=== PATIENT | male | born 1995 | race Caucasian/White ===

== ENCOUNTER 2022-08-17 06:53 | Emergency (ER) | payer OTHER, SELFPAY ==
[2022-08-17] VITALS (7 sets, daily range): BP systolic 117–143; BP diastolic 71–81; PULSE 59–85; RESP 14–18; TEMP 36.8; O2SAT 97–100; BMI 36.3
--- NOTE | 2022-08-17 07:26 | ED_ITS ---
HPI - General Adult General Chief complaint: Neuro Symptoms/Deficit Stated complaint: SYNCOPE 08/16/22 @2000 Time Seen by Provider: 08/17/22 07:15 Source: patient Mode of arrival: walk-in Limitations: no limitations History of Present Illness HPI narrative: this patient's here for evaluation at two events one occurred Tuesday night one occurred last night. Since Tuesday he was out with friends drinking quite substantially and felt to be had feeling of tightness and lightheadedness and may have passed out. His friends did not bring him to the hospital for evaluation. He went home and rest over the weekend felt fine. He was in his room last night by himself in the felt a tightness developing in his arms and he had a sit up in bed so that he didn't pass out. He doesn't recall what happened and he is alone. On his way to work today he was holding the steering well with his right arm and started getting tense so he let go and held discerning what this left arm and thought that he should go to the hospital. He used to be a very very heavy drinker but until Tuesday night he spent drinking a little bit less. He also uses marijuana over the weekend. He is not on any medication at all. His family doctor retired but he did not try to get the new substitute doctor to see him. There are no family or personal history of seizures or other neuromuscular diseases. He does get frequent migraine headaches. He did not have any trauma or injury recently has not been sick with nausea vomiting diarrhea shortness of breath chest colds cough and congestion are all negative. He's not had any blood work done in many many years . he was not incontinent of urine. He did not bite his tongue. He really did not describe any ictal phase after these events. He has no history of syncope or cardiac palpitations. Related Data Home Medications Medication Instructions Recorded Confirmed albuterol sulfate 90 mcg/actuation 2 inh inhalation Q8H PRN shortness 08/17/22 08/17/22 aerosol inhaler of breath or wheezing Allergies Allergy/AdvReac Type Severity Reaction Status Date / Time No Known Drug Allergies Allergy Verified 08/17/22 06:59 PFSH PFSH Social History Smoking status: Light tobacco smoker Exam Narrative Exam Narrative: awake alert vital signs as noted. He is afebrile. He is not particularly anxious is fully cooperative he looks well he's on a cell phone taxing. Constitutional well-hydrated well-nourished male moves about comfortably cognition and mentation all appears normal this time. HEENT shows no evidence of tongue lax lacerations injuries to the buccal mucosa or dental problems. Neck is soft and supple with no meningeal irritation. Amish was his lungs are clear no wheezes rales or rhonchi. Heart sounds are normal with no arrhythmia clicks rubs or gallops. Neurological examination shows cranial nerves II-12 are normal. Gross motor skills cognition and mentation are all completely normal. Cerebellar function testing is normal. Constitutional Vital Signs - 24 hr 08/17/22 07:00 08/17/22 07:17 08/17/22 07:11 Temperature 98.2 F Pulse Rate Pulse Rate [Monitor] 59 L Respiratory Rate 16 18 Blood Pressure Blood Pressure [Left Arm] 139/81 H Pulse Oximetry 97 97 97 Oxygen Delivery Method Room Air Room Air 08/17/22 07:15 08/17/22 07:31 Temperature Pulse Rate 73 68 Pulse Rate [Monitor] Respiratory Rate 15 14 Blood Pressure 126/71 H 117/77 Blood Pressure [Left Arm] Pulse Oximetry Oxygen Delivery Method Course Vital Signs Vital signs: Vital Signs Temperature 98.2 F 08/17/22 07:00 Pulse Rate 59 L 08/17/22 07:00 Respiratory Rate 16 08/17/22 07:00 Blood Pressure 139/81 H 08/17/22 07:00 Pulse Oximetry 97 08/17/22 07:00 Oxygen Delivery Method Room Air 08/17/22 07:00 Temperature 98.2 F 08/17/22 07:00 Pulse Rate 68 08/17/22 07:31 Respiratory Rate 14 08/17/22 07:31 Blood Pressure 117/77 08/17/22 07:31 Pulse Oximetry 97 08/17/22 07:17 Oxygen Delivery Method Room Air 08/17/22 07:17 Medical Decision Making MDM Narrative Medical decision making narrative: patient presents with an interesting history is not clear-cut at this time. His symptoms suggest neurological etiology. He previously was treated for some mental health issues but since he stopped drinking gotten his life together he seems to be doing better but he still was using marijuana and that may or may not be contributing. Neither case with from the primary care doctor and local neurology group Lab Data Labs: Lab Results 08/17/22 Range/Units 07:37 WBC 6.2 (4.0-11.0) 10^3/uL RBC 4.72 (4.70-6.10) 10^6/uL Hgb 14.5 (14.0-18.0) g/dL Hct 41.7 L (42.0-54.0) % MCV 88.3 (80.0-94.0) fL MCH 30.7 (25.9-34.0) pg MCHC 34.8 (29.9-35.2) g/dL RDW 12.3 (11.0-15.0) % Plt Count 351 (150-450) 10^3/uL MPV 9.8 (9.5-13.5) fL Neut % (Auto) 53.6 (43.0-75.0) % Lymph % (Auto) 28.2 (20.5-60.0) % [place] % (Auto) 10.7 (1.7-12.0) % Eos % (Auto) 6.7 (0.9-7.0) % Baso % (Auto) 0.5 (0.2-2.0) % Neut # (Auto) 3.3 (1.4-6.5) 10^3/uL Lymph # (Auto) 1.8 (1.2-3.8) 10^3/uL [place] # (Auto) 0.7 (0.3-0.8) 10^3/uL Eos # (Auto) 0.4 (0.0-0.7) 10^3/uL Baso # (Auto) 0.0 (0.0-0.1) 10^3/uL Abs Immat Gran (auto) 0.02 (0.00-0.03) 10^3/uL Imm/Tot Granulo (auto) 0.3 (0.0-0.5) % Sodium 139 (136-145) mmol/L Potassium 4.3 (3.5-5.1) mmol/L Chloride 104 (98-107) mmol/L Carbon Dioxide 23.9 (21.0-32.0) mmol/L Anion Gap 15.4 BUN 14.0 (7.0-18.0) mg/dL Creatinine 0.92 (0.70-1.30) mg/dL Est GFR ( Amer) >60 (>=60) Est GFR (Non-Af Amer) >60 (>=60) BUN/Creatinine Ratio 15.2 Glucose 107 H (74-106) mg/dL Calcium 8.7 (8.5-10.1) mg/dL Total Bilirubin 0.5 (0.2-1.0) mg/dL AST 21 (15-37) U/L ALT 41 (16-63) U/L Alkaline Phosphatase 83 (46-116) U/L Total Protein 7.2 (6.4-8.2) g/dL Albumin 3.7 (3.4-5.0) g/dL Globulin 3.5 g/dL Albumin/Globulin Ratio 1.1 Discharge Plan Discharge Chief Complaint: Neuro Symptoms/Deficit Clinical Impression: Transient alteration of awareness Patient Disposition: Home, Self-Care Time of Disposition Decision: 08:12 Prescriptions / Home Meds: No Action albuterol sulfate 90 mcg/actuation HFA aerosol inhaler 2 inh INHALATION Q8H PRN (Reason: shortness of breath or wheezing) Stand Alone Forms: Portal Instructions Referrals: Physician,Non-Staff, MD [Primary Care Provider] - 1 week
--- NOTE | 2022-08-17 07:30 | ECG_ITS ---
The [facility] Test Date: 2022-08-17 Pat Name: WARD MELARA Department: Room: - Gender: Male Qu[place]ogger: : 1995 Requested By: [id number] Order Number: [id number] Reading MD: IZABELLA RODRIGUEZ Measurements Intervals [place] Rate: 66 P: 12 UT: 158 QRS: 38 QRSD: 92 T: 40 QT: 386 QTc: 399 Interpretive Statements 1100 Sinus rhythm 1102 Sinus arrhythmia 9110 normal ECG No previous ECG available for comparison Electronically Signed On 08-18-2022 6:57:41 EDT by IZABELLA RODRIGUEZ
[2022-08-17 07:44] LABS: Basophils Percent Auto 0.5 % (0.2-2.0); Eosinophils Absolute Auto 0.4 10^3/uL (0.0-0.7); Eosinophils Percent Auto 6.7 % (0.9-7.0); Hematocrit 41.7 % (42.0-54.0); Hemoglobin 14.5 g/dL (14.0-18.0); Immature Granulocytes Abs Auto 0.02 10^3/uL (0.00-0.03); Immature Granulocytes Pct Auto 0.3 % (0.0-0.5); Lymphocytes Absolute Auto 1.8 10^3/uL (1.2-3.8); Lymphocytes Percent Auto 28.2 % (20.5-60.0); Mean Corpuscular HGB Conc 34.8 g/dL (29.9-35.2); Mean Corpuscular Hemoglobin 30.7 pg (25.9-34.0); Mean Corpuscular Volume 88.3 fL (80.0-94.0); Mean Platelet Volume 9.8 fL (9.5-13.5); Monocytes Absolute Auto 0.7 10^3/uL (0.3-0.8); Monocytes Percent Auto 10.7 % (1.7-12.0); Neutrophils Absolute Auto 3.3 10^3/uL (1.4-6.5); Neutrophils Percent Auto 53.6 % (43.0-75.0); Platelet Count 351 10^3/uL (150-450); Red Blood Count 4.72 10^6/uL (4.70-6.10); Red Cell Distribution Width 12.3 % (11.0-15.0); White Blood Count 6.2 10^3/uL (4.0-11.0)
[2022-08-17 07:57] LABS: Alanine Aminotransferase 41 U/L (16-63); Albumin Globulin Ratio 1.1; Albumin Level 3.7 g/dL (3.4-5.0); Alkaline Phosphatase 83 U/L (46-116); Anion Gap 15.4; Aspartate Amino Transferase 21 U/L (15-37); BUN Creatinine Ratio 15.2; Bilirubin Total 0.5 mg/dL (0.2-1.0); Calcium 8.7 mg/dL (8.5-10.1); Carbon Dioxide 23.9 mmol/L (21.0-32.0); Chloride 104 mmol/L (98-107); Estimated GFR (African America >60 (>=60); Estimated GFR (Non-African Ame >60 (>=60); Globulin 3.5 g/dL; Glucose 107 mg/dL (74-106); Potassium 4.3 mmol/L (3.5-5.1); Sodium 139 mmol/L (136-145); Total Protein 7.2 g/dL (6.4-8.2)
== END 2022-08-17 08:24 | disposition home or self-care (01) ==
PROVIDERS: Emergency Provider Emergency Medicine Emergency Medical Services
DX: R40.4 Transient alteration of awareness (principal); Z79.899 Other long term (current) drug therapy; F17.210 Nicotine dependence, cigarettes, uncomplicated; F12.90 Cannabis use, unspecified, uncomplicated
CPT/HCPCS: 36415; 80053; 85025; 93005; 99285

== ENCOUNTER 2023-09-29 16:23 | Emergency (ER) | payer SELFPAY ==
[2023-09-29 16:42] VITALS: BP 173/95; PULSE 74; TEMP 37.3; O2SAT 98; BMI 35.9
--- NOTE | 2023-09-29 17:08 | ED.GENADUL1 ---
HPI HPI - General Adult General Chief complaint: Nausea/Vomiting/Diarrhea Stated complaint: DIFF KEEPING FOOD DOWN, DIARRHEA Time Seen by Provider: 09/29/23 16:29 Source: patient Mode of arrival: walk-in Limitations: no limitations History of Present Illness HPI narrative: Patient Is a 28-year-old male who presents to the emergency department for a 2 to 3-week history of intermittent vomiting and diarrhea. Patient was seen by his PCP earlier in this week and prescribed Prilosec and Zofran. He states he is only taking the Zofran in the morning and when he gets home from work so that he can save them. He has had no objective fevers. He denies any significant abdominal pain. He states he does have some cramping when he is going to have a bowel movement. No previous abdominal surgeries, he denies any blood in his stool, no urinary symptoms. He states his employer referred him to the ER because his symptoms are interfering with his work schedule. Related Data Home Medications ?Medication ?Instructions ?Recorded ?Confirmed albuterol sulfate 90 mcg/actuation 2 inh inhalation Q8H PRN shortness 08/17/22 09/29/23 aerosol inhaler of breath or wheezing omeprazole 40 mg capsule,delayed 40 mg PO DAILY 09/29/23 09/29/23 release ondansetron HCl 4 mg tablet 4 mg PO Q6H PRN nausea and vomiting 09/29/23 09/29/23 Previous Rx's ?Medication ?Instructions ?Recorded hyoscyamine sulfate 0.125 mg 0.125 mg PO Q6H PRN abdominal pain 09/29/23 tablet (Levsin) #12 tabs ondansetron 4 mg disintegrating 4 mg PO Q6H PRN nausea and 09/29/23 tablet vomiting #12 tabs pantoprazole 40 mg tablet,delayed 40 mg PO DAILY #7 tabs 09/29/23 release (Protonix) Allergies Allergy/AdvReac Type Severity Reaction Status Date / Time No Known Drug Allergies Allergy Verified 08/17/22 06:59 Opioid HPI Opioid Management Most Recent Opioid Data: Ur Phencyclidine Scrn Negative (NEGATIVE) 09/29/23 16:55 Review of Systems ROS Constitutional Denies: fever or chills Ears, nose, mouth, and throat Denies: throat pain or nasal congestion Cardiovascular Denies: chest pain Respiratory Denies: shortness of breath Gastrointestinal Reports: nausea, vomiting and diarrhea; Denies: abdominal pain Musculoskeletal Denies: back pain Integumentary/Breast Denies: rash Neurological Denies: headache PFSH PFSH Social History Smoking status: Light tobacco smoker Exam Narrative Exam Narrative: Gen.: Awake, alert, in no distress Head: Normocephalic, atraumatic ENT: Moist mucous membranes Respiratory: No respiratory distress, lungs clear bilaterally Cardio: Regular rate and rhythm Gastrointestinal: Abdomen is soft, nondistended and nontender to palpation Extremities: Moves extremities equally Psych: Normal mood and affect Neuro: No focal neuro deficit Skin: Warm, dry, intact Constitutional Vital Signs, click to edit/add: Last Vital Signs Temp 99.2 F 09/29/23 16:42 Pulse 74 09/29/23 16:42 Resp 18 09/29/23 16:42 BP 173/95 H 09/29/23 16:42 Pulse Ox 98 09/29/23 16:42 O2 Del Method Room Air 09/29/23 16:42 Course Vital Signs Vital signs: Vital Signs Temperature 99.2 F 09/29/23 16:42 Pulse Rate 74 09/29/23 16:42 Respiratory Rate 18 09/29/23 16:42 Blood Pressure 173/95 H 09/29/23 16:42 Pulse Oximetry 98 09/29/23 16:42 Oxygen Delivery Method Room Air 09/29/23 16:42 Temperature 99.2 F 09/29/23 16:42 Pulse Rate 74 09/29/23 16:42 Respiratory Rate 18 09/29/23 16:42 Blood Pressure 173/95 H 09/29/23 16:42 Pulse Oximetry 98 09/29/23 16:42 Oxygen Delivery Method Room Air 09/29/23 16:42 Medical Decision Making MDM Narrative Medical decision making narrative: Laboratory studies reviewed and noted within normal limits although the patient has an elevated ethanol level of 61, suspect alcoholic gastritis may be contributing to his symptoms. He was started on extra Zofran for home in addition to Protonix, Levsin. Follow-up with PCP and return to the ER if symptoms change or worsen. If patient continues having diarrhea he should follow-up for stool specimen with his PCP. SUPERVISED APC VISIT, PHYSICIAN ATTESTATION: Based on the medical record the care appears appropriate. ? Medical Records Medical records reviewed: Yes I reviewed the patient's medical records Lab Data Lab results reviewed: Yes I reviewed the patient's lab results Labs: Lab Results 09/29/23 09/29/23 Range/Units 16:55 17:00 WBC 8.3 (4.0-11.0) 10^3/uL RBC 4.91 (4.70-6.10) 10^6/uL Hgb 15.3 (14.0-18.0) g/dL Hct 44.7 (42.0-54.0) % MCV 91.0 (80.0-94.0) fL MCH 31.2 (25.9-34.0) pg MCHC 34.2 (29.9-35.2) g/dL RDW 13.0 (11.0-15.0) % Plt Count 335 (150-450) 10^3/uL MPV 9.7 (9.5-13.5) fL Neut % (Auto) 66.3 (43.0-75.0) % Lymph % (Auto) 19.8 L (20.5-60.0) % [place] % (Auto) 11.5 (1.7-12.0) % Eos % (Auto) 1.6 (0.9-7.0) % Baso % (Auto) 0.6 (0.2-2.0) % Neut # (Auto) 5.5 (1.4-6.5) 10^3/uL Lymph # (Auto) 1.7 (1.2-3.8) 10^3/uL [place] # (Auto) 1.0 H (0.3-0.8) 10^3/uL Eos # (Auto) 0.1 (0.0-0.7) 10^3/uL Baso # (Auto) 0.1 (0.0-0.1) 10^3/uL Abs Immat Gran (auto) 0.02 (0.00-0.03) 10^3/uL Imm/Tot Granulo (auto) 0.2 (0.0-0.5) % Sodium 140 (136-145) mmol/L Potassium 3.9 (3.5-5.1) mmol/L Chloride 103 (98-107) mmol/L Carbon Dioxide 28.3 (21.0-32.0) mmol/L Anion Gap 12.6 BUN 9.0 (7.0-18.0) mg/dL Creatinine 1.09 (0.70-1.30) mg/dL Est GFR ( Amer) >60 (>=60) Est GFR (Non-Af Amer) >60 (>=60) BUN/Creatinine Ratio 8.3 Glucose 86 (74-106) mg/dL Lactate 0.6 (0.4-2.0) mmol/L Calcium 9.4 (8.5-10.1) mg/dL Total Bilirubin 0.7 (0.2-1.0) mg/dL AST 20 (15-37) U/L ALT 41 (16-63) U/L Alkaline Phosphatase 86 (46-116) U/L Total Protein 7.7 (6.4-8.2) g/dL Albumin 4.3 (3.4-5.0) g/dL Globulin 3.4 g/dL Albumin/Globulin Ratio 1.3 Lipase 31.0 (16.0-77.0) U/L Urine Color Yellow (YELLOW) Urine Clarity Clear (CLEAR) Urine pH 6.0 (5.0-9.0) Ur Specific [place] 1.025 (1.005-1.025) Urine Protein Negative (NEG/TRACE) mg/dL Urine Glucose (UA) Negative (NEGATIVE) mg/dL Urine Ketones Negative (NEGATIVE) mg/dL Urine Occult Blood Negative (NEGATIVE) Urine Nitrite Negative (NEGATIVE) Urine Bilirubin Negative (NEGATIVE) Urine Urobilinogen 0.2 (0.2-1.0) EU/dL Ur Leukocyte Esterase Negative (NEGATIVE) Urine Opiates Screen Negative (NEGATIVE) Ur Buprenorphine Scrn Negative (NEGATIVE) Ur Oxycodone Screen Negative (NEGATIVE) Urine Methadone Screen Negative (NEGATIVE) Ur Barbiturates Screen Negative (NEGATIVE) U Tricyclic Antidepress Negative (NEGATIVE) Ur Phencyclidine Scrn Negative (NEGATIVE) Ur Amphetamines Screen Negative (NEGATIVE) U Methamphetamines Scrn Negative (NEGATIVE) U Benzodiazepines Scrn Negative (NEGATIVE) Urine Cocaine Screen Negative (NEGATIVE) U Cannabinoids Screen Positive A (NEGATIVE) Ethanol Quant 61 mg/dL Imaging Data CT scan - abdomen: Attestation: I have reviewed the pertinent imaging results. Radiologist's impression: ITS Impressions Abdomen/Pelvis CT 09/29/23 17:40 IMPRESSION: No acute findings in the abdomen or pelvis. Electronically authenticated by: RENARD POLLACK Date: 09/29/2023 19:09 Discharge Plan Discharge Stand Alone Forms: Portal Instructions Chief Complaint: Nausea/Vomiting/Diarrhea Clinical Impression: Nausea vomiting and diarrhea Patient Disposition: Home, Self-Care Time of Disposition Decision: 19:13 Condition: Good Prescriptions / Home Meds: New pantoprazole [Protonix] 40 mg tablet,delayed release (DR/EC) 40 mg PO DAILY Qty: 7 0RF hyoscyamine sulfate [Levsin] 0.125 mg tablet 0.125 mg PO Q6H PRN (Reason: abdominal pain) Qty: 12 0RF ondansetron 4 mg tablet,disintegrating 4 mg PO Q6H PRN (Reason: nausea and vomiting) Qty: 12 0RF No Action albuterol sulfate 90 mcg/actuation HFA aerosol inhaler 2 inh INHALATION Q8H PRN (Reason: shortness of breath or wheezing) omeprazole 40 mg capsule,delayed release(DR/EC) 40 mg PO DAILY ondansetron HCl 4 mg tablet 4 mg PO Q6H PRN (Reason: nausea and vomiting) Print Language: Sierra Leonean Instructions: Acute Nausea and Vomiting (ED), Acute Abdominal Pain (ED) Referrals: Physician,Non-Staff, MD [Physician] - 1 week
[2023-09-29] MEDS: FAMOTIDINE/PF 20 MG/2 ML VIAL IV (17:09)
[2023-09-29] MEDS: ONDANSETRON PF 4 MG/2 ML VIAL IV (17:09)
[2023-09-29] MEDS: 0.9 % SODIUM CHLORIDE 1,000 ML 999 ML IV (17:09)
[2023-09-29 17:17] LABS: Basophils Absolute Auto 0.1 10^3/uL (0.0-0.1); Basophils Percent Auto 0.6 % (0.2-2.0); Eosinophils Absolute Auto 0.1 10^3/uL (0.0-0.7); Eosinophils Percent Auto 1.6 % (0.9-7.0); Hematocrit 44.7 % (42.0-54.0); Hemoglobin 15.3 g/dL (14.0-18.0); Immature Granulocytes Abs Auto 0.02 10^3/uL (0.00-0.03); Immature Granulocytes Pct Auto 0.2 % (0.0-0.5); Lymphocytes Absolute Auto 1.7 10^3/uL (1.2-3.8); Lymphocytes Percent Auto 19.8 % (20.5-60.0); Mean Corpuscular HGB Conc 34.2 g/dL (29.9-35.2); Mean Corpuscular Hemoglobin 31.2 pg (25.9-34.0); Mean Platelet Volume 9.7 fL (9.5-13.5); Monocytes Percent Auto 11.5 % (1.7-12.0); Neutrophils Absolute Auto 5.5 10^3/uL (1.4-6.5); Neutrophils Percent Auto 66.3 % (43.0-75.0); Platelet Count 335 10^3/uL (150-450); Red Blood Count 4.91 10^6/uL (4.70-6.10); White Blood Count 8.3 10^3/uL (4.0-11.0)
[2023-09-29 17:22] LABS: Bilirubin Urine NEGATIVE (NEGATIVE); Blood Urine NEGATIVE (NEGATIVE); Clarity Urine CLEAR (CLEAR); Color Urine YELLOW (YELLOW); Glucose Urine UA NEGATIVE (NEGATIVE); Ketones Urine NEGATIVE (NEGATIVE); Leukocyte Esterase Urine NEGATIVE (NEGATIVE); Nitrite Urine NEGATIVE (NEGATIVE); Protein Urine NEGATIVE (NEG/TRACE); Specific Gravity Urine 1.025 (1.005-1.025); Urobilinogen Urine 0.2 EU/dL (0.2-1.0)
[2023-09-29 17:36] LABS: Alanine Aminotransferase 41 U/L (16-63); Albumin Globulin Ratio 1.3; Albumin Level 4.3 g/dL (3.4-5.0); Alkaline Phosphatase 86 U/L (46-116); Anion Gap 12.6; Aspartate Amino Transferase 20 U/L (15-37); BUN Creatinine Ratio 8.3; Bilirubin Total 0.7 mg/dL (0.2-1.0); Calcium 9.4 mg/dL (8.5-10.1); Carbon Dioxide 28.3 mmol/L (21.0-32.0); Chloride 103 mmol/L (98-107); Estimated GFR (African America >60 (>=60); Estimated GFR (Non-African Ame >60 (>=60); Globulin 3.4 g/dL; Glucose 86 mg/dL (74-106); Potassium 3.9 mmol/L (3.5-5.1); Sodium 140 mmol/L (136-145); Total Protein 7.7 g/dL (6.4-8.2)
[2023-09-29 17:38] LABS: Lactate/Lactic Acid 0.6 mmol/L (0.4-2.0)
--- NOTE | 2023-09-29 17:40 | CT_ITS ---
The [address] [address] Patient Name: WARD MELARA MRN: [id number] date: 1995 Sex: M Assigned Patient Location: ER Current Patient Location: ER Accession/Order Number: [id number] Exam Date: 09/29/2023 17:30 Report Date: 09/29/2023 19:09 At the request of: ALEXX PRESCOTT Procedure: CT abdomen pelvis w con CT ABDOMEN AND PELVIS WITH CONTRAST: INDICATION: Vomiting and diarrhea. COMPARISON: None. TECHNIQUE: Helical CT images of the abdomen and pelvis were obtained after the administration of intravenous contrast. Dose reduction techniques were achieved by using automated exposure control and/or adjustment of mA and/or kV according to patient size and/or use of iterative reconstruction technique. FINDINGS: LOWER CHEST: The visualized lung bases are clear. LIVER: Unremarkable. GALLBLADDER AND BILIARY SYSTEM: Unremarkable. SPLEEN: Unremarkable. PANCREAS: Unremarkable. ADRENAL GLANDS: Unremarkable. KIDNEYS AND URETERS: The kidneys enhance symmetrically. There is no hydronephrosis. No focal renal lesions. BLADDER: Under distended. GASTROINTESTINAL TRACT: No evidence of bowel obstruction or colitis. Normal appendix. VASCULATURE: Unremarkable. RETROPERITONEUM AND LYMPH NODES: No lymphadenopathy or mass. PERITONEUM/MESENTERY: No abdominal ascites. No free air. PELVIS: No pelvic ascites or lymphadenopathy. Small bilateral fat-containing inguinal hernias. BODY WALL: Unremarkable. BONES: No acute abnormality. CT/CT abdomen pelvis w con IMPRESSION: No acute findings in the abdomen or pelvis. Electronically authenticated by: RENARD POLLACK Date: 09/29/2023 19:09
[2023-09-29 17:47] LABS: Urine Microscopic Indicated NO
[2023-09-29 17:57] LABS: Amphetamine Screen Urine NEGATIVE (NEGATIVE); Barbiturates Screen Urine NEGATIVE (NEGATIVE); Benzodiazepines Screen Urine NEGATIVE (NEGATIVE); Buprenorphine Screen Urine NEGATIVE (NEGATIVE); Cannabinoid Screen Urine POSITIVE (NEGATIVE); Cocaine Screen Urine NEGATIVE (NEGATIVE); Methadone Screen Urine NEGATIVE (NEGATIVE); Methamphetamines Screen Urine NEGATIVE (NEGATIVE); Opiate Screen Urine NEGATIVE (NEGATIVE); Oxycodone Screen Urine NEGATIVE (NEGATIVE); Phencyclidine Screen Urine NEGATIVE (NEGATIVE); Tricyclic Antidepressant Urine NEGATIVE (NEGATIVE)
[2023-09-29 19:01] LABS: Ethanol 61 mg/dL
== END 2023-09-29 19:38 | disposition home or self-care (01) ==
PROVIDERS: Physician Assistant; Emergency Provider Emergency Medicine; PCP Family Medicine
DX: R11.2 Nausea with vomiting, unspecified (principal); R19.7 Diarrhea, unspecified; F17.200 Nicotine dependence, unspecified, uncomplicated
CPT/HCPCS: 36415; 74177; 80053; 80307; 80320; 81003; 83605; 83690; 85025; 96361; 96374; 96375; 99285; J2405; Q9967

== ENCOUNTER 2023-12-25 07:59 | Emergency (ER) | payer SELFPAY ==
[2023-12-25 08:05] VITALS: BP 160/83; PULSE 82; TEMP 36.9; O2SAT 97; BMI 37.3
--- OUTSIDE RECORDS SUMMARY | 2023-12-25 08:17 | XMS_ITS | CCD ---
Author Organization [facility] Care Team Providers Care Planning Feeder Name Role Phone MD Carmen Huff Primary Care Provider MD Elizabet Grady Admit Provider MD Elizabet Grady Attending Provider [phone] DIAB ., FLOWER Consulting Unavailable DIAB ., FLOWER Attending Unavailable DIAB ., FLOWER Admitting Unavailable HUFF ., DR CARMEN Key Primary Care Unavailable GERSON ALBERT Consulting Unavailable HUFF ., DR CARMEN Key Consulting Unavailable HUFF ., DR CARMEN Key Primary Care Unavailable HUFF ., DR CARMEN Key Attending Unavailable HUFF ., DR CARMEN Key Admitting Unavailable REINECK, DR ALEX Cruz Consulting Unavailabl e REINECK, DR ALEX Cruz Attending Unavailabl e REINECK, DR ALEX Cruz Admitting Unavailabl e HUFF ., DR CARMEN Key Primary Care Unavailable GERSON ALBERT Consulting Unavailable ZIEBER, DR ISABEL Combs Consulting Unavailable PAY ., DR SERRANO Attending Unavailable PAY ., DR SERRANO Admitting Unavailable HUFF ., DR CARMEN Key Primary Care Unavailable CLARK ., DANA Consulting Unavailable BUD NAVARRO Consulting Unavailable CAM ., JESUS ALBERTO Attending Unavailable CAM ., JESUS ALBERTO Admitting Unavailable HUFF ., DR CARMEN Key Primary Care Unavailable CAM ., JESUS ALBERTO Consulting Unavailable FRANCESCA, DR GOLDIE Combs Consulting Unavailable FRANCESCA, DR GOLDIE Combs Attending Unavailable FRANCESCA, DR GOLDIE Combs Admitting Unavailable HUFF ., DR CARMEN Key Primary Care Unavailable NATE EMERY Consulting Unavailable MARKER ., DR KAMARA Consulting Unavailable MARKER ., DR KAMARA Attending Unavailable MARKER ., DR KAMARA Admitting Unavailable HUFF ., DR CARMEN Key Primary Care Unavailable INDERJIT RUBIO Consulting Unavailable CAM ., JESUS ALBERTO Attending Unavailable CAM ., JESUS ALBERTO Admitting Unavailable JESUS ALBERTO PRINCE Consulting Unavailable DR CARMEN MCMAHON Primary Care Unavailable CAM ., JESUS ALBERTO Consulting Unavailable CAM ., JESUS ALBERTO Attending Unavailable CAM ., JESUS ALBERTO Admitting Unavailable MICHAEL ., DR CARMEN Key Primary Care Unavailable NO FAMILY, PHYSICIAN Primary Care Provider Unava ilable Akilah, DO Mann M Emergency Provider Kay Lugo Primary Care Physician [phone] MD Coco Landry Jr Emergency Provider NO FAMILY, PHYSICIAN Primary Care Provider Unava ilable Akilah, DO Johnathan M Emergency Provider Coco Landry Jr Admitting Unavailable Coco Landry Jr Attending Unavailable NO FAMILY, PHYSICIAN Primary Care Unavailable Johnathan Isbell Admitting Unavailable Johnathan Isbell Attending Unavailable NO FAMILY, PHYSICIAN Primary Care Unavailable NO FAMILY, PHYSICIAN Primary Care Unavailable Johnathan Isbell M Admitting Unavailable Johnathan Isbell Attending Unavailable Peter Grady Admitting Unavailab Peter Landa Attending Unavailab Carmen Rust Primary Care Unavailable Kay Lugo Attending Unavailable Kay Lugo Attending Unavailable Amos PADILLA Attending Unavailable Kay Lugo Admitting Unavailable ParishKay mehta Attending Unavailable Felipe Garza Attending Unavailable Kay Lugo Referring Unavailable Kay Lugo Attending Unavailable MD Carlos Espinoza Attending Unavailable ParishKay mehta Attending Unavailable ParishKay mehta Attending Unavailable ParishKay mehta Admitting Unavailable Medications Current Medications Medication Drug Class(es) Dates Sig (Normalized) Sig (Original) [id number] 200 actuat albuterol 0.09 mg/actuat metered dose inhaler (3 sources) beta2-Adrenergic Agonist Start: 07-22-2022 take 1 puff(s) by inhalation four times daily Albuterol Sulfate Active 2 PUFF INHALATION Four times daily July 22, 2022 12:00am Albuterol (Eqv-ProAir HFA) 90 mcg/inh inhalation aerosol (3 sources) Start: 08-19-2022 Albuterol (Eqv-ProAir HFA) 90 mcg/inh inhalation aerosol Refill(s) 0 Start Date: 08/19/22 Status: Ordered omeprazole 40 mg delayed release oral capsule (2 sources) Proton Pump Inhibitor Start: 08-09-2023 take 1 capsule by mouth once daily omeprazole 40 mg Cap-DR 40 mg = 1 cap(s), Oral, Daily, # 90 cap(s), Refills(s) 1, [id number] 179.5, cm, 08/09/23 14:47:00 EDT, Height/Length Dosing, 114.9, kg, 08/09/23 14:47:00 EDT, Weight Dosing Start Date: 08/09/23 Status: Ordered Start: 07-12-2023 take 1 capsule by mo [facility] once daily omeprazole 40 mg Cap-DR 40 mg = 1 cap(s), Oral, Daily, # 90 cap(s), Refills(s) 1, Pharmacy: [facility]/pharmacy #[id number], 179.5, cm, 07/12/23 8:54:00 EDT, Height/Length Dosing, 118.5, kg, 07/12/23 8:54:00 EDT, Weight Dosing Start Date: 07/12/23 Status: Ordered ondansetron 4 mg oral tablet (4 sources) Serotonin-3 Receptor Antagonist Start: 07-19-2023 take 1 tablet by mouth every six hours as needed for nausea ondansetron 4 mg Tab 4 mg = 1 tab(s), Oral, q6hr, PRN Nausea/Vomiting, # 12 tab(s), Refills(s) 0, [id number] 179.5, cm, 07/19/23 15:39:00 EDT, Height/Length Dosing, 116.3, kg, 07/19/23 15:39:00 EDT, Weight Dosing Start Date: 07/19/23 Status: Ordered Start: 12-17-2022 Ondansetron Hc l Active 4 MG PO every 6 to 8 hours December 17, 2022 12:00am Start: 10-12-2022 End: 12-16-2022 take 4 mg by mouth every eight hours Ondansetron Discontinued 4 MG PO Q8H October 12, 2022 12:00am December 16, 2022 9:56pm Completed/Discontinued Medications Medication Drug Class(es) Dates Sig (Normalized) Sig (Original) amoxicillin 500 mg oral capsule (3 sources) Penicillin-class Antibacterial Start: 07-22-2022 End: 10-12-2022 take 500 mg by mouth every six hours Amoxicillin Discontinued 500 MG PO Q6H July 22, 2022 12:00am October 12, 2022 2:01am clindamycin 150 mg oral capsule (3 sources) Lincosamide Antibacterial Start: 07-22-2022 End: 10-12-2022 take 450 mg by mouth every eight hours Clindamycin Hcl Discontinued 450 MG PO Q8H 63 7 July 22, 2022 12:00am October 12, 2022 2:02am cyclobenzaprine hydrochloride 5 mg oral tablet (4 sources) Muscle Relaxant Start: 11-13-2020 End: 12-28-2021 take 5 mg by mouth three times daily Cyclobenzaprine Discontinued 5 MG PO Three times daily November 13, 2020 12:00am December 28, 2021 5:48pm escitalopram 5 mg oral tablet (4 sources) Serotonin Reuptake Inhibitor Start: 01-01-2022 End: 07-22-2022 take 5 mg by mouth once daily in the morning Escitalopram Oxalate Discontinued 5 MG PO Every morning January 01, 2022 1:00am July 22, 2022 5:45am ibuprofen 800 mg oral tablet (3 sources) Nonsteroidal Anti-inflammatory Drug Start: 07-22-2022 End: 10-12-2022 take 800 mg by mouth every eight hours Ibuprofen Discontinued 800 MG PO Q8H 14 July 22, 2022 12:00am October 12, 2022 2:02am Problems Active Problems Problem Classification Problem Date Documented Da te Episodic/Chronic Anxiety disorders (2 sources) Mixed anxiety and depressive disorder 08-23-2022 Chronic Asthma (2 sources) Unspecified asthma with (acute) exacerbation; Translations: [Unspecified asthma, uncomplicated] Onset: Chronic Conditions associated with dizziness or vertigo (3 sources) Dizziness 08-19-2022 Episodic Disorders of lipid metabolism (2 sources) Hyperlipidemia 07-12-2023 Chronic Disorders of teeth and jaw (3 sources) Toothache; Translations: [Other specified disorders of teeth and supporting structures] 07-22-2022 Episodic E Codes: Struck by; against (1 source) Striking against or struck by other objects, initial encounter; Translations: [STRIKING AGNST/STRUCK OTH OBJ INIT] Onset: 3 Episodic Esophageal disorders (2 sources) Gastroesophageal reflux disease 07-12-2023 Chronic Essential hypertension (2 sources) Hypertensive disorder 07-12-2023 Chronic Fever of unknown origin (2 sources) Fever; Translations: [Fever, unspecified] 10-12-2022 Episodic Malaise and fatigue (3 sources) Fatigue 08-19-2022 Episodic Mood disorders (6 sources) Major depressive disorder; Translations: [Major depressive disorder, single episode, unspecified] Onset: 2 12-29-2021 Chronic Nausea and vomiting (8 sources) Nausea with vomiting, unspecified; Translations: [Nausea] Onset: 2 Episodic Other aftercare (1 source) Other intermediate manager (current) drug therapy; Translations: [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] Onset: 3 Episodic Other gastrointestinal disorders (4 sources) Diarrhea; Translations: [Diarrhea, unspecified] 10-12-2022 Episodic Other injuries and conditions due to external causes (3 sources) Unspecified injury of right wrist, hand and finger(s), initial encounter; Translations: [UNS INJ RT WRIST HAND FINGERS INIT] Onset: 3 Episodic Other lower respiratory disease (3 sources) Shortness of breath; Translations: [SHORTNESS OF BREATH] Onset: 3 Episodic Other lower respiratory disease (1 source) Pleurodynia; Translations: [PLEURODYNIA] Onset: 3 Episodic Other nervous system disorders (3 sources) Tingling of skin 08-19-2022 Episodic Other nutritional; endocrine; and metabolic disorders (2 sources) Unintentional weight loss 07-12-2023 Episodic Spondylosis; intervertebral disc disorders; other back problems (4 sources) Backache; Translations: [Dorsalgia, unspecified] 11-13-2020 Episodic Substance-related disorders (3 sources) Nicotine dependence, other tobacco product, uncomplicated; Translations: [Nicotine dependence, chewing tobacco, uncomplicated] Onset: 2 Chronic Superficial injury; contusion (1 source) Contusion of right middle finger without damage to nail, initial encounter; Translations: [CONTUS RT MF W/O DAMAGE NAIL INIT] Onset: 3 Episodic Unclassified (2 sources) COUGH, UNSPECIFIED; Translations: [COUGH, UNSPECIFIED] Onset: 2 Unclassified (4 sources) CONTACT W/AND (SUSP) EXPOS COVID-19; Translations: [CONTACT W/AND (SUSP) EXPOS COVID-19] Onset: 2 Unclassified (1 source) Cyclical vomiting syndrome unrelated to migraine; Translations: [CYCLICL VOMTNG SYN UNRELTD MIGRAINE] Onset: 2 Unclassified (1 source) Fever, unspecified; Translations: [Fever, unspecified] Onset: 3 Unclassified (1 source) Other specified disorders of teeth and supporting structures; Translations: [Other specified disorders of teeth and supporting structures] Onset: 3 Viral infection (1 source) COVID-19; Translations: [COVID-19] Onset: 2 Past or Other Problems Problem Classification Problem Date Documented Da te Episodic/Chronic E Codes: Natural/environment (1 source) Other and unspecified overexertion or strenuous movements or postures, initial encounter; Translations: [OTH AND UNS OVREXRT/STRN MVMT/POS INT] Onset: 09-10-2021 Episodic Nonspecific chest pain (1 source) Other chest pain; Translations: [OTHER CHEST PAIN] Onset: 01-22-2022 Episodic Other lower respiratory disease (1 source) Other forms of dyspnea; Translations: [OTHER FORMS OF DYSPNEA] Onset: 01-22-2022 Episodic Other lower respiratory disease (1 source) Personal history of pneumonia (recurrent); Translations: [PERSONAL HX OF PNEUMONIA RECURRENT] Onset: 01-22-2022 Episodic Other non-traumatic joint disorders (3 sources) Pain in left knee; Translations: [PAIN IN LEFT KNEE] Onset: 09-09-2021 Episodic Other upper respiratory infections (1 source) Acute upper respiratory infection, unspecified; Translations: [ACUTE UP RESPIRATORY INFECTION UNS] Onset: 02-11-2022 Episodic Pneumonia (except that caused by tuberculosis or sexually transmitted disease) (1 source) Pneumonia, unspecified organism; Translations: [PNEUMONIA UNSPECIFIED ORGANISM] Onset: 11-23-2021 Episodic Screening and history of mental health and substance abuse codes (1 source) Personal history of nicotine dependence; Translations: [PERSONAL HISTORY OF NICOTINE DEPEND] Onset: 01-22-2022 Episodic Sprains and strains (1 source) Strain of unspecified muscle(s) and tendon(s) at lower leg level, left leg, initial encounter; Translations: [STRAIN UNS MSC TEND LOW LT LEG INIT] Onset: 09-10-2021 Episodic Substance-related disorders (1 source) Cannabis use, unspecified, uncomplicated; Translations: [CANNABIS USE UNS UNCOMPLICATED] Onset: 09-10-2021 Episodic Suicide and intentional self-inflicted injury (4 sources) Suicidal ideations; Translations: [SUICIDAL IDEATIONS] Onset: 12-28-2021 Episodic Unclassified (1 source) COUGH, UNSPECIFIED; Translations: [COUGH, UNSPECIFIED] Onset: 02-10-2022 Unclassified (1 source) CONTACT W/AND (SUSP) EXPOS COVID-19; Translations: [CONTACT W/AND (SUSP) EXPOS COVID-19] Onset: 09-28-2021 Results Test Name Value Interpretation Reference Range Facility Ambulatory Visit Summaryon 0 09-26-2023 Ambulatory Visit Summary Ambulatory Visit Summary CLAY NEWTON :1995 Visit Date:09/26/2023 Ambulatory Visit Instructions Your Diagnosis Nausea Acid reflux Anxiety and depression BMI 35.0-35.9,adult Class 1 obesity due to excess calories in adult Vaping-related disorder Your Care Team Attending Physician - Carlos Espinoza MD Primary Care Physician - Kay Marvin This Is Your Medications List omeprazole (omeprazole 40 mg Cap-DR) ondansetron (ondansetron 4 mg Tab) Contact prescribing physician if questions or concerns albuterol (Albuterol (Eqv-ProAir HFA) 90 mcg/inh inhalation aerosol) Procedures Performed Cyst. Discharge Vitals Temperature (Temporal Artery) 37.0 ?C Heart Rate (Peripheral) 80 Respiratory Rate 16 Blood Pressure 122/78 Height 179.5 cm Height 71 in Weight 114.0 kg Weight 250.8 lb BMI 35.38 What to do next Scheduled Follow-Up Appointments Tuesday 3:40 PM EDT With: Kay Marvin Where: [facility] [address] [place] [address]- Medications What How Much When Why Instructions Unchanged omeprazole (omeprazole 40 mg Cap-DR) 1 Capsules By Mouth Every day Hyperlipemia High blood pressure Diarrhea Nausea Unintentional weight loss Acid reflux BMI 36.0-36.9,adult Current every day vaping Pickup at [facility]/pharmacy #[id number] Unchanged ondansetron (ondansetron 4 mg Tab) 1 Tablets By Mouth Every 6 hours as needed for Nausea/Vomiting BMI 36.0-36.9,adult Current every day vaping Pickup at [facility]/pharmacy #[id number] Unchanged albuterol (Albuterol (Eqv-ProAir HFA) 90 mcg/ inh inhalation aerosol) Contact prescribing physician if questions or concerns Pharmacy Information [facility]/pharmacy #[id number]: [address], [place] [phone] Allergies No Known Allergies Problems Ongoing - Any problem that you are currently receiving treatment for. Acid reflux Anxiety and depression Diarrhea Dizziness Fatigue High blood pressure Hyperlipemia Nausea Tingling sensation Unintentional weight loss Patient Survey You may receive a survey via text or e-mail asking about your office visit. Please share your experience with us by completing your survey. We appreciate your feedback and thank you for choosing us for your care. [facility] Family Medicine Office/Clini c Noteon 09-26-2023 Family Medicine Office/Clinic Note Family Medicine Office/Clinic Note HPI Staff Clay is a 28 year old male presenting for sick visit Patient of Kay Lugo, walked in sent home from work Onset: and tuesday was vomiting and has had diarrhea for a week now. Work sent him home this morning they felt he looked pale. 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 Some water here and there, everything he eats or drinks just aggravates his stomach Getting hot and cold when tries to sleep last night with a fan on phq:3 phq9: 15 total 18 History of Present Illness - See staff HPI. Review of Systems PHQ Score Initial Depression Screen Score: 3 SCORE Detailed Depression Screen Score: 15 Total Depression Screen Score: 18 Physical Exam Vitals & Measurements T: 37.0 ?C(Temporal Artery) HR: 80(Peripheral) RR: 16 BP: 122/78 SpO2: 97% HT: 71 in HT: 179.5 cm WT: 114.0 kg WT: 250.8 lb BMI: 35.38 General: alert, no acute distress ENMT: oral mucosa moist, Cardiovascular: regular rate and rhythm, normal peripheral perfusion Respiratory: Lungs CTA, respirations non labored Extremities: no deformity, no trauma Neurological: oriented x 4, LOC appropriate for age, CN II-XII intact, motor strength equal & normal bilaterally, speech normal Abdomen: Soft, Nontender, Non-distended, + BS Assessment/Plan 1. Nausea (R11.0: Nausea) At this time I am unsure if this is worsening acid reflux versus gastroenteritis versus H. pylori. Will start back on the omeprazole and Zofran to help. Order a Helicobacter breath test. 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 Encouraged to decrease in Sprite and drink water and if he has to add flavoring. Patient will follow-up with his PCP. Ordered: omeprazole, 40 mg = 1 cap(s), Oral, Daily, # 90 cap(s), Refills(s) 1, [id number] 179.5, cm, 09/26/23 8:56:00 EDT, Height/Length Dosing, 114, kg, 09/26/23 8:56:00 EDT, Weight Dosing Helicobacter pylori; breath test analysis for urease activity, non-radioactive isotope (eg, C-13) 8 2. Acid reflux (K21.9: Gastro-esophageal reflux disease without esophagitis) As above Ordered: omeprazole, 40 mg = 1 cap(s), Oral, Daily, # 90 cap(s), Refills(s) 1, Pharmacy: [facility]/pharmacy #[id number], 179.5, cm, 09/26/23 8:56:00 EDT, Height/Length Dosing, 114, kg, 09/26/23 8:56:00 EDT, Weight Dosing Helicobacter pylori; breath test analysis for urease activity, non-radioactive isotope (eg, C-13) 8 3. Anxiety and depression (F41.9: Anxiety disorder, unspecified) With the patient losing his father earlier this year, I am concerned that the waking up after 3 to 4 hours is part of his bereavement. We will follow this closely. 4. BMI 35.0-35.9,adult (Z68.35: Body mass index [BMI] 35.0-35.9, adult) BMI education added 5. Class 1 obesity due to excess calories in adult (E66.09: Other obesity due to excess calories) Discussed diet and exercise 6. Vaping-related disorder (U07.0: Vaping-related disorder) Please stop vaping. Vaping can cause issues with acid reflux. Orders: ondansetron, 4 mg = 1 tab(s), Oral, q6hr, PRN Nausea/Vomiting, # 12 tab(s), Refills(s) 0, Pharmacy: [facility]/pharmacy #[id number], 179.5, cm, 09/26/23 8:56:00 EDT, Height/Length Dosing, 114, kg, 09/26/23 8:56:00 EDT, Weight Dosing Follow-up No qualifying data available Problem List/Past Medical History Ongoing Acid reflux Anxiety and depression Diarrhea Dizziness Fatigue High blood pressure Hyperlipemia Nausea Tingling sensation Unintentional weight loss Historical No qualifying data Procedure/Surgical History Cyst. Medications Albuterol (Eqv-ProAir HFA) 90 mcg/inh inhalation aerosol omeprazole 40 mg Cap-DR, 40 mg= 1 cap(s), Oral, Daily, 1 refills ondansetron 4 mg Tab, 4 mg= 1 tab(s), Oral, q6hr, PRN Allergies No Known Allergies Social History Tobacco Current vaping or e-cigarette use Smokeless Tobacco Use:. Vaping, Household tobacco concerns: No., 09/26/2023 Family History Family history is negative Immunizations Vaccine Date Status poliovirus vaccine, inactivated 04/22/2003 Recorded measles/mumps/rubella virus vaccine 04/22/2003 Recorded DTaP, unspecified formulation 04/22/2003 Recorded poliovirus vaccine, inactivated 04/28/2001 Recorded DTaP, unspecified formulation 04/28/2001 Recorded varicella virus vaccine 12/26/2000 Recorded poliovirus vaccine, inactivated 12/26/2000 Recorded measles/mumps/rubella virus vaccine 12/26/2000 Recorded hepatitis B pediatric vaccine 12/26/2000 Recorded DTaP, unspecified formulation 12/26/2000 Recorded poliovirus vaccine, inactivated 07/29/1999 Recorded DTaP, unspecified formulation 07/29/1999 Recorded hepatitis B pediatric vaccine 1995 Recorded [facility] Comment on above: Result Comment: Elec tronically Signed By: Alexis BELL, Carlos Jane\Date and Time Signed: 09/26/23 09:20 EDT Provider Letteron 09-26-2023 Provider Letter Provider Letter September 26, 2023 CLA[address] [place] [address] : 1995 To Whom It May Concern, Please excuse above patient from work due to medal Date of Illness: From: _09-26-23 To: _09-27-23 May Return to Work On:09-28-23 Restrictions: _NONE Comments: _ Sincerely, Family Medicine [address] [address] [facility] Ambulatory Visit Summaryon 0 08-09-2023 Ambulatory Visit Summary KELTON CLAY Stephen :1995 Visit Date:08/09/2023 Ambulatory Visit Instructions Your Diagnosis Acid reflux BMI 35.0-35.9,adult Current every day vaping Your Care Team Attending Physician - Kay Marvin Primary Care Physician - Kay Marvin This Is Your Medications List albuterol (Albuterol (Eqv-ProAir HFA) 90 mcg/inh inhalation aerosol) omeprazole (omeprazole 40 mg Cap-DR) ondansetron (ondansetron 4 mg Tab) Procedures Performed Cyst. Discharge Vitals Heart Rate (Peripheral) 86 Respiratory Rate 18 Blood Pressure 132/88 Height 179.5 cm Height 71 in Weight 114.9 kg Weight 252.78 lb BMI 35.66 What to do next Scheduled Follow-Up Appointments 2023 1:30 PM EDT With: Radha BELL, Osman Mann Where: [facility] Family Medicine Office/Clini c Noteon 08-09-2023 Family Medicine Office/Clinic Note HPI Staff Clay is a 27 year old male presenting for 3 week follow up Pt Does have appointment with GI(GERD) in August , Pt states that his insurance is about due to his dad passing away. Pt states his acid reflux is a lot better has had about 3 bad episodes since last appt. History of Present Illness pt presents today for follow up on acid reflux Review of Systems PHQ Score Initial Depression Screen Score: 0 SCORE Physical Exam Vitals & Measurements HR: 86(Peripheral) RR: 18 BP: 132/88 HT: 71 in HT: 179.5 cm WT: 114.9 kg WT: 252.78 lb BMI: 35.66 General: alert, no acute distress ENMT: oral mucosa moist, no pharyngeal erythema or exudate Cardiovascular: regular rate and rhythm, normal peripheral perfusion Respiratory: Lungs CTA, respirations non labored Extremities: no deformity, no trauma Neurological: oriented x 4, LOC appropriate for age, CN II-XII intact, motor strength equal & normal bilaterally, speech normal Assessment/Plan 1. Acid reflux (K21.9: Gastro-esophageal reflux disease without esophagitis) pt states symptoms are much improved. will send refills. he will be losing insurance so he will need to cancel GI appointment. pt provided dietary information for acid reflux. he is eating pizza and drinking pop which is not helping his reflux. RTC 6 months Ordered: omeprazole, 40 mg = 1 cap(s), Oral, Daily, # 90 cap(s), Refills(s) 1, Pharmacy: [facility]/pharmacy #[id number], 179.5, cm, 07/12/23 8:54:00 EDT, Height/Length Dosing, 118.5, kg, 07/12/23 8:54:00 EDT, Weight Dosing omeprazole, 40 mg = 1 cap(s), Oral, Daily, # 90 cap(s), Refills(s) 1, Pharmacy: [facility]/pharmacy #[id number], 179.5, cm, 08/09/23 14:47:00 EDT, Height/Length Dosing, 114.9, kg, 08/09/23 14:47:00 EDT, Weight Dosing 2. BMI 35.0-35.9,adult (Z68.35: Body mass index [BMI] 35.0-35.9, adult) BMI education 3. Current every day vaping (Z72.89: Other problems related to lifestyle) pt has decreased vaping use Ordered: omeprazole, 40 mg = 1 cap(s), Oral, Daily, # 90 cap(s), Refills(s) 1, [id number] 179.5, cm, 07/12/23 8:54:00 EDT, Height/Length Dosing, 118.5, kg, 07/12/23 8:54:00 EDT, Weight Dosing omeprazole, 40 mg = 1 cap(s), Oral, Daily, # 90 cap(s), Refills(s) 1, [id number] 179.5, cm, 08/09/23 14:47:00 EDT, Height/Length Dosing, 114.9, kg, 08/09/23 14:47:00 EDT, Weight Dosing Follow-up No qualifying data available Patient Education Food Choices for Gastroesophageal Reflux Disease, Adult, [id number] Problem List/Past Medical History Ongoing Acid reflux Anxiety and depression Diarrhea Dizziness Fatigue High blood pressure Hyperlipemia Nausea Tingling sensation Unintentional weight loss Historical No qualifying data Procedure/Surgical History Cyst. Medications Albuterol (Eqv-ProAir HFA) 90 mcg/inh inhalation aerosol omeprazole 40 mg Cap-DR, 40 mg= 1 cap(s), Oral, Daily, 1 refills ondansetron 4 mg Tab, 4 mg= 1 tab(s), Oral, q6hr, PRN Allergies No Known Allergies Social History Tobacco Current vaping or e-cigarette use Smokeless Tobacco Use:. Vaping, Household tobacco concerns: No., 08/09/2023 Family History Family history is negative [facility] Comment on above: Result Comment: Elec tronically Signed By: Kay Marvin\.brynn\Date and Time Signed: 08/09/23 15:29 EDT Patient Educationon 08-09-19 Patient Education Gastroenterology Food Choices for Gastroesophageal Reflux Disease, Adult When you have gastroesophageal reflux disease (GERD), the foods you eat and your eating habits are very important. Choosing the right foods can help ease your discomfort. Think about working with a food expert (dietitian) to help you make good choices. What are tips for following this plan? Reading food labels ? Look for foods that are low in saturated fat. Foods that may help with your symptoms include: ? Foods that have less than 5% of daily value (DV) of fat. ? Foods that have 0 grams of trans fat. Cooking ? Do not fofana your food. ? Cook your food by baking, steaming, grilling, or broiling. These are all methods that do not need a lot of fat for cooking. ? To add flavor, try to use herbs that are low in spice and acidity. Meal planning ? Choose healthy foods that are low in fat, such as: ? Fruits and vegetables. ? Whole grains. ? Low-fat dairy products. ? Lean meats, fish, and poultry. ? Eat small meals often instead of eating 3 large meals each day. Eat your meals slowly in a place where you are relaxed. Avoid bending over or lying down until 2?3 hours after eating. ? Limit high-fat foods such as fatty meats or fried foods. ? Limit your intake of fatty foods, such as oils, butter, and shortening. ? Avoid the following as told by your doctor: ? Foods that cause symptoms. These may be different for different people. Keep a food diary to keep track of foods that cause symptoms. ? Alcohol. ? Drinking a lot of liquid with meals. ? Eating meals during the 2?3 hours before bed. Lifestyle ? Stay at a healthy weight. Ask your doctor what weight is healthy for you. If you need to lose weight, work with your doctor to do so safely. ? Exercise for at least 30 minutes on 5 or more days each week, or as told by your doctor. ? Wear loose-fitting clothes. ? Do not smoke or use any products that contain nicotine or tobacco. If you need help quitting, ask your doctor. ? Sleep with the head of your bed higher than your feet. Use a wedge under the mattress or blocks under the bed frame to raise the head of the bed. ? Chew sugar-free gum after meals. What foods should eat? Eat a healthy, well-balanced diet of fruits, vegetables, whole grains, low-fat dairy products, lean meats, fish, and poultry. Each person is different. Foods that may cause symptoms in one person may not cause any symptoms in another person. Work with your doctor to find foods that are safe for you. The items listed above may not be a complete list of what you can eat and drink. Contact a food expert for more options. What foods should I avoid? Limiting some of these foods may help in managing the symptoms of GERD. Everyone is different. Talk with a food expert or your doctor to help you find the exact foods to avoid, if any. Fruits Any fruits prepared with added fat. Any fruits that cause symptoms. For some people, this may include citrus fruits, such as oranges, grapefruit, pineapple, and moreno. Vegetables Deep-fried vegetables. Mongolian fries. Any vegetables prepared with added fat. Any vegetables that cause symptoms. For some people, this may include tomatoes and tomato products, chili peppers, onions and garlic, and horseradish. Grains Pastries or quick breads with added fat. Meats and other proteins High-fat meats, such as fatty beef or pork, hot dogs, ribs, ham, sausage, salami, and grubbs. Fried meat or protein, including fried fish and fried chicken. Nuts and nut butters, in large amounts. Dairy Whole milk and chocolate milk. Sour cream. Cream. Ice cream. Cream cheese. Milkshakes. Fats and oils Butter. Margarine. Shortening. Ghee. Beverages Coffee and tea, with or without caffeine. Carbonated beverages. Sodas. Energy drinks. Fruit juice made with acidic fruits, such as orange or grapefruit. Tomato juice. Alcoholic drinks. Sweets and desserts Chocolate and cocoa. Donuts. Seasonings and condiments Pepper. Peppermint and spearmint. Added salt. Any condiments, herbs, or seasonings that cause symptoms. For some people, this may include gerardo, hot sauce, or vinegar-based salad dressings. The items listed above may not be a complete list of what you should not eat and drink. Contact a food expert for more options. Questions to ask your doctor Diet and lifestyle changes are often the first steps that are taken to manage symptoms of GERD. If diet and lifestyle changes do not help, talk with your doctor about taking medicines. Where to find more information ? [employer]: aboutgerd.org Summary ? When you have GERD, food and lifestyle choices are very important in easing your symptoms. ? Eat small meals often instead of 3 large meals a day. Eat your meals slowly and in a place where you are relaxed. ? Avoid bending over or lying down until 2?3 (more content not included)... [facility] Medicine Office/Clini c Noteon 07-21-2023 Family Medicine Office/Clinic Note HPI Staff Clay is a 27 year old male presenting for 1 week follow up KAVEH: 07/12/23 high blood pressure, nausea, unintentional weight loss started on omeprazole, GI referral hasn't been able to check blood pressure at home doesn't have a cuff. Pt states since starting the omeprazole hasn't noticed a difference until today he hasn't gagged at all. History of Present Illness pt presents today for 1 week follow up Review of Systems PHQ Score Initial Depression Screen Score: 0 SCORE Physical Exam Vitals & Measurements HR: 80(Peripheral) RR: 18 BP: 122/88 HT: 71 in HT: 179.5 cm WT: 116.3 kg WT: 255.86 lb BMI: 36.1 General: alert, no acute distress ENMT: oral mucosa moist, no pharyngeal erythema or exudate Cardiovascular: regular rate and rhythm, normal peripheral perfusion Respiratory: Lungs CTA, respirations non labored Extremities: no deformity, no trauma Neurological: oriented x 4, LOC appropriate for age, CN II-XII intact, motor strength equal & normal bilaterally, speech normal Assessment/Plan 1. Acid reflux (K21.9: Gastro-esophageal reflux disease without esophagitis) pt just noticed a slight difference starting today. GI referral already sent. will continue omeprazole. RTC as needed 2. BMI 36.0-36.9,adult (Z68.36: Body mass index [BMI] 36.0-36.9, adult) BMI education complete 3. Current every day vaping (Z72.89: Other problems related to lifestyle) consider not vaping Follow-up No qualifying data available Problem List/Past Medical History Ongoing Acid reflux Anxiety and depression Diarrhea Dizziness Fatigue High blood pressure Hyperlipemia Nausea Tingling sensation Unintentional weight loss Historical No qualifying data Procedure/Surgical History Cyst. Medications Albuterol (Eqv-ProAir HFA) 90 mcg/inh inhalation aerosol omeprazole 40 mg Cap-DR, 40 mg= 1 cap(s), Oral, Daily, 1 refills ondansetron 4 mg Tab, 4 mg= 1 tab(s), Oral, q6hr, PRN Allergies No Known Allergies Social History Tobacco Current vaping or e-cigarette use Smokeless Tobacco Use:. Vaping, Household tobacco concerns: No., 07/19/2023 Family History Family history is negative Normal [facility] Comment on above: Result Comment: Elec tronically Signed By: Kay Marvin\.br\Date and Time Signed: 07/21/23 15:35 EDT Ambulatory Visit Summaryon 0 07-19-2023 Ambulatory Visit Summary [place]SOORLE[place]CLAY :1995 Visit Date:07/19/2023 Ambulatory Visit Instructions Your Diagnosis BMI 36.0-36.9,adult Current every day vaping Your Care Team Attending Physician - Kay Marvin Primary Care Physician - Kay Marvin This Is Your Medications List albuterol (Albuterol (Eqv-ProAir HFA) 90 mcg/inh inhalation aerosol) omeprazole (omeprazole 40 mg Cap-DR) ondansetron (ondansetron 4 mg Tab) Procedures Performed Cyst. Discharge Vitals Heart Rate (Peripheral) 80 Respiratory Rate 18 Blood Pressure 122/88 Height 179.5 cm Height 71 in Weight 116.3 kg Weight 255.86 lb BMI 36.1 What to do next Scheduled Follow-Up Appointments Tuesday 2:40 PM EDT With: Kay Marvin Where: [facility] [place] Normal [address] \.br\ Medications\.b r\ What How Much When Why Instructions\. br\ New ondansetron (ondansetron 4 mg Tab) 1 Tablets By Mouth Every 6 hours as needed for Nausea/Vomitin g BMI 36.0-36.9,adul t Current every day vaping Pickup at [facility]/pharmacy #[id number]\.br\ Unchanged albuterol (Albuterol (Eqv-ProAir HFA) 90 mcg/ inh inhalation aerosol)\.br\ Unchanged omeprazole (omeprazole 40 mg Cap-DR) 1 Capsules By Mouth Every day Hyperlipemia High blood pressure Diarrhea Nausea Unintentional weight loss Acid reflux BMI 36.0-36.9,adul t Current every day vaping\.br\ Pharmacy Information\.b r\ [id number]: [address], [place] [id number] [phone]\.br\ Allergies\.br\ No Known Allergies\.br\ Problems\.br\ Ongoing - Any problem that you are currently receiving treatment for.\.br\ Acid reflux\.br\ Anxiety and depression\.br \ Diarrhea\.br\ Dizziness\.br\ Fatigue\.br\ High blood pressure\.br\ Hyperlipemia\. br\ Nausea\.br\ Tingling sensation\.br\ Unintentional weight loss\.br\ Patient Survey\.br\ You may receive a survey via text or e-mail asking about your office visit. Please share your experience with us by completing your survey. We appreciate your feedback and thank you for choosing us for your care.\.br\ \.br\ [facility] Reminderson 07-14-2023 Reminders - From: Kay Marvin To: [facility] - Clinical; Sent: 07/13/2023 10:13:53 EDT Show up: 07/13/2023 10:14:00 EDT Subject: Ambulatory Reminder Due Date/Time: 07/14/2023 10:13:00 EDT Labs look good! Results: Date Result Name Ind Value Ref Range 07/12/2023 9: WBC 7.2 E9/L (4.0 - 11.0) 07/12/2023 9:21 RBC 5.0 E12/L (4.3 - 5.9) 07/12/2023 9:21 HGB 15.3 gm/dL (13.5 - 17.5) 07/12/2023 9: Hct 44.9 % (37.7 - 49.0) 07/12/2023 9: MCV 89.4 fL (80.0 - 100.0) 07/12/2023 9:21 MCH 30.4 pg (27.0 - 34.0) 07/12/2023 9:21 MCHC 34.0 gm/dL (31.4 - 36.0) 07/12/2023 9:21 RDW 13.1 % (10.9 - 14.2) 07/12/2023 9: Platelet 340.0 E9/L (150.0 - 500.0) 07/12/2023 9: MPV 9.2 fL (6.4 - 10.8) 07/12/2023 9:21 Neutro Auto 68.0 % (36.0 - 75.0) 07/12/2023 9: Lymph Auto 20.7 % (14.0 - 50.0) 07/12/2023 9:21 [place] Auto 7.6 % (4.0 - 14.0) 07/12/2023 9: Eos Auto 2.8 % (0.0 - 8.0) 07/12/2023 9: Basophil Auto 0.9 % (0.0 - 2.0) 07/12/2023 9:21 Neutro Absolute 4.9 E9/L (2.0 - 7.5) 07/12/2023 9:21 Lymph Absolute 1.5 E9/L (1.0 - 4.0) 07/12/2023 9:21 [place] Absolute 0.5 E9/L (0.2 - 1.0) 07/12/2023 9: Eos Absolute 0.2 E9/L (0.0 - 0.5) 07/12/2023 9:21 Basophil Absolute 0.1 E9/L (0.0 - 0.2) 07/12/2023 9:21 Glucose Lvl 90 mg/dL (55 - 199) 07/12/2023 9: BUN 14 mg/dL (5 - 21) 07/12/2023 9:21 Creatinine 1.0 mg/dL (0.5 - 1.3) 07/12/2023 9:21 eGFR 107 mL/min/1.73 m2 (>=59 - ) 07/12/2023 9: BUN/Creat Ratio 14 (10 - 20) 07/12/2023 9:21 Sodium Lvl 140 mmol/L (135 - 145) 07/12/2023 9:21 Potassium Lvl 3.9 mmol/L (3.5 - 5.3) 07/12/2023 9: Chloride 108 mmol/L (101 - 111) 07/12/2023 9:21 CO2 21 mmol/L (21 - 31) 07/12/2023 9:21 AGAP 15 mEq/L (6 - 16) 07/12/2023 9:21 Calcium Lvl 9.7 mg/dL (8.9 - 11.1) 07/12/2023 9:21 Alk Phos 68 Int._Unit/L (21 - 98) 07/12/2023 9:21 ALT 34 Int._Unit/L (6 - 46) 07/12/2023 9:21 AST 24 Int._Unit/L (5 - 43) 07/12/2023 9:21 Total Protein 7.7 gm/dL (6.0 - 7.8) 07/12/2023 9:21 Albumin Lvl 4.9 gm/dL (3.3 - 5.0) 07/12/2023 9:21 Globulin 2.8 gm/dL (1.4 - 4.0) 07/12/2023 9:21 A/G Ratio 1.8 (1.1 - 2.2) 07/12/2023 9:21 Bili Total 0.6 mg/dL (0.0 - 1.1) 07/12/2023 9:21 Amylase Lvl 31 unit/L (25 - 157) 07/12/2023 9:21 Lipase Lvl 15 unit/L (13 - 58) 07/12/2023 9:21 Chol 186 mg/dL (120 - 200) 07/12/2023 9:21 Trig 128 mg/dL ( - <=149) 07/12/2023 9:21 HDL 36 mg/dL 07/12/2023 9:21 LDL Direct ((H)) 147 mg/dL ( - <=129) 07/12/2023 9:21 VLDL 26 mg/dL (7 - 40) 07/12/2023 9:21 TSH 1.70 mcIU/mL (0.34 - 5.60) Attempted to call patient. No answer. Unable to leave message. Attempt #2 to call patient. No answer. Unable to leave message. notified. Normal [facility] Ambulatory Visit Summaryon 0 07-12-2023 Ambulatory Visit Summary CLAY NEWTON :1995 Visit Date:07/12/2023 Ambulatory Visit Instructions Your Diagnosis Hyperlipemia High blood pressure Diarrhea Nausea Unintentional weight loss Acid reflux BMI 36.0-36.9,adult Current every day vaping Your Care Team Attending Physician - Kay Marvin Primary Care Physician - Kay Marvin This Is Your Medications List albuterol (Albuterol (Eqv-ProAir HFA) 90 mcg/inh inhalation aerosol) Procedures Performed Cyst. Discharge Vitals Heart Rate (Peripheral) 88 Respiratory Rate 18 Blood Pressure 138/100 Height 71 in Height 179.5 cm Weight 260.81 lb Weight 118.55 kg BMI 36.79 What to do next Scheduled Follow-Up Appointments Tuesday 3:00 PM EDT With: Kay Marvin Where: [facility] [place] Normal [facility] Amylaseon 07-12-2023 Amylase [Catalytic activity/Vol] 31 U/L Normal 25-157 [facility] Comment on above: Performed By: #### 2 [id number] #### [facility] [address] [place] [address] CBC w/ Auto Diffon 4 Basophils/100 WBC (Bld) 0.9 % Normal 0.0-2.0 [facility] Comment on above: Performed By: #### 2 [id number] #### [facility] [address] [place] [address] Basophils/Leukocytes Auto (Bld) [Pure # fraction] 0.1 E9/L Normal 0.0-0.2 [facility] Comment on above: Performed By: #### 2 [id number] #### [facility] [address] [place] [address] Eosinophils (Bld) [#/Vol] 0.2 E9/L Normal 0.0-0.5 [facility] Comment on above: Performed By: #### 2 [id number] #### [facility] [address] [place] [address] Eosinophils/100 WBC (Bld) 2.8 % Normal 0.0-8.0 [facility] Comment on above: Performed By: #### 2 [id number] #### [facility] [address] [place] [address] Erythrocyte distribution width (RBC) [Ratio] 13.1 % Normal 10.9-14.2 [facility] Comment on above: Performed By: #### 2 [id number] #### [facility] [address] [place] [address] Hematocrit (Bld) [Volume fraction] 44.9 % Normal 37.7-49.0 [facility] Comment on above: Performed By: #### 2 [id number] #### [facility] [address] [place] [address] Hemoglobin (Bld) [Mass/Vol] 15.3 g/dL Normal 13.5-17.5 [facility] Comment on above: Performed By: #### 2 [id number] #### [facility] [address] [place] [address] Lymphocytes (Bld) [#/Vol] 1.5 E9/L Normal 1.0-4.0 [facility] Comment on above: Performed By: #### 2 [id number] #### [facility] [address] [place] [address] Lymphocytes/100 WBC (Bld) 20.7 % Normal 14.0-50.0 [facility] Comment on above: Performed By: #### 2 [id number] #### [facility] [address] [place] [address] MCH (RBC) [Entitic mass] 30.4 pg Normal 27.0-34.0 [facility] Comment on above: Performed By: #### 2 [id number] #### [facility] [address] [place] [address] MCHC (RBC) [Mass/Vol] 34.0 g/dL Normal 31.4-36.0 [facility] Comment on above: Performed By: #### 2 [id number] #### [facility] [address] [place] [address] MCV (RBC) [Entitic vol] 89.4 fL Normal 80.0-100.0 [facility] Comment on above: Performed By: #### 2 [id number] #### [facility] [address] [place] [address] Monocytes (Bld) [#/Vol] 0.5 E9/L Normal 0.2-1.0 [facility] Comment on above: Performed By: #### 2 [id number] #### [facility] [address] [place] [address] Neutrophils (Bld) [#/Vol] 4.9 E9/L Normal 2.0-7.5 [facility] Comment on above: Performed By: #### 2 [id number] #### [facility] [address] [place] [address] Neutrophils/100 WBC (Bld) 68.0 % Normal 36.0-75.0 [facility] Comment on above: Performed By: #### 2 [id number] #### [facility] [address] [place] [address] Platelet mean volume (Bld) [Entitic vol] 9.2 fL Normal 6.4-10.8 [facility] Comment on above: Performed By: #### 2 [id number] #### [facility] [address] [place] [address] Platelets (Bld) [#/Vol] 340.0 E9/L Normal 150.0-500.0 [facility] Comment on above: Performed By: #### 2 [id number] #### [facility] [address] [place] [address] RBC (Bld) [#/Vol] 5.0 E12/L Normal 4.3-5.9 [facility] Comment on above: Performed By: #### 2 [id number] #### [facility] [address] [place] [address] WBC corrected for nucl RBC Auto (Bld) [#/Vol] 7.2 E9/L Normal 4.0-11.0 [facility] Comment on above: Performed By: #### 2 [id number] #### [facility] [address] [place] [address] CHEMISTRYOrdered By: SYSTEM SYSTEM on 07-12-2023 Albumin [Mass/Vol] 4.9 g/dL Normal 3.3 - 5.0 gm/dL Rem[facility] Chem Albumin/Globulin [Mass ratio] 1.8 {ratio} Normal 1.1 - 2.2 [facility] ALP [Catalytic activity/Vol] 68 [iU]/d Normal 21 - 98 Int._Unit/L [facility] ALT No additional P-5'-P [Catalytic activity/Vol] 34 [iU]/d Normal 6 - 46 Int._Unit/L [facility] Amylase [Catalytic activity/Vol] 31 U/L Normal 25 - 157 unit/L [facility] Anion gap [Moles/Vol] 15 mmol/L Normal 6 - 16 mEq/L R emisol Chem AST [Catalytic activity/Vol] 24 [iU]/d Normal 5 - 43 Int._Unit/L [facility] Bilirubin [Mass/Vol] 0.6 mg/dL Normal 0.0 - 1 .1 mg/dL [facility] Calcium [Mass/Vol] 9.7 mg/dL Normal 8.9 - 11. 1 mg/dL [facility] Chloride [Moles/Vol] 108 mmol/L Normal 101 - 1 11 mmol/L [facility] Cholesterol [Mass/Vol] 186 mg/dL Normal 120 - 200 mg/dL [facility] Cholesterol in HDL [Mass/Vol] 36 mg/dL Invalid Interpretation Code [facility] Comment on above: Result Comment: '>= 60 LOW RISK' '<= 40 HIGH RISK' Cholesterol in LDL [Mass/Vol] 147 mg/dL High <=129mg/dL [facility] Cholesterol in VLDL [Mass/Vol] 26 mg/dL Normal 7 - 40 mg/dL [facility] CO2 [Moles/Vol] 21 mmol/L Normal 21 - 31 mmol/L Remis ol Chem Creatinine [Mass/Vol] 1.0 mg/dL Normal 0.5 - 1.3 mg/dL [facility] eGFR 107 mL/min/1.73 m2 Normal >=59mL/mi n/1.7 3 m2 [facility] Globulin (S) [Mass/Vol] 2.8 g/dL Normal 1.4 - 4.0 gm/dL [facility] Glucose [Mass/Vol] 90 mg/dL Normal 55 - 199 mg/dL Re misol Chem Lipase [Catalytic activity/Vol] 15 U/L Normal 13 - 58 unit/L [facility] Potassium [Moles/Vol] 3.9 mmol/L Normal 3.5 - 5.3 mmol/L [facility] Protein [Mass/Vol] 7.7 g/dL Normal 6.0 - 7.8 gm/dL [facility] Sodium [Moles/Vol] 140 mmol/L Normal 135 - 145 mmol/L [facility] Triglyceride [Mass/Vol] 128 mg/dL Normal <=149mg/dL [facility] TSH Qn 1.70 m[IU]/L Normal 0.34 - 5.60 mcIU/mL [facility] Urea nitrogen [Mass/Vol] 14 mg/dL Normal 5 - 21 mg/dL [facility] Urea nitrogen/Creatinine [Mass ratio] 14 mg/mg Normal 10 - 20 [facility] CMPon 07-12-2023 Albumin [Mass/Vol] 4.9 g/dL Normal 3.3-5.0 [facility] Comment on above: Performed By: #### 2 [id number] #### [facility] [address] [place] [address] Albumin/Globulin (S) [Mass conc ratio] 1.8 Normal 1.1-2.2 [facility] Comment on above: Performed By: #### 2 [id number] #### [facility] [address] [place] [address] ALP [Catalytic activity/Vol] 68 Int._Unit/L Normal 21-98 [facility] Comment on above: Performed By: #### 2 [id number] #### [facility] [address] [place] [address] ALT No additional P-5'-P [Catalytic activity/Vol] 34 Int._Unit/L Normal 6-46 [facility] Comment on above: Performed By: #### 2 [id number] #### [facility] [address] [place] [address] Anion gap [Moles/Vol] 15 mmol/L Normal 6-16 [facility] Comment on above: Performed By: #### 2 [id number] #### [facility] [address] [place] [address] AST [Catalytic activity/Vol] 24 Int._Unit/L Normal 5-43 [facility] Comment on above: Performed By: #### 2 074705 #### [facility] [address] [place] [address] Bilirubin [Mass/Vol] 0.6 mg/dL Normal 0.0-1.1 [facility] Comment on above: Performed By: #### 2 [id number] #### [facility] [address] [place] [address] Calcium [Mass/Vol] 9.7 mg/dL Normal 8.9-11.1 [facility] Comment on above: Performed By: #### 2 [id number] #### [facility] [address] [place] [address] Chloride [Moles/Vol] 108 mmol/L Normal 101-111 [facility] Comment on above: Performed By: #### 2 [id number] #### [facility] [address] [place] [address] CO2 [Moles/Vol] 21 mmol/L Normal 21-31 [facility] Comment on above: Performed By: #### 2 [id number] #### [facility] [address] [place] [address] Creatinine [Mass/Vol] 1.0 mg/dL Normal 0.5-1.3 [facility] Comment on above: Performed By: #### 2 [id number] #### [facility] [address] [place] [address] Globulin (S) [Mass/Vol] 2.8 g/dL Normal 1.4-4.0 [facility] Comment on above: Performed By: #### 2 555552 #### [facility] [address] [place] [address] Glucose [Mass/Vol] 90 mg/dL Normal 55-199 [facility] Comment on above: Performed By: #### 2 [id number] #### [facility] [address] [place] [address] Potassium [Moles/Vol] 3.9 mmol/L Normal 3.5-5.3 [facility] Comment on above: Performed By: #### 2 282519 #### [facility] [address] [place] [address] Protein [Mass/Vol] 7.7 g/dL Normal 6.0-7.8 [facility] Comment on above: Performed By: #### 2 562485 #### [facility] [address] [place] [address] Sodium [Moles/Vol] 140 mmol/L Normal 135-145 [facility] Comment on above: Performed By: #### 2 539051 #### [facility] [address] [place] [address] Urea nitrogen [Mass/Vol] 14 mg/dL Normal 5-21 [facility] Comment on above: Performed By: #### 2 [id number] #### [facility] [address] [place] [address] Urea nitrogen/Creatinine [Mass ratio] 14 No Units Normal 10-20 [facility] Comment on above: Performed By: #### 2 [id number] #### [facility] [address] [place] [address] Family Medicine Office/Clini c Noteon 07-12-2023 Family Medicine Office/Clinic Note HPI Staff Clay is a 27 year old male presenting for acute visit Onset: 2 months Pt intermittently feeling like he is choking and could vomit when he puts on his bike helmet, hoodie or even with no shirt on. Has tried to vomit to see if he would feel better right after vomiting he will get diarrhea. Pt states he has diarrhea daily. c/o burning to middle chest. Denies any abdominal pain. Pt does have intermittent headaches, lightheadedness and blurry vision. only eating once daily Pt states that he has tried tums and omeprazole and that didn't help. Pt states he stopped vaping/chewing for 2 weeks and didn't notice a change. Started vaping again but hasn't chewed since. Pt hasn't had any alcohol in a month History of Present Illness pt presents today with nausea, coughing, acid reflux and diarrhea Review of Systems PHQ Score Initial Depression Screen Score: 0 SCORE Physical Exam Vitals & Measurements HR: 88(Peripheral) RR: 18 BP: 138/100 SpO2: 99% HT: 71 in HT: 179.5 cm WT: 118.55 kg WT: 260.81 lb BMI: 36.79 General: alert, no acute distress ENMT: oral mucosa moist, no pharyngeal erythema or exudate Cardiovascular: regular rate and rhythm, normal peripheral perfusion Respiratory: Lungs CTA, respirations non labored Extremities: no deformity, no trauma Neurological: oriented x 4, LOC appropriate for age, CN II-XII intact, motor strength equal & normal bilaterally, speech normal Assessment/Plan 1. Hyperlipemia (E78.5: Hyperlipidemia, unspecified) last July cholesterol was elevated. will recheck labs in office today. RTC 1 week for BP check Ordered: omeprazole, 40 mg = 1 cap(s), Oral, Daily, # 90 cap(s), Refills(s) 1, Pharmacy: [facility]/pharmacy #[id number], 179.5, cm, 07/12/23 8:54:00 EDT, Height/Length Dosing, 118.5, kg, 07/12/23 8:54:00 EDT, Weight Dosing Amylase Level CBC w/ Auto Diff Comprehensive Metabolic Panel Lipase Level Lipid Panel Thyroid Stimulating Hormone 2. High blood pressure (I10: Essential (primary) hypertension) BP elevated in office today. will recheck in 1 week. if elevated will start mediation Ordered: omeprazole, 40 mg = 1 cap(s), Oral, Daily, # 90 cap(s), Refills(s) 1, Pharmacy: [facility]/pharmacy #[id number], 179.5, cm, 07/12/23 8:54:00 EDT, Height/Length Dosing, 118.5, kg, 07/12/23 8:54:00 EDT, Weight Dosing Amylase Level CBC w/ Auto Diff Comprehensive Metabolic Panel Lipase Level Lipid Panel Thyroid Stimulating Hormone 3. Diarrhea (R19.7: Diarrhea, unspecified) diarrhea daily for about a month Ordered: omeprazole, 40 mg = 1 cap(s), Oral, Daily, # 90 cap(s), Refills(s) 1, [id number] 179.5, cm, 07/12/23 8:54:00 EDT, Height/Length Dosing, 118.5, kg, 07/12/23 8:54:00 EDT, Weight Dosing Amylase Level CBC w/ Auto Diff Comprehensive Metabolic Panel [facility] Internal Ambulatory Referral Lipase Level Lipid Panel Thyroid Stimulating Hormone 4. Nausea (R11.0: Nausea) gets very nauseated when eating Ordered: omeprazole, 40 mg = 1 cap(s), Oral, Daily, # 90 cap(s), Refills(s) 1, [id number], 179.5, cm, 07/12/23 8:54:00 EDT, Height/Length Dosing, 118.5, kg, 07/12/23 8:54:00 EDT, Weight Dosing Amylase Level CBC w/ Auto Diff Comprehensive Metabolic Panel [facility] Internal Ambulatory Referral Lipase Level Lipid Panel Thyroid Stimulating Hormone 5. Unintentional weight loss (R63.4: Abnormal weight loss) pt down 13 pounds since last visit. is not trying to lose weight. Gi referral sent Ordered: omeprazole, 40 mg = 1 cap(s), Oral, Daily, # 90 cap(s), Refills(s) 1, [id number], 179.5, cm, 07/12/23 8:54:00 EDT, Height/Length Dosing, 118.5, kg, 07/12/23 8:54:00 EDT, Weight Dosing Amylase Level CBC w/ Auto Diff Comprehensive Metabolic Panel [facility] Internal Ambulatory Referral Lipase Level Lipid Panel Thyroid Stimulating Hormone 6. Acid reflux (K21.9: Gastro-esophageal reflux disease without esophagitis) will start omeprazole will send referral to GI. pt coughs so hard he gets light headed Ordered: omeprazole, 40 mg = 1 cap(s), Oral, Daily, # 90 cap(s), Refills(s) 1, [id number], 179.5, cm, 07/12/23 8:54:00 EDT, Height/Length Dosing, 118.5, kg, 07/12/23 8:54:00 EDT, Weight Dosing Amylase Level CBC w/ Auto Diff Comprehensive Metabolic Panel [facility] Internal Ambulatory Referral Lipase Level Lipid Panel Thyroid Stimulating Hormone 7. BMI 36.0-36.9,adult (Z68.36: Body mass index [BMI] 36.0-36.9, adult) BMI education complete Ordered: omeprazole, 40 mg = 1 cap(s), Oral, Daily, # 90 cap(s), Refills(s) 1, [id number], 179.5, cm, 07/12/23 8:54:00 EDT, Height/Length Dosing, 118.5, kg, 07/12/23 8:54:00 EDT, Weight Dosing Amylase Level CBC w/ Auto Diff Comprehensive Metabolic Panel Lipase Level Lipid Panel Thyroid Stimulating Hormone 8. Current every day vaping (Z72.89: Other problems related to lifestyle) consider not vaping Ordered: omeprazole, 40 mg = 1 cap(s), (more content not included)... Normal [facility] Comment on above: Result Comment: Elec tronically Signed By: Kay Marvin\.br\Date and Time Signed: 07/12/23 09:21 EDT HEMATOLOGYOrdered By: SYSTEM SYSTEM on 07-12-2023 Basophils/100 WBC (Bld) 0.9 % Normal 0.0 - 2.0 % [facility] Basophils/Leukocytes Auto (Bld) [Pure # fraction] 0.1 E9/L Normal 0.0 - 0.2 E9/L [facility] Eosinophils (Bld) [#/Vol] 0.2 E9/L Normal 0.0 - 0.5 E9/L [facility] Eosinophils/100 WBC (Bld) 2.8 % Normal 0.0 - 8.0 % [facility] Erythrocyte distribution width (RBC) [Ratio] 13.1 % Normal 10.9 - 14.2 % [facility] Hematocrit (Bld) [Volume fraction] 44.9 % Normal 37.7 - 49.0 % [facility] Hemoglobin (Bld) [Mass/Vol] 15.3 g/dL Normal 13.5 - 17.5 gm/dL [facility] Lymphocytes (Bld) [#/Vol] 1.5 E9/L Normal 1.0 - 4.0 E9/L [facility] Lymphocytes/100 WBC (Bld) 20.7 % Normal 14.0 - 50.0 % [facility] MCH (RBC) [Entitic mass] 30.4 pg Normal 27.0 - 34.0 pg [facility] MCHC (RBC) [Mass/Vol] 34.0 g/dL Normal 31.4 - 36.0 gm/dL [facility] MCV (RBC) [Entitic vol] 89.4 fL Normal 80.0 - 100.0 fL [facility] Monocytes (Bld) [#/Vol] 0.5 E9/L Normal 0.2 - 1.0 E9/L [facility] Monocytes/100 WBC (Bld) 7.6 % Normal 4.0 - 14.0 % [facility] Neutrophils (Bld) [#/Vol] 4.9 E9/L Normal 2.0 - 7.5 E9/L [facility] Neutrophils/100 WBC (Bld) 68.0 % Normal 36.0 - 75.0 % [facility] Platelet mean volume (Bld) [Entitic vol] 9.2 fL Normal 6.4 - 10.8 fL [facility] Platelets (Bld) [#/Vol] 340.0 E9/L Normal 150.0 - 500.0 E9/L [facility] RBC (Bld) [#/Vol] 5.0 E12/L Normal 4.3 - 5.9 E12/L [facility] WBC corrected for nucl RBC Auto (Bld) [#/Vol] 7.2 E9/L Normal 4.0 - 11.0 E9/L [facility] Lipase Levelon 07-12-2023 Lipase [Catalytic activity/Vol] 15 U/L Normal 13-58 [facility] Comment on above: Performed By: #### 2 [id number] #### [facility] [address] [place] [address] Lipid Panelon 07-12-2023 Cholesterol [Mass/Vol] 186 mg/dL Normal 120-200 [facility] Comment on above: Performed By: #### 2 [id number] #### [facility] [address] [place] [address] Cholesterol in HDL [Mass/Vol] 36 mg/dL Invalid Interpretation Code [facility] Comment on above: Result Comment: '>= 60 LOW RISK' '<= 40 HIGH RISK' Performed By: #### 2 [id number] #### [facility] [address] [place] [address] Cholesterol in LDL [Mass/Vol] 147 mg/dL High <=129 [facility] Comment on above: Performed By: #### 2 [id number] #### [facility] [address] [place] [address] Cholesterol in VLDL [Mass/Vol] 26 mg/dL Normal 7-40 [facility] Comment on above: Performed By: #### 2 [id number] #### [facility] [address] [place] [address] Triglyceride [Mass/Vol] 128 mg/dL Normal <=149 [facility] Comment on above: Performed By: #### 2 [id number] #### [facility] [address] [place] [address] TSHon 07-12-2023 TSH Qn 1.70 m[IU]/L Normal 0.34-5.60 [facility] Comment on above: Performed By: #### 2 [id number] #### [facility] [address] [place] [address] eGFRon 07-12-2023 eGFR 107 mL/min/1.73 m2 Normal >=59 [facility] Comment on above: Order Comment: Order added by Discern Expert. Performed By: #### 1 [id number] #### [facility] [address] [place] [address] Consenton 04-26-2023 Consent [id number] FF Normal [facility] Registrationon 04-26-2023 Registration [id number]#[id number] IFF Normal [facility] Registration [id number] FF Normal [facility] Basic Metabolic Panelon 10-2 Anion gap [Moles/Vol] 11.3 mmol/L Normal 6.0-15.0 [facility] Comment on above: Performed By: #### B MP, LIPASE, HEPATIC, CBC ####[facility] [place] [address] [facility] Calcium [Mass/Vol] 9.9 mg/dL Normal 8.6-10.3 [place] Comment on above: Performed By: #### B MP, LIPASE, HEPATIC, CBC ####[place] [address] [place] [address] [facility] Chloride [Moles/Vol] 102 mmol/L Normal 98-107 [facility] Comment on above: Performed By: #### B MP, LIPASE, HEPATIC, CBC ####[place] [place] [place] [address] [facility] CO2 [Moles/Vol] 27.9 mmol/L Normal 21.0-31.0 [facility] Comment on above: Performed By: #### B MP, LIPASE, HEPATIC, CBC ####[address] [address] [facility] Creatinine [Mass/Vol] 1.11 mg/dL Normal 0.70-1.30 [facility] Comment on above: Performed By: #### B MP, LIPASE, HEPATIC, CBC ####[place] [place] [address] [facility] Creatinine Clr Calc Pharmacy 134.17 [facility] Comment on above: Performed By: #### B MP, LIPASE, HEPATIC, CBC ####[place] [address] [place] [address] [facility] GFR/1.73 sq M.predicted MDRD (S/P/Bld) [Vol rate/Area] mL/min/{1.73_m2} [facility] Comment on above: Performed By: #### B MP, LIPASE, HEPATIC, CBC ####[address] [address] [facility] Glucose [Mass/Vol] 91 mg/dL Normal 70-100 [facility] Comment on above: Result Comment: Ilana shepherd Glucose Reference Range is dependent on time and content of last meal. Glucose of more than 200 mg/dL in a nonstressed, ambulatory subject supports the diagnosis of Diabetes Mellitus. ADA recommended reference range Performed By: #### B MP, LIPASE, HEPATIC, CBC ####[facility] [id number] [place] [address] [facility] Potassium [Moles/Vol] 4.2 mmol/L Normal 3.5-5.1 [facility] Comment on above: Performed By: #### B MP, LIPASE, HEPATIC, CBC ####[facility] [id number] [place] [address] [facility] Sodium [Moles/Vol] 137 mmol/L Normal 136-145 [place] Comment on above: Performed By: #### B MP, LIPASE, HEPATIC, CBC ####[facility] [id number] [place] [address] [facility] Urea nitrogen [Mass/Vol] 12 mg/dL Normal 7-25 [facility] Comment on above: Performed By: #### B MP, LIPASE, HEPATIC, CBC ####[facility] [id number] [place] [id number] [facility] CT abdomen pelvis w conon CT abdomen pelvis w [facility] [address] [place] [address] [place] [address] CT Scan Report Signed Patient: Clay Newton MR#: [id number] : 1995 Acct:[id number] Age/Sex: 27 / M ADM Date: 12/16/22 Loc: ER Room: Type: [facility] ER Attending Dr: Copies to: Johnathan Isbell DO Ordering Provider: Johnathan Isbell DO Date of Service: 12/16/22 CT/CT abdomen pelvis w con: vomiting CT ABDOMEN AND PELVIS WITH CONTRAST COMPARISON: None CLINICAL DATA: Nausea and vomiting. Spiral images were obtained through the abdomen and pelvis are 90 mL of Isovue-300. This CT exam was performed using one or more following dose reduction techniques: Automated exposure control, adju stment of the mA and/or kV according to patient size, or use of iterative reconstruction technique. Limited cuts through the lung bases show no contributory findings. No calcified gallstones are identified. The liver, spleen, pancreas and adrenal glands show no acute findings. There are symmetric renal nephrograms, without hydronephrosis. The abdominal aorta is normal caliber. There are tiny lymph nodes. No ascites is seen. There are normal caliber small bowel loops. There is mild right-sided colonic stool. Most of the transverse and the descending colon are decompressed. Subtle levoscoliotic curvature is present. Images through the pelvis show no appendiceal inflammation. There is no dilated small bowel. There is mild distal colonic stool. No diverticular disease is noted. The bladder shows no abnormalities for the degree of distention. No ascites is present. There are small benign inguinal lymph nodes. CT/CT abdomen pelvis w con IMPRESSION: NO BOWEL OR URINARY TRACT OBSTRUCTION. NO ACUTE FINDINGS. Impression dictated by: Sandhya Wu M.D.12/17/2022 7:58 AM Dictation Location: [place] [address] Transcribed By: [facility] 12/17/22 0758 Dictated By: Sandhya Wu MD 12/17/22 0755 Signed By: 12/17/22 0758 Normal [facility] Complete Blood Count Auto Di ffon 12-17-2022 Basophils (Bld) [#/Vol] 0.1 10*3/uL Normal 0.0-0.2 [facility] Comment on above: Result Comment: PERF ORMED BY: [facility] [address] [place] [address] PATHOLOGIST [employer] MACHINE MALIK CONN M.D. Performed By: #### B MP, LIPASE, HEPATIC, CBC ####[facility] [id number] [place] [address] [facility] Basophils/100 WBC (Bld) 0.6 % Normal . [facility] Comment on above: Performed By: #### B MP, LIPASE, HEPATIC, CBC ####[facility] [id number] [place] [address] [facility] Eosinophils (Bld) [#/Vol] 0.2 10*3/uL Normal 0.0-0.45 [facility] Comment on above: Performed By: #### B MP, LIPASE, HEPATIC, CBC ####[address] Eosinophils/100 WBC (Bld) 1.5 % Normal . [facility] Comment on above: Performed By: #### B MP, LIPASE, HEPATIC, CBC ####[address] Erythrocyte distribution width (RBC) [Ratio] 13.4 % Normal 12.0-14.8 [facility] Comment on above: Performed By: #### B MP, LIPASE, HEPATIC, CBC ####[address] Hematocrit (Bld) [Volume fraction] 44.6 % Normal 38.8-50.0 [facility] Comment on above: Performed By: #### B MP, LIPASE, HEPATIC, CBC ####[address] Hemoglobin (Bld) [Mass/Vol] 15.1 g/dL Normal 13.0-17.0 [facility] Comment on above: Performed By: #### B MP, LIPASE, HEPATIC, CBC ####[address] Lymphocytes (Bld) [#/Vol] 0.8 10*3/uL Low 1.00-4.8 [facility] Comment on above: Performed By: #### B MP, LIPASE, HEPATIC, CBC ####[address] Lymphocytes/100 WBC (Bld) 6.6 % Normal . [facility] Comment on above: Performed By: #### B MP, LIPASE, HEPATIC, CBC ####[address] MCH (RBC) [Entitic mass] 29.7 pg Normal 27.5-35.2 [facility] Comment on above: Performed By: #### B MP, LIPASE, HEPATIC, CBC ####[address] MCV (RBC) [Entitic vol] 87.5 fL Normal 83.5-101 [facility] Comment on above: Performed By: #### B MP, LIPASE, HEPATIC, CBC ####[address] Mean Corpuscular HGB Conc 34.0 g/dL Normal 32.5-35.6 [facility] Comment on above: Performed By: #### B MP, LIPASE, HEPATIC, CBC ####[address] Monocytes (Bld) [#/Vol] 0.9 10*3/uL High 0.0-0.8 [facility] Comment on above: Performed By: #### B MP, LIPASE, HEPATIC, CBC ####[address] Monocytes/100 WBC (Bld) 17.38 % Normal 0.00-20.00 [facility] Comment on above: Performed By: #### B MP, LIPASE, HEPATIC, CBC ####[address] Monocytes/100 WBC (Bld) 7.3 % Normal . [facility] Comment on above: Performed By: #### B MP, LIPASE, HEPATIC, CBC ####[address] Neutrophils (Bld) [#/Vol] 10.0 10*3/uL High 1.8-7.7 [facility] Comment on above: Performed By: #### B MP, LIPASE, HEPATIC, CBC ####[address] Neutrophils/100 WBC (Bld) 84.0 % Normal . [facility] Comment on above: Performed By: #### B MP, LIPASE, HEPATIC, CBC ####[address] NRBC% 0.0 /100{WBC} Normal 0-0.5 [facility] Comment on above: Performed By: #### B MP, LIPASE, HEPATIC, CBC ####[address] Platelet mean volume (Bld) [Entitic vol] 8.3 fL Normal 6.6-10.1 [facility] Comment on above: Performed By: #### B MP, LIPASE, HEPATIC, CBC ####[address] Platelets (Bld) [#/Vol] 267 10*3/uL Normal 150-450 [facility] Comment on above: Performed By: #### B MP, LIPASE, HEPATIC, CBC ####[address] RBC (Bld) [#/Vol] 5.09 10*6/uL Normal 3.90-5.[address] [facility] Comment on above: Performed By: #### B MP, LIPASE, HEPATIC, CBC ####[address] WBC (Bld) [#/Vol] 11.9 10*3/uL High 4.1-10.[address] [facility] Comment on above: Performed By: #### B MP, LIPASE, HEPATIC, CBC ####[address] Hepatic Panelon 12-17-2022 Albumin [Mass/Vol] 4.6 g/dL Normal 3.5-5.7 [place] Comment on above: Performed By: #### B MP, LIPASE, HEPATIC, CBC ####[address] Albumin/Globulin [Mass ratio] 1.5 {ratio} Normal [facility] Comment on above: Performed By: #### B MP, LIPASE, HEPATIC, CBC ####[address] ALP [Catalytic activity/Vol] 82 U/L Normal 34-104 [facility] Comment on above: Performed By: #### B MP, LIPASE, HEPATIC, CBC ####[address] ALT [Catalytic activity/Vol] 26 U/L Normal 7-52 [facility] Comment on above: Performed By: #### B MP, LIPASE, HEPATIC, CBC ####[place] [address] [place] [id number] [facility] AST [Catalytic activity/Vol] 17 U/L Normal 13-39 [facility] Comment on above: Performed By: #### B MP, LIPASE, HEPATIC, CBC ####[place] [address] [place] [id number] [facility] Bilirubin [Mass/Vol] 1.4 mg/dL High 0.3-1.0 [facility] Comment on above: Result Comment: Samp les from patients who have taken Naproxen have shown spurious elevation in Total Bilirubin levels. A metabolite of Naproxen, O-desmethylnaproxen, has been shown to interfere with the Jendrassik-Grof method for measuring Total Bilirubin. Performed By: #### B MP, LIPASE, HEPATIC, CBC ####[place] [address] Bilirubin,Indirect 1.2 mg/dL Normal [place] Comment on above: Performed By: #### B MP, LIPASE, HEPATIC, CBC ####[place] [address] Bilirubin.indirect [Mass/Vol] 0.20 mg/dL High 0.03-0.18 [facility] Comment on above: Performed By: #### B MP, LIPASE, HEPATIC, CBC ####[place] [address] Globulin (S) [Mass/Vol] 3.1 g/dL Normal [facility] Comment on above: Performed By: #### B MP, LIPASE, HEPATIC, CBC ####[place] [address] [place] [id number] [facility] Protein [Mass/Vol] 7.7 g/dL Normal 6.4-8.9 [place] Comment on above: Performed By: #### B MP, LIPASE, HEPATIC, CBC ####[place] [id number] [facility] Lipaseon 12-17-2022 Lipase [Catalytic activity/Vol] 7.0 U/L Low 11.0-82.0 [facility] Comment on above: Result Comment: PERF ORMED BY: [facility] [address] [place] [address] PATHOLOGIST [employer]ACHINE MALIK CONN M.D. Performed By: #### B MP, LIPASE, HEPATIC, CBC ####[place] [id number] [facility] Urinalysison 12-17-2022 Appearance (U) Clear Normal Clear [facility] Comment on above: Order Comment: Name Collection Type:: Clean-Voided Midstream Performed By: #### U A ####[address] Bilirubin,Urine Negative Normal Negative [facility] Comment on above: Order Comment: Name Collection Type:: Clean-Voided Midstream Performed By: #### U A ####[address] Color (U) Yellow Normal Yellow [facility] Comment on above: Order Comment: Name Collection Type:: Clean-Voided Midstream Performed By: #### U A ####[address] Glucose Ql (U) Normal Normal Normal [facility] Comment on above: Order Comment: Name Collection Type:: Clean-Voided Midstream Performed By: #### U A ####[place] [id number] [facility] Ketones Ql (U) Negative Normal Negative [facility] Comment on above: Order Comment: Name Collection Type:: Clean-Voided Midstream Performed By: #### U A ####[place] [id number] [facility] Leukocyte esterase Test strip Ql (U) Negative Normal Negative [facility] Comment on above: Order Comment: Name Collection Type:: Clean-Voided Midstream Performed By: #### U A ####[place] [id number] [facility] Nitrite,Urine Negative Normal Negative [facility] Comment on above: Order Comment: Name Collection Type:: Clean-Voided Midstream Performed By: #### U A ####[address] Occult Blood,Urine Negative Normal Negative [place] Comment on above: Order Comment: Name Collection Type:: Clean-Voided Midstream Result Comment: PERF ORMED BY: [facility] [address] [place] [address] PATHOLOGIST [employer]ACHINE AMLIK CONN M.D. Performed By: #### U A ####[address] pH (U) 8.0 [pH] Normal 5.0-9.0 [facility] Comment on above: Order Comment: Name Collection Type:: Clean-Voided Midstream Performed By: #### U A ####[address] Protein,Urine Negative Normal Negative [facility] Comment on above: Order Comment: Name Collection Type:: Clean-Voided Midstream Performed By: #### U A ####[address] Specificy [place],Urine 1.025 Normal 1.001-1.030 [facility] Comment on above: Order Comment: Name Collection Type:: Clean-Voided Midstream Performed By: #### U A ####[address] Urobilinogen,Urine Normal Normal Normal [place] Comment on above: Order Comment: Name Collection Type:: Clean-Voided Midstream Performed By: #### U A ####[address] Alanine aminotransferase [En zymatic activity/volume] in Serum or PlasmaOrdered By: Johnathan Isbell on 12-16-2022 ALT [Catalytic activity/Vol] 26 U/L [facility] Albumin [Mass/volume] in Ser um or Plasma by Bromocresol green (BCG) dye binding methoOrdered By: Johnathan Isbell on 12-16-2022 Albumin BCG dye [Mass/Vol] 4.6 g/dL 3.5-5.7 [facility] Alkaline phosphatase [Enzyma tic activity/volume] in Serum or PlasmaOrdered By: Johnathan Isbell on 12-16-2022 ALP [Catalytic activity/Vol] 82 U/L 34-104 [facility] Aspartate aminotransferase [ Enzymatic activity/volume] in Serum or PlasmaOrdered By: Johnathan Isbell on 12-16-2022 AST [Catalytic activity/Vol] 17 U/L 13-39 [facility] Basophils Auto (Bld) [#/Vol] Ordered By: Johnathan Isbell on 12-16-2022 Basophils (Bld) [#/Vol] 0.1 10*3/uL 0.0-0.2 [facility] Basophils/100 WBC Auto (Bld) Ordered By: Johnathan Isbell on 12-16-2022 Basophils/100 WBC (Bld) 0.6 % . [facility] Bilirubin Auto test strip Ql (U)Ordered By: Johnathan Isbell on 12-16-2022 Bilirubin Ql (U) Negative Negative [facility] Bilirubin.direct [Mass/volum e] in Serum or PlasmaOrdered By: Johnathan Isbell on 12-16-2022 Bilirubin.direct [Mass/Vol] 0.20 mg/dL 0.03-0.18 [facility] Bilirubin.total [Mass/volume ] in Serum or PlasmaOrdered By: Johnathan Isbell on 12-16-2022 Bilirubin [Mass/Vol] 1.4 mg/dL 0.3-1.0 [facility] Comment on above: Samples from patient s who have taken Naproxen have shown spurious elevation in Total Bilirubin levels. A metabolite of Naproxen, O-desmethylnaproxen, has been shown to interfere with the Kimberly-lAessio method for measuring Total Bilirubin. Calcium [Mass/volume] in Ser um or PlasmaOrdered By: Johnathan Isbell on 12-16-2022 Calcium [Mass/Vol] 9.9 mg/dL 8.6-10.3 [place] Carbon dioxide, total [Moles /volume] in Serum or PlasmaOrdered By: Johnathan Isbell on 12-16-2022 CO2 [Moles/Vol] 27.9 mmol/L 21.0-31.0 [facility] Chloride [Moles/volume] in S pj or PlasmaOrdered By: Johnathan Isbell on 12-16-2022 Chloride [Moles/Vol] 102 mmol/L 98-107 [facility] Creatinine [Mass/volume] in Serum or PlasmaOrdered By: Johnathan Isbell on 12-16-2022 Creatinine [Mass/Vol] 1.11 mg/dL 0.70-1.30 [facility] Eosinophils Auto (Bld) [#/Vo l]Ordered By: Johnathan Isbell on 12-16-2022 Eosinophils (Bld) [#/Vol] 0.2 10*3/uL 0.0-0.45 [facility] Eosinophils/100 WBC Auto (Bl d)Ordered By: Johnathan Isbell on 12-16-2022 Eosinophils/100 WBC (Bld) 1.5 % . [facility] Erythrocyte distribution wid th Auto (RBC) [Ratio]Ordered By: Johnathan Isbell on 12-16-2022 Erythrocyte distribution width (RBC) [Ratio] 13.4 % 12.0-14.8 [facility] Globulin Calc (S) [Mass/Vol] Ordered By: Johnathan Isbell on 12-16-2022 Globulin (S) [Mass/Vol] 3.1 g/dL [facility] Glucose [Mass/volume] in Ser um or PlasmaOrdered By: Johnathan Isbell on 12-16-2022 Glucose [Mass/Vol] 91 mg/dL 70-100 [place] Comment on above: ADA recommended refe rence rangeRandom Glucose Reference Range is dependent on time and content of last meal. Glucose of more than 200 mg/dL in a nonstressed, ambulatory subject supports the diagnosis of Diabetes Mellitus. Hematocrit Auto (Bld) [Volum e fraction]Ordered By: Johnathan Isbell on 12-16-2022 Hematocrit (Bld) [Volume fraction] 44.6 % 38.8-50.0 [facility] Hemoglobin [Mass/volume] in BloodOrdered By: Johnathan Isbell on 12-16-2022 Hemoglobin (Bld) [Mass/Vol] 15.1 g/dL 13.0-17.0 [facility] Ketones Auto test strip (U) [Mass/Vol]Ordered By: Johnathan Isbell on 12-16-2022 Ketones (U) [Mass/Vol] Negative Negative [facility] Leukocytes [#/volume] correc chuyita for nucleated erythrocytes in Blood by Automated counOrdered By: Johnathan Isbell on 12-16-2022 WBC corrected for nucl RBC Auto (Bld) [#/Vol] 11.9 10*3/uL 4.1-10.5 [facility] Lipase [Enzymatic activity/v olume] in Serum or PlasmaOrdered By: Johnathan Isbell on 12-16-2022 Lipase [Catalytic activity/Vol] 7.0 U/L 11.0-82.0 [facility] Lymphocytes Auto (Bld) [#/Vo l]Ordered By: Johnathan Isbell on 12-16-2022 Lymphocytes (Bld) [#/Vol] 0.8 10*3/uL 1.00-4.8 [facility] Lymphocytes/100 WBC Auto (Bl d)Ordered By: Johnathan Isbell on 12-16-2022 Lymphocytes/100 WBC (Bld) 6.6 % . [facility] MCH Auto (RBC) [Entitic mass ]Ordered By: Johnathan Isbell on 12-16-2022 MCH (RBC) [Entitic mass] 29.7 pg 27.5-35.2 [facility] MCHC Auto (RBC) [Mass/Vol]Or dered By: Johnathan Isbell on 12-16-2022 MCHC (RBC) [Mass/Vol] 34.0 g/dL 32.5-35.6 [facility] MCV Auto (RBC) [Entitic vol] Ordered By: Johnathan Isbell on 12-16-2022 MCV (RBC) [Entitic vol] 87.5 fL 83.5-101 [facility] Monocyte distribution width [Entitic volume] in Blood by AutomatedOrdered By: Johnathan Isbell on 12-16-2022 Monocyte distribution width Auto (Bld) [Entitic vol] 17.38 % 0.00-20.00 [facility] Monocytes Auto (Bld) [#/Vol] Ordered By: Johnathan Isbell on 12-16-2022 Monocytes (Bld) [#/Vol] 0.9 10*3/uL 0.0-0.8 [facility] Monocytes/100 WBC Auto (Bld) Ordered By: Johnathan Isbell on 12-16-2022 Monocytes/100 WBC (Bld) 7.3 % . [facility] Neutrophils Auto (Bld) [#/Vo l]Ordered By: Johnathan Isbell on 12-16-2022 Neutrophils (Bld) [#/Vol] 10.0 10*3/uL 1.8-7.7 [facility] Neutrophils/100 WBC Auto (Bl d)Ordered By: Johnathan Isbell on 12-16-2022 Neutrophils/100 WBC (Bld) 84.0 % . [facility] No Panel InformationOrdered By: Johnathan Isbell on 12-16-2022 Estimated GFR (CKD-EPI) > 60.0 mL/Min [facility] Creatinine Clearance (Chem 134.17 [facility] Nucleated erythrocytes [Pres ence] in Blood by Automated countOrdered By: Johnathan Isbell on 12-16-2022 Nucleated RBC Auto Ql (Bld) 0.0 /100{WBC} 0-0.5 [facility] Platelet mean volume Auto (B ld) [Entitic vol]Ordered By: Johnathan Isbell on 12-16-2022 Platelet mean volume (Bld) [Entitic vol] 8.3 fL 6.6-10.1 [facility] Platelets Auto (Bld) [#/Vol] Ordered By: Johnathan Isbell on 12-16-2022 Platelets (Bld) [#/Vol] 267 10*3/uL 150-450 [facility] Potassium [Moles/volume] in Serum or PlasmaOrdered By: Johnathan Isbell on 12-16-2022 Potassium [Moles/Vol] 4.2 mmol/L 3.5-5.1 [facility] Protein Auto test strip (U) [Mass/Vol]Ordered By: Johnathan Isbell on 12-16-2022 Protein (U) [Mass/Vol] Negative Negative [facility] Protein [Mass/volume] in Ser um or PlasmaOrdered By: Johnathan Isbell on 12-16-2022 Protein [Mass/Vol] 7.7 g/dL 6.4-8.9 [place] RBC Auto (Bld) [#/Vol]Ordere d By: Johnathan Isbell on 12-16-2022 RBC (Bld) [#/Vol] 5.09 10*6/uL 3.90-5.[address] [facility] Serum or plasma albumin/glob ulin mass ratioOrdered By: Johnathan Isbell on 12-16-2022 Albumin/Globulin [Mass ratio] 1.5 {ratio} [facility] Serum or plasma anion gap de terminationOrdered By: Johnathan Isbell on 12-16-2022 Anion gap [Moles/Vol] 11.3 mmol/L 6.0-15.0 [facility] Serum or plasma non-glucuron idated bilirubin measurement (mass/volume)Ordered By: Johnathan Isbell on 12-16-2022 Bilirubin.indirect [Mass/Vol] 1.2 mg/dL [facility] Sodium [Moles/volume] in Ser um or PlasmaOrdered By: Johnathan Isbell on 12-16-2022 Sodium [Moles/Vol] 137 mmol/L 136-145 [place] Urea nitrogen [Mass/volume] in Serum or PlasmaOrdered By: Johnathan Isbell on 12-16-2022 Urea nitrogen [Mass/Vol] 12 mg/dL 7-25 [facility] Urine appearanceOrdered By: Johnathan Isbell on 12-16-2022 Appearance (U) Clear Clear [facility] Urine colorOrdered By: Johnathan Isbell on 12-16-2022 Color (U) Yellow Yellow [facility] Urine glucose measurement by automated test strip (mass/volume)Ordered By: Johnathan Isbell on 12-16-2022 Glucose Auto test strip (U) [Mass/Vol] Normal mg/dL Normal [facility] Urine hemoglobin detection b y automated test stripOrdered By: Johnathan Isbell on 12-16-2022 Hemoglobin Auto test strip Ql (U) Negative Negative [facility] Urine leukocyte esterase det ection by automated test stripOrdered By: Johnathan Isbell on 12-16-2022 Leukocyte esterase Auto test strip Ql (U) Negative Negative [facility] Urine nitrite detection by a utomated test stripOrdered By: Johnathan Isbell on 12-16-2022 Nitrite Auto test strip Ql (U) Negative Negative [facility] Urobilinogen Auto test strip (U) [Mass/Vol]Ordered By: Johnathan Isbell on 12-16-2022 Urobilinogen (U) [Mass/Vol] Normal mg/dL Normal [facility] WBC Auto (Bld) [#/Vol]Ordere d By: Johnathan Isbell on 12-16-2022 WBC (Bld) [#/Vol] 11.9 10*3/uL 4.1-10.[address] [facility] pH Auto test strip (U)Ordere d By: Johnathan Isbell on 12-16-2022 pH (U) 1.025 [pH] 1.001-1.030 [facility] pH (U) 8.0 [pH] 5.0-9.0 [facility] Activated partial thrombopla stin time (aPTT) in platelet poor plasma by coagulation aOrdered By: Coco Landry on 10-12-2022 aPTT Coag (PPP) [Time] 32.4 s 25.1-36.5 [facility] Alanine aminotransferase [En zymatic activity/volume] in Serum or PlasmaOrdered By: Coco Landry on 10-12-2022 ALT [Catalytic activity/Vol] 28 U/L 7-52 [facility] Albumin [Mass/volume] in Ser um or Plasma by Bromocresol green (BCG) dye binding methoOrdered By: Coco Landry on 10-12-2022 Albumin BCG dye [Mass/Vol] 4.8 g/dL 3.5-5.7 [facility] Alkaline phosphatase [Enzyma tic activity/volume] in Serum or PlasmaOrdered By: Coco Landry on 10-12-2022 ALP [Catalytic activity/Vol] 84 U/L 34-104 [facility] Aspartate aminotransferase [ Enzymatic activity/volume] in Serum or PlasmaOrdered By: Coco Landry on 10-12-2022 AST [Catalytic activity/Vol] 19 U/L 13-39 [facility] Automated erythrocytes count in urine sediment (number/area)Ordered By: Coco Landry on 10-12-2022 RBC Auto (Urine sed) [#/Area] 0-1 [HPF] 0-4 [facility] Automated leukocytes count i n urine sediment (number/area)Ordered By: Coco Landry on 10-12-2022 WBC Auto (Urine sed) [#/Area] 0-1 [HPF] 0-4 [facility] Bacterial blood cultureOrder ed By: Coco Landry on 10-12-2022 Bacteria identified Cx Nom (Bld) NO GROWTH 5 DAYS [facility] Basophils Auto (Bld) [#/Vol] Ordered By: Coco Landry on 10-12-2022 Basophils (Bld) [#/Vol] 0.1 10*3/uL 0.0-0.2 [facility] Basophils/100 WBC Auto (Bld) Ordered By: Coco Landry on 10-12-2022 Basophils/100 WBC (Bld) 0.7 % . [facility] Bilirubin Test strip Ql (U)O rdered By: Coco Landry on 10-12-2022 Bilirubin Ql (U) Negative Negative [facility] Bilirubin.total [Mass/volume ] in Serum or PlasmaOrdered By: Coco Landry on 10-12-2022 Bilirubin [Mass/Vol] 1.0 mg/dL 0.3-1.0 [facility] Blood Cultureon 10-12-2022 Bacteria identified Cx Nom (Bld) NO GROWTH 5 DAYS PERFORMED BY: [address] [place] [id number] PATHOLOGIST [employer]ACH[employer] MALIK CONN M.D. [facility] Comment on above: Performed By: #### C UBLD ####[place] [id number] [facility] Bacteria identified Cx Nom (Bld) NO GROWTH 5 DAYS PERFORMED BY: [facility] [address] [facility] [place] [id number] PATHOLOGIST [employer] MALIK CONN M.D. [facility] Comment on above: Performed By: #### C UBLD, PTT, CBC, CMP, PT ####[facility] [id number] [place], [place] [id number] [facility] COVID CepheidOrdered By: Neo Landry on 10-12-2022 SARS-CoV-2 (COVID-19) Ab IA Ql Negative Negative [facility] Comment on above: This is a duplicate Cepheid Xpert Xpress CoV-2/Flu/RSV Plus RNA by RT-PCR result to be used for statistical tracking purpose only. SARS-CoV-2 (COVID-19) RNA BARBARA+probe Ql (Unsp spec) [facility] COVID-19 / Flu A/B / RSV PCR on 10-12-2022 SARS-CoV-2 (COVID-19) RNA BARBARA+probe Ql (Unsp spec) COVID-19 Cepheid Result Negative for SARS-CoV-2 RNA by RT-PCR Flu A Cepheid Result Negative for Flu A RNA by RT-PCR Flu B Cepheid Result Negative for Flu B RNA by RT-PCR RSV Cepheid Result Negative for RSV RNA by RT-PCR COVID19 Blank Space ------ Reference: Negative COVID19 Blank Space ------ Cepheid Disclaimer The Cepheid Xpert Xpress CoV-2/Flu/RSV Plus has Cepheid Disclaimer not been FDA cleared or approved; this test has Cepheid Disclaimer been authorized by FDA under an EUA for use by Cepheid Disclaimer authorized laboratories; this test has been Cepheid Disclaimer authorized only for the simultaneous qualitative Cepheid Disclaimer detection and differentiation of nucleic acids from Cepheid Disclaimer SARS-CoV-2, influenza A, influenza B, and Cepheid Disclaimer respiratory syncytial virus (RSV), and not for any Cepheid Disclaimer other viruses or pathogens; and this test is only Cepheid Disclaimer authorized for the duration of the declaration that Cepheid Disclaimer circumstances exist justifying the authorization of Cepheid Disclaimer emergency use of in vitro diagnostic tests for Cepheid Disclaimer detection and/or diagnosis of COVID-19 under Cepheid Disclaimer Section 564(b)(1) of the Act, 21 U.S.C. 360bbb- Cepheid Disclaimer 3(b)(1), unless the authorization is terminated or Cepheid Disclaimer revoked sooner. PERFORMED BY: [address] [address] PATHOLOGIST [employer] MALIK CONN M.D. Normal [facility] Comment on above: Performed By: #### C EPHEID NEG, COVID19 FLU RSV ####[place] [address] [place] [address] [place] Calcium [Mass/volume] in Ser um or PlasmaOrdered By: Coco Landry on 10-12-2022 Calcium [Mass/Vol] 9.7 mg/dL 8.6-10.3 [place] Carbon dioxide, total [Moles /volume] in Serum or PlasmaOrdered By: Coco Landry on 10-12-2022 CO2 [Moles/Vol] 24.1 mmol/L 21.0-31.0 [facility] Cepheid COVID PCR Negativeon 10-12-2022 SARS-CoV-2 (COVID-19) RNA BARBARA+probe Ql (Unsp spec) Negative Normal Negative [facility] Comment on above: Result Comment: This is a duplicate Cepheid Xpert Xpress CoV-2/Flu/RSV Plus RNA by RT-PCR result to be used for statistical tracking purpose only. PERFORMED BY: [facility] [address] [place] [address] PATHOLOGIST [employer]ACH[employer] MALIK CONN M.D. Performed By: #### C EPHEID NEG, COVID19 FLU RSV ####[place] [address] [place] [address] [place] Chloride [Moles/volume] in S pj or PlasmaOrdered By: Coco Landry on 10-12-2022 Chloride [Moles/Vol] 102 mmol/L 98-107 [facility] Color Auto (U)Ordered By: Jennie Landry on 10-12-2022 Color (U) Yellow Yellow [facility] Complete Blood Count Auto Di ffon 10-12-2022 Basophils (Bld) [#/Vol] 0.1 10*3/uL Normal 0.0-0.2 [facility] Comment on above: Result Comment: PERF ORMED BY: [place] [address] PATHOLOGIST [employer] MALIK CONN M.D. Performed By: #### C UBLD, PTT, CBC, CMP, PT #### [address] Basophils/100 WBC (Bld) 0.7 % Normal . [facility] Comment on above: Performed By: #### C UBLD, PTT, CBC, CMP, PT #### [facility] [address] [place] [address] Eosinophils (Bld) [#/Vol] 0.0 10*3/uL Normal 0.0-0.45 [facility] Comment on above: Performed By: #### C UBLD, PTT, CBC, CMP, PT #### [facility] [address] [place] [address] Eosinophils/100 WBC (Bld) 0.1 % Normal . [facility] Comment on above: Performed By: #### C UBLD, PTT, CBC, CMP, PT #### [facility] [address] [place] [address] Erythrocyte distribution width (RBC) [Ratio] 12.8 % Normal 12.0-14.8 [facility] Comment on above: Performed By: #### C UBLD, PTT, CBC, CMP, PT #### [facility] [address] [place] [address] Hematocrit (Bld) [Volume fraction] 45.8 % Normal 38.8-50.0 [facility] Comment on above: Performed By: #### C UBLD, PTT, CBC, CMP, PT #### [facility] [address] [place] [address] Hemoglobin (Bld) [Mass/Vol] 15.9 g/dL Normal 13.0-17.0 [facility] Comment on above: Performed By: #### C UBLD, PTT, CBC, CMP, PT #### [address] Lymphocytes (Bld) [#/Vol] 0.7 10*3/uL Low 1.00-4.8 [facility] Comment on above: Performed By: #### C UBLD, PTT, CBC, CMP, PT #### [address] Lymphocytes/100 WBC (Bld) 6.8 % Normal . [facility] Comment on above: Performed By: #### C UBLD, PTT, CBC, CMP, PT #### [address] MCH (RBC) [Entitic mass] 30.3 pg Normal 27.5-35.2 [facility] Comment on above: Performed By: #### C UBLD, PTT, CBC, CMP, PT #### [address] MCV (RBC) [Entitic vol] 87.1 fL Normal 83.5-101 [facility] Comment on above: Performed By: #### C UBLD, PTT, CBC, CMP, PT #### [address] Mean Corpuscular HGB Conc 34.8 g/dL Normal 32.5-35.6 [facility] Comment on above: Performed By: #### C UBLD, PTT, CBC, CMP, PT #### [address] Monocytes (Bld) [#/Vol] 0.6 10*3/uL Normal 0.0-0.8 [facility] Comment on above: Performed By: #### C UBLD, PTT, CBC, CMP, PT #### [address] Monocytes/100 WBC (Bld) 20.90 % High 0.00-20.00 [facility] Comment on above: Result Comment: For adults in ED, MDW > 20.0 may be associated with a higher risk of sepsis during the first 12 hrs of hospital admission Performed By: #### C UBLD, PTT, CBC, CMP, PT #### [address] Monocytes/100 WBC (Bld) 5.8 % Normal . [facility] Comment on above: Performed By: #### C UBLD, PTT, CBC, CMP, PT #### [address] Neutrophils (Bld) [#/Vol] 8.9 10*3/uL High 1.8-7.7 [facility] Comment on above: Performed By: #### C UBLD, PTT, CBC, CMP, PT #### [address] Neutrophils/100 WBC (Bld) 86.6 % Normal . [facility] Comment on above: Performed By: #### C UBLD, PTT, CBC, CMP, PT #### [address] NRBC% 0.0 /100{WBC} Normal 0-0.5 [facility] Comment on above: Performed By: #### C UBLD, PTT, CBC, CMP, PT #### [address] Platelet mean volume (Bld) [Entitic vol] 8.0 fL Normal 6.6-10.1 [facility] Comment on above: Performed By: #### C UBLD, PTT, CBC, CMP, PT #### [place] [address] [place] Platelets (Bld) [#/Vol] 326 10*3/uL Normal 150-450 [facility] Comment on above: Performed By: #### C UBLD, PTT, CBC, CMP, PT #### [address] RBC (Bld) [#/Vol] 5.26 10*6/uL Normal 3.90-5.[address] [facility] Comment on above: Performed By: #### C UBLD, PTT, CBC, CMP, PT #### [facility] [address] WBC (Bld) [#/Vol] 10.2 10*3/uL Normal 4.1-10.[address] [facility] Comment on above: Performed By: #### C UBLD, PTT, CBC, CMP, PT #### [facility] [address] Comprehensive Metabolic Pane logan 10-12-2022 Albumin [Mass/Vol] 4.8 g/dL Normal 3.5-5.7 [place] Comment on above: Performed By: #### C UBLD, PTT, CBC, CMP, PT ####[facility] Albumin/Globulin [Mass ratio] 1.6 {ratio} Normal [facility] Comment on above: Performed By: #### C UBLD, PTT, CBC, CMP, PT ####[facility] ALP [Catalytic activity/Vol] 84 U/L Normal 34-104 [facility] Comment on above: Performed By: #### C UBLD, PTT, CBC, CMP, PT ####[facility] ALT [Catalytic activity/Vol] 28 U/L Normal 7-52 [facility] Comment on above: Performed By: #### C UBLD, PTT, CBC, CMP, PT ####[facility] [address] Anion gap [Moles/Vol] 13.6 mmol/L Normal 6.0-15.0 [facility] Comment on above: Performed By: #### C UBLD, PTT, CBC, CMP, PT ####[facility] [place] [address] AST [Catalytic activity/Vol] 19 U/L Normal 13-39 [facility] Comment on above: Performed By: #### C UBLD, PTT, CBC, CMP, PT ####[place] [id number] [facility] Bilirubin [Mass/Vol] 1.0 mg/dL Normal 0.3-1.0 [facility] Comment on above: Performed By: #### C UBLD, PTT, CBC, CMP, PT ####[address] Calcium [Mass/Vol] 9.7 mg/dL Normal 8.6-10.3 [place] Comment on above: Performed By: #### C UBLD, PTT, CBC, CMP, PT ####[address] Chloride [Moles/Vol] 102 mmol/L Normal 98-107 [facility] Comment on above: Performed By: #### C UBLD, PTT, CBC, CMP, PT ####[address] CO2 [Moles/Vol] 24.1 mmol/L Normal 21.0-31.0 [facility] Comment on above: Performed By: #### C UBLD, PTT, CBC, CMP, PT ####[address] Creatinine [Mass/Vol] 1.13 mg/dL Normal 0.70-1.30 [facility] Comment on above: Performed By: #### C UBLD, PTT, CBC, CMP, PT ####[address] Creatinine Clr Calc Pharmacy 132.89 Normal [facility] Comment on above: Result Comment: PERF ORMED BY: [facility] [address] [place] [address] PATHOLOGIST [employer] MALIK CONN M.D. Performed By: #### C UBLD, PTT, CBC, CMP, PT ####[address] GFR/1.73 sq M.predicted MDRD (S/P/Bld) [Vol rate/Area] mL/min/{1.73_m2} [facility] Comment on above: Performed By: #### C UBLD, PTT, CBC, CMP, PT ####[address] Globulin (S) [Mass/Vol] 3.0 g/dL [facility] Comment on above: Performed By: #### C UBLD, PTT, CBC, CMP, PT ####[address] Glucose [Mass/Vol] 96 mg/dL Normal 70-100 [place] Comment on above: Result Comment: [facility] Glucose Reference Range is dependent on time and content of last meal. Glucose of more than 200 mg/dL in a nonstressed, ambulatory subject supports the diagnosis of Diabetes Mellitus. ADA recommended reference range Performed By: #### C UBLD, PTT, CBC, CMP, PT ####[address] Potassium [Moles/Vol] 3.7 mmol/L Normal 3.5-5.1 [facility] Comment on above: Performed By: #### C UBLD, PTT, CBC, CMP, PT ####[address] Protein [Mass/Vol] 7.8 g/dL Normal 6.4-8.9 [place] Comment on above: Performed By: #### C UBLD, PTT, CBC, CMP, PT ####[place] [id number] [facility] Sodium [Moles/Vol] 136 mmol/L Normal 136-145 [place] Comment on above: Performed By: #### C UBLD, PTT, CBC, CMP, PT ####[place] [id number] [facility] Urea nitrogen [Mass/Vol] 8 mg/dL Normal 7-25 [facility] Comment on above: Performed By: #### C UBLD, PTT, CBC, CMP, PT ####[address] [place] [address] [place] Creatinine [Mass/volume] in Serum or PlasmaOrdered By: Coco Landry on 10-12-2022 Creatinine [Mass/Vol] 1.13 mg/dL 0.70-1.30 [facility] Dipstick and Microscopicon 0 10-12-2022 Appearance (U) Clear Normal Clear [facility] Comment on above: Order Comment: Name Collection Type:: Clean-Voided Midstream Performed By: #### A DDONUAPLUS #### [facility] [address] [place] [address] [place] Bacteria,Urine None Seen Normal None Seen [facility] Comment on above: Order Comment: Name Collection Type:: Clean-Voided Midstream Performed By: #### A DDONUAPLUS #### [facility] [address] [place] [address] [place] Bilirubin,Urine Negative Normal Negative [facility] Comment on above: Order Comment: Name Collection Type:: Clean-Voided Midstream Performed By: #### A DDONUAPLUS #### [facility] [address] [place] [address] [place] Color (U) Yellow Normal Yellow [facility] Comment on above: Order Comment: Name Collection Type:: Clean-Voided Midstream Performed By: #### A DDONUAPLUS #### [facility] [address] [place] [address] [place] Glucose Ql (U) Normal Normal Normal [facility] Comment on above: Order Comment: Name Collection Type:: Clean-Voided Midstream Performed By: #### A DDONUAPLUS #### [facility] [address] [place], [place] [id number] [place] Hyaline Casts,Urine 0-8 Normal 0-[address] [facility] Comment on above: Order Comment: Name Collection Type:: Clean-Voided Midstream Result Comment: PERF ORMED BY: [place] [address] PATHOLOGIST [employer]ACH[employer] MALIK CONN M.D. Performed By: #### A DDONUAPLUS #### [facility] [address] [place] [address] [place] Ketones Ql (U) Trace High Negative [facility] Comment on above: Order Comment: Name Collection Type:: Clean-Voided Midstream Performed By: #### A DDONUAPLUS #### [address] Leukocyte esterase Test strip Ql (U) 1+ High Negative [facility] Comment on above: Order Comment: Name Collection Type:: Clean-Voided Midstream Performed By: #### A DDONUAPLUS #### [place] [address] [place] Nitrite,Urine Negative Normal Negative [facility] Comment on above: Order Comment: Name Collection Type:: Clean-Voided Midstream Performed By: #### A DDONUAPLUS #### [address] Occult Blood,Urine Negative Normal Negative [place] Comment on above: Order Comment: Name Collection Type:: Clean-Voided Midstream Result Comment: PERF ORMED BY: [place] [address] PATHOLOGIST [employer]ACH[employer] MALIK CONN M.D. Performed By: #### A DDONUAPLUS #### [address] pH (U) 6.0 [pH] Normal 5.0-9.0 [facility] Comment on above: Order Comment: Name Collection Type:: Clean-Voided Midstream Performed By: #### A DDONUAPLUS #### [place] [address] [place] Protein,Urine Negative Normal Negative [facility] Comment on above: Order Comment: Name Collection Type:: Clean-Voided Midstream Performed By: #### A DDONUAPLUS #### [place] [address] [place] RBC LM.HPF (Urine sed) [#/Area] 0 /[HPF] Normal 0-4 [facility] Comment on above: Order Comment: Name Collection Type:: Clean-Voided Midstream Performed By: #### A DDONUAPLUS #### [address] Specificy [place],Urine 1.024 Normal 1.001-1.030 [facility] Comment on above: Order Comment: Name Collection Type:: Clean-Voided Midstream Performed By: #### A DDONUAPLUS #### [address] Squamous Epithelial Cell,Urine None Seen Normal 0-2 [facility] Comment on above: Order Comment: Name Collection Type:: Clean-Voided Midstream Performed By: #### A DDONUAPLUS #### [address] Urobilinogen,Urine Normal Normal Normal [place] Comment on above: Order Comment: Name Collection Type:: Clean-Voided Midstream Performed By: #### A DDONUAPLUS #### [address] WBC LM.HPF (Urine sed) [#/Area] 0 /[HPF] Normal 0-4 [facility] Comment on above: Order Comment: Name Collection Type:: Clean-Voided Midstream Performed By: #### A DDONUAPLUS #### [address] ECG 12 lead ECGon 10-12-2022 ECG 12 lead ECG [facility] [place] [address] [place] [address] Electrocardiograph Report Signed Patient: Clay Newton MR#: [id number] : 1995 Acct:[id number] Age/Sex: 27 / M ADM Date: 10/12/22 Loc: ER Room: Type: [facility] ER Attending Dr: Ordering Provider: Coco Landry Jr, MD Date of Service: 10/12/22 ECG/ECG 12 lead ECG: Fever Copies to: Test Reason : Blood Pressure : 130/077 mmHG Vent. Rate : 115 BPM Atrial Rate : 115 BPM P-R Int : 140 ms QRS Dur : 086 ms QT Int : 306 ms P-R-T Axes : 049 082 046 degrees QTc Int : 423 ms Sinus tachycardia Otherwise normal ECG When compared with ECG of 29-DEC-2021 08:49, Vent. rate has increased BY 49 BPM Confirmed by COCO LANDRY MD ([id number]) on 10/12/2022 3:58:27 AM Referred By: Electronically Signed By:COCO LANDRY MD Transcribed By: MUS Signed By Coco Landry Jr, MD [id number] Normal [facility] Eosinophils Auto (Bld) [#/Vo l]Ordered By: Coco Landry on 10-12-2022 Eosinophils (Bld) [#/Vol] 0.0 10*3/uL 0.0-0.45 [facility] Eosinophils/100 WBC Auto (Bl d)Ordered By: Coco Landry on 10-12-2022 Eosinophils/100 WBC (Bld) 0.1 % . [facility] Erythrocyte distribution wid th Auto (RBC) [Ratio]Ordered By: Coco Landry on 10-12-2022 Erythrocyte distribution width (RBC) [Ratio] 12.8 % 12.0-14.8 [facility] Globulin Calc (S) [Mass/Vol] Ordered By: Coco Landry on 10-12-2022 Globulin (S) [Mass/Vol] 3.0 g/dL [facility] Glucose [Mass/volume] in Ser um or PlasmaOrdered By: Coco Landry on 10-12-2022 Glucose [Mass/Vol] 96 mg/dL 70-100 [place] Comment on above: ADA recommended refe rence rangeRandom Glucose Reference Range is dependent on time and content of last meal. Glucose of more than 200 mg/dL in a nonstressed, ambulatory subject supports the diagnosis of Diabetes Mellitus. Hematocrit Auto (Bld) [Volum e fraction]Ordered By: Coco Landry on 10-12-2022 Hematocrit (Bld) [Volume fraction] 45.8 % 38.8-50.0 [facility] Hemoglobin [Mass/volume] in BloodOrdered By: Coco Landry on 10-12-2022 Hemoglobin (Bld) [Mass/Vol] 15.9 g/dL 13.0-17.0 [facility] INR in Platelet poor plasma by Coagulation assayOrdered By: Coco Landry on 10-12-2022 INR Coag (PPP) [Relative time] 1.2 {INR} [facility] [facility] Comment on above: INR Therapeutic Rang e A) Pre- and Peroperative OAT started two weeks before surgery. NOT HIP SURGERY: 1.5 - 2.5 HIP SURGERY: 2 - 3B) Primary and secondary prevention of venous THROMBOSIS: 2 - 3C) Active venous thrombosis, pulmonary embolismand prevention of recurrent venous thrombosis: 2 - 3D) Prevention of arterial thromboembolismincluding patients with mechanical heart valves: 3 - 4.5 Ketones Auto test strip (U) [Mass/Vol]Ordered By: Coco Landry on 10-12-2022 Ketones (U) [Mass/Vol] Trace Negative [facility] - CoagulationOrde red By: Coco Landry on 10-12-2022 PT Coag (PPP) [Time] 14.1 s 9.0-12.9 [facility] - UrinalysisOrder ed By: Coco Landry on 10-12-2022 Hyaline casts LM Ql (Urine sed) 0-8 [LPF] 0-8 [facility] Lactate [Moles/volume] in Se rum or PlasmaOrdered By: Coco Landry on 10-12-2022 Lactate [Moles/Vol] 0.8 mmol/L 0.5-2.[address] [facility] Lactic Acidon 10-12-2022 Lactate [Moles/Vol] 0.8 mmol/L Normal 0.5-2.[address] [facility] Comment on above: Result Comment: PERF ORMED BY: [place] [address] PATHOLOGIST [employer]ACH[employer] MALIK CONN M.D. Performed By: #### L ACTIC #### [address] Leukocytes [#/volume] correc chuyita for nucleated erythrocytes in Blood by Automated counOrdered By: Coco Landry on 10-12-2022 WBC corrected for nucl RBC Auto (Bld) [#/Vol] 10.2 10*3/uL 4.1-10.5 [facility] Lymphocytes Auto (Bld) [#/Vo l]Ordered By: Coco Landry on 10-12-2022 Lymphocytes (Bld) [#/Vol] 0.7 10*3/uL 1.00-4.8 [facility] Lymphocytes/100 WBC Auto (Bl d)Ordered By: Coco Landry on 10-12-2022 Lymphocytes/100 WBC (Bld) 6.8 % . [facility] MCH Auto (RBC) [Entitic mass ]Ordered By: Coco Landry on 10-12-2022 MCH (RBC) [Entitic mass] 30.3 pg 27.5-35.2 [facility] MCHC Auto (RBC) [Mass/Vol]Or dered By: Coco Landry on 10-12-2022 MCHC (RBC) [Mass/Vol] 34.8 g/dL 32.5-35.6 [facility] MCV Auto (RBC) [Entitic vol] Ordered By: Coco Landry on 10-12-2022 MCV (RBC) [Entitic vol] 87.1 fL 83.5-101 [facility] Monocyte distribution width [Entitic volume] in Blood by AutomatedOrdered By: Coco Landry on 10-12-2022 Monocyte distribution width Auto (Bld) [Entitic vol] 20.90 % 0.00-20.00 [facility] Comment on above: For adults in ED, MD W > 20.0 may be associated with a higher risk of sepsis during the first 12 hrs of hospital admission Monocytes Auto (Bld) [#/Vol] Ordered By: Coco Landry on 10-12-2022 Monocytes (Bld) [#/Vol] 0.6 10*3/uL 0.0-0.8 [facility] Monocytes/100 WBC Auto (Bld) Ordered By: Coco Landry on 10-12-2022 Monocytes/100 WBC (Bld) 5.8 % . [facility] Neutrophils Auto (Bld) [#/Vo l]Ordered By: Coco Landry on 10-12-2022 Neutrophils (Bld) [#/Vol] 8.9 10*3/uL 1.8-7.7 [facility] Neutrophils/100 WBC Auto (Bl d)Ordered By: Coco Landry on 10-12-2022 Neutrophils/100 WBC (Bld) 86.6 % . [facility] Nitrite Test strip Ql (U)Ord ered By: Coco Landry on 10-12-2022 Nitrite Ql (U) Negative Negative [facility] No Panel InformationOrdered By: Coco Landry on 10-12-2022 Estimated GFR (CKD-EPI) > 60.0 mL/Min [facility] Creatinine Clearance (Chem 132.89 [facility] Nucleated erythrocytes [Pres ence] in Blood by Automated countOrdered By: Coco Landry on 10-12-2022 Nucleated RBC Auto Ql (Bld) 0.0 /100{WBC} 0-0.5 [facility] Partial Thromboplastin Timeo n 10-12-2022 aPTT Coag (Bld) [Time] 32.4 s Normal 25.1-36.5 [facility] Comment on above: Result Comment: PERF ORMED BY: [facility] [address] [place] [address] PATHOLOGIST [employer] MALIK CONN M.D. Performed By: #### C UBLD, PTT, CBC, CMP, PT ####[facility] [id number] [place] [id number] [facility] Platelet mean volume Auto (B ld) [Entitic vol]Ordered By: Coco Landry on 10-12-2022 Platelet mean volume (Bld) [Entitic vol] 8.0 fL 6.6-10.1 [facility] Platelets Auto (Bld) [#/Vol] Ordered By: Coco Landry on 10-12-2022 Platelets (Bld) [#/Vol] 326 10*3/uL 150-450 [facility] Potassium [Moles/volume] in Serum or PlasmaOrdered By: Coco Landry on 10-12-2022 Potassium [Moles/Vol] 3.7 mmol/L 3.5-5.1 [facility] Protein Auto test strip (U) [Mass/Vol]Ordered By: Coco Landry on 10-12-2022 Protein (U) [Mass/Vol] Negative Negative [facility] Protein [Mass/volume] in Ser um or PlasmaOrdered By: Coco Landry on 10-12-2022 Protein [Mass/Vol] 7.8 g/dL 6.4-8.9 [place] Prothrombin Time INRon 10-12 INR Coag (PPP) [Relative time] 1.2 {INR} Normal [facility] Comment on above: Result Comment: INR Therapeutic Range A) Pre- and Peroperative OAT started two weeks before surgery. NOT HIP SURGERY: 1.5 - 2.5 HIP SURGERY: 2 - 3 B) Primary and secondary prevention of venous THROMBOSIS: 2 - 3 C) Active venous thrombosis, pulmonary embolism and prevention of recurrent venous thrombosis: 2 - 3 D) Prevention of arterial thromboembolism including patients with mechanical heart valves: 3 - 4.5 Performed By: #### C UBLD, PTT, CBC, CMP, PT ####[facility] [id number] PT Coag (PPP) [Time] 14.1 s High 9.0-12.9 [facility] Comment on above: Performed By: #### C UBLD, PTT, CBC, CMP, PT ####[facility] [id number] RBC Auto (Bld) [#/Vol]Ordere d By: Coco Landry on 10-12-2022 RBC (Bld) [#/Vol] 5.26 10*6/uL 3.90-5.[address] [facility] Serum or plasma albumin/glob ulin mass ratioOrdered By: Coco Landry on 10-12-2022 Albumin/Globulin [Mass ratio] 1.6 {ratio} [facility] Serum or plasma anion gap de terminationOrdered By: Coco Landry on 10-12-2022 Anion gap [Moles/Vol] 13.6 mmol/L 6.0-15.0 [facility] Sodium [Moles/volume] in Ser um or PlasmaOrdered By: Coco Landry on 10-12-2022 Sodium [Moles/Vol] 136 mmol/L 136-145 [place] Specific gravity Auto test s trip (U) [Rel density]Ordered By: Coco Landry on 10-12-2022 Specific gravity (U) [Rel density] 1.024 1.001-1.030 [facility] Squamous epithelial cells de tection in urine sediment by light microscopyOrdered By: Coco Landry on 10-12-2022 Epithelial cells.squamous LM Ql (Urine sed) None seen [HPF] 0-2 [facility] Urea nitrogen [Mass/volume] in Serum or PlasmaOrdered By: Coco Landry on 10-12-2022 Urea nitrogen [Mass/Vol] 8 mg/dL 7-25 [facility] Urine bacteria detection by automated methodOrdered By: Coco Landry on 10-12-2022 Bacteria Auto Ql (U) None seen None Seen [facility] Urine clarity by refractomet ry automatedOrdered By: Coco Landry on 10-12-2022 Clarity Refractometry automated (U) Clear Clear [facility] Urine glucose measurement by automated test strip (mass/volume)Ordered By: Coco Landry on 10-12-2022 Glucose Auto test strip (U) [Mass/Vol] Normal mg/dL Normal [facility] Urine hemoglobin detection b y automated test stripOrdered By: Coco Landry on 10-12-2022 Hemoglobin Auto test strip Ql (U) Negative Negative [facility] Urine leukocyte esterase det ection by automated test stripOrdered By: Coco Landry on 10-12-2022 Leukocyte esterase Auto test strip Ql (U) 1+ Negative [facility] Urobilinogen Auto test strip (U) [Mass/Vol]Ordered By: Coco Landry on 10-12-2022 Urobilinogen (U) [Mass/Vol] Normal mg/dL Normal [facility] WBC Auto (Bld) [#/Vol]Ordere d By: Coco Landry on 10-12-2022 WBC (Bld) [#/Vol] 10.2 10*3/uL 4.1-10.[address] [facility] XR chest 1V portableon 10-12 XR chest 1V portable [facility] [place] [address] XRay Report Signed Patient: Clay Newton MR#: [id number] : 1995 Acct:[id number] Age/Sex: 27 / M ADM Date: 10/12/22 Loc: ER Room: Type: [facility] ER Attending Dr: Copies to: Coco Landry Jr, MD Ordering Provider: Coco Landry Jr, MD Date of Service: 10/12/22 XR/XR chest 1V portable: Fever SINGLE VIEW CHEST CLINICAL HISTORY: Fever body aches chills intermittent diarrhea pain to back and neck for 2 days COMPARISON: None FINDINGS: Heart normal size. Lungs are clear. No free air. XR/XR chest 1V portable IMPRESSION: NO ACUTE FINDINGS Impression dictated by: Diego Holcomb Jr., DGardeniaOGardenia10/12/2022 9:30 AM Dictation Location: [place] [address] Transcribed By: [facility] 10/12/22929 Dictated By: Diego Holcomb Jr, DO 10/12/22928 Signed By: 10/12/22929 Normal [facility] pH Auto test strip (U)Ordere d By: Coco Landry on 10-12-2022 pH (U) 6.0 [pH] 5.0-9.0 [facility] CHEMISTRYOrdered By: SYSTEM SYSTEM on 08-19-2022 Albumin [Mass/Vol] 4.6 g/dL Normal 3.3 - 5.0 gm/dL [facility] Albumin/Globulin [Mass ratio] 1.4 {ratio} Normal 1.1 - 2.2 [facility] ALP [Catalytic activity/Vol] 68 [iU]/d Normal 21 - 98 Int._Unit/L [facility] ALT No additional P-5'-P [Catalytic activity/Vol] 33 [iU]/d Normal 6 - 46 Int._Unit/L [facility] Anion gap [Moles/Vol] 11 mmol/L Normal 6 - 16 mEq/L [facility] AST [Catalytic activity/Vol] 21 [iU]/d Normal 5 - 43 Int._Unit/L [facility] Bilirubin [Mass/Vol] 0.8 mg/dL Normal 0.0 - 1 .1 mg/dL [facility] Calcium [Mass/Vol] 9.9 mg/dL Normal 8.9 - 11. 1 mg/dL [facility] Chloride [Moles/Vol] 106 mmol/L Normal 101 - 1 11 mmol/L [facility] Cholesterol [Mass/Vol] 222 mg/dL High 120 - 200 mg/dL [facility] Cholesterol in HDL [Mass/Vol] 36 mg/dL Invalid Interpretation Code [facility] Cholesterol in LDL [Mass/Vol] 149 mg/dL High <=129mg/dL [facility] Cholesterol in VLDL [Mass/Vol] 44 mg/dL High 7 - 40 mg/dL [facility] CO2 [Moles/Vol] 26 mmol/L Normal 21 - 31 mmol/L [facility] Creatinine [Mass/Vol] 1.0 mg/dL Normal 0.5 - 1.3 mg/dL [facility] GFR/1.73 sq M.predicted among non-blacks MDRD (S/P/Bld) [Vol rate/Area] 108 mL/min/1.73 m2 Normal >=59mL/min/1.7 3 m2 [facility] Chem S Globulin (S) [Mass/Vol] 3.4 g/dL Normal 1.4 - 4.0 gm/dL [facility] Glucose [Mass/Vol] 99 mg/dL Normal 55 - 199 mg/dL [facility] Potassium [Moles/Vol] 3.5 mmol/L Normal 3.5 - 5.3 mmol/L [facility] Protein [Mass/Vol] 8.0 g/dL High 6.0 - 7.8 gm/dL [facility] Sodium [Moles/Vol] 139 mmol/L Normal 135 - 145 mmol/L [facility] Triglyceride [Mass/Vol] 220 mg/dL High <=149mg/dL [facility] TSH Qn 1.22 m[IU]/L Normal 0.34 - 5.60 mcIU/mL [facility] Urea nitrogen [Mass/Vol] 12 mg/dL Normal 5 - 21 mg/dL [facility] Urea nitrogen/Creatinine [Mass ratio] 12 mg/mg Normal 10 - 20 [facility] HEMATOLOGYOrdered By: SYSTEM SYSTEM on 08-19-2022 Basophils/100 WBC (Bld) 0.3 % Normal 0.0 - 2.0 % [facility] HemeAutoSS Basophils/Leukocytes Auto (Bld) [Pure # fraction] 0.0 E9/L Normal 0.0 - 0.2 E9/L [facility]eAuto[facility] Eosinophils/100 WBC (Bld) 4.2 % Normal 0.0 - 8.0 % [facility]eAuto[facility] Eosinophils/Leukocyte s Auto (Bld) [Pure # fraction] 0.3 E9/L Normal 0.0 - 0.5 E9/L [facility]eAuto[facility] Lymphocytes/100 WBC (Bld) 27.0 % Normal 14.0 - 50.0 % [facility] HemeAutoSS Lymphocytes/Leukocyte s Auto (Bld) [Pure # fraction] 2.2 E9/L Normal 1.0 - 4.0 E9/L [facility]eAutoSS Monocytes/100 WBC (Bld) 6.1 % Normal 4.0 - 14.0 % [facility]eAutoSS Monocytes/Leukocytes Auto (Bld) [Pure # fraction] 0.5 E9/L Normal 0.2 - 1.0 E9/L [facility] Neutrophils/100 WBC (Bld) 62.4 % Normal 36.0 - 75.0 % [facility]eAutoSS Neutrophils/Leukocyte s Auto (Bld) [Pure # fraction] 5.0 E9/L Normal 2.0 - 7.5 E9/L [facility]eAuto[facility] HEMATOLOGYOrdered By: Can Diggs on 08-19-2022 Erythrocyte distribution width (RBC) [Ratio] 13.0 % Normal 10.9 - 14.2 % [facility] Hematocrit (Bld) [Volume fraction] 44.4 % Normal 37.7 - 49.0 % [facility] Hemoglobin (Bld) [Mass/Vol] 15.7 g/dL Normal 13.5 - 17.5 gm/dL [facility] MCH (RBC) [Entitic mass] 31.0 pg Normal 27.0 - 34.0 pg [facility] MCHC (RBC) [Mass/Vol] 35.5 g/dL Normal 31.4 - 36.0 gm/dL [facility] MCV (RBC) [Entitic vol] 87.2 fL Normal 80.0 - 100.0 fL [facility] Platelet mean volume (Bld) [Entitic vol] 9.0 fL Normal 6.4 - 10.8 fL [facility] Platelets (Bld) [#/Vol] 393.0 E9/L Normal 150.0 - 500.0 E9/L [facility] RBC (Bld) [#/Vol] 5.1 E12/L Normal 4.3 - 5.9 E12/L [facility] WBC corrected for nucl RBC Auto (Bld) [#/Vol] 8.0 E9/L Normal 4.0 - 11.0 E9/L [facility] XR FINGER MIN 2 VIEWSon 05-22 XR FINGER MIN 2 VIEWS EXAM: XR FINGER CA N 2 VIEWS HISTORY: Traumatic injury COMPARISON: None. TECHNIQUE: 3 views of the right finger third digit. FINDINGS: Bones: No acute or aggressive appearing bony lesion. Joints: Normal alignment. No significant degenerative change. Soft tissues: Mild soft tissue prominence about the distal third digit. IMPRESSION: No evidence of fracture. Electronically authenticated by: GERSON ALBERT Date: 2022-06-03 10:22 Normal [facility] XR CHEST 1 Von 05-20-2022 XR CHEST 1 V EXAM: XR CHEST 1 V HISTORY: SHORTNESS OF BREATH COMPARISON: 01/19/2022. TECHNIQUE: Chest X-ray AP, 1 view. FINDINGS: Support devices: None. Lungs/pleura: No radiographic evidence of infiltrate. No consolidation, effusion, or pneumothorax. Heart and mediastinum: Normal contours. Bones: No acute abnormality identified. IMPRESSION: No active disease. Electronically authenticated by: GERSON ALBERT Date: 2022-05-20 10:19 Normal [facility] Covid-19 PCR (CVDTB)on 01-22 SARS-CoV-2 (COVID-19) RNA BARBARA+probe Ql (Unsp spec) Detected Critically abnormal NOT DETECTED [facility] Comment on above: Result Comment: This test is not yet approved or cleared by the [place] FDA. When there are no FDA-approved or cleared tests available, and other criteria are met, FDA can make tests available under an emergency access mechanism called an Emergency Use Authorization (EUA). The EUA for this test is supported by the [place] of Health and Human Service's (HHS's) declaration that circumstances exist to justify the emergency use of in vitro diagnostics for the detection and/or diagnosis of the virus that causes COVID-19. This EUA will remain in effect (meaning this test can be used) for the duration of the COVID-19 declaration justifying emergency of IVDs, unless it is terminated or revoked by FDA (after which the test may no longer be used). Performed By: #### S SCRN, GRASTCX #### [facility] [address] [place] [address] Dr. Cecile Martins GROUP A STREP CULTUREon 01-22 S. pyogenes Ag Ql (Unsp spec) Culture Observations: NEGATIVE FOR GROUP A STREPTOCOCCUS. Normal [facility] Comment on above: Performed By: #### S JANY GRASTCX #### [facility] [address] [place] [address] Dr. Cecile Martins INFLUENZA A AND B AGon 02-10 INFLUANEGH SEE BELOW Normal [facility] Comment on above: Result Comment: Nega tive for Flu A protein angiten. Infection due to Flu A cannot be ruled out. Flu A angiten in the sample may be below the detection limit of the test. Performed By: #### C VDTBH #### [facility] [address] [place] [address] Dr. Cecile Martins INFLUBNEG SEE BELOW Normal [facility] Comment on above: Result Comment: Nega tive for Flu B protein antigen. Infection due to Flu B cannot be ruled out. Flu B antigen in the sample may be below the detection limit of the test. Performed By: #### C VDTBH #### [facility] [address] [place] [address] Dr. Cecile Martins INFLUENZA A AG Negative Normal NEGATIVE SEE COMMENT [facility] Comment on above: Performed By: #### C VDTBH #### [facility] [address] [place] [address] Dr. Cecile Martins INFLUENZA B AG Negative Normal NEGATIVE SEE COMMENT [facility] Comment on above: Performed By: #### C VDTBH #### [facility] [address] [place] [address] Dr. Cecile Martins INTERNAL CONTROLS Within Normal Limits Normal Wi thin Normal Limits [facility] Comment on above: Performed By: #### C VDTBH #### [facility] [address] [place] [address] Dr. Cecile Martins STREPT SCREENon 02-10-2022 STREP SCREEN A Negative Normal NEGATIVE [facility] Comment on above: Performed By: #### S JANY, GRASTCX #### [facility] [address] [place] [address] Dr. Cecile Martins CARDIAC GOLDIE ADMITon 022 CK [Catalytic activity/Vol] 178 U/L Normal 39-308 [facility] Comment on above: Performed By: #### S JANY GRASTCX #### [facility] [address] [place] [address] [address] Cecile Martins CK.MB [Mass/Vol] 3.38 ng/mL Normal <=3.60 [facility] Comment on above: Performed By: #### S JANY GRASTCX #### [facility] [address] [place] [address] Dr. Cecile Martins HSTROP 6.9 pg/mL Normal 4.0-76.1 [facility] Comment on above: Result Comment: CUT- OFF POINTS HAVE BEEN ESTABLISHED BASED ON THE FOURTH UNIVERSAL DEFINITIONS OF MYOCARDIAL INFARCTION. THE UPPER REFERENCE LIMIT (URL) OF TROPONIN, DEFINED THE 99TH PERCENTILE OF cTnI DISTRIBUTION IN A REFERENCE POPULATION, HAS BEEN CONFIRMED THE DECISION THRESHOLD FOR CA DIAGNOSIS. Performed By: #### S JANY GRASTCX #### [facility] [address] [place] [address] Dr. Cecile Martins KELLEY 109 ng/mL Critically high 16-96 [facility] Comment on above: Performed By: #### S JANY GRASTCX #### [facility] [address] [place] [address] Dr. Cecile Martins CBC AUTO DIFFon 01-20-2022 BASO # 0.1 103/ul Normal 0.0-0.1 [facility] Comment on above: Performed By: #### C BC #### [facility] [address] [place] [address] Dr. Cecile Martins Basophils/100 WBC (Bld) 1.0 % Normal 0.2-2.0 [facility] Comment on above: Performed By: #### C BC #### [facility] [address] [place] [address] Dr. Cecile Martins EO # 0.9 103/ul Critically high 0.0-0.7 [facility] Comment on above: Performed By: #### C BC #### [facility] [address] [place] [address] Dr. Cecile Martins Eosinophils/100 WBC (Bld) 10.3 % Critically high 0.9-7.0 [facility] Comment on above: Performed By: #### C BC #### [facility] [address] [place] [address] Dr. Cecile Martins Erythrocyte distribution width (RBC) [Ratio] 12.5 % Normal 11.0-15.0 [facility] Comment on above: Performed By: #### C BC #### [facility] [address] [place] [address] Dr. Cecile Martins Hematocrit (Bld) [Volume fraction] 44.6 % Normal 42.0-54.0 [facility] Comment on above: Performed By: #### C BC #### [facility] [address] [place] [address] Dr. Cecile Martins Hemoglobin (Bld) [Mass/Vol] 15.4 g/dL Normal 14.0-18.0 [facility] Comment on above: Performed By: #### C BC #### [facility] [address] [place] [address] Dr. Cecile Martins IG # 0.03 10e3/ul Normal 0.00-0.03 [facility] Comment on above: Performed By: #### C BC #### [facility] [address] [place] [address] Dr. Cecile Martins IG % 0.3 % Normal 0.0-0.5 [facility] Comment on above: Performed By: #### C BC #### [facility] [address] [place] [address] Dr. Cecile Martins LYMPH # 2.1 103/ul Normal 1.2-3.8 [facility] Comment on above: Performed By: #### C BC #### [facility] [address] [place] [address] Dr. Cecile Martins Lymphocytes/100 WBC (Bld) 23.4 % Normal 20.5-60.0 [facility] Comment on above: Performed By: #### C BC #### [facility] [address] [place] [address] Dr. Cecile Martins MANUAL DIFF REQ NO Normal [facility] Comment on above: Performed By: #### C BC #### [facility] [address] [place] [address] [address] Cecile Martins MCH (RBC) [Entitic mass] 30.3 pg Normal 25.9-34.0 [facility] Comment on above: Performed By: #### C BC #### [facility] [address] [place] [address] Dr. Cecile Martins MCHC (RBC) [Mass/Vol] 34.5 g/dL Normal 29.9-35.2 [facility] Comment on above: Performed By: #### C BC #### [facility] [address] [place] [address] Dr. Cecile Martins MCV (RBC) [Entitic vol] 87.8 fL Normal 80.0-94.0 [facility] Comment on above: Performed By: #### C BC #### [facility] [address] [place] [address] Dr. Cecile Martins MONO # 0.8 103/ul Normal 0.3-0.8 [facility] Comment on above: Performed By: #### C BC #### [facility] [address] [place] [address] Dr. Cecile Martins Monocytes/100 WBC (Bld) 8.8 % Normal 1.7-12.0 [facility] Comment on above: Performed By: #### C BC #### [facility] [address] [place] [address] Dr. Cecile Martins NEUT # 5.0 103/ul Normal 1.4-6.5 [facility] Comment on above: Performed By: #### C BC #### [facility] [address] [place] [address] Dr. Cecile Martins Neutrophils/100 WBC (Bld) 56.2 % Normal 43.0-75.0 [facility] Comment on above: Performed By: #### C BC #### [facility] [address] [place] [address] Dr. Cecile Martins Platelet mean volume (Bld) [Entitic vol] 9.5 fL Normal 9.5-13.5 [facility] Comment on above: Performed By: #### C BC #### [facility] [address] [place] [address] [address] Cecile Martins PLT 336 103/ul Normal 150-450 [facility] Comment on above: Performed By: #### C BC #### [facility] [address] [place] [address] Dr. Cecile Martins RBC 5.08 106/ul Normal 4.70-6.10 [facility] Comment on above: Performed By: #### C BC #### [facility] [address] [place] [address] Dr. Cecile Martins WBC 8.8 103/ul Normal 4.0-11.0 [facility] Comment on above: Performed By: #### C BC #### [facility] [address] [place] [address] Dr. Cecile Martins D-DIMERon 01-20-2022 D-DIMER 0.19 mg/L FEU Normal <=0.59 [facility] Comment on above: Performed By: #### S SCRN, GRASTCX #### [facility] [address] [place] [address] Dr. Cecile Martins D-DIMER COMMENTS SEE BELOW Normal [facility] Comment on above: Result Comment: Incr eases in D-Dimer concentration observed with thromboembolic events can be variable due to localization, size, and age of the thrombus. Therefore, a thromboembolic event cannot be diagnosed with certainty on the basis of the reference range. D-Dimers may also be elevated for a variety of disorders including: advanced age, , coronary disease, cancer, liver disease, infection, inflammation, hematoma, DIC, trauma, post-surgery, diabetes, thrombolytic or anticoagulant therapy, stress, and generalized hospitalization. Performed By: #### S SCRN GRASTCX #### [facility] [address] [place] [address] Dr. Cecile Martins PROF 14(COMP METB)on 022 Albumin [Mass/Vol] 4.3 g/dL Normal 3.4-5.0 [facility] Comment on above: Performed By: #### S SCRN, GRASTCX #### [facility] [address] [address] [address] Cecile Martins Albumin/Globulin [Mass ratio] 1.2 {ratio} Normal [facility] Comment on above: Performed By: #### S SCRN, GRASTCX #### [facility] [address] [address] [address] Cecile Martins ALP [Catalytic activity/Vol] 98 U/L Normal 46-116 [facility] Comment on above: Performed By: #### S SCRN, GRASTCX #### [facility] [address] [address] [address] Cecile Martins ALT [Catalytic activity/Vol] 52 U/L Normal 16-63 [facility] Comment on above: Performed By: #### S SCRN, GRASTCX #### [facility] [address] [place] [address] Dr. Cecile Martins Anion gap [Moles/Vol] 11.8 mmol/L Normal [facility] Comment on above: Performed By: #### S SCRN, GRASTCX #### [facility] [address] [place] [address] Dr. Cecile Martins AST [Catalytic activity/Vol] 25 U/L Normal 15-37 [facility] Comment on above: Performed By: #### S SCRN, GRASTCX #### [facility] [address] [place] [address] Dr. Cecile Martins Bilirubin [Mass/Vol] 0.6 mg/dL Normal 0.2-1.0 [facility] Comment on above: Performed By: #### S SCRN, GRASTCX #### [facility] [address] [place] [address] Dr. Cecile Martins Calcium [Mass/Vol] 9.7 mg/dL Normal 8.5-10.1 [facility] Comment on above: Performed By: #### S SCRN, GRASTCX #### [facility] [address] [place] [address] Dr. Cecile Martins Chloride [Moles/Vol] 101 mmol/L Normal 98-107 [facility] Comment on above: Performed By: #### S SCRN, GRASTCX #### [facility] [address] [address] [address] Cecile Martins CO2 [Moles/Vol] 29.2 mmol/L Normal 21.0-32.0 [facility] Comment on above: Performed By: #### S SCRN, GRASTCX #### [facility] [address] [address] [address] Cecile Martins Creatinine [Mass/Vol] 1.11 mg/dL Normal 0.70-1.30 [facility] Comment on above: Performed By: #### S SCRN, GRASTCX #### [facility] [address] [address] [address] Cecile Martins EGFR-AF ENGLISH >60 Normal >=60 [facility] Comment on above: Performed By: #### S SCRN, GRASTCX #### [facility] [address] [address] [address] Cecile Martins EGFR-NON AF ENGLISH >60 Normal >=60 [facility] Comment on above: Performed By: #### S SCRN, GRASTCX #### [facility] [address] [address] [address] Cecile Martins Globulin (S) [Mass/Vol] 3.6 g/dL Normal [facility] Comment on above: Performed By: #### S SCRN, GRASTCX #### [facility] [address] [address] [address] Cecile Martins Glucose [Mass/Vol] 99 mg/dL Normal 74-106 [facility] Comment on above: Performed By: #### S SCRN, GRASTCX #### [facility] [address] [address] [address] Cecile Martins Potassium [Moles/Vol] 4.0 mmol/L Normal 3.5-5.1 [facility] Comment on above: Performed By: #### S SCRN, GRASTCX #### [facility] [address] [address] [address] Cecile Martins Protein [Mass/Vol] 7.9 g/dL Normal 6.4-8.2 [facility] Comment on above: Performed By: #### S SCRN, GRASTCX #### [facility] [address] [address] [address] Cecile Martins Sodium [Moles/Vol] 138 mmol/L Normal 136-145 [facility] Comment on above: Performed By: #### S SCRN, GRASTCX #### [facility] [address] [address] [address] Cecile Martins Urea nitrogen [Mass/Vol] 17.0 mg/dL Normal 7.0-18.0 [facility] Comment on above: Performed By: #### S SCRN, GRASTCX #### [facility] [address] [place] [address] Dr. Cecile Martins Urea nitrogen/Creatinine [Mass ratio] 15.3 mg/mg Normal [facility] Comment on above: Performed By: #### S SCRN, GRASTCX #### [facility] [address] [place] [address] Dr. Cecile Martins XR CHEST 1 Von 01-20-2022 XR CHEST 1 V XR CHEST 1 V 01/19/2022 10:58 PM EST Indication: SHORTNESS OF BREATH Technique: Portable AP radiograph of the chest was obtained. Comparison: November 19, 2021 Findings: The lungs are adequately inflated. No acute rib fractures, pneumothorax or mediastinal shift. No consolidation, edema, or effusion. Heart is normal in size and contour. Impression: No acute findings. Electronically authenticated by: INDERJIT RUBIO Date: 2022-01-19 23:35 Normal [facility] Cholesterol [Mass/volume] in Serum or PlasmaOrdered By: Peter Grady on 12-29-2021 Cholesterol [Mass/Vol] 176 mg/dL 140-200 [facility] Comment on above: Chol less than 200 m g/dl low riskChol 201-239 mg/dl borderline riskChol 240 mg/dl and greater high risk Cholesterol in LDL Calc [Mas s/Vol]Ordered By: Peter Grady on 12-29-2021 Cholesterol in LDL [Mass/Vol] 118 mg/dL 0-100 [facility] Comment on above: LDL ATP III CLASSIFI CATIONLDL less than 100 mg/dL OptimalLDL 100-129 mg/dL Near or above optimalLDL 130-159 mg/dL Borderline highLDL 160-189 mg/dL HighLDL greater than 189 mg/dL Very high Cholesterol in VLDL Calc [Ma ss/Vol]Ordered By: Peter Grady on 12-29-2021 Cholesterol in VLDL [Mass/Vol] 25 mg/dL [facility] ECG 12 lead ECGon 12-29-2021 ECG 12 lead ECG [facility] [place] [address] [place] [address] Electrocardiograph Report Signed Patient: Clay Newton MR#: [id number] : 1995 Acct:[id number] Age/Sex: 26 / M ADM Date: 12/28/21 Loc: Room: [address] [place] [address] Type: DIS IN Attending Dr: Elizabet Grady MD Ordering Provider: Peter Grady MD Date of Service: 12/29/2110/12/499 ECG/ECG 12 lead ECG: BASELINE Copies to: Test Reason : Blood Pressure : / mmHG Vent. Rate : 066 BPM Atrial Rate : 066 BPM P-R Int : 146 ms QRS Dur : 100 ms QT Int : 376 ms P-R-T Axes : 049 070 054 degrees QTc Int : 394 ms Normal sinus rhythm with sinus arrhythmia Normal ECG No previous ECGs available Confirmed by [facility] Te[facility]eda ([id number]) on 12/29/2021 11:11:47 AM Referred By: Electronically Signed By:BROWN SALAZAR MD FAC Transcribed By: MUS Signed By Kingsley Salazar MD 12/29/21 1111 Normal [facility] Lipid Panelon 12-29-2021 Cholesterol [Mass/Vol] 176 mg/dL Normal 140-200 [facility] Comment on above: Result Comment: Chol less than 200 mg/dl low risk Chol 201-239 mg/dl borderline risk Chol 240 mg/dl and greater high risk Performed By: #### T SH3 wRFLX, LIPID, [id number] #### [facility] [address] Cholesterol in HDL [Mass/Vol] 33 mg/dL Normal 29-71 [facility] Comment on above: Result Comment: HDL CHOL ATP-III CLASSIFICATION Cardiovascular Risk HDL > or equal to 60 mg/dL LOW HDL < 40 mg/dL HIGH Performed By: #### T SH3 wRFLX, LIPID, [id number] #### [facility] [address] Cholesterol.total/Cho lesterol in HDL [Mass ratio] 5.3 {ratio} Normal <5.0 [facility] Comment on above: Performed By: #### T SH3 wRFLX, LIPID, [id number] #### [address] LDL Cholesterol,Calculate d 118 mg/dL High 0-100 [facility] Comment on above: Result Comment: LDL ATP III CLASSIFICATION LDL less than 100 mg/dL Optimal LDL 100-129 mg/dL Near or above optimal LDL 130-159 mg/dL Borderline high LDL 160-189 mg/dL High LDL greater than 189 mg/dL Very high Performed By: #### T SH3 wRFLX, LIPID, [id number] #### [address] Triglyceride w/Reflex 126 mg/dL Normal 35-149 [facility] Comment on above: Result Comment: TRIG ATP III CLASSIFICATION TRIG less than 150 mg/dL Normal TRIG 150-199 mg/dL Borderline high TRIG 200-500 mg/dL High TRIG greater than 500 mg/dL Very high Standard traceable to the Center for Disease Conrtrol and Prevention (CDC) test method. Performed By: #### T SH3 wRFLX, LIPID, [id number] #### [facility] [address] VLDL CHOLESTEROL 25 mg/dL Normal [facility] Comment on above: Performed By: #### T SH3 wRFLX, LIPID, [id number] #### [facility] [address] No Panel InformationOrdered By: Peter Grady on 12-29-2021 25-Hydroxy Vitamin D Total 15.0 ng/mL 30-100 [facility] Comment on above: VITAMIN D STATUS 25( [place])VITAMIN D RANGE (ng/mL) Deficient <20 Insufficient 20 to <30Sufficient 30 to 100Reference: Adelia MF,Joseph WOOD, Kim FARMER, et al. Evaluation,treatment, and prevention of vitamin D deficiency; an Endocrine Society clinical practice guideline. JCEM. 2010; 96(7):1911-30. Serum or plasma high density lipoprotein (HDL) cholesterol measurementOrdered By: Peter Grady on 12-29-2021 Cholesterol in HDL [Mass/Vol] 33 mg/dL 29-71 [facility] Comment on above: HDL CHOL ATP-III CLA SSIFICATION Cardiovascular RiskHDL > or equal to 60 mg/dL LOWHDL < 40 mg/dL HIGH Serum or plasma total choles terol/high density lipoprotein (HDL) cholesterol mass ratOrdered By: Peter Grady on 12-29-2021 Cholesterol.total/Cho lesterol in HDL [Mass ratio] 5.3 {ratio} <5.0 [facility] TSH DL <= 0.005 mIU/L QnOrde red By: Peter Grady on 12-29-2021 TSH Qn 0.64 m[IU]/L 0.45-5.33 [facility] Thyroid Stim Hormone w/Rflxo n 12-29-2021 Thyroid Stim Hormone w/Rflx 0.64 u[iU]/mL Normal 0.45-5.33 [facility] Comment on above: Performed By: #### T SH3 wRFLX, LIPID, [id number] #### [address] Triglyceride [Mass/volume] i n Serum or PlasmaOrdered By: Peter Grady on 12-29-2021 Triglyceride [Mass/Vol] 126 mg/dL 35-149 [facility] Comment on above: TRIG ATP III CLASSIF ICATIONTRIG less than 150 mg/dL NormalTRIG 150-199 mg/dL Borderline highTRIG 200-500 mg/dL High TRIG greater than 500 mg/dL Very highStandard traceable to the Center for Disease Conrtrol and Prevention (CDC) test method. Vitamin D 25 Hydroxy Totalon 12-29-2021 Vitamin D 25 Hydroxy Total 15.0 ng/mL Low 30-100 [facility] Comment on above: Result Comment: ANANYA MIN D STATUS 25([place])VITAMIN D RANGE (ng/mL) Deficient <20 Insufficient 20 to <30 Sufficient 30 to 100 Reference: Adelia MF,Joseph NC, Kim FARMER, et al. Evaluation,treatment, and prevention of vitamin D deficiency; an Endocrine Society clinical practice guideline. JCEM. 2010; 96(7):1911-30. PERFORMED BY: [place] [address] PATHOLOGIST [employer] MALIK CONN M.D. Performed By: #### T SH3 wRFLX, LIPID, [id number] #### [address] ACETAMINOPHENon 12-28-2021 Acetaminophen [Mass/Vol] ug/mL Critically low 10.0-30.0 [facility] Comment on above: Performed By: #### S SCRN, GRASTCX #### [facility] [address] [place] [address] Dr. Cecile Martins CBC AUTO DIFFon 12-28-2021 BASO # 0.1 103/ul Normal 0.0-0.1 [facility] Comment on above: Performed By: #### C BC #### [facility] [address] [address] [address] Cecile Martins Basophils/100 WBC (Bld) 0.9 % Normal 0.2-2.0 [facility] Comment on above: Performed By: #### C BC #### [facility] [address] [address] [address] Ceciel Martins EO # 0.8 103/ul Critically high 0.0-0.7 [facility] Comment on above: Performed By: #### C BC #### [facility] [address] [place] [address] Dr. Cecile Martins Eosinophils/100 WBC (Bld) 9.3 % Critically high 0.9-7.0 [facility] Comment on above: Performed By: #### C BC #### [facility] [address] [place] [address] Dr. Cecile Martins Erythrocyte distribution width (RBC) [Ratio] 12.3 % Normal 11.0-15.0 [facility] Comment on above: Performed By: #### C BC #### [facility] [address] [place] [address] Dr. Cecile Martins Hematocrit (Bld) [Volume fraction] 44.7 % Normal 42.0-54.0 [facility] Comment on above: Performed By: #### C BC #### [facility] [address] [place] [address] Dr. Cecile Martins Hemoglobin (Bld) [Mass/Vol] 15.5 g/dL Normal 14.0-18.0 [facility] Comment on above: Performed By: #### C BC #### [facility] [address] [place] [address] Dr. Cecile Martins IG # 0.02 10e3/ul Normal 0.00-0.03 [facility] Comment on above: Performed By: #### C BC #### [facility] [address] [place] [address] Dr. Cecile Martins IG % 0.2 % Normal 0.0-0.5 [facility] Comment on above: Performed By: #### C BC #### [facility] [address] [place] [address] Dr. Cecile Martins LYMPH # 3.0 103/ul Normal 1.2-3.8 [facility] Comment on above: Performed By: #### C BC #### [facility] [address] [place] [address] Dr. Cecile Martins Lymphocytes/100 WBC (Bld) 34.7 % Normal 20.5-60.0 [facility] Comment on above: Performed By: #### C BC #### [facility] [address] [place] [address] Dr. Cecile Martins MANUAL DIFF REQ NO Normal [facility] Comment on above: Performed By: #### C BC #### [facility] [address] [address] [address] Cecile Martins MCH (RBC) [Entitic mass] 30.3 pg Normal 25.9-34.0 [facility] Comment on above: Performed By: #### C BC #### [facility] [address] [place] [address] Dr. Cecile Martins MCHC (RBC) [Mass/Vol] 34.7 g/dL Normal 29.9-35.2 [facility] Comment on above: Performed By: #### C BC #### [facility] [address] [place] [address] Dr. Cecile Martins MCV (RBC) [Entitic vol] 87.3 fL Normal 80.0-94.0 [facility] Comment on above: Performed By: #### C BC #### [facility] [address] [place] [address] Dr. Cecile Martins MONO # 0.7 103/ul Normal 0.3-0.8 [facility] Comment on above: Performed By: #### C BC #### [facility] [address] [place] [address] Dr. Cecile Martins Monocytes/100 WBC (Bld) 8.1 % Normal 1.7-12.0 [facility] Comment on above: Performed By: #### C BC #### [facility] [address] [place] [address] Dr. Cecile Martins NEUT # 4.0 103/ul Normal 1.4-6.5 [facility] Comment on above: Performed By: #### C BC #### [facility] [address] [place] [address] Dr. Cecile Martins Neutrophils/100 WBC (Bld) 46.8 % Normal 43.0-75.0 [facility] Comment on above: Performed By: #### C BC #### [facility] [address] [place] [address] Dr. Cecile Martins Platelet mean volume (Bld) [Entitic vol] 9.8 fL Normal 9.5-13.5 [facility] Comment on above: Performed By: #### C BC #### [facility] [address] [address] [address] Cecile Martins PLT 386 103/ul Normal 150-450 [facility] Comment on above: Performed By: #### C BC #### [facility] [address] [address] [address] Cecile Martins RBC 5.12 106/ul Normal 4.70-6.10 [facility] Comment on above: Performed By: #### C BC #### [facility] [address] [address] [address] Cecile Martins WBC 8.6 103/ul Normal 4.0-11.0 [facility] Comment on above: Performed By: #### C BC #### [facility] [address] [place] [address] Dr. Cecile Martins Covid-19 PCR ([facility])on SARS-CoV-2 (COVID-19) RNA BARBARA+probe Ql (Unsp spec) Not detected Normal NOT DETECTED [facility] Comment on above: Result Comment: When diagnostic testing is negative, the possibility of a false negative should be considered in the context of a patient's recent exposures and the presence of clinical signs and symptoms consistent with SARS-CoV-2. This test is not yet approved or cleared by the [place] FDA. When there are no FDA-approved or cleared tests available, and other criteria are met, FDA can make tests available under an emergency access mechanism called an Emergency Use Authorization (EUA). The EUA for this test is supported by the [place] Director of Health and Human Service's declaration that circumstances exist to justify the emergency use of in vitro diagnostics for the detection and/or diagnosis of the virus that causes COVID-19. This EUA will remain in effect for the duration of the COVID-19 declaration justifying emergency of IVDs, unless it is terminated or revoked by the FDA (after which the test may no longer be used). Performed By: #### S SCRN, GRASTCX #### [facility] [address] [place] [address] Dr. Cecile Martins DRUG SCREEN RAPID (URINE)on 12-28-2021 AMP Negative Normal NEGATIVE [facility] Comment on above: Performed By: #### D RUGRPD, ERUR #### [facility] [address] [place] [address] Dr. Cecile Martins BAR Negative Normal NEGATIVE [facility] Comment on above: Performed By: #### D RUGRPD, ERUR #### [facility] [address] [place] [address] Dr. Cecile Martins BUP Negative Normal NEGATIVE [facility] Comment on above: Performed By: #### D RUGRPD, ERUR #### [facility] [address] [place] [address] Dr. Cecile Martins BZO Negative Normal NEGATIVE [facility] Comment on above: Performed By: #### D RUGRPD, ERUR #### [facility] [address] [place] [address] Dr. Ceicle Martins PEYTON Negative Normal NEGATIVE [facility] Comment on above: Performed By: #### D RUGRPD, ERUR #### [facility] [address] [place] [address] Dr. Cecile Martins CUT-OFFS SEE BELOW Normal [facility] Comment on above: Result Comment: AMP (Amphetamine): 500ng/mL, BAR (Barbituates): 200 ng/mL, BZO (Benzodiazepines): 150 ng/mL, BUP (Buprenorphine): 10 ng/mL, PEYTON (Cocaine): 150 ng/mL, mAMP (Methamphetamine): 500 ng/mL, MTD (Methadone): 200 ng/mL, OPI (Opiates): 100 ng/mL, OXY (Oxycodone): 100 ng/mL, PCP (Phencyclidine): 25 ng/mL, PPX (Propoxyphene): 300 ng/mL, THC (Cannabinoids): 50 ng/mL, TCA (Trycyclic Antidepressants): 300 ng/mL Performed By: #### D RUGRPD, ERUR #### [facility] [address] [place] [address] Dr. Cecile Martins DRUG CUT HEADER DRUG CLASS TEST SYST EM CUT-OFF CONCENTRATIONS ARE FOLLOWS: Normal [facility] Comment on above: Performed By: #### D RUGRPD, ERUR #### [facility] [address] [address] [address] Cecile Martins mAMP Negative Normal NEGATIVE [facility] Comment on above: Performed By: #### D RUGRPD, ERUR #### [facility] [address] [place] [address] Dr. Cecile Martins MTD Negative Normal NEGATIVE [facility] Comment on above: Performed By: #### D RUGRPD, ERUR #### [facility] [address] [place] [address] Dr. Cecile Martins OPI Negative Normal NEGATIVE [facility] Comment on above: Performed By: #### D RUGRPD, ERUR #### [facility] [address] [place] [address] Dr. Cecile Martins OXY Negative Normal NEGATIVE [facility] Comment on above: Performed By: #### D RUGRPD, ERUR #### [facility] [address] [place] [address] Dr. Cecile Martins PCP Negative Normal NEGATIVE [facility] Comment on above: Performed By: #### D RUGRPD, ERUR #### [facility] [address] [place] [address] Dr. Cecile Martins PPX Negative Normal NEGATIVE [facility] Comment on above: Performed By: #### D RUGRPD, ERUR #### [facility] [address] [place] [address] Dr. Cecile Martins TCA Negative Normal NEGATIVE [facility] Comment on above: Performed By: #### D RUGRPD, ERUR #### [facility] [address] [place] [address] Dr. Cecile Martins THC Positive Abnormal NEGATIVE [facility] Comment on above: Performed By: #### D RUGRPD, ERUR #### [facility] [address] [place] [address] Dr. Cecile Martins ER URINE PROFILEon 2 Bilirubin Ql (U) Negative Normal NEGATIVE [facility] Comment on above: Performed By: #### D RUGRPD, ERUR #### [facility] [address] [place] [address] Dr. Cecile Martins Clarity (U) CLEAR Normal CLEAR [facility] Comment on above: Performed By: #### D MARYANN, ERUR #### [facility] [address] [place] [address] Dr. Cecile Martins Color (U) YELLOW Normal YELLOW [facility] Comment on above: Performed By: #### D MARYANN, ERUR #### [facility] [address] [place] [address] Dr. Cecile ROMEROAHKala A micrscopic examina tion will be performed if indicated. Normal [facility] Comment on above: Performed By: #### Kala WLOF, ERUR #### [facility] [address] [place] [address] Dr. Cecile Martins Glucose Ql (U) Negative Normal NEGATIVE [facility] Comment on above: Performed By: #### Kala WOLF, ERUR #### [facility] [address] [place] [address] Dr. Cecile Martins Hemoglobin Ql (U) Negative Normal NEGATIVE [facility] Comment on above: Performed By: #### Kala WOLF, ERUR #### [facility] [address] [place] [address] Dr. Cecile Martins Ketones Ql (U) Negative Normal NEGATIVE [facility] Comment on above: Performed By: #### Kala WOLF, ERUR #### [facility] [address] [place] [address] Dr. Cecile Martins LEUKOCYTES Negative Normal NEGATIVE [facility] Comment on above: Performed By: #### D MARYANN, ERUR #### [facility] [address] [place] [address] Dr. Cecile Martins Nitrite Ql (U) Negative Normal NEGATIVE [facility] Comment on above: Performed By: #### Kala WOLF, ERUR #### [facility] [address] [place] [address] Dr. Cecile Martins pH (U) 6.0 [pH] Normal 5-9 [facility] Comment on above: Performed By: #### D MARYANN, ERUR #### [facility] [address] [place] [address] Dr. Cecile Martins SPEC GRAVITY >=1.030 Abnormal 1.005-<=1.025 [facility] Comment on above: Performed By: #### D MARYANN, ERUR #### [facility] [address] [place] [address] Dr. Cecile Martins UA PROTEIN Negative Normal NEGATIVE/ TRACE [facility] Comment on above: Performed By: #### D MARYANN, ERUR #### [facility] [address] [place] [address] Dr. Cecile Martins UR MICRO IND NOT INDICATED Normal [facility] Comment on above: Performed By: #### D MARYANN, ERUR #### [facility] [address] [place] [address] Dr. Cecile Martins Urobilinogen Qn (U) 0.2 {Ally'U}/dL Normal 0.2 - 1. 0 [facility] Comment on above: Performed By: #### D MARYANN, ERUR #### [facility] [address] [place] [address] Dr. Cecile Martins ETHANOL (BLD ALC)on 12-29-19 22 ALC NOTE NOTE: 80 mg/dl is th e legal limit for a blood alcohol level Normal [facility] Comment on above: Performed By: #### Shayla CARMICHAEL GRASTCX #### [facility] [address] [place] [address] Dr. Cecile Martins Ethanol [Mass/Vol] mg/dL Normal [facility] Comment on above: Performed By: #### S JANY GRASTCX #### [facility] [address] [place] [address] Dr. Cecile Martins PROF 14(COMP METB)on 022 Albumin [Mass/Vol] 4.4 g/dL Normal 3.4-5.0 [facility] Comment on above: Performed By: #### Shayla CARMICHAEL GRASTCX #### [facility] [address] [place] [address] Dr. Cecile Martins Albumin/Globulin [Mass ratio] 1.2 {ratio} Normal [facility] Comment on above: Performed By: #### S JANY GRASTCX #### [facility] [address] [place] [address] Dr. Cecile Martins ALP [Catalytic activity/Vol] 92 U/L Normal 46-116 [facility] Comment on above: Performed By: #### S JANY GRASTCX #### [facility] [address] [address] [address] Cecile Martins ALT [Catalytic activity/Vol] 41 U/L Normal 16-63 [facility] Comment on above: Performed By: #### S JANY GRASTCX #### [facility] [address] [place] [address] Dr. Cecile Martins Anion gap [Moles/Vol] 11.6 mmol/L Normal [facility] Comment on above: Performed By: #### S JANY GRASTCX #### [facility] [address] [place] [address] Dr. Cecile Martins AST [Catalytic activity/Vol] 20 U/L Normal 15-37 [facility] Comment on above: Performed By: #### S JANY GRASTCX #### [facility] [address] [place] [address] Dr. Cecile Martins Bilirubin [Mass/Vol] 0.6 mg/dL Normal 0.2-1.0 [facility] Comment on above: Performed By: #### S JANY, GRASTCX #### [facility] [address] [place] [address] Dr. Cecile Martins Calcium [Mass/Vol] 9.3 mg/dL Normal 8.5-10.1 [facility] Comment on above: Performed By: #### S JANY, GRASTCX #### [facility] [address] [place] [address] Dr. Cecile Martins Chloride [Moles/Vol] 103 mmol/L Normal 98-107 [facility] Comment on above: Performed By: #### S JANY, GRASTCX #### [facility] [address] [address] [address] Cecile Martins CO2 [Moles/Vol] 26.2 mmol/L Normal 21.0-32.0 [facility] Comment on above: Performed By: #### S SCRN, GRASTCX #### [facility] [address] [address] [address] Cecile Martins Creatinine [Mass/Vol] 1.11 mg/dL Normal 0.70-1.30 [facility] Comment on above: Performed By: #### S SCRN, GRASTCX #### [facility] [address] [address] [address] Cecile Martins EGFR-AF ENGLISH >60 Normal >=60 [facility] Comment on above: Performed By: #### S SCRN, GRASTCX #### [facility] [address] [place] [address] Dr. Cecile Martins EGFR-NON AF ENGLISH >60 Normal >=60 [facility] Comment on above: Performed By: #### S SCRN, GRASTCX #### [facility] [address] [address] [address] Cecile Martins Globulin (S) [Mass/Vol] 3.6 g/dL Normal [facility] Comment on above: Performed By: #### S SCRN, GRASTCX #### [facility] [address] [place] [address] Dr. Cecile Martins Glucose [Mass/Vol] 109 mg/dL Critically high 74-106 [facility] Comment on above: Performed By: #### S SCRN, GRASTCX #### [facility] [address] [address] [address] Cecile Martins Potassium [Moles/Vol] 3.8 mmol/L Normal 3.5-5.1 [facility] Comment on above: Performed By: #### S SCRN, GRASTCX #### [facility] [address] [address] [address] Cecile Martins Protein [Mass/Vol] 8.0 g/dL Normal 6.4-8.2 [facility] Comment on above: Performed By: #### S SCRN, GRASTCX #### [facility] [address] [place] [address] Dr. Cecile Martins Sodium [Moles/Vol] 137 mmol/L Normal 136-145 [facility] Comment on above: Performed By: #### S SCRN, GRASTCX #### [facility] [address] [place] [address] Dr. Cecile Martins Urea nitrogen [Mass/Vol] 11.0 mg/dL Normal 7.0-18.0 [facility] Comment on above: Performed By: #### S SCRN, GRASTCX #### [facility] [address] [place] [address] Dr. Cecile Martins Urea nitrogen/Creatinine [Mass ratio] 9.9 mg/mg Normal [facility] Comment on above: Performed By: #### S SCRN, GRASTCX #### [facility] [address] [place] [address] Dr. Cecile Martins SALICYLATEon 12-28-2021 SALICYLATE <2.8 Normal <=19.9 [facility] Comment on above: Performed By: #### S SCRN GRASTCX #### [facility] [address] [place] [address] Dr. Cecile Martins CBC AUTO DIFFon 11-19-2021 BASO # 0.1 103/ul Normal 0.0-0.1 [facility] Comment on above: Performed By: #### S SCRN, GRASTCX #### [facility] [address] [place] [address] Dr. Cecile Martins Basophils/100 WBC (Bld) 0.6 % Normal 0.2-2.0 [facility] Comment on above: Performed By: #### S SCRN, GRASTCX #### [facility] [address] [place] [address] Dr. Cecile Martins EO # 0.1 103/ul Normal 0.0-0.7 [facility] Comment on above: Performed By: #### S SCRN, GRASTCX #### [facility] [address] [place] [address] Dr. Cecile Martins Eosinophils/100 WBC (Bld) 0.6 % Critically low 0.9-7.0 [facility] Comment on above: Performed By: #### S SCRN, GRASTCX #### [facility] [address] [place] [address] Dr. Cecile Maritns Erythrocyte distribution width (RBC) [Ratio] 12.3 % Normal 11.0-15.0 [facility] Comment on above: Performed By: #### S SCRN, GRASTCX #### [facility] [address] [place] [address] Dr. Cecile Martins Hematocrit (Bld) [Volume fraction] 41.7 % Critically low 42.0-54.0 [facility] Comment on above: Performed By: #### S SCRN, GRASTCX #### [facility] [address] [place] [address] Dr. Cecile Martins Hemoglobin (Bld) [Mass/Vol] 14.5 g/dL Normal 14.0-18.0 [facility] Comment on above: Performed By: #### S SCRN, GRASTCX #### [facility] [address] [place] [address] Dr. Cecile Martins IG # 0.03 10e3/ul Normal 0.00-0.03 [facility] Comment on above: Performed By: #### S SCRN, GRASTCX #### [facility] [address] [place] [address] Dr. Cecile Martins IG % 0.4 % Normal 0.0-0.5 [facility] Comment on above: Performed By: #### S SCRN, GRASTCX #### [facility] [address] [place] [address] Dr. Cecile Martins LYMPH # 1.1 103/ul Critically low 1.2-3.8 [facility] Comment on above: Performed By: #### S SCRN, GRASTCX #### [facility] [address] [place] [address] Dr. Cecile Martins Lymphocytes/100 WBC (Bld) 12.8 % Critically low 20.5-60.0 [facility] Comment on above: Performed By: #### S JANY GRASTCX #### [facility] [address] [place] [address] Dr. Cecile Martins MANUAL DIFF REQ NO Normal [facility] Comment on above: Performed By: #### S JANY GRASTCX #### [facility] [address] [place] [address] Dr. Cecile Martins MCH (RBC) [Entitic mass] 30.3 pg Normal 25.9-34.0 [facility] Comment on above: Performed By: #### S JANY GRASTCX #### [facility] [address] [place] [address] Dr. Cecile Martins MCHC (RBC) [Mass/Vol] 34.8 g/dL Normal 29.9-35.2 [facility] Comment on above: Performed By: #### S JANY GRASTCX #### [facility] [address] [place] [address] Dr. Cecile Martins MCV (RBC) [Entitic vol] 87.1 fL Normal 80.0-94.0 [facility] Comment on above: Performed By: #### S JANY GRASTCX #### [facility] [address] [place] [address] Dr. Cecile Martins MONO # 1.2 103/ul Critically high 0.3-0.8 [facility] Comment on above: Performed By: #### S JANY GRASTCX #### [facility] [address] [place] [address] Dr. Cecile Martins Monocytes/100 WBC (Bld) 14.1 % Critically high 1.7-12.0 [facility] Comment on above: Performed By: #### S JANY GRASTCX #### [facility] [address] [place] [address] Dr. Cecile Martins NEUT # 6.0 103/ul Normal 1.4-6.5 [facility] Comment on above: Performed By: #### S JANY GRASTCX #### [facility] [address] [place] [address] Dr. Cecile Martins Neutrophils/100 WBC (Bld) 71.5 % Normal 43.0-75.0 [facility] Comment on above: Performed By: #### Shayla CARMICHAEL, GRASTCX #### [facility] [address] [place] [address] Dr. Cecile Martins Platelet mean volume (Bld) [Entitic vol] 10.1 fL Normal 9.5-13.5 [facility] Comment on above: Performed By: #### S JANY, GRASTCX #### [facility] [address] [place] [address] Dr. Cecile Martins PLT 298 103/ul Normal 150-450 [facility] Comment on above: Performed By: #### S JANY, GRASTCX #### [facility] [address] [place] [address] Dr. Cecile Martins RBC 4.79 106/ul Normal 4.70-6.10 [facility] Comment on above: Performed By: #### Shayla CARMICHAEL, GRASTCX #### [facility] [address] [place] [address] Dr. Cecile Martins WBC 8.4 103/ul Normal 4.0-11.0 [facility] Comment on above: Performed By: #### Shayla CARMICHAEL, GRASTCX #### [facility] [address] [place] [address] Dr. Cecile Martins CULTURE BLOODon 11-19-2021 Microscopic examination of blood, culture Culture Observations: NO GROWTH AT 5 DAYS. Normal [facility] Comment on above: Performed By: #### C VDTBH #### [facility] [address] [place] [address] Dr. Cecile Martins Microscopic examination of blood, culture Culture Observations: NO GROWTH AT 5 DAYS. Normal [facility] Comment on above: Performed By: #### C VDTBH #### [facility] [address] [place] [address] Dr. Cecile Martins Covid-19 PCR ([facility])on 10-23 SARS-CoV-2 (COVID-19) RNA BARBARA+probe Ql (Unsp spec) Not detected Normal NOT DETECTED [facility] Comment on above: Result Comment: When diagnostic testing is negative, the possibility of a false negative should be considered in the context of a patient's recent exposures and the presence of clinical signs and symptoms consistent with SARS-CoV-2. This test is not yet approved or cleared by the [place] FDA. When there are no FDA-approved or cleared tests available, and other criteria are met, FDA can make tests available under an emergency access mechanism called an Emergency Use Authorization (EUA). The EUA for this test is supported by the [place] Director of Health and Human Service's declaration that circumstances exist to justify the emergency use of in vitro diagnostics for the detection and/or diagnosis of the virus that causes COVID-19. This EUA will remain in effect for the duration of the COVID-19 declaration justifying emergency of IVDs, unless it is terminated or revoked by the FDA (after which the test may no longer be used). Performed By: #### C VDTB #### [facility] [address] [place] [address] Dr. Cecile Martins PROF 14(COMP METB)on 022 Albumin [Mass/Vol] 4.3 g/dL Normal 3.4-5.0 [facility] Comment on above: Performed By: #### C MP #### [facility] [address] [place] [address] Dr. Cecile Martins Albumin/Globulin [Mass ratio] 1.2 {ratio} Normal [facility] Comment on above: Performed By: #### C MP #### [facility] [address] [place] [address] Dr. Cecile Martins ALP [Catalytic activity/Vol] 102 U/L Normal 46-116 [facility] Comment on above: Performed By: #### C MP #### [facility] [address] [place] [address] Dr. Cecile Martins ALT [Catalytic activity/Vol] 47 U/L Normal 16-63 [facility] Comment on above: Performed By: #### C MP #### [facility] [address] [place] [address] Dr. Cecile Martins Anion gap [Moles/Vol] 12.5 mmol/L Normal Th e [facility] Comment on above: Performed By: #### C MP #### [facility] [address] [place] [address] Dr. Cecile Martins AST [Catalytic activity/Vol] 24 U/L Normal 15-37 [facility] Comment on above: Performed By: #### C MP #### [facility] [address] [address] [address] Cecile Martins Bilirubin [Mass/Vol] 1.0 mg/dL Normal 0.2-1.0 [facility] Comment on above: Performed By: #### C MP #### [facility] [address] [place] [address] Dr. Cecile Martins Calcium [Mass/Vol] 8.9 mg/dL Normal 8.5-10.1 [facility] Comment on above: Performed By: #### C MP #### [facility] [address] [place] [address] Dr. Cecile Martins Chloride [Moles/Vol] 101 mmol/L Normal 98-107 [facility] Comment on above: Performed By: #### C MP #### [facility] [address] [place] [address] Dr. Cecile Martins CO2 [Moles/Vol] 25.0 mmol/L Normal 21.0-32.0 [facility] Comment on above: Performed By: #### C MP #### [facility] [address] [place] [address] Dr. Cecile Martins Creatinine [Mass/Vol] 1.23 mg/dL Normal 0.70-1.30 [facility] Comment on above: Performed By: #### C MP #### [facility] [address] [place] [address] Dr. Cecile Martins EGFR-AF ENGLISH >60 Normal >=60 [facility] Comment on above: Performed By: #### C MP #### [facility] [address] [place] [address] Dr. Cecile Martins EGFR-NON AF ENGLISH >60 Normal >=60 [facility] Comment on above: Performed By: #### C MP #### [facility] [address] [address] [address] Cecile Martins Globulin (S) [Mass/Vol] 3.5 g/dL Normal [facility] Comment on above: Performed By: #### C MP #### [facility] [address] [address] [address] Cecile Martins Glucose [Mass/Vol] 97 mg/dL Normal 74-106 [facility] Comment on above: Performed By: #### C MP #### [facility] [address] [address] [address] Cecile Martins Potassium [Moles/Vol] 3.5 mmol/L Normal 3.5-5.1 [facility] Comment on above: Performed By: #### C MP #### [facility] [address] [place] [address] Dr. Cecile Martins Protein [Mass/Vol] 7.8 g/dL Normal 6.4-8.2 [facility] Comment on above: Performed By: #### C MP #### [facility] [address] [place] [address] Dr. Cecile Martins Sodium [Moles/Vol] 135 mmol/L Critically low 136-145 [facility] [place] Comment on above: Performed By: #### C MP #### [facility] [address] [place] [address] Dr. Cecile Martins Urea nitrogen [Mass/Vol] 7.0 mg/dL Normal 7.0-18.0 [facility] Comment on above: Performed By: #### C MP #### [facility] [address] [address] [address] Cecile Martins Urea nitrogen/Creatinine [Mass ratio] 5.7 mg/mg Normal [facility] Comment on above: Performed By: #### C MP #### [facility] [address] [place] [address] Dr. Cecile Martins XR CHEST 1 Von 11-19-2021 XR CHEST 1 V EXAM: XR CHEST 1 V HISTORY: COUGH COMPARISON: Chest radiograph dated 02/20/2021. TECHNIQUE: One view of the chest was obtained. FINDINGS: The cardiac silhouette is normal in size. There are hazy right basilar opacities. There is no significant pneumothorax or pleural effusion. No acute osseous abnormality is seen. IMPRESSION: 1. Hazy right basilar opacities could represent developing infection. Electronically authenticated by: Gareth EMERY Date: 2021-11-19 05:51 Normal [facility] Covid-19 PCR ([facility])on SARS-CoV-2 (COVID-19) RNA BARBARA+probe Ql (Unsp spec) Not detected Normal NOT DETECTED [facility] Comment on above: Result Comment: This test is not yet approved or cleared by the [place] FDA. When there are no FDA-approved or cleared tests available, and other criteria are met, FDA can make tests available under an emergency access mechanism called an Emergency Use Authorization (EUA). The EUA for this test is supported by the [place] of Health and Human Service's (HHS's) declaration that circumstances exist to justify the emergency use of in vitro diagnostics for the detection and/or diagnosis of the virus that causes COVID-19. This EUA will remain in effect (meaning this test can be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
--- NOTE | 2023-12-25 08:21 | XR_ITS ---
The [address] [address] Patient Name: WARD MELARA MRN: [id number] date: 1995 Sex: M Assigned Patient Location: ER Current Patient Location: ER Accession/Order Number: [id number] Exam Date: 12/25/2023 08:26 Report Date: 12/25/2023 08:44 At the request of: FLOWER RICHARDS Procedure: XR foot RT min 3V PROCEDURE: XR foot RT min 3V HISTORY: pain ; first digit pain; no known injury COMPARISON: None. FINDINGS: BONES:No fracture, acute abnormality, or significant arthropathy. SOFT TISSUES:No visible soft tissue swelling. EFFUSION:None visible. OTHER: Negative. XR/XR foot RT min 3V IMPRESSION: 1. No acute or suspicious findings to account for patient's symptoms. Electronically authenticated by: ISABEL DYER Date: 12/25/2023 08:44
--- NOTE | 2023-12-25 08:24 | ED.LOWEXI1 ---
HPI HPI - Extremity Injury (Lower) General Chief Complaint: Extremity Injury, Lower Stated Complaint: LOWER RIGHT EXTREMITY PAIN, FOOT Time Seen by Provider: 12/25/23 08:08 Source: patient Mode of arrival: Wheelchair Limitations: no limitations History of Present Illness HPI Narrative: Patient comes to us with 24 hours history of right foot pain that started all of a sudden with no previous injury, patient denies any previous similar presentation Related Data Previous Rx's ?Medication ?Instructions ?Recorded indomethacin 50 mg capsule 50 mg PO TID PRN pain #14 caps 12/25/23 nystatin 100,000 unit/gram topical 1 applic topical DAILY #30 grams 12/25/23 cream Allergies Allergy/AdvReac Type Severity Reaction Status Date / Time No Known Drug Allergies Allergy Verified 08/17/22 06:59 Opioid HPI Opioid Management Most Recent Pain and Opioid Data: Last Pain Scale 10 12/25/23 08:32 12/25/23 Last APR Pain Assessment 12/25/23 08:32 Ur Phencyclidine Scrn Negative (NEGATIVE) 09/29/23 16:55 09/29/23 Review of Systems ROS Status of ROS 10 or more systems reviewed and unremarkable except as noted in history and below [facility] Social History Smoking status: Light tobacco smoker Exam Narrative Exam Narrative: Nurses notes and vital signs reviewed and patient is not hypoxic. Right foot exam: The patient have tenderness upon palpation at the first metatarsophalangeal joint with mild edema there no redness hotness or any signs of bacterial infection the patient have yeast infection between his toes mostly in the toe webs General: Well-appearing and in no apparent distress. Skin: Warm, dry, no pallor noted. No rash. Head: Normocephalic, atraumatic. Neck: Supple, non-tender. Eye: Pupils are equal, round and EOMI. No scleral icterus. Ears, Nose, Mouth, and Throat: TM are clear, no nasal mucosal hypertrophy. Oral mucosa is moist, no posterior oropharynx erythema, uvula is mid-line Cardiovascular: Regular Rate and Rhythm without murmur, gallop or rub. Respiratory: No accessory muscle use or respiratory distress. Lungs are clear to auscultation, no wheezing, rales or rhonchi Chest Wall: no tenderness Back: No midline thoracic or lumbar vertebral tenderness. No CVA tenderness Musculoskeletal: normal ROM, no calf or popliteal tenderness, no lower extremity edema/swelling GI: Abdomen is soft, non-distended. Normal bowel sounds. No masses appreciated. No tenderness to palpation. No rebound, guarding, or rigidity noted. Neurological: A&O x4. No cranial nerve dysfunction observed. No truncal ataxia. Moves all extremities. Sensation intact. Psychiatric: Cooperative and interactive. Normal mood and affect. Constitutional Vital Signs, click to edit/add: Last Vital Signs Temp 98.4 F 12/25/23 08:05 Pulse 82 12/25/23 08:05 Resp 18 12/25/23 08:05 BP 160/83 H 12/25/23 08:05 Pulse Ox 97 12/25/23 08:05 O2 Del Method Room Air 12/25/23 08:05 Course Vital Signs Vital signs: Vital Signs Temperature 98.4 F 12/25/23 08:05 Pulse Rate 82 12/25/23 08:05 Respiratory Rate 18 12/25/23 08:05 Blood Pressure 160/83 H 12/25/23 08:05 Pulse Oximetry 97 12/25/23 08:05 Oxygen Delivery Method Room Air 12/25/23 08:05 Temperature 98.4 F 12/25/23 08:05 Pulse Rate 82 12/25/23 08:05 Respiratory Rate 18 12/25/23 08:05 Blood Pressure 160/83 H 12/25/23 08:05 Pulse Oximetry 97 12/25/23 08:05 Oxygen Delivery Method Room Air 12/25/23 08:05 MDM - Extremity Injury (Lower) MDM Narrative Medical decision making narrative: Right now the patient x-ray showed no acute He was covered with Toradol and prednisone in the ER for possible arthritis or gout and he was instructed about hydration and monitoring the symptoms Provided with a postop shoes in addition to indomethacin for the next few days The patient also to come back to the ER in case of any new symptom he also was provided with nystatin cream the patient is to follow up with primary care physician in next 2-3 days or to return to the emergency department should any of the signs or symptoms worsen or new symptoms develop. The patient agrees with the following Diagnosis and Treatment plan and the patient will be discharged home. Discharge Plan Discharge Chief Complaint: Extremity Injury, Lower Clinical Impression: Arthritis, Acute foot pain Patient Disposition: Home, Self-Care Time of Disposition Decision: 08:52 Condition: Good Prescriptions / Home Meds: New nystatin 100,000 unit/gram cream 1 applic topical DAILY Qty: 30 0RF indomethacin 50 mg capsule 50 mg PO TID PRN (Reason: pain) Qty: 14 0RF Rx Instructions: administer with food or milk Print Language: Mongolian Instructions: Gout (ED), Arthritis (ED) Referrals: BLAYNE BAEZ [Primary Care Provider] - 1 week Discharge Date/Time: 12/25/23 09:08
[2023-12-25] MEDS: KETOROLAC TROMETHAMINE 60 MG/2 ML VIAL IM (08:32)
[2023-12-25] MEDS: PREDNISONE 20 MG TABLET 40 MG PO (08:32)
== END 2023-12-25 09:08 | disposition home or self-care (01) ==
PROVIDERS: Emergency Provider Emergency Medicine; PCP Family Medicine
DX: M19.071 Primary osteoarthritis, right ankle and foot (principal); M79.671 Pain in right foot; F17.200 Nicotine dependence, unspecified, uncomplicated; B37.2 Candidiasis of skin and nail
CPT/HCPCS: 73630; 96372; 99284; J1885; J7512

== ENCOUNTER 2024-02-08 09:46 | Emergency (ER) | payer SELFPAY ==
[2024-02-08 09:52] VITALS: BP 139/92; PULSE 69; TEMP 36.8; O2SAT 98; BMI 37.3
--- NOTE | 2024-02-08 09:56 | XR_ITS ---
The [address] [address] Patient Name: WARD MELARA MRN: [id number] date: 1995 Sex: M Assigned Patient Location: ER Current Patient Location: ER Accession/Order Number: [id number] Exam Date: 02/08/2024 10:00 Report Date: 02/08/2024 10:30 At the request of: CYNDIE HERNANDEZ Procedure: XR knee LT 4V PROCEDURE: XR knee LT 4V HISTORY: pain COMPARISON: None. FINDINGS: BONES:No fracture, acute abnormality, or significant arthropathy. SOFT TISSUES:No visible soft tissue swelling. EFFUSION:Small to moderate joint effusion. OTHER: Negative. XR/XR knee LT 4V IMPRESSION: 1. Joint effusion. 2. No acute bone abnormality. Electronically authenticated by: ISABEL DYER Date: 02/08/2024 10:30
--- OUTSIDE RECORDS SUMMARY | 2024-02-08 10:12 | XMS_ITS | CCD ---
Author Organization [facility] Care Team Providers Care Wwe Wrestler Name Role Phone MD Carmen Huff Primary Care Provider MD Elizabet Grady Admit Provider [phone] MD Elizabet Grady Attending Provider DIAB ., FLOWER Consulting Unavailable DIAB ., [...] ALBERTO Admitting Unavailable MICHAEL ., DR CARMEN eKy Primary Care Unavailable NO FAMILY, PHYSICIAN Primary Care Provider Unava ilable Akilah, DO Mann M Emergency Provider [phone] Kay Lugo Primary Care Physician MD Coco Landry Jr Emergency Provider NO [...] Drug Class(es) Dates Sig (Normalized) Sig (Original) [id number] 200 actuat albuterol 0.09 mg/actuat metered dose [...] # 90 cap(s), Refills(s) 1, [id number], 179.5, cm, 08/09/23 14:47:00 EDT, Height/Length Dosing, 114.9, kg, 08/09/23 14:47:00 EDT, Weight Dosing Start Date: 08/09/23 Status: Ordered Start: 07-12-2023 take 1 capsule by mo [facility] once daily omeprazole 40 mg Cap-DR 40 mg = 1 cap(s), Oral, Daily, # 90 cap(s), Refills(s) 1, Pharmacy: [facility]/pharmacy #[id number], 179.5, cm, 07/12/23 8:54:00 EDT, [...] # 12 tab(s), Refills(s) 0, [id number], 179.5, cm, 07/19/23 15:39:00 EDT, Height/Length [...] 2 Episodic Other aftercare (1 source) Other usp (current) drug therapy; 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 Medicine [address] [place] [address]- Medications What How Much When Why Instructions Unchanged omeprazole (omeprazole 40 mg Cap-DR) 1 Capsules By Mouth Every day Hyperlipemia High blood pressure Diarrhea Nausea Unintentional weight loss Acid reflux BMI 36.0-36.9,adult Current every day vaping Pickup at [facility]/pharmacy #[id number] Unchanged ondansetron (ondansetron 4 mg Tab) 1 Tablets By Mouth Every 6 hours as needed for Nausea/Vomiting BMI 36.0-36.9,adult Current every day vaping Pickup at [facility]/pharmacy #6177 Unchanged albuterol (Albuterol (Eqv-ProAir HFA) 90 mcg/ inh inhalation aerosol) Contact prescribing physician if questions or concerns Pharmacy Information [facility]/pharmacy #[id number]: [address], [place] [id number] [phone] Allergies No Known Allergies Problems Ongoing - [...] choosing us for your care. Eric Isaac [facility] Family Medicine Office/Clini c Noteon [...] Daily, # 90 cap(s), Refills(s) 1, [id number], 179.5, cm, 09/26/23 8:56:00 EDT, Height/Length Dosing, 114, kg, 09/26/23 8:56:00 EDT, Weight Dosing Helicobacter pylori; breath test analysis for urease activity, non-radioactive isotope (eg, C-13) 8 2. Acid reflux (K21.9: Gastro-esophageal reflux disease without esophagitis) As above Ordered: omeprazole, 40 mg = 1 cap(s), Oral, Daily, # 90 cap(s), Refills(s) 1, Pharmacy: [facility]/pharmacy #[id number], 179.5, cm, 09/26/23 8:56:00 EDT, Height/Length [...] Nausea/Vomiting, # 12 tab(s), Refills(s) 0, Pharmacy: [facility]/pharmacy #[id number], 179.5, cm, 09/26/23 8:56:00 EDT, [...] hepatitis B pediatric vaccine 1995 Recorded Normal [facility] Comment on above: Result Comment: Elec tronically Signed By: Alexis BELL, Carlos Jane\Date and Time Signed: 09/26/23 09:20 EDT Provider Letteron 09-26-2023 Provider Letter Provider Letter September 26, 2023 CLAYSLAVA NEWTON [address] [place] [address] : 1995 To Whom It May Concern, Please excuse above patient from work due to medal Date of Illness: From: _09-26-23 To: _09-27-23 May Return to Work On:09-28-23 Restrictions: _NONE Comments: _ [facility] Family Medicine [address] [address] Normal [facility] Ambulatory Visit Summaryon 0 08-09-2023 Ambulatory Visit [...] EDT With: Radha BELL, Osman Mann Where: [facility] Normal [facility] Family Medicine Office/Clini c Noteon 08-09-2023 Family [...] Daily, # 90 cap(s), Refills(s) 1, Pharmacy: [facility]/pharmacy #[id number], 179.5, cm, 07/12/23 8:54:00 EDT, Height/Length Dosing, 118.5, kg, 07/12/23 8:54:00 EDT, Weight Dosing omeprazole, 40 mg = 1 cap(s), Oral, Daily, # 90 cap(s), Refills(s) 1, Pharmacy: [facility]/pharmacy #[id number], 179.5, cm, 08/09/23 14:47:00 EDT, Height/Length Dosing, 114.9, kg, 08/09/23 14:47:00 EDT, Weight Dosing 2. BMI 35.0-35.9,adult (Z68.35: Body mass index [BMI] 35.0-35.9, adult) BMI education 3. Current every day vaping (Z72.89: Other problems related to lifestyle) pt has decreased vaping use Ordered: omeprazole, 40 mg = 1 cap(s), Oral, Daily, # 90 cap(s), Refills(s) 1, [id number], 179.5, cm, 07/12/23 8:54:00 EDT, Height/Length Dosing, 118.5, kg, 07/12/23 8:54:00 EDT, Weight Dosing omeprazole, 40 mg = 1 cap(s), Oral, Daily, # 90 cap(s), Refills(s) 1, [id number], 179.5, cm, 08/09/23 14:47:00 EDT, Height/Length Dosing, 114.9, kg, 08/09/23 14:47:00 EDT, Weight Dosing Follow-up No qualifying data available Patient Education Food Choices for Gastroesophageal Reflux Disease, Adult, Gddp-oe-Ocxv Problem List/Past Medical History Ongoing Acid reflux [...] Family History Family history is negative Normal [facility] Comment on above: Result Comment: Elec tronically [...] grapefruit, pineapple, and moreno. Vegetables Deep-fried vegetables. Colombian fries. Any vegetables prepared with added fat. [...] until 2?3 (more content not included)... Normal [facility] Medicine Office/Clini c Noteon 07-21-2023 Family [...] Family History Family history is negative Normal [facility] Comment on above: Result Comment: Elec tronically [...] 2:40 PM EDT With: Kay Marvin Where: [facility] Family Medicine R[place] Normal [address] \.br\ Medications\.b r\ What How Much When Why Instructions\. br\ New ondansetron (ondansetron 4 mg Tab) 1 Tablets By Mouth Every 6 hours as needed for Nausea/Vomitin g BMI 36.0-36.9,adul t Current every day vaping Pickup at [facility]/pharmacy #[id number]\.br\ Unchanged albuterol (Albuterol (Eqv-ProAir HFA) 90 mcg/ inh inhalation aerosol)\.br\ Unchanged omeprazole (omeprazole 40 mg Cap-DR) 1 Capsules By Mouth Every day Hyperlipemia High blood pressure Diarrhea Nausea Unintentional weight loss Acid reflux BMI 36.0-36.9,adul t Current every day vaping\.br\ Pharmacy Information\.b r\ [facility] #[id number]: [address], [place] [id number] [phone]\.br\ Allergies\.br\ No Known Allergies\.br\ Problems\.br\ Ongoing - [...] for choosing us for your care.\.br\ \.br\ [facility] Reminderson 07-14-2023 Reminders - From: Kay Marvin [...] 20.7 % (14.0 - 50.0) 07/12/2023 9:21 Carter Auto 7.6 % (4.0 - 14.0) 07/12/2023 9: Eos Auto 2.8 % (0.0 - 8.0) 07/12/2023 9: Basophil Auto 0.9 % (0.0 - 2.0) 07/12/2023 9:21 Neutro Absolute 4.9 E9/L (2.0 - 7.5) 07/12/2023 9:21 Lymph Absolute 1.5 E9/L (1.0 - 4.0) 07/12/2023 9:21 Carter Absolute 0.5 E9/L (0.2 - 1.0) 07/12/2023 [...] answer. Unable to leave message. notified. Normal [facility] Ambulatory Visit Summaryon 0 07-12-2023 Ambulatory Visit [...] 3:00 PM EDT With: Kay Marvin Where: [facility] Family Medicine R[facility] Normal [facility] Amylaseon 07-12-2023 Amylase [Catalytic activity/Vol] 31 U/L Normal 25-157 [facility] Comment on above: Performed By: #### 2 [id number] #### [facility] [address] [place] [address] CBC w/ Auto Diffon 4 Basophils/100 WBC (Bld) 0.9 % Normal 0.0-2.0 [facility] Comment on above: Performed By: #### 2 [id number] #### [facility] [address] [place] [address] Basophils/Leukocytes Auto (Bld) [Pure # fraction] 0.1 E9/L Normal 0.0-0.2 [facility] Comment on above: Performed By: #### 2 [id number] #### [facility] [address] [place] [address] Eosinophils (Bld) [#/Vol] 0.2 E9/L Normal 0.0-0.5 [facility] Comment on above: Performed By: #### 2 248558 #### [facility] [address] [place] [address] Eosinophils/100 WBC (Bld) 2.8 % Normal 0.0-8.0 [facility] Comment on above: Performed By: #### 2 607266 #### [facility] [address] [place] [address] Erythrocyte distribution width (RBC) [Ratio] 13.1 % Normal 10.9-14.2 [facility] Comment on above: Performed By: #### 2 557746 #### [facility] [address] [place] [address] Hematocrit (Bld) [Volume fraction] 44.9 % Normal 37.7-49.0 [facility] Comment on above: Performed By: #### 2 498865 #### [facility] [address] [place] [address] Hemoglobin (Bld) [Mass/Vol] 15.3 g/dL Normal 13.5-17.5 [facility] Comment on above: Performed By: #### 2 762739 #### [facility] [address] [place] [address] Lymphocytes (Bld) [#/Vol] 1.5 E9/L Normal 1.0-4.0 [facility] Comment on above: Performed By: #### 2 948523 #### [facility] [address] [place] [address] Lymphocytes/100 WBC (Bld) 20.7 % Normal 14.0-50.0 [facility] Comment on above: Performed By: #### 2 839495 #### [facility] [address] [place] [address] MCH (RBC) [Entitic mass] 30.4 pg Normal 27.0-34.0 [facility] Comment on above: Performed By: #### 2 388666 #### [facility] [address] [place] [address] MCHC (RBC) [Mass/Vol] 34.0 g/dL Normal 31.4-36.0 [facility] Comment on above: Performed By: #### 2 022982 #### [facility] [address] [place] [address] MCV (RBC) [Entitic vol] 89.4 fL Normal 80.0-100.0 [facility] Comment on above: Performed By: #### 2 222758 #### [facility] [address] [place] [address] Monocytes (Bld) [#/Vol] 0.5 E9/L Normal 0.2-1.0 [facility] Comment on above: Performed By: #### 2 053344 #### [facility] [address] [place] [address] Neutrophils (Bld) [#/Vol] 4.9 E9/L Normal 2.0-7.5 [facility] Comment on above: Performed By: #### 2 475650 #### [facility] [address] [place] [address] Neutrophils/100 WBC (Bld) 68.0 % Normal 36.0-75.0 [facility] Comment on above: Performed By: #### 2 740991 #### [facility] [address] [place] [address] Platelet mean volume (Bld) [Entitic vol] 9.2 fL Normal 6.4-10.8 [facility] Comment on above: Performed By: #### 2 969808 #### [facility] [address] [place] [address] Platelets (Bld) [#/Vol] 340.0 E9/L Normal 150.0-500.0 [facility] Comment on above: Performed By: #### 2 655210 #### [facility] [address] [place] [address] RBC (Bld) [#/Vol] 5.0 E12/L Normal 4.3-5.9 [facility] Comment on above: Performed By: #### 2 601189 #### [facility] [address] [place] [address] WBC corrected for nucl RBC Auto (Bld) [#/Vol] 7.2 E9/L Normal 4.0-11.0 [facility] Comment on above: Performed By: #### 2 459370 #### [facility] [address] [place] [address] CHEMISTRYOrdered By: SYSTEM SYSTEM on 07-12-2023 Albumin [...] 07-12-2023 Albumin [Mass/Vol] 4.9 g/dL Normal 3.3-5.0 [facility] Comment on above: Performed By: #### 2 990292 #### [facility] [address] [place] [address] Albumin/Globulin (S) [Mass conc ratio] 1.8 Normal 1.1-2.2 [facility] Comment on above: Performed By: #### 2 799588 #### [facility] [address] [place] [address] ALP [Catalytic activity/Vol] 68 Int._Unit/L Normal 21-98 [facility] Comment on above: Performed By: #### 2 068083 #### [facility] [address] [place] [address] ALT No additional P-5'-P [Catalytic activity/Vol] 34 Int._Unit/L Normal 6-46 [facility] Comment on above: Performed By: #### 2 241276 #### [facility] [address] [place] [address] Anion gap [Moles/Vol] 15 mmol/L Normal 6-16 [facility] Comment on above: Performed By: #### 2 460822 #### [facility] [address] [place] [address] AST [Catalytic activity/Vol] 24 Int._Unit/L Normal 5-43 [facility] Comment on above: Performed By: #### 2 007628 #### [facility] [address] [place] [address] Bilirubin [Mass/Vol] 0.6 mg/dL Normal 0.0-1.1 [facility] Comment on above: Performed By: #### 2 979087 #### [facility] [address] [place] [address] Calcium [Mass/Vol] 9.7 mg/dL Normal 8.9-11.1 [facility] Comment on above: Performed By: #### 2 765109 #### [facility] [address] [place] [address] Chloride [Moles/Vol] 108 mmol/L Normal 101-111 [facility] Comment on above: Performed By: #### 2 049837 #### [facility] [address] [place] [address] CO2 [Moles/Vol] 21 mmol/L Normal 21-31 [facility] Comment on above: Performed By: #### 2 110516 #### [facility] [address] [place] [address] Creatinine [Mass/Vol] 1.0 mg/dL Normal 0.5-1.3 [facility] Comment on above: Performed By: #### 2 361631 #### [facility] [address] [place] [address] Globulin (S) [Mass/Vol] 2.8 g/dL Normal 1.4-4.0 [facility] Comment on above: Performed By: #### 2 230915 #### [facility] [address] [place] [address] Glucose [Mass/Vol] 90 mg/dL Normal 55-199 [facility] Comment on above: Performed By: #### 2 209757 #### [facility] [address] [place] [address] Potassium [Moles/Vol] 3.9 mmol/L Normal 3.5-5.3 [facility] Comment on above: Performed By: #### 2 377133 #### [facility] [address] [place] [address] Protein [Mass/Vol] 7.7 g/dL Normal 6.0-7.8 [facility] Comment on above: Performed By: #### 2 546573 #### [facility] [address] [place] [address] Sodium [Moles/Vol] 140 mmol/L Normal 135-145 [facility] Comment on above: Performed By: #### 2 822117 #### [facility] [address] [place] [address] Urea nitrogen [Mass/Vol] 14 mg/dL Normal 5-21 [facility] Comment on above: Performed By: #### 2 107233 #### [facility] [address] [place] [address] Urea nitrogen/Creatinine [Mass ratio] 14 No Units Normal 10-20 [facility] Comment on above: Performed By: #### 2 156092 #### [facility] [address] [place] [address] Family Medicine Office/Clini c Noteon 07-12-2023 Family [...] Daily, # 90 cap(s), Refills(s) 1, Pharmacy: [facility]/pharmacy #[id number], 179.5, cm, 07/12/23 8:54:00 EDT, Height/Length [...] Daily, # 90 cap(s), Refills(s) 1, Pharmacy: [facility]/pharmacy #[id number], 179.5, cm, 07/12/23 8:54:00 EDT, Height/Length Dosing, 118.5, kg, 07/12/23 8:54:00 EDT, Weight Dosing Amylase Level CBC w/ Auto Diff Comprehensive Metabolic Panel Lipase Level Lipid Panel Thyroid Stimulating Hormone 3. Diarrhea (R19.7: Diarrhea, unspecified) diarrhea daily for about a month Ordered: omeprazole, 40 mg = 1 cap(s), Oral, Daily, # 90 cap(s), Refills(s) 1, [facility], 179.5, cm, 07/12/23 8:54:00 EDT, Height/Length Dosing, 118.5, kg, 07/12/23 8:54:00 EDT, Weight Dosing Amylase Level CBC w/ Auto Diff Comprehensive Metabolic Panel [facility] Internal Ambulatory Referral Lipase Level Lipid Panel Thyroid Stimulating Hormone 4. Nausea (R11.0: Nausea) gets very nauseated when eating Ordered: omeprazole, 40 mg = 1 cap(s), Oral, Daily, # 90 cap(s), Refills(s) 1, [facility], 179.5, cm, 07/12/23 8:54:00 EDT, Height/Length Dosing, 118.5, kg, 07/12/23 8:54:00 EDT, Weight Dosing Amylase Level CBC w/ Auto Diff Comprehensive Metabolic Panel [facility] Internal Ambulatory Referral Lipase Level Lipid Panel Thyroid Stimulating Hormone 5. Unintentional weight loss (R63.4: Abnormal weight loss) pt down 13 pounds since last visit. is not trying to lose weight. Gi referral sent Ordered: omeprazole, 40 mg = 1 cap(s), Oral, Daily, # 90 cap(s), Refills(s) 1, [id number], 179.5, cm, 07/12/23 8:54:00 EDT, Height/Length Dosing, 118.5, kg, 07/12/23 8:54:00 EDT, Weight Dosing Amylase Level CBC w/ Auto Diff Comprehensive Metabolic Panel [facility] Internal Ambulatory Referral Lipase Level Lipid Panel Thyroid Stimulating Hormone 6. Acid reflux (K21.9: Gastro-esophageal reflux disease without esophagitis) will start omeprazole will send referral to GI. pt coughs so hard he gets light headed Ordered: omeprazole, 40 mg = 1 cap(s), Oral, Daily, # 90 cap(s), Refills(s) 1, Pharmacy: [facility]/pharmacy #[id number], 179.5, cm, 07/12/23 8:54:00 EDT, Height/Length Dosing, 118.5, kg, 07/12/23 8:54:00 EDT, Weight Dosing Amylase Level CBC w/ Auto Diff Comprehensive Metabolic Panel [facility] Internal Ambulatory Referral Lipase Level Lipid Panel Thyroid Stimulating Hormone 7. BMI 36.0-36.9,adult (Z68.36: Body mass index [BMI] 36.0-36.9, adult) BMI education complete Ordered: omeprazole, 40 mg = 1 cap(s), Oral, Daily, # 90 cap(s), Refills(s) 1, Pharmacy: [facility]/pharmacy #[id number], 179.5, cm, 07/12/23 8:54:00 EDT, Height/Length Dosing, 118.5, kg, 07/12/23 8:54:00 EDT, Weight Dosing Amylase Level CBC w/ Auto Diff Comprehensive Metabolic Panel Lipase Level Lipid Panel Thyroid Stimulating Hormone 8. Current every day vaping (Z72.89: Other problems related to lifestyle) consider not vaping Ordered: omeprazole, 40 mg = 1 cap(s), (more content not included)... Normal [facility] Comment on above: Result Comment: Elec tronically [...] Lipase [Catalytic activity/Vol] 15 U/L Normal 13-58 [facility] Comment on above: Performed By: #### 2 [id number] #### [facility] [address] [place] [address] Lipid Panelon 07-12-2023 Cholesterol [Mass/Vol] 186 mg/dL Normal 120-200 [facility] Comment on above: Performed By: #### 2 489841 #### [facility] [address] [place] [address] Cholesterol in HDL [Mass/Vol] 36 mg/dL Invalid Interpretation Code [facility] Comment on above: Result Comment: '>= 60 LOW RISK' '<= 40 HIGH RISK' Performed By: #### 2 219585 #### [facility] [address] [place] [address] Cholesterol in LDL [Mass/Vol] 147 mg/dL High <=129 [facility] Comment on above: Performed By: #### 2 322415 #### [facility] [address] [place] [address] Cholesterol in VLDL [Mass/Vol] 26 mg/dL Normal 7-40 [facility] Comment on above: Performed By: #### 2 039719 #### [facility] [address] [place] [address] Triglyceride [Mass/Vol] 128 mg/dL Normal <=149 [facility] Comment on above: Performed By: #### 2 693750 #### [facility] [address] [place] [address] TSHon 07-12-2023 TSH Qn 1.70 m[IU]/L Normal 0.34-5.60 [facility] Comment on above: Performed By: #### 2 048826 #### [facility] [address] [place] [address] eGFRon 07-12-2023 eGFR 107 mL/min/1.73 m2 Normal >=59 [facility] Comment on above: Order Comment: Order added by Discern Expert. Performed By: #### 1 [id number] #### [facility] [address] [place] [address] Consenton 04-26-2023 Consent [id number] [id number]#1.00TI FF Normal [facility] Registrationon 04-26-2023 Registration [id number] IFF Normal [facility] Registration [id number] FF Normal [facility] Basic Metabolic Panelon 10-2 Anion gap [Moles/Vol] 11.3 mmol/L Normal 6.0-15.0 [facility] Comment on above: Performed By: #### B MP, LIPASE, HEPATIC, CBC ####[facility] [place] [address] [facility] Calcium [Mass/Vol] 9.9 mg/dL Normal 8.6-10.3 [facility] Comment on above: Performed By: #### B MP, LIPASE, HEPATIC, CBC ####[place] [address] [place] [address] [facility] Chloride [Moles/Vol] 102 mmol/L Normal 98-107 [facility] Comment on above: Performed By: #### B MP, LIPASE, HEPATIC, CBC ####[place] [place] [address] [facility] CO2 [Moles/Vol] 27.9 mmol/L Normal 21.0-31.0 [facility] Comment on above: Performed By: #### B MP, LIPASE, HEPATIC, CBC ####[address] [address] [facility] Creatinine [Mass/Vol] 1.11 mg/dL Normal 0.70-1.30 [facility] Comment on above: Performed By: #### B MP, LIPASE, HEPATIC, CBC ####[place] [place] [address] [facility] Creatinine Clr Calc Pharmacy 134.17 [facility] Comment on above: Performed By: #### B MP, LIPASE, HEPATIC, CBC ####[place] [address] [place] [address] [facility] GFR/1.73 sq M.predicted MDRD (S/P/Bld) [Vol rate/Area] mL/min/{1.73_m2} [facility] Comment on above: Performed By: #### B MP, LIPASE, HEPATIC, CBC ####[address] [address] [facility] Glucose [Mass/Vol] 91 mg/dL Normal 70-100 [facility] Comment on above: Result Comment: Ilana shepherd Glucose Reference Range is dependent on time and content of last meal. Glucose of more than 200 mg/dL in a nonstressed, ambulatory subject supports the diagnosis of Diabetes Mellitus. ADA recommended reference range Performed By: #### B MP, LIPASE, HEPATIC, CBC ####[facility] [id number] [place] [address] [facility] Potassium [Moles/Vol] 4.2 mmol/L Normal 3.5-5.1 [facility] Comment on above: Performed By: #### B MP, LIPASE, HEPATIC, CBC ####[facility] [address] [place] [address] [facility] Sodium [Moles/Vol] 137 mmol/L Normal 136-145 [facility] Comment on above: Performed By: #### B MP, LIPASE, HEPATIC, CBC ####[facility] [id number] [place] [address] [facility] Urea nitrogen [Mass/Vol] 12 mg/dL Normal 7-25 [facility] Comment on above: Performed By: #### B MP, LIPASE, HEPATIC, CBC ####[facility] [id number] [place] [id number] [facility] CT abdomen pelvis w conon CT abdomen pelvis w [facility] [place] [address] [place] [address] CT Scan Report Signed Patient: Clay Newton MR#: [id number] [id number] : 1995 Acct:[id number] Age/Sex: 27 / M ADM Date: 12/16/22 Loc: ER Room: Type: [facility] ER Attending Dr: Copies to: [...] Sandhya Wu M.D.12/17/2022 7:58 AM Dictation Location: [place] [address] Transcribed By: [facility] 12/17/22 0758 Dictated By: Sandhya Wu MD 12/17/22 0755 Signed By: 12/17/22 0758 Normal [facility] Complete Blood Count Auto Di ffon 12-17-2022 Basophils (Bld) [#/Vol] 0.1 10*3/uL Normal 0.0-0.2 [facility] Comment on above: Result Comment: PERF ORMED BY: [facility] [address] [place] [address] PATHOLOGIST SURGICAL TECHNOLOGY INSTRUCTOR MALIK CONN M.D. Performed By: #### B MP, LIPASE, HEPATIC, CBC ####[facility] [id number] [place] [address] [facility] Basophils/100 WBC (Bld) 0.6 % Normal . [facility] Comment on above: Performed By: #### B MP, LIPASE, HEPATIC, CBC ####[facility] [address] [place] [address] [facility] Eosinophils (Bld) [#/Vol] 0.2 10*3/uL Normal 0.0-0.45 [facility] Comment on above: Performed By: #### B MP, LIPASE, HEPATIC, CBC ####[address] Eosinophils/100 WBC (Bld) 1.5 % Normal . [facility] Comment on above: Performed By: #### B MP, LIPASE, HEPATIC, CBC ####[address] Erythrocyte distribution width (RBC) [Ratio] 13.4 % Normal 12.0-14.8 [facility] Comment on above: Performed By: #### B MP, LIPASE, HEPATIC, CBC ####[address] Hematocrit (Bld) [Volume fraction] 44.6 % Normal 38.8-50.0 [facility] Comment on above: Performed By: #### B MP, LIPASE, HEPATIC, CBC ####[address] Hemoglobin (Bld) [Mass/Vol] 15.1 g/dL Normal 13.0-17.0 [facility] Comment on above: Performed By: #### B MP, LIPASE, HEPATIC, CBC ####[address] Lymphocytes (Bld) [#/Vol] 0.8 10*3/uL Low 1.00-4.8 [facility] Comment on above: Performed By: #### B MP, LIPASE, HEPATIC, CBC ####[address] Lymphocytes/100 WBC (Bld) 6.6 % Normal . [facility] Comment on above: Performed By: #### B MP, LIPASE, HEPATIC, CBC ####[address] MCH (RBC) [Entitic mass] 29.7 pg Normal 27.5-35.2 [facility] Comment on above: Performed By: #### B MP, LIPASE, HEPATIC, CBC ####[address] MCV (RBC) [Entitic vol] 87.5 fL Normal 83.5-101 [facility] Comment on above: Performed By: #### B MP, LIPASE, HEPATIC, CBC ####[address] Mean Corpuscular HGB Conc 34.0 g/dL Normal 32.5-35.6 [facility] Comment on above: Performed By: #### B MP, LIPASE, HEPATIC, CBC ####[address] Monocytes (Bld) [#/Vol] 0.9 10*3/uL High 0.0-0.8 [facility] Comment on above: Performed By: #### B MP, LIPASE, HEPATIC, CBC ####[address] Monocytes/100 WBC (Bld) 17.38 % Normal 0.00-20.00 [facility] Comment on above: Performed By: #### B MP, LIPASE, HEPATIC, CBC ####[address] Monocytes/100 WBC (Bld) 7.3 % Normal . [facility] Comment on above: Performed By: #### B MP, LIPASE, HEPATIC, CBC ####[address] Neutrophils (Bld) [#/Vol] 10.0 10*3/uL High 1.8-7.7 [facility] Comment on above: Performed By: #### B MP, LIPASE, HEPATIC, CBC ####[address] Neutrophils/100 WBC (Bld) 84.0 % Normal . [facility] Comment on above: Performed By: #### B MP, LIPASE, HEPATIC, CBC ####[address] NRBC% 0.0 /100{WBC} Normal 0-0.5 [facility] Comment on above: Performed By: #### B MP, LIPASE, HEPATIC, CBC ####[address] Platelet mean volume (Bld) [Entitic vol] 8.3 fL Normal 6.6-10.1 [facility] Comment on above: Performed By: #### B MP, LIPASE, HEPATIC, CBC ####[address] Platelets (Bld) [#/Vol] 267 10*3/uL Normal 150-450 [facility] Comment on above: Performed By: #### B MP, LIPASE, HEPATIC, CBC ####[address] RBC (Bld) [#/Vol] 5.09 10*6/uL Normal 3.90-5.60 [facility] Comment on above: Performed By: #### B MP, LIPASE, HEPATIC, CBC ####[address] WBC (Bld) [#/Vol] 11.9 10*3/uL High 4.1-10.5 [facility] Comment on above: Performed By: #### B MP, LIPASE, HEPATIC, CBC ####[address] Hepatic Panelon 12-17-2022 Albumin [Mass/Vol] 4.6 g/dL Normal 3.5-5.7 [facility] Comment on above: Performed By: #### B MP, LIPASE, HEPATIC, CBC ####[address] Albumin/Globulin [Mass ratio] 1.5 {ratio} Normal [facility] Comment on above: Performed By: #### B MP, LIPASE, HEPATIC, CBC ####[address] ALP [Catalytic activity/Vol] 82 U/L Normal 34-104 [facility] Comment on above: Performed By: #### B MP, LIPASE, HEPATIC, CBC ####[address] ALT [Catalytic activity/Vol] 26 U/L Normal 7-52 [facility] Comment on above: Performed By: #### B MP, LIPASE, HEPATIC, CBC ####[place] [id number] [place] [id number] [facility] AST [Catalytic activity/Vol] 17 U/L Normal 13-39 [facility] Comment on above: Performed By: #### B MP, LIPASE, HEPATIC, CBC ####[place] [id number] [place] [id number] [facility] Bilirubin [Mass/Vol] 1.4 mg/dL High 0.3-1.0 [facility] Comment on above: Result Comment: Samp les from patients who have taken Naproxen have shown spurious elevation in Total Bilirubin levels. A metabolite of Naproxen, O-desmethylnaproxen, has been shown to interfere with the Jendrassik-Grof method for measuring Total Bilirubin. Performed By: #### B MP, LIPASE, HEPATIC, CBC ####[place] [id number] Bilirubin,Indirect 1.2 mg/dL Normal [facility] Comment on above: Performed By: #### B MP, LIPASE, HEPATIC, CBC ####[place] [id number] Bilirubin.indirect [Mass/Vol] 0.20 mg/dL High 0.03-0.18 [facility] Comment on above: Performed By: #### B MP, LIPASE, HEPATIC, CBC ####[place] [id number] Globulin (S) [Mass/Vol] 3.1 g/dL Normal [facility] Comment on above: Performed By: #### B MP, LIPASE, HEPATIC, CBC ####[place] [id number] [place] [id number] [facility] Protein [Mass/Vol] 7.7 g/dL Normal 6.4-8.9 [facility] Comment on above: Performed By: #### B MP, LIPASE, HEPATIC, CBC ####[place] [id number] [facility] Lipaseon 12-17-2022 Lipase [Catalytic activity/Vol] 7.0 U/L Low 11.0-82.0 [facility] Comment on above: Result Comment: PERF ORMED BY: [facility] [address] [place] [address] PATHOLOGIST SURGICAL TECHNOLOGY INSTRUCTOR MALIK CONN M.D. Performed By: #### B MP, LIPASE, HEPATIC, CBC ####[place] [id number] [facility] Urinalysison 12-17-2022 Appearance (U) Clear Normal Clear [facility] Comment on above: Order Comment: Name Collection Type:: Clean-Voided Midstream Performed By: #### U A ####[address] Bilirubin,Urine Negative Normal Negative [facility] Comment on above: Order Comment: Name Collection Type:: Clean-Voided Midstream Performed By: #### U A ####[address] Color (U) Yellow Normal Yellow [facility] Comment on above: Order Comment: Name Collection Type:: Clean-Voided Midstream Performed By: #### U A ####[address] Glucose Ql (U) Normal Normal Normal [facility] Comment on above: Order Comment: Name Collection Type:: Clean-Voided Midstream Performed By: #### U A ####[place] [id number] [facility] Ketones Ql (U) Negative Normal Negative [facility] Comment on above: Order Comment: Name Collection Type:: Clean-Voided Midstream Performed By: #### U A ####[place] [id number] [facility] Leukocyte esterase Test strip Ql (U) Negative Normal Negative [facility] Comment on above: Order Comment: Name Collection Type:: Clean-Voided Midstream Performed By: #### U A ####[place] [id number] [facility] Nitrite,Urine Negative Normal Negative [facility] Comment on above: Order Comment: Name Collection Type:: Clean-Voided Midstream Performed By: #### U A ####[address] Occult Blood,Urine Negative Normal Negative [facility] Comment on above: Order Comment: Name Collection Type:: Clean-Voided Midstream Result Comment: PERF ORMED BY: [facility] [address] [place] [address] PATHOLOGIST SURGICAL TECHNOLOGY INSTRUCTOR MALIK CONN M.D. Performed By: #### U A ####[address] pH (U) 8.0 [pH] Normal 5.0-9.0 [facility] Comment on above: Order Comment: Name Collection Type:: Clean-Voided Midstream Performed By: #### U A ####[address] Protein,Urine Negative Normal Negative [facility] Comment on above: Order Comment: Name Collection Type:: Clean-Voided Midstream Performed By: #### U A ####[address] Specificy [place],Urine 1.025 Normal 1.001-1.030 [facility] Comment on above: Order Comment: Name Collection Type:: Clean-Voided Midstream Performed By: #### U A ####[address] Urobilinogen,Urine Normal Normal Normal [facility] Comment on above: Order Comment: Name Collection Type:: Clean-Voided Midstream Performed By: #### U A ####[address] Alanine aminotransferase [En zymatic activity/volume] in Serum or PlasmaOrdered By: Johnathan Isbell on 12-16-2022 ALT [Catalytic activity/Vol] 26 U/L [facility] Albumin [Mass/volume] in Ser um or Plasma by Bromocresol green (BCG) dye binding methoOrdered By: Johnathan Isbell on 12-16-2022 Albumin BCG dye [Mass/Vol] 4.6 g/dL 3.5-5.7 [facility] Alkaline phosphatase [Enzyma tic activity/volume] in Serum or PlasmaOrdered By: Johnathan Isbell on 12-16-2022 ALP [Catalytic activity/Vol] 82 U/L 34-104 [facility] Aspartate aminotransferase [ Enzymatic activity/volume] in Serum or PlasmaOrdered By: Johnathan Isbell on 12-16-2022 AST [Catalytic activity/Vol] 17 U/L 13-39 [facility] Basophils Auto (Bld) [#/Vol] Ordered By: Johnathan Isbell on 12-16-2022 Basophils (Bld) [#/Vol] 0.1 10*3/uL 0.0-0.2 [facility] Basophils/100 WBC Auto (Bld) Ordered By: Johnathan Isbell on 12-16-2022 Basophils/100 WBC (Bld) 0.6 % . [facility] Bilirubin Auto test strip Ql (U)Ordered By: Johnathan Isbell on 12-16-2022 Bilirubin Ql (U) Negative Negative [facility] Bilirubin.direct [Mass/volum e] in Serum or PlasmaOrdered By: Johnathan Isbell on 12-16-2022 Bilirubin.direct [Mass/Vol] 0.20 mg/dL 0.03-0.18 [facility] Bilirubin.total [Mass/volume ] in Serum or PlasmaOrdered By: Johnathan Isbell on 12-16-2022 Bilirubin [Mass/Vol] 1.4 mg/dL 0.3-1.0 [facility] Comment on above: Samples from patient s who have taken Naproxen have shown spurious elevation in Total Bilirubin levels. A metabolite of Naproxen, O-desmethylnaproxen, has been shown to interfere with the Kimberly-Alessio method for measuring Total Bilirubin. Calcium [Mass/volume] in Ser um or PlasmaOrdered By: Johnathan Isbell on 12-16-2022 Calcium [Mass/Vol] 9.9 mg/dL 8.6-10.3 [facility] Carbon dioxide, total [Moles /volume] in Serum or PlasmaOrdered By: Johnathan Isbell on 12-16-2022 CO2 [Moles/Vol] 27.9 mmol/L 21.0-31.0 [facility] Chloride [Moles/volume] in S pj or PlasmaOrdered By: Johnathan Isbell on 12-16-2022 Chloride [Moles/Vol] 102 mmol/L 98-107 [facility] Creatinine [Mass/volume] in Serum or PlasmaOrdered By: Johnathan Isbell on 12-16-2022 Creatinine [Mass/Vol] 1.11 mg/dL 0.70-1.30 [facility] Eosinophils Auto (Bld) [#/Vo l]Ordered By: Johnathan Isbell on 12-16-2022 Eosinophils (Bld) [#/Vol] 0.2 10*3/uL 0.0-0.45 [facility] Eosinophils/100 WBC Auto (Bl d)Ordered By: Johnathan Isbell on 12-16-2022 Eosinophils/100 WBC (Bld) 1.5 % . [facility] Erythrocyte distribution wid th Auto (RBC) [Ratio]Ordered By: Johnathan Isbell on 12-16-2022 Erythrocyte distribution width (RBC) [Ratio] 13.4 % 12.0-14.8 [facility] Globulin Calc (S) [Mass/Vol] Ordered By: Johnathan Isbell on 12-16-2022 Globulin (S) [Mass/Vol] 3.1 g/dL [facility] Glucose [Mass/volume] in Ser um or PlasmaOrdered By: Johnathan Isbell on 12-16-2022 Glucose [Mass/Vol] 91 mg/dL 70-100 [facility] Comment on above: ADA recommended refe rence rangeRandom Glucose Reference Range is dependent on time and content of last meal. Glucose of more than 200 mg/dL in a nonstressed, ambulatory subject supports the diagnosis of Diabetes Mellitus. Hematocrit Auto (Bld) [Volum e fraction]Ordered By: Johnathan Isbell on 12-16-2022 Hematocrit (Bld) [Volume fraction] 44.6 % 38.8-50.0 [facility] Hemoglobin [Mass/volume] in BloodOrdered By: Johnathan Isbell on 12-16-2022 Hemoglobin (Bld) [Mass/Vol] 15.1 g/dL 13.0-17.0 [facility] Ketones Auto test strip (U) [Mass/Vol]Ordered By: Johnathan Isbell on 12-16-2022 Ketones (U) [Mass/Vol] Negative Negative [facility] Leukocytes [#/volume] correc chuyita for nucleated erythrocytes in Blood by Automated counOrdered By: Johnathan Isbell on 12-16-2022 WBC corrected for nucl RBC Auto (Bld) [#/Vol] 11.9 10*3/uL 4.1-10.5 [facility] Lipase [Enzymatic activity/v olume] in Serum or PlasmaOrdered By: Johnathan Isbell on 12-16-2022 Lipase [Catalytic activity/Vol] 7.0 U/L 11.0-82.0 [facility] Lymphocytes Auto (Bld) [#/Vo l]Ordered By: Johnathan Isbell on 12-16-2022 Lymphocytes (Bld) [#/Vol] 0.8 10*3/uL 1.00-4.8 [facility] Lymphocytes/100 WBC Auto (Bl d)Ordered By: Johnathan Isbell on 12-16-2022 Lymphocytes/100 WBC (Bld) 6.6 % . [facility] MCH Auto (RBC) [Entitic mass ]Ordered By: Johnathan Isbell on 12-16-2022 MCH (RBC) [Entitic mass] 29.7 pg 27.5-35.2 [facility] MCHC Auto (RBC) [Mass/Vol]Or dered By: Johnathan Isbell on 12-16-2022 MCHC (RBC) [Mass/Vol] 34.0 g/dL 32.5-35.6 [facility] MCV Auto (RBC) [Entitic vol] Ordered By: Johnathan Isbell on 12-16-2022 MCV (RBC) [Entitic vol] 87.5 fL 83.5-101 [facility] Monocyte distribution width [Entitic volume] in Blood by AutomatedOrdered By: Johnathan Isbell on 12-16-2022 Monocyte distribution width Auto (Bld) [Entitic vol] 17.38 % 0.00-20.00 [facility] Monocytes Auto (Bld) [#/Vol] Ordered By: Johnathan Isbell on 12-16-2022 Monocytes (Bld) [#/Vol] 0.9 10*3/uL 0.0-0.8 [facility] Monocytes/100 WBC Auto (Bld) Ordered By: Johnathan Isbell on 12-16-2022 Monocytes/100 WBC (Bld) 7.3 % . [facility] Neutrophils Auto (Bld) [#/Vo l]Ordered By: Johnathan Isbell on 12-16-2022 Neutrophils (Bld) [#/Vol] 10.0 10*3/uL 1.8-7.7 [facility] Neutrophils/100 WBC Auto (Bl d)Ordered By: Johnathan Isbell on 12-16-2022 Neutrophils/100 WBC (Bld) 84.0 % . [facility] No Panel InformationOrdered By: Johnathan Isbell on 12-16-2022 Estimated GFR (CKD-EPI) > 60.0 mL/Min [facility] Creatinine Clearance (Chem 134.17 [facility] Nucleated erythrocytes [Pres ence] in Blood by Automated countOrdered By: Johnathan Isbell on 12-16-2022 Nucleated RBC Auto Ql (Bld) 0.0 /100{WBC} 0-0.5 [facility] Platelet mean volume Auto (B ld) [Entitic vol]Ordered By: Johnathan Isbell on 12-16-2022 Platelet mean volume (Bld) [Entitic vol] 8.3 fL 6.6-10.1 [facility] Platelets Auto (Bld) [#/Vol] Ordered By: Johnathan Isbell on 12-16-2022 Platelets (Bld) [#/Vol] 267 10*3/uL 150-450 [facility] Potassium [Moles/volume] in Serum or PlasmaOrdered By: Johnathan Isbell on 12-16-2022 Potassium [Moles/Vol] 4.2 mmol/L 3.5-5.1 [facility] Protein Auto test strip (U) [Mass/Vol]Ordered By: Johnathan Isbell on 12-16-2022 Protein (U) [Mass/Vol] Negative Negative [facility] Protein [Mass/volume] in Ser um or PlasmaOrdered By: Johnathan Isbell on 12-16-2022 Protein [Mass/Vol] 7.7 g/dL 6.4-8.9 [facility] RBC Auto (Bld) [#/Vol]Ordere d By: Johnathan Isbell on 12-16-2022 RBC (Bld) [#/Vol] 5.09 10*6/uL 3.90-5.60 [facility] Serum or plasma albumin/glob ulin mass ratioOrdered By: Johnathan Isbell on 12-16-2022 Albumin/Globulin [Mass ratio] 1.5 {ratio} [facility] Serum or plasma anion gap de terminationOrdered By: Johnathan Isbell on 12-16-2022 Anion gap [Moles/Vol] 11.3 mmol/L 6.0-15.0 [facility] Serum or plasma non-glucuron idated bilirubin measurement (mass/volume)Ordered By: Johnathan Isbell on 12-16-2022 Bilirubin.indirect [Mass/Vol] 1.2 mg/dL [facility] Sodium [Moles/volume] in Ser um or PlasmaOrdered By: Johnathan Isbell on 12-16-2022 Sodium [Moles/Vol] 137 mmol/L 136-145 [facility] Urea nitrogen [Mass/volume] in Serum or PlasmaOrdered By: Johnathan Isbell on 12-16-2022 Urea nitrogen [Mass/Vol] 12 mg/dL 7-25 [facility] Urine appearanceOrdered By: Johnathan Isbell on 12-16-2022 Appearance (U) Clear Clear [facility] Urine colorOrdered By: Johnathan Isbell on 12-16-2022 Color (U) Yellow Yellow [facility] Urine glucose measurement by automated test strip (mass/volume)Ordered By: Johnathan Isbell on 12-16-2022 Glucose Auto test strip (U) [Mass/Vol] Normal mg/dL Normal [facility] Urine hemoglobin detection b y automated test stripOrdered By: Johnathan Isbell on 12-16-2022 Hemoglobin Auto test strip Ql (U) Negative Negative [facility] Urine leukocyte esterase det ection by automated test stripOrdered By: Johnathan Isbell on 12-16-2022 Leukocyte esterase Auto test strip Ql (U) Negative Negative [facility] Urine nitrite detection by a utomated test stripOrdered By: Johnathan Isbell on 12-16-2022 Nitrite Auto test strip Ql (U) Negative Negative [facility] Urobilinogen Auto test strip (U) [Mass/Vol]Ordered By: Johnathan Isbell on 12-16-2022 Urobilinogen (U) [Mass/Vol] Normal mg/dL Normal [facility] WBC Auto (Bld) [#/Vol]Ordere d By: Johnathan sIbell on 12-16-2022 WBC (Bld) [#/Vol] 11.9 10*3/uL 4.1-10.5 [facility] pH Auto test strip (U)Ordere d By: Johnathan Isbell on 12-16-2022 pH (U) 1.025 [pH] 1.001-1.030 [facility] pH (U) 8.0 [pH] 5.0-9.0 [facility] Activated partial thrombopla stin time (aPTT) in platelet poor plasma by coagulation aOrdered By: Coco Landry on 10-12-2022 aPTT Coag (PPP) [Time] 32.4 s 25.1-36.5 [facility] Alanine aminotransferase [En zymatic activity/volume] in Serum or PlasmaOrdered By: Coco Landry on 10-12-2022 ALT [Catalytic activity/Vol] 28 U/L 7-52 [facility] Albumin [Mass/volume] in Ser um or Plasma by Bromocresol green (BCG) dye binding methoOrdered By: Coco Landry on 10-12-2022 Albumin BCG dye [Mass/Vol] 4.8 g/dL 3.5-5.7 [facility] Alkaline phosphatase [Enzyma tic activity/volume] in Serum or PlasmaOrdered By: Coco Landry on 10-12-2022 ALP [Catalytic activity/Vol] 84 U/L 34-104 [facility] Aspartate aminotransferase [ Enzymatic activity/volume] in Serum or PlasmaOrdered By: Coco Landry on 10-12-2022 AST [Catalytic activity/Vol] 19 U/L 13-39 [facility] Automated erythrocytes count in urine sediment (number/area)Ordered By: Coco Landry on 10-12-2022 RBC Auto (Urine sed) [#/Area] 0-1 [HPF] 0-4 [facility] Automated leukocytes count i n urine sediment (number/area)Ordered By: Coco Landry on 10-12-2022 WBC Auto (Urine sed) [#/Area] 0-1 [HPF] 0-4 [facility] Bacterial blood cultureOrder ed By: Coco Landry on 10-12-2022 Bacteria identified Cx Nom (Bld) NO GROWTH 5 DAYS [facility] Basophils Auto (Bld) [#/Vol] Ordered By: Coco Landry on 10-12-2022 Basophils (Bld) [#/Vol] 0.1 10*3/uL 0.0-0.2 [facility] Basophils/100 WBC Auto (Bld) Ordered By: Coco Landry on 10-12-2022 Basophils/100 WBC (Bld) 0.7 % . [facility] Bilirubin Test strip Ql (U)O rdered By: Coco Landry on 10-12-2022 Bilirubin Ql (U) Negative Negative [facility] Bilirubin.total [Mass/volume ] in Serum or PlasmaOrdered By: Coco Landry on 10-12-2022 Bilirubin [Mass/Vol] 1.0 mg/dL 0.3-1.0 [facility] Blood Cultureon 10-12-2022 Bacteria identified Cx Nom (Bld) NO GROWTH 5 DAYS PERFORMED BY: [address] [place] [id number] PATHOLOGIST SURGICAL TECHNOLOGY INSTRUCTOR MALIK CONN M.D. [facility] Comment on above: Performed By: #### C UBLD ####[place] [id number] [facility] Bacteria identified Cx Nom (Bld) NO GROWTH 5 DAYS PERFORMED BY: [facility] [address] [facility] [place] [id number] PATHOLOGIST SURGICAL TECHNOLOGY INSTRUCTOR MALIK CONN M.D. [facility] Comment on above: Performed By: #### C UBLD, PTT, CBC, CMP, PT ####[facility] [address] [place], [place] [id number] [facility] COVID CepheidOrdered By: Neo Landry on 10-12-2022 SARS-CoV-2 (COVID-19) Ab IA Ql Negative Negative [facility] Comment on above: This is a duplicate Cepheid Xpert Xpress CoV-2/Flu/RSV Plus RNA by RT-PCR result to be used for statistical tracking purpose only. SARS-CoV-2 (COVID-19) RNA BARBARA+probe Ql (Unsp spec) [facility] COVID-19 / Flu A/B / [...] or Cepheid Disclaimer revoked sooner. PERFORMED BY: [address] [id number] PATHOLOGIST SURGICAL TECHNOLOGY INSTRUCTOR MALIK CONN M.D. Normal [facility] Comment on above: Performed By: #### C EPHEID NEG, COVID19 FLU RSV ####[place] [id number] [place] [address] [place] Calcium [Mass/volume] in Ser um or PlasmaOrdered By: Coco Landry on 10-12-2022 Calcium [Mass/Vol] 9.7 mg/dL 8.6-10.3 [facility] Carbon dioxide, total [Moles /volume] in Serum or PlasmaOrdered By: Coco Landry on 10-12-2022 CO2 [Moles/Vol] 24.1 mmol/L 21.0-31.0 [facility] Cepheid COVID PCR Negativeon 10-12-2022 SARS-CoV-2 (COVID-19) RNA BARBARA+probe Ql (Unsp spec) Negative Normal Negative [facility] Comment on above: Result Comment: This is a duplicate Cepheid Xpert Xpress CoV-2/Flu/RSV Plus RNA by RT-PCR result to be used for statistical tracking purpose only. PERFORMED BY: [facility] [address] [place] [address] PATHOLOGIST SURGICAL TECHNOLOGY INSTRUCTOR MALIK CONN M.D. Performed By: #### C EPHEID NEG, COVID19 FLU RSV ####[place] [id number] [place] [address] [place] Chloride [Moles/volume] in S pj or PlasmaOrdered By: Coco Landry on 10-12-2022 Chloride [Moles/Vol] 102 mmol/L 98-107 [facility] Color Auto (U)Ordered By: Jennie Landry on 10-12-2022 Color (U) Yellow Yellow [facility] Complete Blood Count Auto Di ffon 10-12-2022 Basophils (Bld) [#/Vol] 0.1 10*3/uL Normal 0.0-0.2 [facility] Comment on above: Result Comment: PERF ORMED BY: [place] [address] PATHOLOGIST SURGICAL TECHNOLOGY INSTRUCTOR MALIK CONN M.D. Performed By: #### C UBLD, PTT, CBC, CMP, PT #### [address] Basophils/100 WBC (Bld) 0.7 % Normal . [facility] Comment on above: Performed By: #### C UBLD, PTT, CBC, CMP, PT #### [facility] [address] [place] [address] Eosinophils (Bld) [#/Vol] 0.0 10*3/uL Normal 0.0-0.45 [facility] Comment on above: Performed By: #### C UBLD, PTT, CBC, CMP, PT #### [facility] [address] [place] [address] Eosinophils/100 WBC (Bld) 0.1 % Normal . [facility] Comment on above: Performed By: #### C UBLD, PTT, CBC, CMP, PT #### [facility] [address] [place] [address] Erythrocyte distribution width (RBC) [Ratio] 12.8 % Normal 12.0-14.8 [facility] Comment on above: Performed By: #### C UBLD, PTT, CBC, CMP, PT #### [facility] [address] [place] [address] Hematocrit (Bld) [Volume fraction] 45.8 % Normal 38.8-50.0 [facility] Comment on above: Performed By: #### C UBLD, PTT, CBC, CMP, PT #### [facility] [address] [place] [address] Hemoglobin (Bld) [Mass/Vol] 15.9 g/dL Normal 13.0-17.0 [facility] Comment on above: Performed By: #### C UBLD, PTT, CBC, CMP, PT #### [address] Lymphocytes (Bld) [#/Vol] 0.7 10*3/uL Low 1.00-4.8 [facility] Comment on above: Performed By: #### C UBLD, PTT, CBC, CMP, PT #### [address] Lymphocytes/100 WBC (Bld) 6.8 % Normal . [facility] Comment on above: Performed By: #### C UBLD, PTT, CBC, CMP, PT #### [address] MCH (RBC) [Entitic mass] 30.3 pg Normal 27.5-35.2 [facility] Comment on above: Performed By: #### C UBLD, PTT, CBC, CMP, PT #### [address] MCV (RBC) [Entitic vol] 87.1 fL Normal 83.5-101 [facility] Comment on above: Performed By: #### C UBLD, PTT, CBC, CMP, PT #### [address] Mean Corpuscular HGB Conc 34.8 g/dL Normal 32.5-35.6 [facility] Comment on above: Performed By: #### C UBLD, PTT, CBC, CMP, PT #### [address] Monocytes (Bld) [#/Vol] 0.6 10*3/uL Normal 0.0-0.8 [facility] Comment on above: Performed By: #### C UBLD, PTT, CBC, CMP, PT #### [address] Monocytes/100 WBC (Bld) 20.90 % High 0.00-20.00 [facility] Comment on above: Result Comment: For adults in ED, MDW > 20.0 may be associated with a higher risk of sepsis during the first 12 hrs of hospital admission Performed By: #### C UBLD, PTT, CBC, CMP, PT #### [address] Monocytes/100 WBC (Bld) 5.8 % Normal . [facility] Comment on above: Performed By: #### C UBLD, PTT, CBC, CMP, PT #### [address] Neutrophils (Bld) [#/Vol] 8.9 10*3/uL High 1.8-7.7 [facility] Comment on above: Performed By: #### C UBLD, PTT, CBC, CMP, PT #### [address] Neutrophils/100 WBC (Bld) 86.6 % Normal . [facility] Comment on above: Performed By: #### C UBLD, PTT, CBC, CMP, PT #### [address] NRBC% 0.0 /100{WBC} Normal 0-0.5 [facility] Comment on above: Performed By: #### C UBLD, PTT, CBC, CMP, PT #### [address] Platelet mean volume (Bld) [Entitic vol] 8.0 fL Normal 6.6-10.1 [facility] Comment on above: Performed By: #### C UBLD, PTT, CBC, CMP, PT #### [place] [address] [place] Platelets (Bld) [#/Vol] 326 10*3/uL Normal 150-450 [facility] Comment on above: Performed By: #### C UBLD, PTT, CBC, CMP, PT #### [address] RBC (Bld) [#/Vol] 5.26 10*6/uL Normal 3.90-5.60 [facility] Comment on above: Performed By: #### C UBLD, PTT, CBC, CMP, PT #### [facility] [address] WBC (Bld) [#/Vol] 10.2 10*3/uL Normal 4.1-10.5 [facility] Comment on above: Performed By: #### C UBLD, PTT, CBC, CMP, PT #### [facility] [address] Comprehensive Metabolic Pane logan 10-12-2022 Albumin [Mass/Vol] 4.8 g/dL Normal 3.5-5.7 [facility] Comment on above: Performed By: #### C UBLD, PTT, CBC, CMP, PT ####[facility] Albumin/Globulin [Mass ratio] 1.6 {ratio} Normal [facility] Comment on above: Performed By: #### C UBLD, PTT, CBC, CMP, PT ####[facility] ALP [Catalytic activity/Vol] 84 U/L Normal 34-104 [facility] Comment on above: Performed By: #### C UBLD, PTT, CBC, CMP, PT ####[facility] ALT [Catalytic activity/Vol] 28 U/L Normal 7-52 [facility] Comment on above: Performed By: #### C UBLD, PTT, CBC, CMP, PT ####[facility] [id number] Anion gap [Moles/Vol] 13.6 mmol/L Normal 6.0-15.0 [facility] Comment on above: Performed By: #### C UBLD, PTT, CBC, CMP, PT ####[facility] [place] [address] AST [Catalytic activity/Vol] 19 U/L Normal 13-39 [facility] Comment on above: Performed By: #### C UBLD, PTT, CBC, CMP, PT ####[place] [id number] [facility] Bilirubin [Mass/Vol] 1.0 mg/dL Normal 0.3-1.0 [facility] Comment on above: Performed By: #### C UBLD, PTT, CBC, CMP, PT ####[address] Calcium [Mass/Vol] 9.7 mg/dL Normal 8.6-10.3 [facility] Comment on above: Performed By: #### C UBLD, PTT, CBC, CMP, PT ####[address] Chloride [Moles/Vol] 102 mmol/L Normal 98-107 [facility] Comment on above: Performed By: #### C UBLD, PTT, CBC, CMP, PT ####[address] CO2 [Moles/Vol] 24.1 mmol/L Normal 21.0-31.0 [facility] Comment on above: Performed By: #### C UBLD, PTT, CBC, CMP, PT ####[address] Creatinine [Mass/Vol] 1.13 mg/dL Normal 0.70-1.30 [facility] Comment on above: Performed By: #### C UBLD, PTT, CBC, CMP, PT ####[address] Creatinine Clr Calc Pharmacy 132.89 Normal [facility] Comment on above: Result Comment: PERF ORMED BY: [facility] [address] [place] [address] PATHOLOGIST SURGICAL TECHNOLOGY INSTRUCTOR MALIK CONN M.D. Performed By: #### C UBLD, PTT, CBC, CMP, PT ####[address] GFR/1.73 sq M.predicted MDRD (S/P/Bld) [Vol rate/Area] mL/min/{1.73_m2} [facility] Comment on above: Performed By: #### C UBLD, PTT, CBC, CMP, PT ####[address] Globulin (S) [Mass/Vol] 3.0 g/dL [facility] Comment on above: Performed By: #### C UBLD, PTT, CBC, CMP, PT ####[address] Glucose [Mass/Vol] 96 mg/dL Normal 70-100 [facility] Comment on above: Result Comment: [facility] Glucose Reference Range is dependent on time and content of last meal. Glucose of more than 200 mg/dL in a nonstressed, ambulatory subject supports the diagnosis of Diabetes Mellitus. ADA recommended reference range Performed By: #### C UBLD, PTT, CBC, CMP, PT ####[address] Potassium [Moles/Vol] 3.7 mmol/L Normal 3.5-5.1 [facility] Comment on above: Performed By: #### C UBLD, PTT, CBC, CMP, PT ####[address] Protein [Mass/Vol] 7.8 g/dL Normal 6.4-8.9 [facility] Comment on above: Performed By: #### C UBLD, PTT, CBC, CMP, PT ####[place] [id number] [facility] Sodium [Moles/Vol] 136 mmol/L Normal 136-145 [facility] Comment on above: Performed By: #### C UBLD, PTT, CBC, CMP, PT ####[place] [id number] [facility] Urea nitrogen [Mass/Vol] 8 mg/dL Normal 7-25 [facility] Comment on above: Performed By: #### C UBLD, PTT, CBC, CMP, PT ####[address] [place] [address] [place] Creatinine [Mass/volume] in Serum or PlasmaOrdered By: Coco Landry on 10-12-2022 Creatinine [Mass/Vol] 1.13 mg/dL 0.70-1.30 [facility] Dipstick and Microscopicon 0 10-12-2022 Appearance (U) Clear Normal Clear [facility] Comment on above: Order Comment: Name Collection Type:: Clean-Voided Midstream Performed By: #### A DDONUAPLUS #### [facility] [address] [place] [address] [place] Bacteria,Urine None Seen Normal None Seen [facility] Comment on above: Order Comment: Name Collection Type:: Clean-Voided Midstream Performed By: #### A DDONUAPLUS #### [facility] [address] [place] [address] [place] Bilirubin,Urine Negative Normal Negative [facility] Comment on above: Order Comment: Name Collection Type:: Clean-Voided Midstream Performed By: #### A DDONUAPLUS #### [facility] [address] [place] [address] [place] Color (U) Yellow Normal Yellow [facility] Comment on above: Order Comment: Name Collection Type:: Clean-Voided Midstream Performed By: #### A DDONUAPLUS #### [facility] [address] [place] [address] [place] Glucose Ql (U) Normal Normal Normal [facility] Comment on above: Order Comment: Name Collection Type:: Clean-Voided Midstream Performed By: #### A DDONUAPLUS #### [facility] [address] [place], [place] [id number] [place] Hyaline Casts,Urine 0-8 Normal 0-8 [facility] Comment on above: Order Comment: Name Collection Type:: Clean-Voided Midstream Result Comment: PERF ORMED BY: [place] [address] PATHOLOGIST SURGICAL TECHNOLOGY INSTRUCTOR MALIK CONN M.D. Performed By: #### A DDONUAPLUS #### [facility] [address] [place] [address] [place] Ketones Ql (U) Trace High Negative [facility] Comment on above: Order Comment: Name Collection Type:: Clean-Voided Midstream Performed By: #### A DDONUAPLUS #### [address] Leukocyte esterase Test strip Ql (U) 1+ High Negative [facility] Comment on above: Order Comment: Name Collection Type:: Clean-Voided Midstream Performed By: #### A DDONUAPLUS #### [place] [address] [place] Nitrite,Urine Negative Normal Negative [facility] Comment on above: Order Comment: Name Collection Type:: Clean-Voided Midstream Performed By: #### A DDONUAPLUS #### [address] Occult Blood,Urine Negative Normal Negative [facility] Comment on above: Order Comment: Name Collection Type:: Clean-Voided Midstream Result Comment: PERF ORMED BY: [place] [address] PATHOLOGIST SURGICAL TECHNOLOGY INSTRUCTOR MALIK CONN M.D. Performed By: #### A DDONUAPLUS #### [address] pH (U) 6.0 [pH] Normal 5.0-9.0 [facility] Comment on above: Order Comment: Name Collection Type:: Clean-Voided Midstream Performed By: #### A DDONUAPLUS #### [place] [address] [place] Protein,Urine Negative Normal Negative [facility] Comment on above: Order Comment: Name Collection Type:: Clean-Voided Midstream Performed By: #### A DDONUAPLUS #### [place] [address] [place] RBC LM.HPF (Urine sed) [#/Area] 0 /[HPF] Normal 0-4 [facility] Comment on above: Order Comment: Name Collection Type:: Clean-Voided Midstream Performed By: #### A DDONUAPLUS #### [address] Specificy [place],Urine 1.024 Normal 1.001-1.030 [facility] Comment on above: Order Comment: Name Collection Type:: Clean-Voided Midstream Performed By: #### A DDONUAPLUS #### [address] Squamous Epithelial Cell,Urine None Seen Normal 0-2 [facility] Comment on above: Order Comment: Name Collection Type:: Clean-Voided Midstream Performed By: #### A DDONUAPLUS #### [address] Urobilinogen,Urine Normal Normal Normal [facility] Comment on above: Order Comment: Name Collection Type:: Clean-Voided Midstream Performed By: #### A DDONUAPLUS #### [address] WBC LM.HPF (Urine sed) [#/Area] 0 /[HPF] Normal 0-4 [facility] Comment on above: Order Comment: Name Collection Type:: Clean-Voided Midstream Performed By: #### A DDONUAPLUS #### [address] ECG 12 lead ECGon 10-12-2022 ECG 12 lead ECG [facility] [place] [address] [place] [address] Electrocardiograph Report Signed Patient: Clay Newton MR#: [id number] 753 : 1995 Acct:[id number] Age/Sex: 27 / M ADM Date: 10/12/22 Loc: ER Room: Type: [facility] ER Attending Dr: Ordering Provider: Coco Landry [...] 49 BPM Confirmed by COCO LANDRY MD ([id number]) on 10/12/2022 3:58:27 AM Referred By: Electronically Signed By:COCO LANDRY MD Transcribed By: MUS Signed By Coco Lnadry Jr, MD [id number] Normal [facility] Eosinophils Auto (Bld) [#/Vo l]Ordered By: Coco Landry on 10-12-2022 Eosinophils (Bld) [#/Vol] 0.0 10*3/uL 0.0-0.45 [facility] Eosinophils/100 WBC Auto (Bl d)Ordered By: Coco Landry on 10-12-2022 Eosinophils/100 WBC (Bld) 0.1 % . [facility] Erythrocyte distribution wid th Auto (RBC) [Ratio]Ordered By: Coco Landry on 10-12-2022 Erythrocyte distribution width (RBC) [Ratio] 12.8 % 12.0-14.8 [facility] Globulin Calc (S) [Mass/Vol] Ordered By: Coco Landry on 10-12-2022 Globulin (S) [Mass/Vol] 3.0 g/dL [facility] Glucose [Mass/volume] in Ser um or PlasmaOrdered By: Cooc Landry on 10-12-2022 Glucose [Mass/Vol] 96 mg/dL 70-100 [facility] Comment on above: ADA recommended refe rence rangeRandom Glucose Reference Range is dependent on time and content of last meal. Glucose of more than 200 mg/dL in a nonstressed, ambulatory subject supports the diagnosis of Diabetes Mellitus. Hematocrit Auto (Bld) [Volum e fraction]Ordered By: Coco Landry on 10-12-2022 Hematocrit (Bld) [Volume fraction] 45.8 % 38.8-50.0 [facility] Hemoglobin [Mass/volume] in BloodOrdered By: Coco Landry on 10-12-2022 Hemoglobin (Bld) [Mass/Vol] 15.9 g/dL 13.0-17.0 [facility] INR in Platelet poor plasma by Coagulation assayOrdered By: Coco Landry on 10-12-2022 INR Coag (PPP) [Relative time] 1.2 {INR} [facility] Comment on above: INR Therapeutic [...] on 10-12-2022 Ketones (U) [Mass/Vol] Trace Negative [facility] Laboratory - CoagulationOrde red By: Coco Landry on 10-12-2022 PT Coag (PPP) [Time] 14.1 s 9.0-12.9 [facility] Laboratory - UrinalysisOrder ed By: Coco Landry on 10-12-2022 Hyaline casts LM Ql (Urine sed) 0-8 [LPF] 0-8 [facility] Lactate [Moles/volume] in Se rum or PlasmaOrdered By: Coco Landry on 10-12-2022 Lactate [Moles/Vol] 0.8 mmol/L 0.5-2.2 [facility] Lactic Acidon 10-12-2022 Lactate [Moles/Vol] 0.8 mmol/L Normal 0.5-2.2 [facility] Comment on above: Result Comment: PERF ORMED BY: [place] [address] PATHOLOGIST SURGICAL TECHNOLOGY INSTRUCTOR MALIK CONN M.D. Performed By: #### L ACTIC #### [address] Leukocytes [#/volume] correc chuyita for nucleated erythrocytes in Blood by Automated counOrdered By: Coco Landry on 10-12-2022 WBC corrected for nucl RBC Auto (Bld) [#/Vol] 10.2 10*3/uL 4.1-10.5 [facility] Lymphocytes Auto (Bld) [#/Vo l]Ordered By: Coco Landry on 10-12-2022 Lymphocytes (Bld) [#/Vol] 0.7 10*3/uL 1.00-4.8 [facility] Lymphocytes/100 WBC Auto (Bl d)Ordered By: Coco Landry on 10-12-2022 Lymphocytes/100 WBC (Bld) 6.8 % . [facility] MCH Auto (RBC) [Entitic mass ]Ordered By: Coco Landry on 10-12-2022 MCH (RBC) [Entitic mass] 30.3 pg 27.5-35.2 [facility] MCHC Auto (RBC) [Mass/Vol]Or dered By: Coco Landry on 10-12-2022 MCHC (RBC) [Mass/Vol] 34.8 g/dL 32.5-35.6 [facility] MCV Auto (RBC) [Entitic vol] Ordered By: Coco Landry on 10-12-2022 MCV (RBC) [Entitic vol] 87.1 fL 83.5-101 [facility] Monocyte distribution width [Entitic volume] in Blood by AutomatedOrdered By: Coco Landry on 10-12-2022 Monocyte distribution width Auto (Bld) [Entitic vol] 20.90 % 0.00-20.00 [facility] Comment on above: For adults in ED, MD W > 20.0 may be associated with a higher risk of sepsis during the first 12 hrs of hospital admission Monocytes Auto (Bld) [#/Vol] Ordered By: Coco Landry on 10-12-2022 Monocytes (Bld) [#/Vol] 0.6 10*3/uL 0.0-0.8 [facility] Monocytes/100 WBC Auto (Bld) Ordered By: Coco Landry on 10-12-2022 Monocytes/100 WBC (Bld) 5.8 % . [facility] Neutrophils Auto (Bld) [#/Vo l]Ordered By: Coco Landry on 10-12-2022 Neutrophils (Bld) [#/Vol] 8.9 10*3/uL 1.8-7.7 [facility] Neutrophils/100 WBC Auto (Bl d)Ordered By: Coco Landry on 10-12-2022 Neutrophils/100 WBC (Bld) 86.6 % . [facility] Nitrite Test strip Ql (U)Ord ered By: Coco Landry on 10-12-2022 Nitrite Ql (U) Negative Negative [facility] No Panel InformationOrdered By: Coco Landry on 10-12-2022 Estimated GFR (CKD-EPI) > 60.0 mL/Min [facility] Creatinine Clearance (Chem 132.89 [facility] Nucleated erythrocytes [Pres ence] in Blood by Automated countOrdered By: Coco Landry on 10-12-2022 Nucleated RBC Auto Ql (Bld) 0.0 /100{WBC} 0-0.5 [facility] Partial Thromboplastin Timeo n 10-12-2022 aPTT Coag (Bld) [Time] 32.4 s Normal 25.1-36.5 [facility] Comment on above: Result Comment: PERF ORMED BY: [facility] [address] [place] [address] PATHOLOGIST SURGICAL TECHNOLOGY INSTRUCTOR MALIK CONN M.D. Performed By: #### C UBLD, PTT, CBC, CMP, PT ####[facility] [id number] [place] [id number] [facility] Platelet mean volume Auto (B ld) [Entitic vol]Ordered By: Coco Landry on 10-12-2022 Platelet mean volume (Bld) [Entitic vol] 8.0 fL 6.6-10.1 [facility] Platelets Auto (Bld) [#/Vol] Ordered By: Coco Landry on 10-12-2022 Platelets (Bld) [#/Vol] 326 10*3/uL 150-450 [facility] Potassium [Moles/volume] in Serum or PlasmaOrdered By: Coco Landry on 10-12-2022 Potassium [Moles/Vol] 3.7 mmol/L 3.5-5.1 [facility] Protein Auto test strip (U) [Mass/Vol]Ordered By: Coco Landry on 10-12-2022 Protein (U) [Mass/Vol] Negative Negative [facility] Protein [Mass/volume] in Ser um or PlasmaOrdered By: Coco Landry on 10-12-2022 Protein [Mass/Vol] 7.8 g/dL 6.4-8.9 [facility] Prothrombin Time INRon 10-12 INR Coag (PPP) [Relative time] 1.2 {INR} Normal [facility] Comment on above: Result Comment: [...] #### C UBLD, PTT, CBC, CMP, PT ####[facility] [id number] PT Coag (PPP) [Time] 14.1 s High 9.0-12.9 [facility] Comment on above: Performed By: #### C UBLD, PTT, CBC, CMP, PT ####[facility] [id number] RBC Auto (Bld) [#/Vol]Ordere d By: Coco Landry on 10-12-2022 RBC (Bld) [#/Vol] 5.26 10*6/uL 3.90-5.60 [facility] Serum or plasma albumin/glob ulin mass ratioOrdered By: Coco Landry on 10-12-2022 Albumin/Globulin [Mass ratio] 1.6 {ratio} [facility] Serum or plasma anion gap de terminationOrdered By: Coco Landry on 10-12-2022 Anion gap [Moles/Vol] 13.6 mmol/L 6.0-15.0 [facility] Sodium [Moles/volume] in Ser um or PlasmaOrdered By: Coco Landry on 10-12-2022 Sodium [Moles/Vol] 136 mmol/L 136-145 [facility] Specific gravity Auto test s trip (U) [Rel density]Ordered By: Coco Landry on 10-12-2022 Specific gravity (U) [Rel density] 1.024 1.001-1.030 [facility] Squamous epithelial cells de tection in urine sediment by light microscopyOrdered By: Coco Landry on 10-12-2022 Epithelial cells.squamous LM Ql (Urine sed) None seen [HPF] 0-2 [facility] Urea nitrogen [Mass/volume] in Serum or PlasmaOrdered By: Coco Landry on 10-12-2022 Urea nitrogen [Mass/Vol] 8 mg/dL 7-25 [facility] Urine bacteria detection by automated methodOrdered By: Coco Landry on 10-12-2022 Bacteria Auto Ql (U) None seen None Seen [facility] Urine clarity by refractomet ry automatedOrdered By: Coco Landry on 10-12-2022 Clarity Refractometry automated (U) Clear Clear [facility] Urine glucose measurement by automated test strip (mass/volume)Ordered By: Coco Landry on 10-12-2022 Glucose Auto test strip (U) [Mass/Vol] Normal mg/dL Normal [facility] Urine hemoglobin detection b y automated test stripOrdered By: Coco Landry on 10-12-2022 Hemoglobin Auto test strip Ql (U) Negative Negative [facility] Urine leukocyte esterase det ection by automated test stripOrdered By: Coco Landry on 10-12-2022 Leukocyte esterase Auto test strip Ql (U) 1+ Negative [facility] Urobilinogen Auto test strip (U) [Mass/Vol]Ordered By: Coco Landry on 10-12-2022 Urobilinogen (U) [Mass/Vol] Normal mg/dL Normal [facility] WBC Auto (Bld) [#/Vol]Ordere d By: Coco Landry on 10-12-2022 WBC (Bld) [#/Vol] 10.2 10*3/uL 4.1-10.5 [facility] XR chest 1V portableon 10-12 XR chest 1V portable [facility] [address] XRay Report Signed Patient: Clay Newton MR#: [id number] 753 : 1995 Acct:[id number] Age/Sex: 27 / M ADM Date: 10/12/22 Loc: ER Room: Type: [facility] ER Attending Dr: Copies to: [...] NO ACUTE FINDINGS Impression dictated by: Diego Holocmb Jr., DGardeniaOGardenia10/12/2022 9:30 AM Dictation Location: [place] [address] Transcribed By: [facility] 10/12/22929 Dictated By: Diego Holcomb Jr, DO 10/12/22928 Signed By: 10/12/22929 Normal [facility] pH Auto test strip (U)Ordere d By: Coco Landry on 10-12-2022 pH (U) 6.0 [pH] 5.0-9.0 [facility] CHEMISTRYOrdered By: SYSTEM SYSTEM on [...] FINGER MIN 2 VIEWS EXAM: XR FINGER VT N 2 VIEWS HISTORY: Traumatic injury COMPARISON: None. TECHNIQUE: 3 views of the right finger third digit. FINDINGS: Bones: No acute or aggressive appearing bony lesion. Joints: Normal alignment. No significant degenerative change. Soft tissues: Mild soft tissue prominence about the distal third digit. IMPRESSION: No evidence of fracture. Electronically authenticated by: GERSON ALBERT Date: 2022-06-03 10:22 Normal [facility] XR CHEST 1 Von 05-20-2022 XR CHEST [...] GERSON ALBERT Date: 2022-05-20 10:19 Normal [facility] Covid-19 PCR (CVDTB)on 01-22 SARS-CoV-2 (COVID-19) RNA BARBARA+probe Ql (Unsp spec) Detected Critically abnormal NOT DETECTED [facility] Comment on above: Result Comment: This test is not yet approved or cleared by the [place] FDA. When there are no FDA-approved or cleared tests available, and other criteria are met, FDA can make tests available under an emergency access mechanism called an Emergency Use Authorization (EUA). The EUA for this test is supported by the [place] of Health and Human Service's (HHS's) declaration [...] Performed By: #### S SCRN, GRASTCX #### [facility] [address] [place] [address] Dr. Cecile Martins GROUP A STREP CULTUREon 01-22 S. pyogenes Ag Ql (Unsp spec) Culture Observations: NEGATIVE FOR GROUP A STREPTOCOCCUS. Normal [facility] Comment on above: Performed By: #### S JANY GRASTCX #### [facility] [address] [place] [address] Dr. Cecile Martins INFLUENZA A AND B AGon 02-10 INFLUANEGH SEE BELOW Normal [facility] Comment on above: Result Comment: Nega tive for Flu A protein angiten. Infection due to Flu A cannot be ruled out. Flu A angiten in the sample may be below the detection limit of the test. Performed By: #### C VDTBH #### [facility] [address] [place] [address] Dr. Cecile Martins INFLUBNEG SEE BELOW Normal [facility] Comment on above: Result Comment: Nega tive for Flu B protein antigen. Infection due to Flu B cannot be ruled out. Flu B antigen in the sample may be below the detection limit of the test. Performed By: #### C VDTBH #### [facility] [address] [place] [address] Dr. Cecile Martins INFLUENZA A AG Negative Normal NEGATIVE SEE COMMENT [facility] Comment on above: Performed By: #### C VDTBH #### [facility] [address] [place] [address] Dr. Cecile Martins INFLUENZA B AG Negative Normal NEGATIVE SEE COMMENT [facility] Comment on above: Performed By: #### C VDTBH #### [facility] [address] [place] [address] Dr. Cecile Martins INTERNAL CONTROLS Within Normal Limits Normal Wi thin Normal Limits [facility] Comment on above: Performed By: #### C VDTBH #### [facility] [address] [place] [address] Dr. Cecile Martins STREPT SCREENon 02-10-2022 STREP SCREEN A Negative Normal NEGATIVE [facility] Comment on above: Performed By: #### S JANY, GRASTCX #### [facility] [address] [place] [address] Dr. Cecile Martins CARDIAC GOLDIE ADMITon 022 CK [Catalytic activity/Vol] 178 U/L Normal 39-308 [facility] Comment on above: Performed By: #### S JANY GRASTCX #### [facility] [address] [address] [address] Cecile Martins CK.MB [Mass/Vol] 3.38 ng/mL Normal <=3.60 [facility] Comment on above: Performed By: #### S JANY GRASTCX #### [facility] [address] [place] [address] Dr. Cecile Martins HSTROP 6.9 pg/mL Normal 4.0-76.1 [facility] Comment on above: Result Comment: CUT- OFF POINTS HAVE BEEN ESTABLISHED BASED ON THE FOURTH UNIVERSAL DEFINITIONS OF MYOCARDIAL INFARCTION. THE UPPER REFERENCE LIMIT (URL) OF TROPONIN, DEFINED THE 99TH PERCENTILE OF cTnI DISTRIBUTION IN A REFERENCE POPULATION, HAS BEEN CONFIRMED THE DECISION THRESHOLD FOR VT DIAGNOSIS. Performed By: #### S JANY GRASTCX #### [facility] [address] [place] [address] Dr. Cecile Martins KELLEY 109 ng/mL Critically high 16-96 [facility] Comment on above: Performed By: #### S JANY GRASTCX #### [facility] [address] [place] [address] Dr. Cecile Martins CBC AUTO DIFFon 01-20-2022 BASO # 0.1 103/ul Normal 0.0-0.1 [facility] Comment on above: Performed By: #### C BC #### [facility] [address] [place] [address] Dr. Cecile Martins Basophils/100 WBC (Bld) 1.0 % Normal 0.2-2.0 [facility] Comment on above: Performed By: #### C BC #### [facility] [address] [place] [address] Dr. Cecile Martins EO # 0.9 103/ul Critically high 0.0-0.7 [facility] Comment on above: Performed By: #### C BC #### [facility] [address] [place] [address] Dr. Cecile Martins Eosinophils/100 WBC (Bld) 10.3 % Critically high 0.9-7.0 [facility] Comment on above: Performed By: #### C BC #### [facility] [address] [place] [address] Dr. Cecile Martins Erythrocyte distribution width (RBC) [Ratio] 12.5 % Normal 11.0-15.0 [facility] Comment on above: Performed By: #### C BC #### [facility] [address] [place] [address] Dr. Cecile Martins Hematocrit (Bld) [Volume fraction] 44.6 % Normal 42.0-54.0 [facility] Comment on above: Performed By: #### C BC #### [facility] [address] [place] [address] Dr. Cecile Martins Hemoglobin (Bld) [Mass/Vol] 15.4 g/dL Normal 14.0-18.0 [facility] Comment on above: Performed By: #### C BC #### [facility] [address] [place] [address] Dr. Cecile Martins IG # 0.03 10e3/ul Normal 0.00-0.03 [facility] Comment on above: Performed By: #### C BC #### [facility] [address] [place] [address] Dr. Cecile Martins IG % 0.3 % Normal 0.0-0.5 [facility] Comment on above: Performed By: #### C BC #### [facility] [address] [place] [address] Dr. Cecile Martins LYMPH # 2.1 103/ul Normal 1.2-3.8 [facility] Comment on above: Performed By: #### C BC #### [facility] [address] [place] [address] Dr. Cecile Martins Lymphocytes/100 WBC (Bld) 23.4 % Normal 20.5-60.0 [facility] Comment on above: Performed By: #### C BC #### [facility] [address] [place] [address] Dr. Cecile Martins MANUAL DIFF REQ NO Normal [facility] Comment on above: Performed By: #### C BC #### [facility] [address] [address] [address] Cecile Martins MCH (RBC) [Entitic mass] 30.3 pg Normal 25.9-34.0 [facility] Comment on above: Performed By: #### C BC #### [facility] [address] [place] [address] Dr. Cecile Martins MCHC (RBC) [Mass/Vol] 34.5 g/dL Normal 29.9-35.2 [facility] Comment on above: Performed By: #### C BC #### [facility] [address] [place] [address] Dr. Cecile Martins MCV (RBC) [Entitic vol] 87.8 fL Normal 80.0-94.0 [facility] Comment on above: Performed By: #### C BC #### [facility] [address] [place] [address] Dr. Cecile Martins MONO # 0.8 103/ul Normal 0.3-0.8 [facility] Comment on above: Performed By: #### C BC #### [facility] [address] [place] [address] Dr. Cecile Martins Monocytes/100 WBC (Bld) 8.8 % Normal 1.7-12.0 [facility] Comment on above: Performed By: #### C BC #### [facility] [address] [place] [address] Dr. Cecile Martins NEUT # 5.0 103/ul Normal 1.4-6.5 [facility] Comment on above: Performed By: #### C BC #### [facility] [address] [place] [address] Dr. Cecile Martins Neutrophils/100 WBC (Bld) 56.2 % Normal 43.0-75.0 [facility] Comment on above: Performed By: #### C BC #### [facility] [address] [place] [address] Dr. Cecile Martins Platelet mean volume (Bld) [Entitic vol] 9.5 fL Normal 9.5-13.5 [facility] Comment on above: Performed By: #### C BC #### [facility] [address] [address] [address] Cecile Martins PLT 336 103/ul Normal 150-450 [facility] Comment on above: Performed By: #### C BC #### [facility] [address] [place] [address] Dr. Cecile Martins RBC 5.08 106/ul Normal 4.70-6.10 [facility] Comment on above: Performed By: #### C BC #### [facility] [address] [place] [address] Dr. Cecile Martins WBC 8.8 103/ul Normal 4.0-11.0 [facility] Comment on above: Performed By: #### C BC #### [facility] [address] [place] [address] Dr. Cecile Martins D-DIMERon 01-20-2022 D-DIMER 0.19 mg/L FEU Normal <=0.59 [facility] Comment on above: Performed By: #### S SCRN, GRASTCX #### [facility] [address] [place] [address] Dr. Cecile Martins D-DIMER COMMENTS SEE BELOW Normal [facility] Comment on above: Result Comment: Incr eases [...] Performed By: #### S SCRN GRASTCX #### [facility] [address] [place] [address] Dr. Cecile Martins PROF 14(COMP METB)on 022 Albumin [Mass/Vol] 4.3 g/dL Normal 3.4-5.0 [facility] Comment on above: Performed By: #### S SCRN, GRASTCX #### [facility] [address] [address] [address] Cecile Martins Albumin/Globulin [Mass ratio] 1.2 {ratio} Normal [facility] Comment on above: Performed By: #### S SCRN, GRASTCX #### [facility] [address] [address] [address] Cecile Martins ALP [Catalytic activity/Vol] 98 U/L Normal 46-116 [facility] Comment on above: Performed By: #### S SCRN, GRASTCX #### [facility] [address] [address] [address] Cecile Martins ALT [Catalytic activity/Vol] 52 U/L Normal 16-63 [facility] Comment on above: Performed By: #### S SCRN, GRASTCX #### [facility] [address] [place] [address] Dr. Cecile Martins Anion gap [Moles/Vol] 11.8 mmol/L Normal [facility] Comment on above: Performed By: #### S SCRN, GRASTCX #### [facility] [address] [place] [address] Dr. Cecile Martins AST [Catalytic activity/Vol] 25 U/L Normal 15-37 [facility] Comment on above: Performed By: #### S SCRN, GRASTCX #### [facility] [address] [place] [address] Dr. Cecile Martins Bilirubin [Mass/Vol] 0.6 mg/dL Normal 0.2-1.0 [facility] Comment on above: Performed By: #### S SCRN, GRASTCX #### [facility] [address] [place] [address] Dr. Cecile Martins Calcium [Mass/Vol] 9.7 mg/dL Normal 8.5-10.1 [facility] Comment on above: Performed By: #### S SCRN, GRASTCX #### [facility] [address] [place] [address] Dr. Cecile Martins Chloride [Moles/Vol] 101 mmol/L Normal 98-107 [facility] Comment on above: Performed By: #### S SCRN, GRASTCX #### [facility] [address] [address] [address] Cecile Martins CO2 [Moles/Vol] 29.2 mmol/L Normal 21.0-32.0 [facility] Comment on above: Performed By: #### S SCRN, GRASTCX #### [facility] [address] [address] [address] Cecile Martins Creatinine [Mass/Vol] 1.11 mg/dL Normal 0.70-1.30 [facility] Comment on above: Performed By: #### S SCRN, GRASTCX #### [facility] [address] [address] [address] Cecile Martins EGFR-AF NIGERIEN >60 Normal >=60 [facility] Comment on above: Performed By: #### S SCRN, GRASTCX #### [facility] [address] [address] [address] Cecile Martins EGFR-NON AF NIGERIEN >60 Normal >=60 [facility] Comment on above: Performed By: #### S SCRN, GRASTCX #### [facility] [address] [address] [address] Cecile Martins Globulin (S) [Mass/Vol] 3.6 g/dL Normal [facility] Comment on above: Performed By: #### S SCRN, GRASTCX #### [facility] [address] [address] [address] Cecile Martins Glucose [Mass/Vol] 99 mg/dL Normal 74-106 [facility] Comment on above: Performed By: #### S SCRN, GRASTCX #### [facility] [address] [address] [address] Cecile Martins Potassium [Moles/Vol] 4.0 mmol/L Normal 3.5-5.1 [facility] Comment on above: Performed By: #### S SCRN, GRASTCX #### [facility] [address] [address] [address] Cecile Martins Protein [Mass/Vol] 7.9 g/dL Normal 6.4-8.2 [facility] Comment on above: Performed By: #### S SCRN, GRASTCX #### [facility] [address] [address] [address] Cecile Martins Sodium [Moles/Vol] 138 mmol/L Normal 136-145 [facility] Comment on above: Performed By: #### S SCRN, GRASTCX #### [facility] [address] [address] [address] Cecile Martins Urea nitrogen [Mass/Vol] 17.0 mg/dL Normal 7.0-18.0 [facility] Comment on above: Performed By: #### S SCRN, GRASTCX #### [facility] [address] [place] [address] Dr. Cecile Martins Urea nitrogen/Creatinine [Mass ratio] 15.3 mg/mg Normal [facility] Comment on above: Performed By: #### S SCRN, GRASTCX #### [facility] [address] [place] [address] Dr. Cecile Martins XR CHEST 1 Von [...] by: INDERJIT RUBIO Date: 2022-01-19 23:35 Normal [facility] Cholesterol [Mass/volume] in Serum or PlasmaOrdered By: Peter Grady on 12-29-2021 Cholesterol [Mass/Vol] 176 mg/dL 140-200 [facility] Comment on above: Chol less than 200 m g/dl low riskChol 201-239 mg/dl borderline riskChol 240 mg/dl and greater high risk Cholesterol in LDL Calc [Mas s/Vol]Ordered By: Peter Grady on 12-29-2021 Cholesterol in LDL [Mass/Vol] 118 mg/dL 0-100 [facility] Comment on above: LDL ATP III CLASSIFI CATIONLDL less than 100 mg/dL OptimalLDL 100-129 mg/dL Near or above optimalLDL 130-159 mg/dL Borderline highLDL 160-189 mg/dL HighLDL greater than 189 mg/dL Very high Cholesterol in VLDL Calc [Ma ss/Vol]Ordered By: Peter Grady on 12-29-2021 Cholesterol in VLDL [Mass/Vol] 25 mg/dL [facility] ECG 12 lead ECGon 12-29-2021 ECG 12 lead ECG [facility] [place] [address] [place] [id number] Electrocardiograph Report Signed Patient: Clay Newton MR#: [id number] : [id number] Acct:[id number] Age/Sex: 26 / M ADM Date: 12/28/21 Loc: Room: [address] [place] [address] Type: DIS IN Attending Dr: Elizabet Grady [...] previous ECGs available Confirmed by [facility] Tejeda ([id number]) on 12/29/2021 11:11:47 AM Referred By: Electronically Signed By:BROWN SALAZAR MD FAC Transcribed By: MUS Signed By Kingsley Salazar MD 12/29/21 1111 Normal [facility] Lipid Panelon 12-29-2021 Cholesterol [Mass/Vol] 176 mg/dL Normal 140-200 [facility] Comment on above: Result Comment: Chol less than 200 mg/dl low risk Chol 201-239 mg/dl borderline risk Chol 240 mg/dl and greater high risk Performed By: #### T SH3 wRFLX, LIPID, [id number] #### [facility] [address] Cholesterol in HDL [Mass/Vol] 33 mg/dL Normal 29-71 [facility] Comment on above: Result Comment: HDL CHOL ATP-III CLASSIFICATION Cardiovascular Risk HDL > or equal to 60 mg/dL LOW HDL < 40 mg/dL HIGH Performed By: #### T SH3 wRFLX, LIPID, [id number] #### [facility] [address] Cholesterol.total/Cho lesterol in HDL [Mass ratio] 5.3 {ratio} Normal <5.0 [facility] Comment on above: Performed By: #### T SH3 wRFLX, LIPID, [id number] #### [address] LDL Cholesterol,Calculate d 118 mg/dL High 0-100 [facility] Comment on above: Result Comment: LDL ATP III CLASSIFICATION LDL less than 100 mg/dL Optimal LDL 100-129 mg/dL Near or above optimal LDL 130-159 mg/dL Borderline high LDL 160-189 mg/dL High LDL greater than 189 mg/dL Very high Performed By: #### T SH3 wRFLX, LIPID, [id number] #### [address] Triglyceride w/Reflex 126 mg/dL Normal 35-149 [facility] Comment on above: Result Comment: TRIG ATP III CLASSIFICATION TRIG less than 150 mg/dL Normal TRIG 150-199 mg/dL Borderline high TRIG 200-500 mg/dL High TRIG greater than 500 mg/dL Very high Standard traceable to the Center for Disease Conrtrol and Prevention (CDC) test method. Performed By: #### T SH3 wRFLX, LIPID, [id number] #### [facility] [address] VLDL CHOLESTEROL 25 mg/dL Normal [facility] Comment on above: Performed By: #### T SH3 wRFLX, LIPID, [id number] #### [facility] [address] No Panel InformationOrdered By: Peter Grady on 12-29-2021 25-Hydroxy Vitamin D Total 15.0 ng/mL 30-100 [facility] Comment on above: VITAMIN D [...] Cholesterol in HDL [Mass/Vol] 33 mg/dL 29-71 [facility] Comment on above: HDL CHOL ATP-III CLA SSIFICATION Cardiovascular RiskHDL > or equal to 60 mg/dL LOWHDL < 40 mg/dL HIGH Serum or plasma total choles terol/high density lipoprotein (HDL) cholesterol mass ratOrdered By: Peter Grady on 12-29-2021 Cholesterol.total/Cho lesterol in HDL [Mass ratio] 5.3 {ratio} <5.0 [facility] TSH DL <= 0.005 mIU/L QnOrde red By: Peter Grady on 12-29-2021 TSH Qn 0.64 m[IU]/L 0.45-5.33 [facility] Thyroid Stim Hormone w/Rflxo n 12-29-2021 Thyroid Stim Hormone w/Rflx 0.64 u[iU]/mL Normal 0.45-5.33 [facility] Comment on above: Performed By: #### T SH3 wRFLX, LIPID, [id number] #### [address] Triglyceride [Mass/volume] i n Serum or PlasmaOrdered By: Peter Grady on 12-29-2021 Triglyceride [Mass/Vol] 126 mg/dL 35-149 [facility] Comment on above: TRIG ATP III CLASSIF ICATIONTRIG less than 150 mg/dL NormalTRIG 150-199 mg/dL Borderline highTRIG 200-500 mg/dL High TRIG greater than 500 mg/dL Very highStandard traceable to the Center for Disease Conrtrol and Prevention (CDC) test method. Vitamin D 25 Hydroxy Totalon 12-29-2021 Vitamin D 25 Hydroxy Total 15.0 ng/mL Low 30-100 [facility] Comment on above: Result Comment: ANANYA MIN D STATUS 25(OH)VITAMIN D RANGE (ng/mL) Deficient <20 Insufficient 20 to <30 Sufficient 30 to 100 Reference: Adelia MF,Joseph NC, Kim FARMER, et al. Evaluation,treatment, and prevention of vitamin D deficiency; an Endocrine Society clinical practice guideline. JCEM. 2010; 96(7):1911-30. PERFORMED BY: [place] [address] PATHOLOGIST SURGICAL TECHNOLOGY INSTRUCTOR MALIK CONN M.D. Performed By: #### T SH3 wRFLX, LIPID, [id number] #### [address] ACETAMINOPHENon 12-28-2021 Acetaminophen [Mass/Vol] ug/mL Critically low 10.0-30.0 [facility] Comment on above: Performed By: #### S SCRN, GRASTCX #### [facility] [address] [place] [address] Dr. Cecile Martins CBC AUTO DIFFon 12-28-2021 BASO # 0.1 103/ul Normal 0.0-0.1 [facility] Comment on above: Performed By: #### C BC #### [facility] [address] [address] [address] Cecile Martins Basophils/100 WBC (Bld) 0.9 % Normal 0.2-2.0 [facility] Comment on above: Performed By: #### C BC #### [facility] [address] [address] [address] Cecile Martins EO # 0.8 103/ul Critically high 0.0-0.7 [facility] Comment on above: Performed By: #### C BC #### [facility] [address] [place] [address] Dr. Cecile Martins Eosinophils/100 WBC (Bld) 9.3 % Critically high 0.9-7.0 [facility] Comment on above: Performed By: #### C BC #### [facility] [address] [place] [address] Dr. Cecile Martins Erythrocyte distribution width (RBC) [Ratio] 12.3 % Normal 11.0-15.0 [facility] Comment on above: Performed By: #### C BC #### [facility] [address] [place] [address] Dr. Cecile Martins Hematocrit (Bld) [Volume fraction] 44.7 % Normal 42.0-54.0 [facility] Comment on above: Performed By: #### C BC #### [facility] [address] [place] [address] Dr. Cecile Martins Hemoglobin (Bld) [Mass/Vol] 15.5 g/dL Normal 14.0-18.0 [facility] Comment on above: Performed By: #### C BC #### [facility] [address] [place] [address] Dr. Cecile Martins IG # 0.02 10e3/ul Normal 0.00-0.03 [facility] Comment on above: Performed By: #### C BC #### [facility] [address] [place] [address] Dr. Cecile Martins IG % 0.2 % Normal 0.0-0.5 [facility] Comment on above: Performed By: #### C BC #### [facility] [address] [place] [address] Dr. Cecile Martins LYMPH # 3.0 103/ul Normal 1.2-3.8 [facility] Comment on above: Performed By: #### C BC #### [facility] [address] [place] [address] Dr. Cecile Martins Lymphocytes/100 WBC (Bld) 34.7 % Normal 20.5-60.0 [facility] Comment on above: Performed By: #### C BC #### [facility] [address] [place] [address] Dr. Cecile Martins MANUAL DIFF REQ NO Normal [facility] Comment on above: Performed By: #### C BC #### [facility] [address] [address] [address] Cecile Martins MCH (RBC) [Entitic mass] 30.3 pg Normal 25.9-34.0 [facility] Comment on above: Performed By: #### C BC #### [facility] [address] [place] [address] Dr. Cecile Martins MCHC (RBC) [Mass/Vol] 34.7 g/dL Normal 29.9-35.2 [facility] Comment on above: Performed By: #### C BC #### [facility] [address] [place] [address] Dr. Cecile Martins MCV (RBC) [Entitic vol] 87.3 fL Normal 80.0-94.0 [facility] Comment on above: Performed By: #### C BC #### [facility] [address] [place] [address] Dr. Cecile Martins MONO # 0.7 103/ul Normal 0.3-0.8 [facility] Comment on above: Performed By: #### C BC #### [facility] [address] [place] [address] Dr. Cecile Martins Monocytes/100 WBC (Bld) 8.1 % Normal 1.7-12.0 [facility] Comment on above: Performed By: #### C BC #### [facility] [address] [place] [address] Dr. Cecile Martins NEUT # 4.0 103/ul Normal 1.4-6.5 [facility] Comment on above: Performed By: #### C BC #### [facility] [address] [place] [address] Dr. Cecile Martins Neutrophils/100 WBC (Bld) 46.8 % Normal 43.0-75.0 [facility] Comment on above: Performed By: #### C BC #### [facility] [address] [place] [address] Dr. Cecile Martins Platelet mean volume (Bld) [Entitic vol] 9.8 fL Normal 9.5-13.5 [facility] Comment on above: Performed By: #### C BC #### [facility] [address] [address] [address] Cecile Martins PLT 386 103/ul Normal 150-450 [facility] Comment on above: Performed By: #### C BC #### [facility] [address] [address] [address] Cecile Martins RBC 5.12 106/ul Normal 4.70-6.10 [facility] Comment on above: Performed By: #### C BC #### [facility] [address] [address] [address] Cecile Martins WBC 8.6 103/ul Normal 4.0-11.0 [facility] Comment on above: Performed By: #### C BC #### [facility] [address] [place] [address] Dr. Cecile Martins Covid-19 PCR ([facility])on SARS-CoV-2 (COVID-19) RNA BARBARA+probe Ql (Unsp spec) Not detected Normal NOT DETECTED [facility] Comment on above: Result Comment: When diagnostic [...] for this test is supported by the Medical Housekeeper of Health and Human Service's declaration that [...] Performed By: #### S SCRN, GRASTCX #### [facility] [address] [place] [address] Dr. Cecile Martins DRUG SCREEN RAPID (URINE)on 12-28-2021 AMP Negative Normal NEGATIVE [facility] Comment on above: Performed By: #### D RUGRPD, ERUR #### [facility] [address] [place] [address] Dr. Cecile Martins BAR Negative Normal NEGATIVE [facility] Comment on above: Performed By: #### D RUGRPD, ERUR #### [facility] [address] [place] [address] Dr. Cecile Martins BUP Negative Normal NEGATIVE [facility] Comment on above: Performed By: #### D RUGRPD, ERUR #### [facility] [address] [place] [address] Dr. Cecile Martins BZO Negative Normal NEGATIVE [facility] Comment on above: Performed By: #### D RUGRPD, ERUR #### [facility] [address] [place] [address] Dr. Cecile Martins PEYTON Negative Normal NEGATIVE [facility] Comment on above: Performed By: #### D RUGRPD, ERUR #### [facility] [address] [place] [address] Dr. Cecile Martins CUT-OFFS SEE BELOW Normal [facility] Comment on above: Result Comment: AMP (Amphetamine): [...] Performed By: #### D RUGRPD, ERUR #### [facility] [address] [place] [address] Dr. Cecile Martins DRUG CUT HEADER DRUG CLASS TEST SYST EM CUT-OFF CONCENTRATIONS ARE FOLLOWS: Normal [facility] Comment on above: Performed By: #### D RUGRPD, ERUR #### [facility] [address] [address] [address] Cecile Martins mAMP Negative Normal NEGATIVE [facility] Comment on above: Performed By: #### D RUGRPD, ERUR #### [facility] [address] [place] [address] Dr. Cecile Martins MTD Negative Normal NEGATIVE [facility] Comment on above: Performed By: #### D RUGRPD, ERUR #### [facility] [address] [place] [address] Dr. Cecile Martins OPI Negative Normal NEGATIVE [facility] Comment on above: Performed By: #### D RUGRPD, ERUR #### [facility] [address] [place] [address] Dr. Cecile Martins OXY Negative Normal NEGATIVE [facility] Comment on above: Performed By: #### D RUGRPD, ERUR #### [facility] [address] [place] [address] Dr. Cecile Martins PCP Negative Normal NEGATIVE [facility] Comment on above: Performed By: #### D RUGRPD, ERUR #### [facility] [address] [place] [address] Dr. Cecile Martins PPX Negative Normal NEGATIVE [facility] Comment on above: Performed By: #### D RUGRPD, ERUR #### [facility] [address] [place] [address] Dr. Cecile Martins TCA Negative Normal NEGATIVE [facility] Comment on above: Performed By: #### D RUGRPD, ERUR #### [facility] [address] [place] [address] Dr. Cecile Martins THC Positive Abnormal NEGATIVE [facility] Comment on above: Performed By: #### D RUGRPD, ERUR #### [facility] [address] [place] [address] Dr. Cecile Martins ER URINE PROFILEon 2 Bilirubin Ql (U) Negative Normal NEGATIVE [facility] Comment on above: Performed By: #### D RUGRPD, ERUR #### [facility] [address] [place] [address] Dr. Cecile Martins Clarity (U) CLEAR Normal CLEAR [facility] Comment on above: Performed By: #### D MARYANN, ERUR #### [facility] [address] [place] [address] Dr. Cecile Martins Color (U) YELLOW Normal YELLOW [facility] Comment on above: Performed By: #### D MARYANN, ERUR #### [facility] [address] [place] [address] Dr. Cecile ROMEROAHKala A micrscopic examina tion will be performed if indicated. Normal [facility] Comment on above: Performed By: #### Kala WOLF, ERUR #### [facility] [address] [place] [address] Dr. Cecile Martins Glucose Ql (U) Negative Normal NEGATIVE [facility] Comment on above: Performed By: #### Kala WOLF, ERUR #### [facility] [address] [place] [address] Dr. Cecile Martins Hemoglobin Ql (U) Negative Normal NEGATIVE [facility] Comment on above: Performed By: #### Kala WOLF, ERUR #### [facility] [address] [place] [address] Dr. Cecile Martins Ketones Ql (U) Negative Normal NEGATIVE [facility] Comment on above: Performed By: #### Kala WOLF, ERUR #### [facility] [address] [place] [address] Dr. Cecile Martins LEUKOCYTES Negative Normal NEGATIVE [facility] Comment on above: Performed By: #### D MARYANN, ERUR #### [facility] [address] [place] [address] Dr. Cecile Martins Nitrite Ql (U) Negative Normal NEGATIVE [facility] Comment on above: Performed By: #### Kala WOLF, ERUR #### [facility] [address] [place] [address] Dr. Cecile Martins pH (U) 6.0 [pH] Normal 5-9 [facility] Comment on above: Performed By: #### D MARYANN, ERUR #### [facility] [address] [place] [address] Dr. Cecile Martins SPEC GRAVITY >=1.030 Abnormal 1.005-<=1.025 [facility] Comment on above: Performed By: #### D MARYANN, ERUR #### [facility] [address] [place] [address] Dr. Cecile Martins UA PROTEIN Negative Normal NEGATIVE/ TRACE [facility] Comment on above: Performed By: #### D MARYANN, ERUR #### [facility] [address] [place] [address] Dr. Cecile Martins UR MICRO IND NOT INDICATED Normal [facility] Comment on above: Performed By: #### D MARYANN, ERUR #### [facility] [address] [place] [address] Dr. Cecile Martins Urobilinogen Qn (U) 0.2 {Ally'U}/dL Normal 0.2 - 1. 0 [facility] Comment on above: Performed By: #### D MARYANN, ERUR #### [facility] [address] [place] [address] Dr. Cecile Martins ETHANOL (BLD ALC)on 12-29-19 22 ALC NOTE NOTE: 80 mg/dl is th e legal limit for a blood alcohol level Normal [facility] Comment on above: Performed By: #### Shayla CARMICHAEL GRASTCX #### [facility] [address] [place] [address] Dr. Cecile Martins Ethanol [Mass/Vol] mg/dL Normal [facility] Comment on above: Performed By: #### S JANY GRASTCX #### [facility] [address] [place] [address] Dr. Cecile Martins PROF 14(COMP METB)on 022 Albumin [Mass/Vol] 4.4 g/dL Normal 3.4-5.0 [facility] Comment on above: Performed By: #### Shayla CARMICHAEL GRASTCX #### [facility] [address] [place] [address] Dr. Cecile Martins Albumin/Globulin [Mass ratio] 1.2 {ratio} Normal [facility] Comment on above: Performed By: #### S JANY GRASTCX #### [facility] [address] [place] [address] Dr. Cecile Martins ALP [Catalytic activity/Vol] 92 U/L Normal 46-116 [facility] Comment on above: Performed By: #### S JANY GRASTCX #### [facility] [address] [address] [address] Cecile Martins ALT [Catalytic activity/Vol] 41 U/L Normal 16-63 [facility] Comment on above: Performed By: #### S JANY GRASTCX #### [facility] [address] [place] [address] Dr. Cecile Martins Anion gap [Moles/Vol] 11.6 mmol/L Normal [facility] Comment on above: Performed By: #### S JANY GRASTCX #### [facility] [address] [place] [address] Dr. Cecile Martins AST [Catalytic activity/Vol] 20 U/L Normal 15-37 [facility] Comment on above: Performed By: #### S JANY GRASTCX #### [facility] [address] [place] [address] Dr. Cecile Martins Bilirubin [Mass/Vol] 0.6 mg/dL Normal 0.2-1.0 [facility] Comment on above: Performed By: #### S JAYN, GRASTCX #### [facility] [address] [place] [address] Dr. Cecile Martins Calcium [Mass/Vol] 9.3 mg/dL Normal 8.5-10.1 [facility] Comment on above: Performed By: #### S JANY, GRASTCX #### [facility] [address] [place] [address] Dr. Cecile Martins Chloride [Moles/Vol] 103 mmol/L Normal 98-107 [facility] Comment on above: Performed By: #### S JANY, GRASTCX #### [facility] [address] [address] [address] Cecile Martins CO2 [Moles/Vol] 26.2 mmol/L Normal 21.0-32.0 [facility] Comment on above: Performed By: #### S SCRN, GRASTCX #### [facility] [address] [address] [address] Cecile Martins Creatinine [Mass/Vol] 1.11 mg/dL Normal 0.70-1.30 [facility] Comment on above: Performed By: #### S SCRN, GRASTCX #### [facility] [address] [address] [address] Cecile Martins EGFR-AF NIGERIEN >60 Normal >=60 [facility] Comment on above: Performed By: #### S SCRN, GRASTCX #### [facility] [address] [place] [address] Dr. Cecile Martins EGFR-NON AF NIGERIEN >60 Normal >=60 [facility] Comment on above: Performed By: #### S SCRN, GRASTCX #### [facility] [address] [address] [address] Cecile Martins Globulin (S) [Mass/Vol] 3.6 g/dL Normal [facility] Comment on above: Performed By: #### S SCRN, GRASTCX #### [facility] [address] [place] [address] Dr. Cecile Martins Glucose [Mass/Vol] 109 mg/dL Critically high 74-106 [facility] Comment on above: Performed By: #### S SCRN, GRASTCX #### [facility] [address] [address] [address] Cecile Martins Potassium [Moles/Vol] 3.8 mmol/L Normal 3.5-5.1 [facility] Comment on above: Performed By: #### S SCRN, GRASTCX #### [facility] [address] [address] [address] Cecile Martins Protein [Mass/Vol] 8.0 g/dL Normal 6.4-8.2 [facility] Comment on above: Performed By: #### S SCRN, GRASTCX #### [facility] [address] [place] [address] Dr. Cecile Martins Sodium [Moles/Vol] 137 mmol/L Normal 136-145 [facility] Comment on above: Performed By: #### S SCRN, GRASTCX #### [facility] [address] [place] [address] Dr. Cecile Martins Urea nitrogen [Mass/Vol] 11.0 mg/dL Normal 7.0-18.0 [facility] Comment on above: Performed By: #### S SCRN, GRASTCX #### [facility] [address] [place] [address] Dr. Cecile Martins Urea nitrogen/Creatinine [Mass ratio] 9.9 mg/mg Normal [facility] Comment on above: Performed By: #### S SCRN, GRASTCX #### [facility] [address] [place] [address] Dr. Cecile Martins SALICYLATEon 12-28-2021 SALICYLATE <2.8 Normal <=19.9 [facility] Comment on above: Performed By: #### S SCRN GRASTCX #### [facility] [address] [place] [address] Dr. Cecile Martins CBC AUTO DIFFon 11-19-2021 BASO # 0.1 103/ul Normal 0.0-0.1 [facility] Comment on above: Performed By: #### S SCRN, GRASTCX #### [facility] [address] [place] [address] Dr. Cecile Martins Basophils/100 WBC (Bld) 0.6 % Normal 0.2-2.0 [facility] Comment on above: Performed By: #### S SCRN, GRASTCX #### [facility] [address] [place] [address] Dr. Cecile Martins EO # 0.1 103/ul Normal 0.0-0.7 [facility] Comment on above: Performed By: #### S SCRN, GRASTCX #### [facility] [address] [place] [address] Dr. Cecile Martins Eosinophils/100 WBC (Bld) 0.6 % Critically low 0.9-7.0 [facility] Comment on above: Performed By: #### S SCRN, GRASTCX #### [facility] [address] [place] [address] Dr. Cecile Martins Erythrocyte distribution width (RBC) [Ratio] 12.3 % Normal 11.0-15.0 [facility] Comment on above: Performed By: #### S SCRN, GRASTCX #### [facility] [address] [place] [address] Dr. Cecile Martins Hematocrit (Bld) [Volume fraction] 41.7 % Critically low 42.0-54.0 [facility] Comment on above: Performed By: #### S SCRN, GRASTCX #### [facility] [address] [place] [address] Dr. Cecile Martins Hemoglobin (Bld) [Mass/Vol] 14.5 g/dL Normal 14.0-18.0 [facility] Comment on above: Performed By: #### S SCRN, GRASTCX #### [facility] [address] [place] [address] Dr. Cecile Martins IG # 0.03 10e3/ul Normal 0.00-0.03 [facility] Comment on above: Performed By: #### S SCRN, GRASTCX #### [facility] [address] [place] [address] Dr. Cecile Martins IG % 0.4 % Normal 0.0-0.5 [facility] Comment on above: Performed By: #### S SCRN, GRASTCX #### [facility] [address] [place] [address] Dr. Cecile Martins LYMPH # 1.1 103/ul Critically low 1.2-3.8 [facility] Comment on above: Performed By: #### S SCRN, GRASTCX #### [facility] [address] [place] [address] Dr. Cecile Martins Lymphocytes/100 WBC (Bld) 12.8 % Critically low 20.5-60.0 [facility] Comment on above: Performed By: #### S JANY GRASTCX #### [facility] [address] [place] [address] Dr. Cecile Martins MANUAL DIFF REQ NO Normal [facility] Comment on above: Performed By: #### S JANY GRASTCX #### [facility] [address] [place] [address] Dr. Cecile Martins MCH (RBC) [Entitic mass] 30.3 pg Normal 25.9-34.0 [facility] Comment on above: Performed By: #### S JANY GRASTCX #### [facility] [address] [place] [address] Dr. Cecile Martins MCHC (RBC) [Mass/Vol] 34.8 g/dL Normal 29.9-35.2 [facility] Comment on above: Performed By: #### S JANY GRASTCX #### [facility] [address] [place] [address] Dr. Cecile Martins MCV (RBC) [Entitic vol] 87.1 fL Normal 80.0-94.0 [facility] Comment on above: Performed By: #### S JANY GRASTCX #### [facility] [address] [place] [address] Dr. Cecile Martins MONO # 1.2 103/ul Critically high 0.3-0.8 [facility] Comment on above: Performed By: #### S JANY GRASTCX #### [facility] [address] [place] [address] Dr. Cecile Martins Monocytes/100 WBC (Bld) 14.1 % Critically high 1.7-12.0 [facility] Comment on above: Performed By: #### S JANY GRASTCX #### [facility] [address] [place] [address] Dr. Cecile Martins NEUT # 6.0 103/ul Normal 1.4-6.5 [facility] Comment on above: Performed By: #### S JANY GRASTCX #### [facility] [address] [place] [address] Dr. Cecile Martins Neutrophils/100 WBC (Bld) 71.5 % Normal 43.0-75.0 [facility] Comment on above: Performed By: #### Shayla CARMICHAEL, GRASTCX #### [facility] [address] [place] [address] Dr. Cecile Martins Platelet mean volume (Bld) [Entitic vol] 10.1 fL Normal 9.5-13.5 [facility] Comment on above: Performed By: #### S JANY, GRASTCX #### [facility] [address] [place] [address] Dr. Cecile Martins PLT 298 103/ul Normal 150-450 [facility] Comment on above: Performed By: #### S JANY, GRASTCX #### [facility] [address] [place] [address] Dr. Cecile Martins RBC 4.79 106/ul Normal 4.70-6.10 [facility] Comment on above: Performed By: #### Shayla CARMICHAEL, GRASTCX #### [facility] [address] [place] [address] Dr. Cecile Martins WBC 8.4 103/ul Normal 4.0-11.0 [facility] Comment on above: Performed By: #### Shayla CARMICHAEL, GRASTCX #### [facility] [address] [place] [address] Dr. Cecile Martins CULTURE BLOODon 11-19-2021 Microscopic examination of blood, culture Culture Observations: NO GROWTH AT 5 DAYS. Normal [facility] Comment on above: Performed By: #### C VDTBH #### [facility] [address] [place] [address] Dr. eCcile Martins Microscopic examination of blood, culture Culture Observations: NO GROWTH AT 5 DAYS. Normal [facility] Comment on above: Performed By: #### C VDTBH #### [facility] [address] [place] [address] Dr. Cecile Martins Covid-19 PCR ([facility])on 10-23 SARS-CoV-2 (COVID-19) RNA BARBARA+probe Ql (Unsp spec) Not detected Normal NOT DETECTED [facility] Comment on above: Result Comment: When diagnostic [...] for this test is supported by the [employer] of Health and Human Service's declaration that [...] used). Performed By: #### C VDTB #### [facility] [address] [place] [address] Dr. Cecile Martins PROF 14(COMP METB)on 022 Albumin [Mass/Vol] 4.3 g/dL Normal 3.4-5.0 [facility] Comment on above: Performed By: #### C MP #### [facility] [address] [place] [address] Dr. Cecile Martins Albumin/Globulin [Mass ratio] 1.2 {ratio} Normal [facility] Comment on above: Performed By: #### C MP #### [facility] [address] [place] [address] Dr. Cecile Martins ALP [Catalytic activity/Vol] 102 U/L Normal 46-116 [facility] Comment on above: Performed By: #### C MP #### [facility] [address] [place] [address] Dr. Cecile Martins ALT [Catalytic activity/Vol] 47 U/L Normal 16-63 [facility] Comment on above: Performed By: #### C MP #### [facility] [address] [place] [address] Dr. Cecile Martins Anion gap [Moles/Vol] 12.5 mmol/L Normal [facility] Comment on above: Performed By: #### C MP #### [facility] [address] [place] [address] Dr. Cecile Martins AST [Catalytic activity/Vol] 24 U/L Normal 15-37 [facility] Comment on above: Performed By: #### C MP #### [facility] [address] [address] [address] Cecile Martins Bilirubin [Mass/Vol] 1.0 mg/dL Normal 0.2-1.0 [facility] Comment on above: Performed By: #### C MP #### [facility] [address] [place] [address] Dr. Cecile Martins Calcium [Mass/Vol] 8.9 mg/dL Normal 8.5-10.1 [facility] Comment on above: Performed By: #### C MP #### [facility] [address] [place] [address] Dr. Cecile Martins Chloride [Moles/Vol] 101 mmol/L Normal 98-107 [facility] Comment on above: Performed By: #### C MP #### [facility] [address] [place] [address] Dr. Cecile Martins CO2 [Moles/Vol] 25.0 mmol/L Normal 21.0-32.0 [facility] Comment on above: Performed By: #### C MP #### [facility] [address] [place] [address] Dr. Cecile Martins Creatinine [Mass/Vol] 1.23 mg/dL Normal 0.70-1.30 [facility] Comment on above: Performed By: #### C MP #### [facility] [address] [place] [address] Dr. Cecile Martins EGFR-AF NIGERIEN >60 Normal >=60 [facility] Comment on above: Performed By: #### C MP #### [facility] [address] [place] [address] Dr. Cecile Martins EGFR-NON AF NIGERIEN >60 Normal >=60 [facility] Comment on above: Performed By: #### C MP #### [facility] [address] [address] [address] Cecile Martins Globulin (S) [Mass/Vol] 3.5 g/dL Normal [facility] Comment on above: Performed By: #### C MP #### [facility] [address] [address] [address] Cecile Martins Glucose [Mass/Vol] 97 mg/dL Normal 74-106 [facility] Comment on above: Performed By: #### C MP #### [facility] [address] [address] [address] Cecile Martins Potassium [Moles/Vol] 3.5 mmol/L Normal 3.5-5.1 [facility] Comment on above: Performed By: #### C MP #### [facility] [address] [place] [address] Dr. Cecile Martins Protein [Mass/Vol] 7.8 g/dL Normal 6.4-8.2 [facility] Comment on above: Performed By: #### C MP #### [facility] [address] [place] [address] Dr. Cecile Martins Sodium [Moles/Vol] 135 mmol/L Critically low 136-145 [facility] Comment on above: Performed By: #### C MP #### [facility] [address] [place] [address] Dr. Cecile Martins Urea nitrogen [Mass/Vol] 7.0 mg/dL Normal 7.0-18.0 [facility] Comment on above: Performed By: #### C MP #### [facility] [address] [address] [address] Cecile Martins Urea nitrogen/Creatinine [Mass ratio] 5.7 mg/mg Normal [facility] Comment on above: Performed By: #### C MP #### [facility] [address] [place] [address] Dr. Cecile Martins XR CHEST 1 Von [...] Gareth EMERY Date: 2021-11-19 05:51 Normal [facility] Covid-19 PCR ([facility])on SARS-CoV-2 (COVID-19) RNA BARBARA+probe Ql (Unsp spec) Not detected Normal NOT DETECTED [facility] Comment on above: Result Comment: This test is not yet approved or cleared by the [place] FDA. When there are no FDA-approved or cleared tests available, and other criteria are met, FDA can make tests available under an emergency access mechanism called an Emergency Use Authorization (EUA). The EUA for this test is supported by the [place] of Health and Human Service's (HHS's) declaration [...] consistent with SARS-CoV-2. Performed By: #### [facility] #### [facility] [address] [place] [address] Dr. Cecile Martins XR KNEE LT 4V [...] BUD NAVARRO Date: 2021-09-09 10:20 Normal [facility] CBC AUTO DIFFon 07-13-2021 BASO # 0.1 103/ul Normal 0.0-0.1 [facility] Comment on above: Performed By: #### C VDTBH #### [facility] [address] [place] [address] Dr. Cecile Martins Basophils/100 WBC (Bld) 1.2 % Normal 0.2-2.0 [facility] Comment on above: Performed By: #### C VDTBH #### [facility] [address] [place] [address] Dr. Cecile Martins EO # 0.3 103/ul Normal 0.0-0.7 [facility] Comment on above: Performed By: #### C VDTBH #### [facility] [address] [place] [address] Dr. Cecile Martins Eosinophils/100 WBC (Bld) 3.7 % Normal 0.9-7.0 [facility] Comment on above: Performed By: #### C VDTBH #### [facility] [address] [place] [address] Dr. Cecile Martins Erythrocyte distribution width (RBC) [Ratio] 12.0 % Normal 11.0-15.0 [facility] Comment on above: Performed By: #### C VDTBH #### [facility] [address] [place] [address] Dr. Cecile Martins Hematocrit (Bld) [Volume fraction] 46.3 % Normal 42.0-54.0 [facility] Comment on above: Performed By: #### C VDTBH #### [facility] [address] [place] [address] Dr. Cecile Martins Hemoglobin (Bld) [Mass/Vol] 15.8 g/dL Normal 14.0-18.0 [facility] Comment on above: Performed By: #### C VDTBH #### [facility] [address] [place] [address] Dr. Cecile Martins IG # 0.01 10e3/ul Normal 0.00-0.03 [facility] Comment on above: Performed By: #### C VDTBH #### [facility] [address] [place] [address] Dr. Cecile Martins IG % 0.1 % Normal 0.0-0.5 [facility] Comment on above: Performed By: #### C VDTBH #### [facility] [address] [place] [address] Dr. Cecile Martins LYMPH # 2.0 103/ul Normal 1.2-3.8 [facility] Comment on above: Performed By: #### C VDTBH #### [facility] [address] [place] [address] Dr. Cecile Martins Lymphocytes/100 WBC (Bld) 24.5 % Normal 20.5-60.0 [facility] Comment on above: Performed By: #### C VDTBH #### [facility] [address] [place] [address] Dr. Cecile Martins MANUAL DIFF REQ NO Normal [facility] Comment on above: Performed By: #### C VDTBH #### [facility] [address] [place] [address] Dr. Cecile Martins MCH (RBC) [Entitic mass] 30.6 pg Normal 25.9-34.0 [facility] Comment on above: Performed By: #### C VDTBH #### [facility] [address] [place] [address] Dr. Cecile Martins MCHC (RBC) [Mass/Vol] 34.1 g/dL Normal 29.9-35.2 [facility] Comment on above: Performed By: #### C VDTBH #### [facility] [address] [place] [address] Dr. Cecile Martins MCV (RBC) [Entitic vol] 89.6 fL Normal 80.0-94.0 [facility] Comment on above: Performed By: #### C VDTBH #### [facility] [address] [place] [address] Dr. Cecile Martins MONO # 0.7 103/ul Normal 0.3-0.8 [facility] Comment on above: Performed By: #### C VDTBH #### [facility] [address] [place] [address] Dr. Cecile Martins Monocytes/100 WBC (Bld) 8.1 % Normal 1.7-12.0 [facility] Comment on above: Performed By: #### C VDTBH #### [facility] [address] [place] [address] Dr. Cecile Martins NEUT # 5.2 103/ul Normal 1.4-6.5 [facility] Comment on above: Performed By: #### C VDTBH #### [facility] [address] [place] [address] Dr. Cecile Martins Neutrophils/100 WBC (Bld) 62.4 % Normal 43.0-75.0 [facility] Comment on above: Performed By: #### C VDTBH #### [facility] [address] [place] [address] Dr. Cecile Martins Platelet mean volume (Bld) [Entitic vol] 10.1 fL Normal 9.5-13.5 [facility] Comment on above: Performed By: #### C VDTBH #### [facility] [address] [place] [address] Dr. Cecile Martins PLT 380 103/ul Normal 150-450 [facility] Comment on above: Performed By: #### C VDTBH #### [facility] [address] [place] [address] Dr. Cecile Martins RBC 5.17 106/ul Normal 4.70-6.10 [facility] Comment on above: Performed By: #### C VDTBH #### [facility] [address] [place] [address] Dr. Cecile Martins WBC 8.3 103/ul Normal 4.0-11.0 [facility] Comment on above: Performed By: #### C VDTBH #### [facility] [address] [place] [address] Dr. Cecile Martins DRUG SCREEN RAPID (URINE)on 07-13-2021 AMP Negative Normal NEGATIVE [facility] Comment on above: Performed By: #### E RUR, DRUGRPD #### [facility] [address] [place] [address] Dr. Cecile Martins BAR Negative Normal NEGATIVE [facility] Comment on above: Performed By: #### E RUR, DRUGRPD #### [facility] [address] [place] [address] Dr. Cecile Martins BUP Negative Normal NEGATIVE [facility] Comment on above: Performed By: #### E RUR, DRUGRPD #### [facility] [address] [place] [address] Dr. Cecile Martins BZO Negative Normal NEGATIVE [facility] Comment on above: Performed By: #### E RUR, DRUGRPD #### [facility] [address] [place] [address] Dr. Cecile Martins PEYTON Negative Normal NEGATIVE [facility] Comment on above: Performed By: #### E RUR, DRUGRPD #### [facility] [address] [place] [address] Dr. Cecile Martins CUT-OFFS SEE BELOW Normal [facility] Comment on above: Result Comment: AMP (Amphetamine): [...] Performed By: #### E RUR, DRUGRPD #### [facility] [address] [place] [address] Dr. Cecile Martins DRUG CUT HEADER DRUG CLASS TEST SYST EM CUT-OFF CONCENTRATIONS ARE FOLLOWS: Normal [facility] Comment on above: Performed By: #### E RUR, DRUGRPD #### [facility] [address] [place] [address] Dr. Cecile Martins mAMP Negative Normal NEGATIVE [facility] Comment on above: Performed By: #### E RUR, DRUGRPD #### [facility] [address] [place] [address] Dr. Cecile Martins MTD Negative Normal NEGATIVE [facility] Comment on above: Performed By: #### E RUR, DRUGRPD #### [facility] [address] [place] [address] Dr. Cecile Martins OPI Negative Normal NEGATIVE [facility] Comment on above: Performed By: #### E RUR, DRUGRPD #### [facility] [address] [place] [address] Dr. Cecile Martins OXY Negative Normal NEGATIVE [facility] Comment on above: Performed By: #### E RUR, DRUGRPD #### [facility] [address] [place] [address] Dr. Cecile Martins PCP Negative Normal NEGATIVE [facility] Comment on above: Performed By: #### E RUR, DRUGRPD #### [facility] [address] [place] [address] Dr. Cecile Martins PPX Negative Normal NEGATIVE [facility] Comment on above: Performed By: #### E RUR, DRUGRPD #### [facility] [address] [place] [address] Dr. Cecile Martins TCA Negative Normal NEGATIVE [facility] Comment on above: Performed By: #### E RUR, DRUGRPD #### [facility] [address] [place] [address] Dr. Cecile Martins THC Positive Abnormal NEGATIVE [facility] Comment on above: Performed By: #### E RUR, DRUGRPD #### [facility] [address] [place] [address] Dr. Cecile Martins ER URINE PROFILEon 2 Bilirubin Ql (U) Negative Normal NEGATIVE [facility] Comment on above: Performed By: #### E RUR, DRUGRPD #### [facility] [address] [place] [address] Dr. Cecile Martins Clarity (U) CLEAR Normal CLEAR [facility] Comment on above: Performed By: #### E RUR, DRUGRPD #### [facility] [address] [place], [place] [address] Dr. Cecile Martins Color (U) YELLOW Normal YELLOW [facility] Comment on above: Performed By: #### E RUR, DRUGRPD #### [facility] [address] [place] [address] Dr. Cecile ALONSO A micrscopic examina tion will be performed if indicated. Normal [facility] Comment on above: Performed By: #### E RUR, DRUGRPD #### [facility] [address] [place] [address] Dr. Cecile Martins Glucose Ql (U) Negative Normal NEGATIVE [facility] Comment on above: Performed By: #### E RUR, DRUGRPD #### [facility] [address] [place] [address] Dr. Cecile Martins Hemoglobin Ql (U) Negative Normal NEGATIVE [facility] Comment on above: Performed By: #### E RUR, DRUGRPD #### [facility] [address] [place] [address] Dr. Cecile Martins Ketones Ql (U) Negative Normal NEGATIVE [facility] Comment on above: Performed By: #### E RUR, DRUGRPD #### [facility] [address] [place] [address] Dr. Cecile Martins LEUKOCYTES Negative Normal NEGATIVE [facility] Comment on above: Performed By: #### E RUR, DRUGRPD #### [facility] [address] [place] [address] Dr. Cecile Martins Nitrite Ql (U) Negative Normal NEGATIVE [facility] Comment on above: Performed By: #### E RUR, DRUGRPD #### [facility] [address] [place] [address] Dr. Cecile Martins pH (U) 5.5 [pH] Normal 5-9 [facility] Comment on above: Performed By: #### E RUR, DRUGRPD #### [facility] [address] [place] [address] Dr. Cecile Martins SPEC GRAVITY 1.025 Normal 1.005-<=1.025 [facility] Comment on above: Performed By: #### E RUR, DRUGRPD #### [facility] [address] [place] [address] Dr. Cecile Martins UA PROTEIN Negative Normal NEGATIVE/ TRACE [facility] Comment on above: Performed By: #### E RUR, DRUGRPD #### [facility] [address] [place] [address] Dr. Cecile Martins UR MICRO IND NOT INDICATED Normal [facility] Comment on above: Performed By: #### E RULauryn, DRUGRPD #### [facility] [address] [place] [address] Dr. Cecile Martins Urobilinogen Qn (U) 0.2 {Ally'U}/dL Normal 0.2 - 1. 0 [facility] Comment on above: Performed By: #### E MOUSTAPHA DRUGRPD #### [facility] [address] [place] [address] Dr. Cecile Martins PROF 14(COMP METB)on 022 Albumin [Mass/Vol] 4.5 g/dL Normal 3.4-5.0 [facility] Comment on above: Performed By: #### C VDTBH #### [facility] [address] [place] [address] Dr. Cecile Martins Albumin/Globulin [Mass ratio] 1.3 {ratio} Normal [facility] Comment on above: Performed By: #### C VDTBH #### [facility] [address] [place] [address] Dr. Cecile Martins ALP [Catalytic activity/Vol] 91 U/L Normal 46-116 [facility] Comment on above: Performed By: #### C VDTBH #### [facility] [address] [place] [address] Dr. Cecile Martins ALT [Catalytic activity/Vol] 48 U/L Normal 16-63 [facility] Comment on above: Performed By: #### C VDTBH #### [facility] [address] [place] [address] Dr. Cecile Martins Anion gap [Moles/Vol] 10.9 mmol/L Normal [facility] Comment on above: Performed By: #### C VDTBH #### [facility] [address] [address] [address] Cecile Martins AST [Catalytic activity/Vol] 26 U/L Normal 15-37 [facility] Comment on above: Performed By: #### C VDTBH #### [facility] [address] [address] [address] Cecile Martins Bilirubin [Mass/Vol] 0.5 mg/dL Normal 0.2-1.0 [facility] Comment on above: Performed By: #### C VDTBH #### [facility] [address] [address] [address] Cecile Martins Calcium [Mass/Vol] 9.4 mg/dL Normal 8.5-10.1 [facility] Comment on above: Performed By: #### C VDTBH #### [facility] [address] [place] [address] Dr. Cecile Martins Chloride [Moles/Vol] 104 mmol/L Normal 98-107 [facility] Comment on above: Performed By: #### C VDTBH #### [facility] [address] [address] [address] Cecile Martins CO2 [Moles/Vol] 28.1 mmol/L Normal 21.0-32.0 [facility] Comment on above: Performed By: #### C VDTBH #### [facility] [address] [address] [address] Cecile Martins Creatinine [Mass/Vol] 1.01 mg/dL Normal 0.70-1.30 [facility] Comment on above: Performed By: #### C VDTBH #### [facility] [address] [address] [address] Cecile Martins EGFR-AF NIGERIEN >60 Normal >=60 [facility] Comment on above: Performed By: #### C VDTBH #### [facility] [address] [address] [address] Cecile Martins EGFR-NON AF NIGERIEN >60 Normal >=60 [facility] Comment on above: Performed By: #### C VDTBH #### [facility] [address] [address] [address] Cecile Martins Globulin (S) [Mass/Vol] 3.4 g/dL Normal [facility] Comment on above: Performed By: #### C VDTBH #### [facility] [address] [address] [address] Cecile Martins Glucose [Mass/Vol] 86 mg/dL Normal 74-106 [facility] Comment on above: Performed By: #### C VDTBH #### [facility] [address] [place] [address] Dr. Cecile Martins Potassium [Moles/Vol] 4.0 mmol/L Normal 3.5-5.1 [facility] Comment on above: Performed By: #### C VDTBH #### [facility] [address] [place] [address] Dr. Cecile Martins Protein [Mass/Vol] 7.9 g/dL Normal 6.4-8.2 [facility] Comment on above: Performed By: #### C VDTBH #### [facility] [address] [place] [address] Dr. Cecile Martins Sodium [Moles/Vol] 139 mmol/L Normal 136-145 [facility] Comment on above: Performed By: #### C VDTBH #### [facility] [address] [place] [address] Dr. Cecile Martins Urea nitrogen [Mass/Vol] 12.0 mg/dL Normal 7.0-18.0 [facility] Comment on above: Performed By: #### C VDTBH #### [facility] [address] [place] [address] Dr. Cecile Martins Urea nitrogen/Creatinine [Mass ratio] 11.9 mg/mg Normal [facility] Comment on above: Performed By: #### C VDTBH #### [facility] [address] [place] [address] Dr. Cecile Martins XR KUB 1 VIEWon [...] by: ISABEL DYER Date: 2021-07-13 14:34 Normal [facility] Vital Signs Date Time Vital Sign Value Performing Clinician Facility 12-16-2022 21:58-0400 Body height 177.8 cm PHYSICIAN NO [facility] 12-16-2022 21:58-0400 Body temperature 98.6 [degF] PHYSICIAN NO [facility] 12-16-2022 21:58-0400 Body weight 123.6 kg PHYSICIAN NO [facility] 12-16-2022 21:58-0400 Diastolic blood pressure 75 mm[Hg] PHYSICIAN NO [facility] 12-16-2022 21:58-0400 Heart rate 95 /min PHYSICIAN NO [facility] 12-16-2022 21:58-0400 Respiratory rate 18 /min PHYSICIAN NO [facility] 12-16-2022 21:58-0400 SaO2% (BldA) [Mass fraction] 96 % PHYSICIAN NO [facility] 12-16-2022 21:58-0400 Systolic blood pressure 141 mm[Hg] PHYSICIAN NO [facility] 10-12-2022 03:30-0400 Diastolic blood pressure 71 mm[Hg] PHYSICIAN NO [facility] 10-12-2022 03:30-0400 Heart rate 100 /min PHYSICIAN NO [facility] 10-12-2022 03:30-0400 SaO2% (BldA) [Mass fraction] 96 % PHYSICIAN NO [facility] 10-12-2022 03:30-0400 Systolic blood pressure 141 mm[Hg] PHYSICIAN NO [facility] 10-12-2022 02:05-0400 Respiratory rate 24 /min PHYSICIAN NO [facility] 10-12-2022 01:59-0400 Body height 180.34 cm PHYSICIAN NO [facility] 10-12-2022 01:59-0400 Body weight 122.1 kg PHYSICIAN NO [facility] 10-12-2022 01:58-0400 Body temperature 100.5 [degF] PHYSICIAN NO [facility] 07-22-2022 05:47-0400 Body height 177.8 cm PHYSICIAN NO [facility] 07-22-2022 05:47-0400 Body temperature 98 [degF] PHYSICIAN NO [facility] 07-22-2022 05:47-0400 Body weight 121.05 kg PHYSICIAN NO [facility] 07-22-2022 05:47-0400 Diastolic blood pressure 94 mm[Hg] PHYSICIAN NO [facility] 07-22-2022 05:47-0400 Heart rate 64 /min PHYSICIAN NO [facility] 07-22-2022 05:47-0400 Respiratory rate 20 /min PHYSICIAN NO [facility] 07-22-2022 05:47-0400 SaO2% (BldA) [Mass fraction] 98 % PHYSICIAN NO [facility] 07-22-2022 05:47-0400 Systolic blood pressure 145 mm[Hg] PHYSICIAN NO [facility] 01-01-2022 07:30-0500 Body temperature 97.8 [degF] MD Carmen Huff Work Phone: [facility] 01-01-2022 07:30-0500 Diastolic blood pressure 77 mm[Hg] MD Carmen Huff Work Phone: [facility] 01-01-2022 07:30-0500 Heart rate 89 /min MD Carmen Huff Work Phone: [facility] 01-01-2022 07:30-0500 Respiratory rate 16 /min MD Carmen Huff Work Phone: [facility] 01-01-2022 07:30-0500 SaO2% (BldA) [Mass fraction] 96 % MD Carmen Huff Work Phone: [facility] 01-01-2022 07:30-0500 Systolic blood pressure 128 mm[Hg] MD Carmen Huff Work Phone: [facility] 12-29-2021 14:47-0500 Body height 180.34 cm MD Carmen Huff Work Phone: [facility] 12-28-2021 16:53-0500 Body weight 122.46 kg MD Carmen Huff Work Phone: [facility] Encounters Encounter Date Encounter Type Care Provider Facility Start: 10-19-2023 End: 10-19-2023 ambulatory Kay L Parish Facility:[facility] Start: 09-26-2023 End: 09-26-2023 ambulatory MD Carlos Espinoza Facility: [facility] Start: 09-01-2023 End: 09-01-2023 ambulatory Felipe Garza Facility:[facility] Start: 09-01-2023 End: 09-01-2023 Patient encounter procedure Felipe Garza [facility] Start: 08-09-2023 End: 08-09-2023 ambulatory Kay L Parish Facility: [facility] Start: 07-19-2023 End: 07-19-2023 ambulatory Kay L Parish Facility: [facility] Start: 07-12-2023 End: 07-12-2023 Lab Drop off Kay L Parish [facility] Start: 07-12-2023 End: 07-12-2023 ambulatory Kay L Parish Facility: [facility] Start: 04-26-2023 End: 04-26-2023 ambulatory Amos PADILLA Facility:[facility] Start: 12-16-2022 End: 12-17-2022 Emergency department patient visit Johnathan Isbell Facility:[facility] Start: 12-16-2022 End: 12-17-2022 Emergency department patient visit PHYSICIAN ARIAS KHAN [facility] Work Phone: Start: 10-12-2022 End: 10-12-2022 Emergency department patient visit Coco Landry Jr Facility:[facility] Start: 10-12-2022 End: 10-12-2022 Emergency department patient visit PHYSICIAN NO [facility] Work Phone: Start: 08-19-2022 End: 08-19-2022 Lab Drop off Kay Christian Lugo [facility] Start: 07-22-2022 End: 07-22-2022 Emergency department patient visit PHYSICIAN NO Facility:[facility] Start: 07-22-2022 End: 07-22-2022 Emergency department patient visit PHYSICIAN NO [facility] Work Phone: Start: 06-03-2022 End: 06-03-[address] ALEX PITTMAN Facility:[facility] Start: 05-20-2022 End: 05-20-2022 ambulatory FLOWER RICHARDS . Facility:[facility] Start: 02-10-2022 End: 02-10-2022 ambulatory JESUS ALBERTO LEVY . Facility:[facility] Start: 01-19-2022 End: 01-20-[address] ANH WEST . Facility:[facility] Start: 12-28-2021 End: 01-01-2022 Evaluation and management of inpatient Peter Grady Facility:[facility] Start: 12-28-2021 End: 01-01-2022 Evaluation and management of inpatient MD Carmen Huff Work Phone: [facility] Start: 12-28-2021 End: 12-28-2021 ambulatory JESUS ALBERTO [...] with contrast CT abdomen pelvis w con [facility] Start: 12-16-2022 CT Abdomen and Pelvi s W contrast IV [facility] Start: 10-12-2022 Bacteria identified in Blood by Culture Blood Culture [facility] Start: 10-12-2022 Plain chest X-ray XR chest 1V portab le [facility] Start: 10-12-2022 XR Chest Single view [facility] Start: 01-01-2022 [facility] Start: 12-28-2021 Hospital admission [facility] Patient Education [facility] Work Phone: Patient referral [facility] Work Phone: Immunizations Immunization Date Immunization Notes Care Provider Gera moon 04-22-2003 DTaP, unspecified formulation Mohamad Mouchli [facility] 04-22-2003 measles, mumps and rubella virus vaccine Mohamad Mouchli [facility] 04-22-2003 poliovirus vaccine, unspecified formulation Mohamad Mouchli [facility] 04-28-2001 DTaP, unspecified formulation Mohamad Mouchli [facility] 04-28-2001 poliovirus vaccine, unspecified formulation Mohamad Mouchli [facility] 12-26-2000 DTaP, unspecified formulation Mohamad Mouchli [facility] 12-26-2000 hepatitis B vaccine, pediatric or pediatric/adolescent dosage Mohamad Mouchli [facility] 12-26-2000 measles, mumps and rubella virus vaccine Mohamad Mouchli [facility] 12-26-2000 poliovirus vaccine, unspecified formulation Mohamad Mouchli [facility] 12-26-2000 varicella virus vaccine Moha mad Mouchli [facility] 07-29-1999 DTaP, unspecified formulation Mohamad Mouchli [facility] 07-29-1999 poliovirus vaccine, unspecified formulation Mohamad Mouchli [facility] 1997 hepatitis B vaccine, pediatric or pediatric/adolescent dosage Mohamad Mouchli [facility] Payers Date Payer Category Payer Self-pay [id number] 1995 Unknown [id number] 04.08. [id number]. 1997 Unknown [id number] 1997 Unknown [id number] 04.08.84 0.1.899342.3.579.2.59 1997 Unknown [id number] 04.08.84 0.1.667253.3.579.2.59 1997 Unknown [id number] 04.08.84 0.1.304192.3.579.2.59 1997 Unknown [id number] 2.16.84 0.1.768783.3.579.2.593 1997 Unknown [id number] 2.16.84 0.1.652920.3.579.2.593 1997 Unknown [id number] 2.16.84 0.1.618633.3.579.2.593 1997 Unknown [id number] 2.16.84 0.1.978153.3.579.2.593 1997 Unknown [id number] 2.16.8 40.1.300397.3.579.2.727 1997 Unknown [id number] 2.16.8 40.1.956492.3.579.2.727 1997 Unknown [id number] 2.16.8 40.1.302671.3.579.2.727 1997 Unknown [id number] 2.16.8 40.1.103512.3.579.2.727 1997 Unknown [id number] 2.16.8 40.1.804950.3.579.2.727 1997 Unknown [id number] 2.16.8 40.1.525114.3.579.2.727 1997 Unknown [id number] 2.16.8 40.1.750314.3.579.2.727 1959 Unknown [id number] Unknown [id number] Unknown Insurance No Card [id number] Unknown [id number] 2.16.8 40.1.255509.3.579.2.531 Unknown [id number] 2.16.8 40.1.547463.3.579.2.531 Unknown [id number] 2.16.8 40.1.169476.3.579.2.531 Unknown [id number] 2.16.8 40.1.868434.3.579.2.531 Social History Date Type Detail Facility Start: 12-29-2021 Tobacco smoking stat us LAIS Current Light tobacco smoker [facility] Start: 1995 Sex Assigned At Male F [facility] Start: 07-22-2022 End: 12-17-2022 Tobacco smoking status NHIS Smoker (finding) [facility] Start: 02-21-2013 History of tobacco use [facility] Tobacco Current vaping o r e-cigarette use Smokeless Tobacco Use:. Vaping [facility] Tobacco smoking status No Smokin g Status Entered [facility] Goals Date Patient Goal Desired Activity /State Functional Status Date Assessment Result Facility 01-01-2022 Functional status Patient at Baseline [facility] Work Phone: 12-28-2021 Functional status Functional Sta tus Comment One full meal/day and the rest is junk [facility] Work Phone: Mental Status Date Assessment Result Facility 01-01-2022 Cognitive function Cognitive Sta tus Patient at Baseline [facility] Work Phone: Clinical Notes 12-29-2021 to 01-01-2022 Note Date & Type Note Facility 01-01-2022 Discharge summary Note Date/Time January 01, 2022 10:11am [facility] [address] [place] [address] Discharge Summary Signed Patient: Clay Newton MR#: [id number] : 1995 Acct:[id number] Age/Sex: 26 / M Adm Date: 2 Loc: Room: [address] [place] [address]: Elizabet Grady MD Copies to: MD Nitish Heredia MD Kim E Knight, MD Sarah N LaMarca, HOSPICE VOLUNTEER COORDINATOR~ Providers Date of Discharge: 01/01/22 Discharging Provider: [...] he lives alone and 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 Patient verbalizesintent to follow-up outpatient for counseling [...] PO QAM Qty: 30 0RF [facility]] [facility] [Outside] - 01/04/22 8:00 am ( Therapy:?Tuesday01/04/22 [...] <Electronically signed by Nitish Galloway MD> 01/01/22 5816 [facility] Work Phone: 1(191) 210-757011-10-2022 Progress note Author Nitish Galloway [facility] December 31, 2021 7:07pm Note Date/Time December 31, 2021 10:49am [facility] [address] [place] [address] Psychiatry Progress Note Signed Patient: Clay Newton MR#: [id number] : 1995 Acct:[id number] Age/Sex: 26 / M Adm Date: 2 Loc: Room: [address] [place] [address] Type : ADM IN Attending Dr: Elizabet [...] signed by Nitish Galloway MD> 12/31/21 1907 [facility] Work Phone: 1(224) 197-159511-09-2022 Progress note Author Nitish Galloway [facility] December 30, 2021 8:44pm Note Date/Time December 30, 2021 1 2:08pm [facility] [address] [place] [address] Psychiatry Progress Note Signed Patient: Clay Newton MR#: [id number] : 1995 Acct:[id number] Age/Sex: 26 / M Adm Date: 2 Loc: Room: [address] [place] [address] Type : ADM IN Attending Dr: Elizabet [...] <Electronically signed by Nitish Galloway MD> 12/30/212043 [facility] Work Phone: 1(442) 284-379011-08-2022 History and physical note Author Nitish Galloway [facility] December 29, 2021 8:49pm Note Date/Time December 29, 2021 2 :55pm [facility] [address] [place] [address] Psychiatry H&P Signed Patient: Clay Newton MR#: [id number] : 1995 Acct:[id number] Age/Sex: 26 / M Adm Date: 2 Loc: Room: [address] [place] [address] Type: ADM IN Attending Dr: Elizabet Grady [...] he lives alone and 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 while he was [...] <Electronically signed by Nitish Galloway MD> 12/29/212048 [facility] Work Phone: Evaluation + Plan note Future Appointments Appointment Date:08/26/2022 01:00:00 PM Scheduled Provider:Kay Marvin Location[facility] Future App[facility]ments Appointment Date:07/19/2023 03:00:00 PM Scheduled Provider:Kay Marvin Location:[facility] Appointment Type: Open Appointment Date:09/01/2023 01:30:00 PM Scheduled Provider:Osman Garcia MD Location:[facility] [facility] Digestive Health Appointment Type:[facility] Diagnosis Onset Date Resolution Status Major depression, chronic ac surinder [facility] Work Phone: Evaluation noteNo assessment information available [facility] Work Phone: Hospital course Narrative No data available for this section [facility] Additional Instructions Regular diet No activity restrictionsMar[facility] Work Phone: Hospital Discharge instructions Additional Instructions Follow-up with your dentist Return to ED if develop worsening symptoms or concernsMar[facility] Work Phone: Hospital Discharge instructions No data available for this section [facility] Additional Instructions As we [...] done. This can be here or at [facility] Work Phone: Hospital Discharge instructions Additional Instructions Follow-up with your primary care doctor Return to ED for develop worsening symptoms or concernsBarber[facility] Work Phone: Progress note No data available for this section [facility] Chief Complaint and Reason for Visit [...] DATE CREATED AUTHOR AUTHOR'S ORGANIZ ATION 12/28/2022 [facility] DATE CREATED AUTHOR AUTHOR'S ORGANIZ ATION 07/15/2023 [facility] DATE CREATED AUTHOR AUTHOR'S ORGANIZ ATION 09/06/2023 [facility] DATE CREATED AUTHOR AUTHOR'S TEOFILO ROYAL 10/20/2023 [facility] Goals (unrecognized section and content) Goals [...] BE BASED ON THE PRIMARY CLINICAL RECORDS. [facility]. provides no warranty or guarantee of the accuracy or completeness of information in this document.
--- NOTE | 2024-02-08 10:33 | ED.GENADUL1 ---
HPI HPI - General Adult General Chief complaint: Extremity Injury, Lower Stated complaint: KNEE Time Seen by Provider: 02/08/24 09:49 Source: patient Mode of arrival: walk-in Limitations: no limitations History of Present Illness HPI narrative: Patient presents to ED complaining of left knee pain. Patient states he was in his pig pen and one of the pegs ran into the lateral aspect of the left knee. He felt a pop and then felt it pop back in. He said he almost went down because of the pain but he was able to get out of the pen. The patient is having tenderness with ambulation and with palpation of the patellar area. He said this has not happened before. Normal distal pulses and sensation. Normal distal motor. No other injury Related Data Home Medications ?Medication ?Instructions ?Recorded ?Confirmed No Known Home Medications 02/08/24 02/08/24 Allergies Allergy/AdvReac Type Severity Reaction Status Date / Time No Known Drug Allergies Allergy Verified 08/17/22 06:59 Opioid HPI Opioid Management Most Recent Opioid Data: Last Pain Scale 10 12/25/23 08:32 12/25/23 Ur Phencyclidine Scrn Negative (NEGATIVE) 09/29/23 16:55 09/29/23 Review of Systems ROS Status of ROS 10 or more systems reviewed and unremarkable except as noted in history and below PFSH PFS Social History Smoking status: Light tobacco smoker Little interest or pleasure in doing things: not at all Feeling down, depressed, or hopeless: not at all Exam Narrative Exam Narrative: General: alert, no acute distress Cardiovascular: regular rate and rhythm, normal peripheral perfusion. Respiratory: Lungs CTA, respirations non labored. Extremities: Tenderness to palpation diffusely on the left knee tenderness to palpation of the patella. No calf pain no ankle pain. Normal DP pulses normal distal motor and strength Neurological: oriented x 4, LOC appropriate for age. Constitutional Vital Signs, click to edit/add: Last Vital Signs Temp 98.2 F 02/08/24 09:52 Pulse 69 02/08/24 09:52 Resp 18 02/08/24 09:52 BP 139/92 H 02/08/24 09:52 Pulse Ox 98 02/08/24 09:52 O2 Del Method Room Air 02/08/24 09:52 Course Vital Signs Vital signs: Vital Signs Temperature 98.2 F 02/08/24 09:52 Pulse Rate 69 02/08/24 09:52 Respiratory Rate 18 02/08/24 09:52 Blood Pressure 139/92 H 02/08/24 09:52 Pulse Oximetry 98 02/08/24 09:52 Oxygen Delivery Method Room Air 02/08/24 09:52 Temperature 98.2 F 02/08/24 09:52 Pulse Rate 69 02/08/24 09:52 Respiratory Rate 18 02/08/24 09:52 Blood Pressure 139/92 H 02/08/24 09:52 Pulse Oximetry 98 02/08/24 09:52 Oxygen Delivery Method Room Air 02/08/24 09:52 Medical Decision Making MDM Narrative Medical decision making narrative: Patient's x-ray does not show any acute fracture but does show a joint effusion. Patient states he was unable to ambulate very well without holding onto things so he will be sent home with crutches. Patient placed in an David wrap and given crutches. Patient instructed to follow-up with Dr. Bella as soon as possible. Call today to schedule an appointment. Ice and rest the knee. Return to ED if worsening symptoms. Patient is comfortable care plan for home Differential Diagnosis Differential Diagnosis: Knee sprain fracture dislocation Imaging Data Chest x-ray: Radiologist's impression: ITS Impressions Knee X-Ray 02/08/24 09:56 IMPRESSION: 1. Joint effusion. 2. No acute bone abnormality. Electronically authenticated by: YASH DYER Date: 02/08/2024 10:30 Discharge Plan Discharge Chief Complaint: Extremity Injury, Lower Clinical Impression: Left knee sprain Patient Disposition: Home, Self-Care Time of Disposition Decision: 10:37 Condition: Good Mode of Transportation: Private Vehicle Prescriptions / Home Meds: No Action No Known Home Medications Print Language: Russian Instructions: Knee Sprain (ED) Referrals: Yash Bella MD [Physician] - 1 week BLAYNE BAEZ [Primary Care Provider] - 1 week
[2024-02-08 10:52] VITALS: BP 136/88; PULSE 88; O2SAT 98
== END 2024-02-08 10:53 | disposition home or self-care (01) ==
PROVIDERS: Emergency Provider Emergency Medicine; PCP Family Medicine
DX: S83.92XA Sprain of unspecified site of left knee, initial encounter (principal); W55.42XA Struck by pig, initial encounter; F17.200 Nicotine dependence, unspecified, uncomplicated; M25.462 Effusion, left knee
CPT/HCPCS: 73564; 99283

== ENCOUNTER 2024-04-30 16:17 | Emergency (ER) | payer SELFPAY ==
[2024-04-30 16:29] VITALS: BP 134/86; PULSE 77; TEMP 37.1; O2SAT 97; BMI 35.9
--- OUTSIDE RECORDS SUMMARY | 2024-04-30 16:39 | XMS_ITS | CCD ---
Author Organization [facility] Care Team Providers Care Furnace Helper Name Role Phone MD Carmen Huff Primary Care Provider MD Elizabet Grady Admit Provider MD Elizabet Grady Attending Provider [phone] DIAB ., FLOWER Consulting Unavailable DIAB ., [...] Emergency Provider Kay Lugo Primary Care Physician MD Coco [...] Drug Class(es) Dates Sig (Normalized) Sig (Original) [id number] 200 actuat albuterol 0.09 mg/actuat metered dose [...] Daily, # 90 cap(s), Refills(s) 1, [id number], 179.5, cm, 08/09/23 14:47:00 EDT, Height/Length Dosing, 114.9, kg, 08/09/23 14:47:00 EDT, Weight Dosing Start Date: 08/09/23 Status: Ordered Start: 07-12-2023 take 1 capsule by mo [facility] once daily omeprazole 40 mg Cap-DR 40 mg = 1 cap(s), Oral, Daily, # 90 cap(s), Refills(s) 1, Pharmacy: [facility]/pharmacy #[id number], 179.5, cm, 07/12/23 8:54:00 EDT, Height/Length Dosing, 118.5, kg, 07/12/23 8:54:00 EDT, Weight Dosing Start Date: 07/12/23 Status: Ordered ondansetron 4 mg oral tablet (4 sources) Serotonin-3 Receptor Antagonist Start: 07-19-2023 take 1 tablet by mouth every six hours as needed for nausea ondansetron 4 mg Tab 4 mg = 1 tab(s), Oral, q6hr, PRN Nausea/Vomiting, # 12 tab(s), Refills(s) 0, [id number], 179.5, cm, 07/19/23 15:39:00 EDT, Height/Length [...] 2 Episodic Other aftercare (1 source) Other jail (current) drug therapy; Translations: [OTH DETENTION CURRENT DRUG THERAPY] Onset: 3 Episodic Other [...] 3:40 PM EDT With: Kay Marvin Where: [facility] [place] [address] [place] [address]- Medications What How Much When Why Instructions Unchanged omeprazole (omeprazole 40 mg Cap-DR) 1 Capsules By Mouth Every day Hyperlipemia High blood pressure Diarrhea Nausea Unintentional weight loss Acid reflux BMI 36.0-36.9,adult Current every day vaping Pickup at [facility]/pharmacy #[id number] Unchanged ondansetron (ondansetron 4 mg Tab) 1 Tablets By Mouth Every 6 hours as needed for Nausea/Vomiting BMI 36.0-36.9,adult Current every day vaping Pickup at [facility]/pharmacy #6177 Unchanged albuterol (Albuterol (Eqv-ProAir HFA) 90 mcg/ inh inhalation aerosol) Contact prescribing physician if questions or concerns Pharmacy Information [facility]/pharmacy #[id number]: [address], [place] [id number] [phone] Allergies No Known Allergies Problems Ongoing - [...] choosing us for your care. Eric Isaac [facility] Office/Clini c Noteon 09-26-2023 Family [...] Daily, # 90 cap(s), Refills(s) 1, [id number], 179.5, cm, 09/26/23 8:56:00 EDT, Height/Length Dosing, 114, kg, 09/26/23 8:56:00 EDT, Weight Dosing Helicobacter pylori; breath test analysis for urease activity, non-radioactive isotope (eg, C-13) 8 2. Acid reflux (K21.9: Gastro-esophageal reflux disease without esophagitis) As above Ordered: omeprazole, 40 mg = 1 cap(s), Oral, Daily, # 90 cap(s), Refills(s) 1, Pharmacy: [facility]/pharmacy #[id number], 179.5, cm, 09/26/23 8:56:00 EDT, Height/Length [...] Nausea/Vomiting, # 12 tab(s), Refills(s) 0, Pharmacy: [facility]/pharmacy #[id number], 179.5, cm, 09/26/23 8:56:00 EDT, Height/Length [...] hepatitis B pediatric vaccine 1995 Recorded Normal [facility] Comment on above: Result Comment: Elec tronically Signed By: Alexis BELL, Carlos Jane\Date and Time Signed: 09/26/23 09:20 EDT Provider Letteron 09-26-2023 Provider Letter Provider Letter September 26, 2023 [address] [place] [address] : 1995 To Whom It May Concern, Please excuse above patient from work due to medal Date of Illness: From: _09-26-23 To: _09-27-23 May Return to Work On:09-28-23 Restrictions: _NONE Comments: _ Sincerely, Family Medicine [address] [address] Normal [facility] Ambulatory Visit Summaryon 0 08-09-2023 Ambulatory Visit [...] EDT With: Radha BELL, Osman Mann Where: [facility] Normal [facility] Family Medicine Office/Clini c Noteon 08-09-2023 Family [...] Daily, # 90 cap(s), Refills(s) 1, Pharmacy: [facility]/pharmacy #[id number], 179.5, cm, 07/12/23 8:54:00 EDT, Height/Length Dosing, 118.5, kg, 07/12/23 8:54:00 EDT, Weight Dosing omeprazole, 40 mg = 1 cap(s), Oral, Daily, # 90 cap(s), Refills(s) 1, Pharmacy: [facility]/pharmacy #[id number], 179.5, cm, 08/09/23 14:47:00 EDT, Height/Length Dosing, 114.9, kg, 08/09/23 14:47:00 EDT, Weight Dosing 2. BMI 35.0-35.9,adult (Z68.35: Body mass index [BMI] 35.0-35.9, adult) BMI education 3. Current every day vaping (Z72.89: Other problems related to lifestyle) pt has decreased vaping use Ordered: omeprazole, 40 mg = 1 cap(s), Oral, Daily, # 90 cap(s), Refills(s) 1, [id number], 179.5, cm, 07/12/23 8:54:00 EDT, Height/Length Dosing, 118.5, kg, 07/12/23 8:54:00 EDT, Weight Dosing omeprazole, 40 mg = 1 cap(s), Oral, Daily, # 90 cap(s), Refills(s) 1, [id number], 179.5, cm, 08/09/23 14:47:00 EDT, Height/Length Dosing, 114.9, kg, 08/09/23 14:47:00 EDT, Weight Dosing Follow-up No qualifying data available Patient Education Food Choices for Gastroesophageal Reflux Disease, Adult, Tovf-sd-[id number] Problem List/Past Medical History Ongoing Acid reflux [...] Family History Family history is negative Normal [facility] Comment on above: Result Comment: Elec tronically [...] grapefruit, pineapple, and moreno. Vegetables Deep-fried vegetables. Chinese fries. Any vegetables prepared with added fat. [...] until 2?3 (more content not included)... Normal [facility] Medicine Office/Clini c Noteon 07-21-2023 Family [...] Family History Family history is negative Normal [facility] Comment on above: Result Comment: Elec tronically [...] 2:40 PM EDT With: Kay Marvin Where: [facility] [place] Normal [address] \.br\ Medications\.b r\ What How Much When Why Instructions\. br\ New ondansetron (ondansetron 4 mg Tab) 1 Tablets By Mouth Every 6 hours as needed for Nausea/Vomitin g BMI 36.0-36.9,adul t Current every day vaping Pickup at [facility]/pharmacy #[id number]\.br\ Unchanged albuterol (Albuterol (Eqv-ProAir HFA) 90 mcg/ inh inhalation aerosol)\.br\ Unchanged omeprazole (omeprazole 40 mg Cap-DR) 1 Capsules By Mouth Every day Hyperlipemia High blood pressure Diarrhea Nausea Unintentional weight loss Acid reflux BMI 36.0-36.9,adul t Current every day vaping\.br\ Pharmacy Information\.b r\ [facility][id number]: [address], [place] [phone]\.br\ Allergies\.br\ No Known Allergies\.br\ Problems\.br\ Ongoing - [...] for choosing us for your care.\.br\ \.br\ [facility] Reminderson 07-14-2023 Reminders - From: Kay Marvin [...] 20.7 % (14.0 - 50.0) 07/12/2023 9:21 [place] Auto 7.6 % (4.0 - 14.0) 07/12/2023 9: Eos Auto 2.8 % (0.0 - 8.0) 07/12/2023 9: Basophil Auto 0.9 % (0.0 - 2.0) 07/12/2023 9:21 Neutro Absolute 4.9 E9/L (2.0 - 7.5) 07/12/2023 9:21 Lymph Absolute 1.5 E9/L (1.0 - 4.0) 07/12/2023 9:21 [place] Absolute 0.5 E9/L (0.2 - 1.0) 07/12/2023 [...] answer. Unable to leave message. notified. Normal [facility] Ambulatory Visit Summaryon 0 07-12-2023 Ambulatory Visit [...] 3:00 PM EDT With: Kay Marvin Where: [facility] [place] Normal [facility] Amylaseon 07-12-2023 Amylase [Catalytic activity/Vol] 31 U/L Normal 25-157 [facility] Comment on above: Performed By: #### 2 [id number] #### [facility] [address] [place] [address] CBC w/ Auto Diffon 4 Basophils/100 WBC (Bld) 0.9 % Normal 0.0-2.0 [facility] Comment on above: Performed By: #### 2 [id number] #### [facility] [address] [place] [address] Basophils/Leukocytes Auto (Bld) [Pure # fraction] 0.1 E9/L Normal 0.0-0.2 [facility] Comment on above: Performed By: #### 2 [id number] #### [facility] [address] [place] [address] Eosinophils (Bld) [#/Vol] 0.2 E9/L Normal 0.0-0.5 [facility] Comment on above: Performed By: #### 2 548111 #### [facility] [address] [place] [address] Eosinophils/100 WBC (Bld) 2.8 % Normal 0.0-8.0 [facility] Comment on above: Performed By: #### 2 [id number] #### [facility] [address] [place] [address] Erythrocyte distribution width (RBC) [Ratio] 13.1 % Normal 10.9-14.2 [facility] Comment on above: Performed By: #### 2 [id number] #### [facility] [address] [place] [address] Hematocrit (Bld) [Volume fraction] 44.9 % Normal 37.7-49.0 [facility] Comment on above: Performed By: #### 2 557692 #### [facility] [address] [place] [address] Hemoglobin (Bld) [Mass/Vol] 15.3 g/dL Normal 13.5-17.5 [facility] Comment on above: Performed By: #### 2 [id number] #### [facility] [address] [place] [address] Lymphocytes (Bld) [#/Vol] 1.5 E9/L Normal 1.0-4.0 [facility] Comment on above: Performed By: #### 2 549106 #### [facility] [address] [place] [address] Lymphocytes/100 WBC (Bld) 20.7 % Normal 14.0-50.0 [facility] Comment on above: Performed By: #### 2 688137 #### [facility] [address] [place] [address] MCH (RBC) [Entitic mass] 30.4 pg Normal 27.0-34.0 [facility] Comment on above: Performed By: #### 2 [id number] #### [facility] [address] [place] [address] MCHC (RBC) [Mass/Vol] 34.0 g/dL Normal 31.4-36.0 [facility] Comment on above: Performed By: #### 2 672969 #### [facility] [address] [place] [address] MCV (RBC) [Entitic vol] 89.4 fL Normal 80.0-100.0 [facility] Comment on above: Performed By: #### 2 288173 #### [facility] [address] [place] [address] Monocytes (Bld) [#/Vol] 0.5 E9/L Normal 0.2-1.0 [facility] Comment on above: Performed By: #### 2 719961 #### [facility] [address] [place] [address] Neutrophils (Bld) [#/Vol] 4.9 E9/L Normal 2.0-7.5 [facility] Comment on above: Performed By: #### 2 325216 #### [facility] [address] [place] [address] Neutrophils/100 WBC (Bld) 68.0 % Normal 36.0-75.0 [facility] Comment on above: Performed By: #### 2 459214 #### [facility] [address] [place] [address] Platelet mean volume (Bld) [Entitic vol] 9.2 fL Normal 6.4-10.8 [facility] Comment on above: Performed By: #### 2 435220 #### [facility] [address] [place] [address] Platelets (Bld) [#/Vol] 340.0 E9/L Normal 150.0-500.0 [facility] Comment on above: Performed By: #### 2 489852 #### [facility] [address] [place] [address] RBC (Bld) [#/Vol] 5.0 E12/L Normal 4.3-5.9 [facility] Comment on above: Performed By: #### 2 370672 #### [facility] [address] [place] [address] WBC corrected for nucl RBC Auto (Bld) [#/Vol] 7.2 E9/L Normal 4.0-11.0 [facility] Comment on above: Performed By: #### 2 114751 #### Isaac [facility] [address] [place] [address] CHEMISTRYOrdered By: SYSTEM SYSTEM on 07-12-2023 Albumin [...] 07-12-2023 Albumin [Mass/Vol] 4.9 g/dL Normal 3.3-5.0 [facility] Comment on above: Performed By: #### 2 282409 #### [facility] [address] [place] [address] Albumin/Globulin (S) [Mass conc ratio] 1.8 Normal 1.1-2.2 [facility] Comment on above: Performed By: #### 2 655300 #### [facility] [address] [place] [address] ALP [Catalytic activity/Vol] 68 Int._Unit/L Normal 21-98 [facility] Comment on above: Performed By: #### 2 322078 #### [facility] [address] [place] [address] ALT No additional P-5'-P [Catalytic activity/Vol] 34 Int._Unit/L Normal 6-46 [facility] Comment on above: Performed By: #### 2 346207 #### [facility] [address] [place] [address] Anion gap [Moles/Vol] 15 mmol/L Normal 6-16 [facility] Comment on above: Performed By: #### 2 336240 #### [facility] [address] [place] [address] AST [Catalytic activity/Vol] 24 Int._Unit/L Normal 5-43 [facility] Comment on above: Performed By: #### 2 621599 #### [facility] [address] [place] [address] Bilirubin [Mass/Vol] 0.6 mg/dL Normal 0.0-1.1 [facility] Comment on above: Performed By: #### 2 267533 #### [facility] [address] [place] [address] Calcium [Mass/Vol] 9.7 mg/dL Normal 8.9-11.1 [facility] Comment on above: Performed By: #### 2 303904 #### [facility] [address] [place] [address] Chloride [Moles/Vol] 108 mmol/L Normal 101-111 [facility] Comment on above: Performed By: #### 2 767743 #### [facility] [address] [place] [address] CO2 [Moles/Vol] 21 mmol/L Normal 21-31 [facility] Comment on above: Performed By: #### 2 981996 #### [facility] [address] [place] [address] Creatinine [Mass/Vol] 1.0 mg/dL Normal 0.5-1.3 [facility] Comment on above: Performed By: #### 2 826100 #### [facility] [address] [place] [address] Globulin (S) [Mass/Vol] 2.8 g/dL Normal 1.4-4.0 [facility] Comment on above: Performed By: #### 2 072365 #### [facility] [address] [place] [address] Glucose [Mass/Vol] 90 mg/dL Normal 55-199 [facility] Comment on above: Performed By: #### 2 856142 #### [facility] [address] [place] [address] Potassium [Moles/Vol] 3.9 mmol/L Normal 3.5-5.3 [facility] Comment on above: Performed By: #### 2 311413 #### [facility] [address] [place] [address] Protein [Mass/Vol] 7.7 g/dL Normal 6.0-7.8 [facility] Comment on above: Performed By: #### 2 958184 #### [facility] [address] [place] [address] Sodium [Moles/Vol] 140 mmol/L Normal 135-145 [facility] Comment on above: Performed By: #### 2 611505 #### [facility] [address] [place] [address] Urea nitrogen [Mass/Vol] 14 mg/dL Normal 5-21 [facility] Comment on above: Performed By: #### 2 344303 #### [facility] [address] [place] [address] Urea nitrogen/Creatinine [Mass ratio] 14 No Units Normal 10-20 [facility] Comment on above: Performed By: #### 2 294788 #### [facility] [address] [place] [address] Family Medicine Office/Clini c Noteon 07-12-2023 Family [...] Daily, # 90 cap(s), Refills(s) 1, Pharmacy: [facility]/pharmacy #[id number], 179.5, cm, 07/12/23 8:54:00 EDT, Height/Length [...] Daily, # 90 cap(s), Refills(s) 1, Pharmacy: [facility]/pharmacy #[id number], 179.5, cm, 07/12/23 8:54:00 EDT, Height/Length Dosing, 118.5, kg, 07/12/23 8:54:00 EDT, Weight Dosing Amylase Level CBC w/ Auto Diff Comprehensive Metabolic Panel Lipase Level Lipid Panel Thyroid Stimulating Hormone 3. Diarrhea (R19.7: Diarrhea, unspecified) diarrhea daily for about a month Ordered: omeprazole, 40 mg = 1 cap(s), Oral, Daily, # 90 cap(s), Refills(s) 1, [id number] 179.5, cm, 07/12/23 8:54:00 EDT, Height/Length Dosing, 118.5, kg, 07/12/23 8:54:00 EDT, Weight Dosing Amylase Level CBC w/ Auto Diff Comprehensive Metabolic Panel [facility] Internal Ambulatory Referral Lipase Level Lipid Panel Thyroid Stimulating Hormone 4. Nausea (R11.0: Nausea) gets very nauseated when eating Ordered: omeprazole, 40 mg = 1 cap(s), Oral, Daily, # 90 cap(s), Refills(s) 1, [id number], 179.5, cm, 07/12/23 8:54:00 EDT, Height/Length Dosing, 118.5, kg, 07/12/23 8:54:00 EDT, Weight Dosing Amylase Level CBC w/ Auto Diff Comprehensive Metabolic Panel [facility] Internal Ambulatory Referral Lipase Level Lipid Panel Thyroid Stimulating Hormone 5. Unintentional weight loss (R63.4: Abnormal weight loss) pt down 13 pounds since last visit. is not trying to lose weight. Gi referral sent Ordered: omeprazole, 40 mg = 1 cap(s), Oral, Daily, # 90 cap(s), Refills(s) 1, [id number], 179.5, cm, 07/12/23 8:54:00 EDT, Height/Length Dosing, 118.5, kg, 07/12/23 8:54:00 EDT, Weight Dosing Amylase Level CBC w/ Auto Diff Comprehensive Metabolic Panel [facility] Internal Ambulatory Referral Lipase Level Lipid Panel Thyroid Stimulating Hormone 6. Acid reflux (K21.9: Gastro-esophageal reflux disease without esophagitis) will start omeprazole will send referral to GI. pt coughs so hard he gets light headed Ordered: omeprazole, 40 mg = 1 cap(s), Oral, Daily, # 90 cap(s), Refills(s) 1, Pharmacy: [facility]/pharm[facility] #[id number], 179.5, cm, 07/12/23 8:54:00 EDT, Height/Length Dosing, 118.5, kg, 07/12/23 8:54:00 EDT, Weight Dosing Amylase Level CBC w/ Auto Diff Comprehensive Metabolic Panel [facility] Internal Ambulatory Referral Lipase Level Lipid Panel Thyroid Stimulating Hormone 7. BMI 36.0-36.9,adult (Z68.36: Body mass index [BMI] 36.0-36.9, adult) BMI education complete Ordered: omeprazole, 40 mg = 1 cap(s), Oral, Daily, # 90 cap(s), Refills(s) 1, Pharmacy: [facility]/pharmacy #[id number], 179.5, cm, 07/12/23 8:54:00 EDT, Height/Length Dosing, 118.5, kg, 07/12/23 8:54:00 EDT, Weight Dosing Amylase Level CBC w/ Auto Diff Comprehensive Metabolic Panel Lipase Level Lipid Panel Thyroid Stimulating Hormone 8. Current every day vaping (Z72.89: Other problems related to lifestyle) consider not vaping Ordered: omeprazole, 40 mg = 1 cap(s), (more content not included)... Normal [facility] Comment on above: Result Comment: Elec tronically [...] Lipase [Catalytic activity/Vol] 15 U/L Normal 13-58 [facility] Comment on above: Performed By: #### 2 [id number] #### [facility] [address] [place] [address] Lipid Panelon 07-12-2023 Cholesterol [Mass/Vol] 186 mg/dL Normal 120-200 [facility] Comment on above: Performed By: #### 2 544527 #### [facility] [address] [place] [address] Cholesterol in HDL [Mass/Vol] 36 mg/dL Invalid Interpretation Code [facility] Comment on above: Result Comment: '>= 60 LOW RISK' '<= 40 HIGH RISK' Performed By: #### 2 158784 #### [facility] [address] [place] [address] Cholesterol in LDL [Mass/Vol] 147 mg/dL High <=129 [facility] Comment on above: Performed By: #### 2 638402 #### [facility] [address] [place] [address] Cholesterol in VLDL [Mass/Vol] 26 mg/dL Normal 7-40 [facility] Comment on above: Performed By: #### 2 986000 #### [facility] [address] [place] [address] Triglyceride [Mass/Vol] 128 mg/dL Normal <=149 [facility] Comment on above: Performed By: #### 2 941591 #### [facility] [address] [place] [address] TSHon 07-12-2023 TSH Qn 1.70 m[IU]/L Normal 0.34-5.60 [facility] Comment on above: Performed By: #### 2 247081 #### [facility] [address] [place] [address] eGFRon 07-12-2023 eGFR 107 mL/min/1.73 m2 Normal >=59 [facility] Comment on above: Order Comment: Order added by Discern Expert. Performed By: #### 1 [id number] #### [facility] [address] [place] [address] Consenton 04-26-2023 Consent [id number] FF Normal [facility] Registrationon 04-26-2023 Registration [id number]#[id number] IFF Normal [facility] Registration [id number]#[id number] FF Normal [facility] Basic Metabolic Panelon 10-2 Anion gap [Moles/Vol] 11.3 mmol/L Normal 6.0-15.0 [facility] Comment on above: Performed By: #### B MP, LIPASE, HEPATIC, CBC ####[facility] [place] [address] [facility] Calcium [Mass/Vol] 9.9 mg/dL Normal 8.6-10.3 [facility] Comment on above: Performed By: #### B MP, LIPASE, HEPATIC, CBC ####[place] [address] [place] [address] [facility] Chloride [Moles/Vol] 102 mmol/L Normal 98-107 [facility] Comment on above: Performed By: #### B MP, LIPASE, HEPATIC, CBC ####[address] [place] [address] [facility] CO2 [Moles/Vol] 27.9 mmol/L Normal 21.0-31.0 [facility] Comment on above: Performed By: #### B MP, LIPASE, HEPATIC, CBC ####[address] [address] [facility] Creatinine [Mass/Vol] 1.11 mg/dL Normal 0.70-1.30 [facility] Comment on above: Performed By: #### B MP, LIPASE, HEPATIC, CBC ####[address] [place] [address] [facility] Creatinine Clr Calc Pharmacy 134.17 [facility] Comment on above: Performed By: #### B MP, LIPASE, HEPATIC, CBC ####[address] [place] [address] [facility] GFR/1.73 sq M.predicted MDRD (S/P/Bld) [Vol rate/Area] mL/min/{1.73_m2} [facility] Comment on above: Performed By: #### B MP, LIPASE, HEPATIC, CBC ####[address] [address] [facility] Glucose [Mass/Vol] 91 mg/dL Normal 70-100 [facility] Comment on above: Result Comment: Ilana shepherd Glucose Reference Range is dependent on time and content of last meal. Glucose of more than 200 mg/dL in a nonstressed, ambulatory subject supports the diagnosis of Diabetes Mellitus. ADA recommended reference range Performed By: #### B MP, LIPASE, HEPATIC, CBC ####[facility] [address] [place] [address] [facility] Potassium [Moles/Vol] 4.2 mmol/L Normal 3.5-5.1 [facility] Comment on above: Performed By: #### B MP, LIPASE, HEPATIC, CBC ####[facility] [address] [place] [address] [facility] Sodium [Moles/Vol] 137 mmol/L Normal 136-145 [facility] Comment on above: Performed By: #### B MP, LIPASE, HEPATIC, CBC ####[facility] [id number] [place] [address] [facility] Urea nitrogen [Mass/Vol] 12 mg/dL Normal 7-25 [facility] Comment on above: Performed By: #### B MP, LIPASE, HEPATIC, CBC ####[facility] [id number] [place] [id number] [facility] CT abdomen pelvis w conon CT abdomen pelvis w [facility] [address] [place] [address] [place] [address] CT Scan Report Signed Patient: Clay Newton MR#: [id number] : 1995 Acct:[id number] Age/Sex: 27 / M ADM Date: 12/16/22 Loc: ER Room: Type: [facility] ER Attending Dr: Copies to: Johnathan Isbell [...] Sandhya Wu M.D.12/17/2022 7:58 AM Dictation Location: [place] [address] Transcribed By: [facility] 12/17/22 0758 Dictated By: Sandhya Wu MD 12/17/22 0755 Signed By: 12/17/22 0758 Normal [facility] Complete Blood Count Auto Di ffon 12-17-2022 Basophils (Bld) [#/Vol] 0.1 10*3/uL Normal 0.0-0.2 [facility] Comment on above: Result Comment: PERF ORMED BY: [facility] [address] [place] [address] PATHOLOGIST OFFICIAL GREETER MALIK CONN M.D. Performed By: #### B MP, LIPASE, HEPATIC, CBC ####[facility] [id number] [place] [address] [facility] Basophils/100 WBC (Bld) 0.6 % Normal . [facility] Comment on above: Performed By: #### B MP, LIPASE, HEPATIC, CBC ####[facility] [id number] [place] [address] [facility] Eosinophils (Bld) [#/Vol] 0.2 10*3/uL Normal 0.0-0.45 [facility] Comment on above: Performed By: #### B MP, LIPASE, HEPATIC, CBC ####[address] Eosinophils/100 WBC (Bld) 1.5 % Normal . [facility] Comment on above: Performed By: #### B MP, LIPASE, HEPATIC, CBC ####[address] Erythrocyte distribution width (RBC) [Ratio] 13.4 % Normal 12.0-14.8 [facility] Comment on above: Performed By: #### B MP, LIPASE, HEPATIC, CBC ####[address] Hematocrit (Bld) [Volume fraction] 44.6 % Normal 38.8-50.0 [facility] Comment on above: Performed By: #### B MP, LIPASE, HEPATIC, CBC ####[address] Hemoglobin (Bld) [Mass/Vol] 15.1 g/dL Normal 13.0-17.0 [facility] Comment on above: Performed By: #### B MP, LIPASE, HEPATIC, CBC ####[address] Lymphocytes (Bld) [#/Vol] 0.8 10*3/uL Low 1.00-4.8 [facility] Comment on above: Performed By: #### B MP, LIPASE, HEPATIC, CBC ####[address] Lymphocytes/100 WBC (Bld) 6.6 % Normal . [facility] Comment on above: Performed By: #### B MP, LIPASE, HEPATIC, CBC ####[address] MCH (RBC) [Entitic mass] 29.7 pg Normal 27.5-35.2 [facility] Comment on above: Performed By: #### B MP, LIPASE, HEPATIC, CBC ####[address] MCV (RBC) [Entitic vol] 87.5 fL Normal 83.5-101 [facility] Comment on above: Performed By: #### B MP, LIPASE, HEPATIC, CBC ####[address] Mean Corpuscular HGB Conc 34.0 g/dL Normal 32.5-35.6 [facility] Comment on above: Performed By: #### B MP, LIPASE, HEPATIC, CBC ####[address] Monocytes (Bld) [#/Vol] 0.9 10*3/uL High 0.0-0.8 [facility] Comment on above: Performed By: #### B MP, LIPASE, HEPATIC, CBC ####[address] Monocytes/100 WBC (Bld) 17.38 % Normal 0.00-20.00 [facility] Comment on above: Performed By: #### B MP, LIPASE, HEPATIC, CBC ####[address] Monocytes/100 WBC (Bld) 7.3 % Normal . [facility] Comment on above: Performed By: #### B MP, LIPASE, HEPATIC, CBC ####[address] Neutrophils (Bld) [#/Vol] 10.0 10*3/uL High 1.8-7.7 [facility] Comment on above: Performed By: #### B MP, LIPASE, HEPATIC, CBC ####[address] Neutrophils/100 WBC (Bld) 84.0 % Normal . [facility] Comment on above: Performed By: #### B MP, LIPASE, HEPATIC, CBC ####[address] NRBC% 0.0 /100{WBC} Normal 0-0.5 [facility] Comment on above: Performed By: #### B MP, LIPASE, HEPATIC, CBC ####[address] Platelet mean volume (Bld) [Entitic vol] 8.3 fL Normal 6.6-10.1 [facility] Comment on above: Performed By: #### B MP, LIPASE, HEPATIC, CBC ####[address] Platelets (Bld) [#/Vol] 267 10*3/uL Normal 150-450 [facility] Comment on above: Performed By: #### B MP, LIPASE, HEPATIC, CBC ####[address] RBC (Bld) [#/Vol] 5.09 10*6/uL Normal 3.90-5.60 [facility] Comment on above: Performed By: #### B MP, LIPASE, HEPATIC, CBC ####[address] WBC (Bld) [#/Vol] 11.9 10*3/uL High 4.1-10.5 [facility] Comment on above: Performed By: #### B MP, LIPASE, HEPATIC, CBC ####[address] Hepatic Panelon 12-17-2022 Albumin [Mass/Vol] 4.6 g/dL Normal 3.5-5.7 [facility] Comment on above: Performed By: #### B MP, LIPASE, HEPATIC, CBC ####[address] Albumin/Globulin [Mass ratio] 1.5 {ratio} Normal [facility] Comment on above: Performed By: #### B MP, LIPASE, HEPATIC, CBC ####[address] ALP [Catalytic activity/Vol] 82 U/L Normal 34-104 [facility] Comment on above: Performed By: #### B MP, LIPASE, HEPATIC, CBC ####[address] ALT [Catalytic activity/Vol] 26 U/L Normal 7-52 [facility] Comment on above: Performed By: #### B MP, LIPASE, HEPATIC, CBC ####[place] [address] [place] [id number] [facility] [place] AST [Catalytic activity/Vol] 17 U/L Normal 13-39 [facility] Comment on above: Performed By: #### B MP, LIPASE, HEPATIC, CBC ####[place] [address] [place] [id number] [facility] [place] Bilirubin [Mass/Vol] 1.4 mg/dL High 0.3-1.0 [facility] Comment on above: Result Comment: Samp les from patients who have taken Naproxen have shown spurious elevation in Total Bilirubin levels. A metabolite of Naproxen, O-desmethylnaproxen, has been shown to interfere with the Jendrassik-Grof method for measuring Total Bilirubin. Performed By: #### B MP, LIPASE, HEPATIC, CBC ####[place] [id number] Bilirubin,Indirect 1.2 mg/dL Normal [facility] Comment on above: Performed By: #### B MP, LIPASE, HEPATIC, CBC ####[place] [address] Bilirubin.indirect [Mass/Vol] 0.20 mg/dL High 0.03-0.18 [facility] Comment on above: Performed By: #### B MP, LIPASE, HEPATIC, CBC ####[place] [address] Globulin (S) [Mass/Vol] 3.1 g/dL Normal [facility] Comment on above: Performed By: #### B MP, LIPASE, HEPATIC, CBC ####[place] [address] [place] [id number] [facility] Protein [Mass/Vol] 7.7 g/dL Normal 6.4-8.9 [facility] Comment on above: Performed By: #### B MP, LIPASE, HEPATIC, CBC ####[place] [id number] [facility] [place] Lipaseon 12-17-2022 Lipase [Catalytic activity/Vol] 7.0 U/L Low 11.0-82.0 [facility] Comment on above: Result Comment: PERF ORMED BY: [facility] [address] [place] [address] PATHOLOGIST OFFICIAL GREETER MALIK CONN M.D. Performed By: #### B MP, LIPASE, HEPATIC, CBC ####[place] [id number] [facility] [place] Urinalysison 12-17-2022 Appearance (U) Clear Normal Clear [facility] Comment on above: Order Comment: Name Collection Type:: Clean-Voided Midstream Performed By: #### U A ####[address] Bilirubin,Urine Negative Normal Negative [facility] Comment on above: Order Comment: Name Collection Type:: Clean-Voided Midstream Performed By: #### U A ####[address] Color (U) Yellow Normal Yellow [facility] Comment on above: Order Comment: Name Collection Type:: Clean-Voided Midstream Performed By: #### U A ####[address] Glucose Ql (U) Normal Normal Normal [facility] Comment on above: Order Comment: Name Collection Type:: Clean-Voided Midstream Performed By: #### U A ####[place] [id number] [facility] Ketones Ql (U) Negative Normal Negative [facility] Comment on above: Order Comment: Name Collection Type:: Clean-Voided Midstream Performed By: #### U A ####[place] [id number] [facility] Leukocyte esterase Test strip Ql (U) Negative Normal Negative [facility] Comment on above: Order Comment: Name Collection Type:: Clean-Voided Midstream Performed By: #### U A ####[place] [id number] [facility] [place] Nitrite,Urine Negative Normal Negative [facility] Comment on above: Order Comment: Name Collection Type:: Clean-Voided Midstream Performed By: #### U A ####[address] Occult Blood,Urine Negative Normal Negative [facility] Comment on above: Order Comment: Name Collection Type:: Clean-Voided Midstream Result Comment: PERF ORMED BY: [facility] [address] [place] [address] PATHOLOGIST OFFICIAL GREETER MALIK CONN M.D. Performed By: #### U A ####[address] pH (U) 8.0 [pH] Normal 5.0-9.0 [facility] Comment on above: Order Comment: Name Collection Type:: Clean-Voided Midstream Performed By: #### U A ####[address] Protein,Urine Negative Normal Negative [facility] Comment on above: Order Comment: Name Collection Type:: Clean-Voided Midstream Performed By: #### U A ####[address] Specificy [place],Urine 1.025 Normal 1.001-1.030 [facility] Comment on above: Order Comment: Name Collection Type:: Clean-Voided Midstream Performed By: #### U A ####[address] Urobilinogen,Urine Normal Normal Normal [facility] Comment on above: Order Comment: Name Collection Type:: Clean-Voided Midstream Performed By: #### U A ####[address] Alanine aminotransferase [En zymatic activity/volume] in Serum or PlasmaOrdered By: Johnathan Isbell on 12-16-2022 ALT [Catalytic activity/Vol] 26 U/L [facility] Albumin [Mass/volume] in Ser um or Plasma by Bromocresol green (BCG) dye binding methoOrdered By: Johnathan Isbell on 12-16-2022 Albumin BCG dye [Mass/Vol] 4.6 g/dL 3.5-5.7 [facility] Alkaline phosphatase [Enzyma tic activity/volume] in Serum or PlasmaOrdered By: Johnathan Isbell on 12-16-2022 ALP [Catalytic activity/Vol] 82 U/L 34-104 [facility] Aspartate aminotransferase [ Enzymatic activity/volume] in Serum or PlasmaOrdered By: Johnathan Isbell on 12-16-2022 AST [Catalytic activity/Vol] 17 U/L 13-39 [facility] Basophils Auto (Bld) [#/Vol] Ordered By: Johnathan Isbell on 12-16-2022 Basophils (Bld) [#/Vol] 0.1 10*3/uL 0.0-0.2 [facility] Basophils/100 WBC Auto (Bld) Ordered By: Johnathan Isbell on 12-16-2022 Basophils/100 WBC (Bld) 0.6 % . [facility] Bilirubin Auto test strip Ql (U)Ordered By: Johnathan Isbell on 12-16-2022 Bilirubin Ql (U) Negative Negative [facility] Bilirubin.direct [Mass/volum e] in Serum or PlasmaOrdered By: Johnathan Isbell on 12-16-2022 Bilirubin.direct [Mass/Vol] 0.20 mg/dL 0.03-0.18 [facility] Bilirubin.total [Mass/volume ] in Serum or PlasmaOrdered By: Johnathan Isbell on 12-16-2022 Bilirubin [Mass/Vol] 1.4 mg/dL 0.3-1.0 [facility] Comment on above: Samples from patient s who have taken Naproxen have shown spurious elevation in Total Bilirubin levels. A metabolite of Naproxen, O-desmethylnaproxen, has been shown to interfere with the Kimberly-Alessio method for measuring Total Bilirubin. Calcium [Mass/volume] in Ser um or PlasmaOrdered By: Johnathan Isbell on 12-16-2022 Calcium [Mass/Vol] 9.9 mg/dL 8.6-10.3 [facility] Carbon dioxide, total [Moles /volume] in Serum or PlasmaOrdered By: Johnathan Isbell on 12-16-2022 CO2 [Moles/Vol] 27.9 mmol/L 21.0-31.0 [facility] Chloride [Moles/volume] in S pj or PlasmaOrdered By: Johnathan Isbell on 12-16-2022 Chloride [Moles/Vol] 102 mmol/L 98-107 [facility] Creatinine [Mass/volume] in Serum or PlasmaOrdered By: Johnathan Isbell on 12-16-2022 Creatinine [Mass/Vol] 1.11 mg/dL 0.70-1.30 [facility] Eosinophils Auto (Bld) [#/Vo l]Ordered By: Johnathan Isbell on 12-16-2022 Eosinophils (Bld) [#/Vol] 0.2 10*3/uL 0.0-0.45 [facility] Eosinophils/100 WBC Auto (Bl d)Ordered By: Johnathan Isbell on 12-16-2022 Eosinophils/100 WBC (Bld) 1.5 % . [facility] Erythrocyte distribution wid th Auto (RBC) [Ratio]Ordered By: Johnathan Isbell on 12-16-2022 Erythrocyte distribution width (RBC) [Ratio] 13.4 % 12.0-14.8 [facility] Globulin Calc (S) [Mass/Vol] Ordered By: Johnathan Isbell on 12-16-2022 Globulin (S) [Mass/Vol] 3.1 g/dL [facility] Glucose [Mass/volume] in Ser um or PlasmaOrdered By: Johnathan Isbell on 12-16-2022 Glucose [Mass/Vol] 91 mg/dL 70-100 [facility] Comment on above: ADA recommended refe rence rangeRandom Glucose Reference Range is dependent on time and content of last meal. Glucose of more than 200 mg/dL in a nonstressed, ambulatory subject supports the diagnosis of Diabetes Mellitus. Hematocrit Auto (Bld) [Volum e fraction]Ordered By: Johnathan Isbell on 12-16-2022 Hematocrit (Bld) [Volume fraction] 44.6 % 38.8-50.0 [facility] Hemoglobin [Mass/volume] in BloodOrdered By: Johnathan Isbell on 12-16-2022 Hemoglobin (Bld) [Mass/Vol] 15.1 g/dL 13.0-17.0 [facility] Ketones Auto test strip (U) [Mass/Vol]Ordered By: Johnathan Isbell on 12-16-2022 Ketones (U) [Mass/Vol] Negative Negative [facility] Leukocytes [#/volume] correc chuyita for nucleated erythrocytes in Blood by Automated counOrdered By: Johnathan Isbell on 12-16-2022 WBC corrected for nucl RBC Auto (Bld) [#/Vol] 11.9 10*3/uL 4.1-10.5 [facility] Lipase [Enzymatic activity/v olume] in Serum or PlasmaOrdered By: Johnathan Isbell on 12-16-2022 Lipase [Catalytic activity/Vol] 7.0 U/L 11.0-82.0 [facility] Lymphocytes Auto (Bld) [#/Vo l]Ordered By: Johnathan Isbell on 12-16-2022 Lymphocytes (Bld) [#/Vol] 0.8 10*3/uL 1.00-4.8 [facility] Lymphocytes/100 WBC Auto (Bl d)Ordered By: Johnathan Isbell on 12-16-2022 Lymphocytes/100 WBC (Bld) 6.6 % . [facility] MCH Auto (RBC) [Entitic mass ]Ordered By: Johnathan Isbell on 12-16-2022 MCH (RBC) [Entitic mass] 29.7 pg 27.5-35.2 [facility] MCHC Auto (RBC) [Mass/Vol]Or dered By: Johnathan Isbell on 12-16-2022 MCHC (RBC) [Mass/Vol] 34.0 g/dL 32.5-35.6 [facility] MCV Auto (RBC) [Entitic vol] Ordered By: Johnathan Isbell on 12-16-2022 MCV (RBC) [Entitic vol] 87.5 fL 83.5-101 [facility] Monocyte distribution width [Entitic volume] in Blood by AutomatedOrdered By: Johnathan Isbell on 12-16-2022 Monocyte distribution width Auto (Bld) [Entitic vol] 17.38 % 0.00-20.00 [facility] Monocytes Auto (Bld) [#/Vol] Ordered By: Johnathan Isbell on 12-16-2022 Monocytes (Bld) [#/Vol] 0.9 10*3/uL 0.0-0.8 [facility] Monocytes/100 WBC Auto (Bld) Ordered By: Johnathan Isbell on 12-16-2022 Monocytes/100 WBC (Bld) 7.3 % . [facility] Neutrophils Auto (Bld) [#/Vo l]Ordered By: Johnathan Isbell on 12-16-2022 Neutrophils (Bld) [#/Vol] 10.0 10*3/uL 1.8-7.7 [facility] Neutrophils/100 WBC Auto (Bl d)Ordered By: Johnathan Isbell on 12-16-2022 Neutrophils/100 WBC (Bld) 84.0 % . [facility] No Panel InformationOrdered By: Johnathan Isbell on 12-16-2022 Estimated GFR (CKD-EPI) > 60.0 mL/Min [facility] Creatinine Clearance (Chem 134.17 [facility] Nucleated erythrocytes [Pres ence] in Blood by Automated countOrdered By: Johnathan Isbell on 12-16-2022 Nucleated RBC Auto Ql (Bld) 0.0 /100{WBC} 0-0.5 [facility] Platelet mean volume Auto (B ld) [Entitic vol]Ordered By: Johnathan Isbell on 12-16-2022 Platelet mean volume (Bld) [Entitic vol] 8.3 fL 6.6-10.1 [facility] Platelets Auto (Bld) [#/Vol] Ordered By: Johnathan Isbell on 12-16-2022 Platelets (Bld) [#/Vol] 267 10*3/uL 150-450 [facility] Potassium [Moles/volume] in Serum or PlasmaOrdered By: Johnathan Isbell on 12-16-2022 Potassium [Moles/Vol] 4.2 mmol/L 3.5-5.1 [facility] Protein Auto test strip (U) [Mass/Vol]Ordered By: Johnathan Isbell on 12-16-2022 Protein (U) [Mass/Vol] Negative Negative [facility] Protein [Mass/volume] in Ser um or PlasmaOrdered By: Johnathan Isbell on 12-16-2022 Protein [Mass/Vol] 7.7 g/dL 6.4-8.9 [facility] RBC Auto (Bld) [#/Vol]Ordere d By: Johnathan Isbell on 12-16-2022 RBC (Bld) [#/Vol] 5.09 10*6/uL 3.90-5.60 [facility] Serum or plasma albumin/glob ulin mass ratioOrdered By: Johnathan Isbell on 12-16-2022 Albumin/Globulin [Mass ratio] 1.5 {ratio} [facility] Serum or plasma anion gap de terminationOrdered By: Johnathan Isbell on 12-16-2022 Anion gap [Moles/Vol] 11.3 mmol/L 6.0-15.0 [facility] Serum or plasma non-glucuron idated bilirubin measurement (mass/volume)Ordered By: Johnathan Isbell on 12-16-2022 Bilirubin.indirect [Mass/Vol] 1.2 mg/dL [facility] Sodium [Moles/volume] in Ser um or PlasmaOrdered By: Johnathan Isbell on 12-16-2022 Sodium [Moles/Vol] 137 mmol/L 136-145 [facility] Urea nitrogen [Mass/volume] in Serum or PlasmaOrdered By: Johnathan Isbell on 12-16-2022 Urea nitrogen [Mass/Vol] 12 mg/dL 7-25 [facility] Urine appearanceOrdered By: Johnathan Isbell on 12-16-2022 Appearance (U) Clear Clear [facility] Urine colorOrdered By: Johnathan Isbell on 12-16-2022 Color (U) Yellow Yellow [facility] Urine glucose measurement by automated test strip (mass/volume)Ordered By: Johnathan Isbell on 12-16-2022 Glucose Auto test strip (U) [Mass/Vol] Normal mg/dL Normal [facility] Urine hemoglobin detection b y automated test stripOrdered By: Johnathan Isbell on 12-16-2022 Hemoglobin Auto test strip Ql (U) Negative Negative [facility] Urine leukocyte esterase det ection by automated test stripOrdered By: Johnathan Isbell on 12-16-2022 Leukocyte esterase Auto test strip Ql (U) Negative Negative [facility] Urine nitrite detection by a utomated test stripOrdered By: Johnathan Isbell on 12-16-2022 Nitrite Auto test strip Ql (U) Negative Negative [facility] Urobilinogen Auto test strip (U) [Mass/Vol]Ordered By: Johnathan Isbell on 12-16-2022 Urobilinogen (U) [Mass/Vol] Normal mg/dL Normal [facility] WBC Auto (Bld) [#/Vol]Ordere d By: Johnathan Isbell on 12-16-2022 WBC (Bld) [#/Vol] 11.9 10*3/uL 4.1-10.5 [facility] pH Auto test strip (U)Ordere d By: Johnathan Isbell on 12-16-2022 pH (U) 1.025 [pH] 1.001-1.030 [facility] pH (U) 8.0 [pH] 5.0-9.0 [facility] Activated partial thrombopla stin time (aPTT) in platelet poor plasma by coagulation aOrdered By: Coco Landry on 10-12-2022 aPTT Coag (PPP) [Time] 32.4 s 25.1-36.5 [facility] Alanine aminotransferase [En zymatic activity/volume] in Serum or PlasmaOrdered By: Coco Landry on 10-12-2022 ALT [Catalytic activity/Vol] 28 U/L 7-52 [facility] Albumin [Mass/volume] in Ser um or Plasma by Bromocresol green (BCG) dye binding methoOrdered By: Ccoo Landry on 10-12-2022 Albumin BCG dye [Mass/Vol] 4.8 g/dL 3.5-5.7 [facility] Alkaline phosphatase [Enzyma tic activity/volume] in Serum or PlasmaOrdered By: Coco Landry on 10-12-2022 ALP [Catalytic activity/Vol] 84 U/L 34-104 [facility] Aspartate aminotransferase [ Enzymatic activity/volume] in Serum or PlasmaOrdered By: Coco Landry on 10-12-2022 AST [Catalytic activity/Vol] 19 U/L 13-39 [facility] Automated erythrocytes count in urine sediment (number/area)Ordered By: Coco Landry on 10-12-2022 RBC Auto (Urine sed) [#/Area] 0-1 [HPF] 0-4 [facility] Automated leukocytes count i n urine sediment (number/area)Ordered By: Coco Landry on 10-12-2022 WBC Auto (Urine sed) [#/Area] 0-1 [HPF] 0-4 [facility] Bacterial blood cultureOrder ed By: Coco Landry on 10-12-2022 Bacteria identified Cx Nom (Bld) NO GROWTH 5 DAYS [facility] Basophils Auto (Bld) [#/Vol] Ordered By: Coco Landry on 10-12-2022 Basophils (Bld) [#/Vol] 0.1 10*3/uL 0.0-0.2 [facility] Basophils/100 WBC Auto (Bld) Ordered By: Coco Landry on 10-12-2022 Basophils/100 WBC (Bld) 0.7 % . [facility] Bilirubin Test strip Ql (U)O rdered By: Coco Landry on 10-12-2022 Bilirubin Ql (U) Negative Negative [facility] Bilirubin.total [Mass/volume ] in Serum or PlasmaOrdered By: Coco Landry on 10-12-2022 Bilirubin [Mass/Vol] 1.0 mg/dL 0.3-1.0 [facility] Blood Cultureon 10-12-2022 Bacteria identified Cx Nom (Bld) NO GROWTH 5 DAYS PERFORMED BY: [address] [place] [id number] PATHOLOGIST OFFICIAL GREETER MALIK CONN M.D. [facility] Comment on above: Performed By: #### C UBLD ####[place] [id number] [facility] Bacteria identified Cx Nom (Bld) NO GROWTH 5 DAYS PERFORMED BY: [facility] [address] [facility] [place] [id number] PATHOLOGIST OFFICIAL GREETER MALIK CONN M.D. [facility] Comment on above: Performed By: #### C UBLD, PTT, CBC, CMP, PT ####[facility] [address] [place], [place] [id number] [facility] COVID CepheidOrdered By: Neo Landry on 10-12-2022 SARS-CoV-2 (COVID-19) Ab IA Ql Negative Negative [facility] Comment on above: This is a duplicate Cepheid Xpert Xpress CoV-2/Flu/RSV Plus RNA by RT-PCR result to be used for statistical tracking purpose only. SARS-CoV-2 (COVID-19) RNA BARBARA+probe Ql (Unsp spec) [facility] COVID-19 / Flu A/B / [...] or Cepheid Disclaimer revoked sooner. PERFORMED BY: [address] [id number] PATHOLOGIST OFFICIAL GREETER MALIK CONN M.D. Normal [facility] Comment on above: Performed By: #### C EPHEID NEG, COVID19 FLU RSV ####[place] [address] [place] [address] [place] Calcium [Mass/volume] in Ser um or PlasmaOrdered By: Coco Landry on 10-12-2022 Calcium [Mass/Vol] 9.7 mg/dL 8.6-10.3 [facility] Carbon dioxide, total [Moles /volume] in Serum or PlasmaOrdered By: Coco Landry on 10-12-2022 CO2 [Moles/Vol] 24.1 mmol/L 21.0-31.0 [facility] Cepheid COVID PCR Negativeon 10-12-2022 SARS-CoV-2 (COVID-19) RNA BARBARA+probe Ql (Unsp spec) Negative Normal Negative [facility] Comment on above: Result Comment: This is a duplicate Cepheid Xpert Xpress CoV-2/Flu/RSV Plus RNA by RT-PCR result to be used for statistical tracking purpose only. PERFORMED BY: [facility] [address] [place] [address] PATHOLOGIST OFFICIAL GREETER MALIK CONN M.D. Performed By: #### C EPHEID NEG, COVID19 FLU RSV ####[address] [place] [address] [place] Chloride [Moles/volume] in S pj or PlasmaOrdered By: Coco Landry on 10-12-2022 Chloride [Moles/Vol] 102 mmol/L 98-107 [facility] Color Auto (U)Ordered By: Jennie Landry on 10-12-2022 Color (U) Yellow Yellow [facility] Complete Blood Count Auto Di ffon 10-12-2022 Basophils (Bld) [#/Vol] 0.1 10*3/uL Normal 0.0-0.2 [facility] Comment on above: Result Comment: PERF ORMED BY: [place] [address] PATHOLOGIST OFFICIAL GREETER MALIK CONN M.D. Performed By: #### C UBLD, PTT, CBC, CMP, PT #### [address] Basophils/100 WBC (Bld) 0.7 % Normal . [facility] Comment on above: Performed By: #### C UBLD, PTT, CBC, CMP, PT #### [facility] [address] [place] [address] Eosinophils (Bld) [#/Vol] 0.0 10*3/uL Normal 0.0-0.45 [facility] Comment on above: Performed By: #### C UBLD, PTT, CBC, CMP, PT #### [facility] [address] [place] [address] Eosinophils/100 WBC (Bld) 0.1 % Normal . [facility] Comment on above: Performed By: #### C UBLD, PTT, CBC, CMP, PT #### [facility] [address] [place] [address] Erythrocyte distribution width (RBC) [Ratio] 12.8 % Normal 12.0-14.8 [facility] Comment on above: Performed By: #### C UBLD, PTT, CBC, CMP, PT #### [facility] [address] [place] [address] Hematocrit (Bld) [Volume fraction] 45.8 % Normal 38.8-50.0 [facility] Comment on above: Performed By: #### C UBLD, PTT, CBC, CMP, PT #### [facility] [address] [place] [address] Hemoglobin (Bld) [Mass/Vol] 15.9 g/dL Normal 13.0-17.0 [facility] Comment on above: Performed By: #### C UBLD, PTT, CBC, CMP, PT #### [address] Lymphocytes (Bld) [#/Vol] 0.7 10*3/uL Low 1.00-4.8 [facility] Comment on above: Performed By: #### C UBLD, PTT, CBC, CMP, PT #### [address] Lymphocytes/100 WBC (Bld) 6.8 % Normal . [facility] Comment on above: Performed By: #### C UBLD, PTT, CBC, CMP, PT #### [address] MCH (RBC) [Entitic mass] 30.3 pg Normal 27.5-35.2 [facility] Comment on above: Performed By: #### C UBLD, PTT, CBC, CMP, PT #### [address] MCV (RBC) [Entitic vol] 87.1 fL Normal 83.5-101 [facility] Comment on above: Performed By: #### C UBLD, PTT, CBC, CMP, PT #### [address] Mean Corpuscular HGB Conc 34.8 g/dL Normal 32.5-35.6 [facility] Comment on above: Performed By: #### C UBLD, PTT, CBC, CMP, PT #### [address] Monocytes (Bld) [#/Vol] 0.6 10*3/uL Normal 0.0-0.8 [facility] Comment on above: Performed By: #### C UBLD, PTT, CBC, CMP, PT #### [address] Monocytes/100 WBC (Bld) 20.90 % High 0.00-20.00 [facility] Comment on above: Result Comment: For adults in ED, MDW > 20.0 may be associated with a higher risk of sepsis during the first 12 hrs of hospital admission Performed By: #### C UBLD, PTT, CBC, CMP, PT #### [address] Monocytes/100 WBC (Bld) 5.8 % Normal . [facility] Comment on above: Performed By: #### C UBLD, PTT, CBC, CMP, PT #### [address] Neutrophils (Bld) [#/Vol] 8.9 10*3/uL High 1.8-7.7 [facility] Comment on above: Performed By: #### C UBLD, PTT, CBC, CMP, PT #### [address] Neutrophils/100 WBC (Bld) 86.6 % Normal . [facility] Comment on above: Performed By: #### C UBLD, PTT, CBC, CMP, PT #### [address] NRBC% 0.0 /100{WBC} Normal 0-0.5 [facility] Comment on above: Performed By: #### C UBLD, PTT, CBC, CMP, PT #### [address] Platelet mean volume (Bld) [Entitic vol] 8.0 fL Normal 6.6-10.1 [facility] Comment on above: Performed By: #### C UBLD, PTT, CBC, CMP, PT #### [place] [address] [place] Platelets (Bld) [#/Vol] 326 10*3/uL Normal 150-450 [facility] Comment on above: Performed By: #### C UBLD, PTT, CBC, CMP, PT #### [address] RBC (Bld) [#/Vol] 5.26 10*6/uL Normal 3.90-5.60 [facility] Comment on above: Performed By: #### C UBLD, PTT, CBC, CMP, PT #### [facility] [address] WBC (Bld) [#/Vol] 10.2 10*3/uL Normal 4.1-10.5 [facility] Comment on above: Performed By: #### C UBLD, PTT, CBC, CMP, PT #### [facility] [address] Comprehensive Metabolic Pane logan 10-12-2022 Albumin [Mass/Vol] 4.8 g/dL Normal 3.5-5.7 [facility] Comment on above: Performed By: #### C UBLD, PTT, CBC, CMP, PT ####[facility] Albumin/Globulin [Mass ratio] 1.6 {ratio} Normal [facility] Comment on above: Performed By: #### C UBLD, PTT, CBC, CMP, PT ####[facility] ALP [Catalytic activity/Vol] 84 U/L Normal 34-104 [facility] Comment on above: Performed By: #### C UBLD, PTT, CBC, CMP, PT ####[facility] ALT [Catalytic activity/Vol] 28 U/L Normal 7-52 [facility] Comment on above: Performed By: #### C UBLD, PTT, CBC, CMP, PT ####[facility] [address] Anion gap [Moles/Vol] 13.6 mmol/L Normal 6.0-15.0 [facility] Comment on above: Performed By: #### C UBLD, PTT, CBC, CMP, PT ####[facility] [place] [address] AST [Catalytic activity/Vol] 19 U/L Normal 13-39 [facility] Comment on above: Performed By: #### C UBLD, PTT, CBC, CMP, PT ####[id number] [facility] Bilirubin [Mass/Vol] 1.0 mg/dL Normal 0.3-1.0 [facility] Comment on above: Performed By: #### C UBLD, PTT, CBC, CMP, PT ####[address] Calcium [Mass/Vol] 9.7 mg/dL Normal 8.6-10.3 [facility] Comment on above: Performed By: #### C UBLD, PTT, CBC, CMP, PT ####[address] Chloride [Moles/Vol] 102 mmol/L Normal 98-107 [facility] Comment on above: Performed By: #### C UBLD, PTT, CBC, CMP, PT ####[address] CO2 [Moles/Vol] 24.1 mmol/L Normal 21.0-31.0 [facility] Comment on above: Performed By: #### C UBLD, PTT, CBC, CMP, PT ####[address] Creatinine [Mass/Vol] 1.13 mg/dL Normal 0.70-1.30 [facility] Comment on above: Performed By: #### C UBLD, PTT, CBC, CMP, PT ####[address] Creatinine Clr Calc Pharmacy 132.89 Normal [facility] Comment on above: Result Comment: PERF ORMED BY: [facility] [address] [place] [address] PATHOLOGIST OFFICIAL GREETER MALIK CONN M.D. Performed By: #### C UBLD, PTT, CBC, CMP, PT ####[address] GFR/1.73 sq M.predicted MDRD (S/P/Bld) [Vol rate/Area] mL/min/{1.73_m2} [facility] Comment on above: Performed By: #### C UBLD, PTT, CBC, CMP, PT ####[address] Globulin (S) [Mass/Vol] 3.0 g/dL [facility] Comment on above: Performed By: #### C UBLD, PTT, CBC, CMP, PT ####[address] Glucose [Mass/Vol] 96 mg/dL Normal 70-100 [facility] Comment on above: Result Comment: [facility] Glucose Reference Range is dependent on time and content of last meal. Glucose of more than 200 mg/dL in a nonstressed, ambulatory subject supports the diagnosis of Diabetes Mellitus. ADA recommended reference range Performed By: #### C UBLD, PTT, CBC, CMP, PT ####[address] Potassium [Moles/Vol] 3.7 mmol/L Normal 3.5-5.1 [facility] Comment on above: Performed By: #### C UBLD, PTT, CBC, CMP, PT ####[address] Protein [Mass/Vol] 7.8 g/dL Normal 6.4-8.9 [facility] Comment on above: Performed By: #### C UBLD, PTT, CBC, CMP, PT ####[id number] [facility] Sodium [Moles/Vol] 136 mmol/L Normal 136-145 [facility] Comment on above: Performed By: #### C UBLD, PTT, CBC, CMP, PT ####[address] [id number] [facility] Urea nitrogen [Mass/Vol] 8 mg/dL Normal 7-25 [facility] Comment on above: Performed By: #### C UBLD, PTT, CBC, CMP, PT ####[address] [place] [address] [place] Creatinine [Mass/volume] in Serum or PlasmaOrdered By: Coco Landry on 10-12-2022 Creatinine [Mass/Vol] 1.13 mg/dL 0.70-1.30 [facility] Dipstick and Microscopicon 0 10-12-2022 Appearance (U) Clear Normal Clear [facility] Comment on above: Order Comment: Name Collection Type:: Clean-Voided Midstream Performed By: #### A DDONUAPLUS #### [facility] [address] [place] [address] [place] Bacteria,Urine None Seen Normal None Seen [facility] Comment on above: Order Comment: Name Collection Type:: Clean-Voided Midstream Performed By: #### A DDONUAPLUS #### [facility] [address] [place] [address] [place] Bilirubin,Urine Negative Normal Negative [facility] Comment on above: Order Comment: Name Collection Type:: Clean-Voided Midstream Performed By: #### A DDONUAPLUS #### [facility] [address] [place] [address] [place] Color (U) Yellow Normal Yellow [facility] Comment on above: Order Comment: Name Collection Type:: Clean-Voided Midstream Performed By: #### A DDONUAPLUS #### [facility] [address] [place] [address] [place] Glucose Ql (U) Normal Normal Normal [facility] Comment on above: Order Comment: Name Collection Type:: Clean-Voided Midstream Performed By: #### A DDONUAPLUS #### [facility] [address] [place], [place] [id number] [place] Hyaline Casts,Urine 0-8 Normal 0-8 [facility] Comment on above: Order Comment: Name Collection Type:: Clean-Voided Midstream Result Comment: PERF ORMED BY: [place] [address] PATHOLOGIST OFFICIAL GREETER MALIK CONN M.D. Performed By: #### A DDONUAPLUS #### [facility] [address] [place] [address] [place] Ketones Ql (U) Trace High Negative [facility] Comment on above: Order Comment: Name Collection Type:: Clean-Voided Midstream Performed By: #### A DDONUAPLUS #### [address] Leukocyte esterase Test strip Ql (U) 1+ High Negative [facility] Comment on above: Order Comment: Name Collection Type:: Clean-Voided Midstream Performed By: #### A DDONUAPLUS #### [place] [address] [place] Nitrite,Urine Negative Normal Negative [facility] Comment on above: Order Comment: Name Collection Type:: Clean-Voided Midstream Performed By: #### A DDONUAPLUS #### [address] Occult Blood,Urine Negative Normal Negative [facility] Comment on above: Order Comment: Name Collection Type:: Clean-Voided Midstream Result Comment: PERF ORMED BY: [place] [address] PATHOLOGIST OFFICIAL GREETER MALIK CONN M.D. Performed By: #### A DDONUAPLUS #### [address] pH (U) 6.0 [pH] Normal 5.0-9.0 [facility] Comment on above: Order Comment: Name Collection Type:: Clean-Voided Midstream Performed By: #### A DDONUAPLUS #### [place] [address] [place] Protein,Urine Negative Normal Negative [facility] Comment on above: Order Comment: Name Collection Type:: Clean-Voided Midstream Performed By: #### A DDONUAPLUS #### [place] [address] [place] RBC LM.HPF (Urine sed) [#/Area] 0 /[HPF] Normal 0-4 [facility] Comment on above: Order Comment: Name Collection Type:: Clean-Voided Midstream Performed By: #### A DDONUAPLUS #### [address] Specificy [place],Urine 1.024 Normal 1.001-1.030 [facility] Comment on above: Order Comment: Name Collection Type:: Clean-Voided Midstream Performed By: #### A DDONUAPLUS #### [address] Squamous Epithelial Cell,Urine None Seen Normal 0-2 [facility] Comment on above: Order Comment: Name Collection Type:: Clean-Voided Midstream Performed By: #### A DDONUAPLUS #### [address] Urobilinogen,Urine Normal Normal Normal [facility] Comment on above: Order Comment: Name Collection Type:: Clean-Voided Midstream Performed By: #### A DDONUAPLUS #### [address] WBC LM.HPF (Urine sed) [#/Area] 0 /[HPF] Normal 0-4 [facility] Comment on above: Order Comment: Name Collection Type:: Clean-Voided Midstream Performed By: #### A DDONUAPLUS #### [address] ECG 12 lead ECGon 10-12-2022 ECG 12 lead ECG [facility] [place] [address] [place] [address] Electrocardiograph Report Signed Patient: Clay Newton MR#: [id number] 753 : 1995 Acct:[id number] Age/Sex: 27 / M ADM Date: 10/12/22 Loc: ER Room: Type: [facility] ER Attending Dr: Ordering Provider: [...] 49 BPM Confirmed by COCO LANDRY MD ([id number]) on 10/12/2022 3:58:27 AM Referred By: Electronically Signed By:COCO LANDRY MD Transcribed By: MUS Signed By Coco Landry Jr, MD [id number] Normal [facility] Eosinophils Auto (Bld) [#/Vo l]Ordered By: Coco Landry on 10-12-2022 Eosinophils (Bld) [#/Vol] 0.0 10*3/uL 0.0-0.45 [facility] Eosinophils/100 WBC Auto (Bl d)Ordered By: Coco Landry on 10-12-2022 Eosinophils/100 WBC (Bld) 0.1 % . [facility] Erythrocyte distribution wid th Auto (RBC) [Ratio]Ordered By: Coco Landry on 10-12-2022 Erythrocyte distribution width (RBC) [Ratio] 12.8 % 12.0-14.8 [facility] Globulin Calc (S) [Mass/Vol] Ordered By: Coco Landry on 10-12-2022 Globulin (S) [Mass/Vol] 3.0 g/dL [facility] Glucose [Mass/volume] in Ser um or PlasmaOrdered By: Coco Landry on 10-12-2022 Glucose [Mass/Vol] 96 mg/dL 70-100 [facility] Comment on above: ADA recommended refe rence rangeRandom Glucose Reference Range is dependent on time and content of last meal. Glucose of more than 200 mg/dL in a nonstressed, ambulatory subject supports the diagnosis of Diabetes Mellitus. Hematocrit Auto (Bld) [Volum e fraction]Ordered By: Coco Landry on 10-12-2022 Hematocrit (Bld) [Volume fraction] 45.8 % 38.8-50.0 [facility] Hemoglobin [Mass/volume] in BloodOrdered By: Coco Landry on 10-12-2022 Hemoglobin (Bld) [Mass/Vol] 15.9 g/dL 13.0-17.0 [facility] INR in Platelet poor plasma by Coagulation assayOrdered By: Coco Landry on 10-12-2022 INR Coag (PPP) [Relative time] 1.2 {INR} [facility] Comment on above: INR Therapeutic [...] on 10-12-2022 Ketones (U) [Mass/Vol] Trace Negative [facility] Laboratory - CoagulationOrde red By: Coco Landry on 10-12-2022 PT Coag (PPP) [Time] 14.1 s 9.0-12.9 [facility] Laboratory - UrinalysisOrder ed By: Coco Landry on 10-12-2022 Hyaline casts LM Ql (Urine sed) 0-8 [LPF] 0-8 [facility] Lactate [Moles/volume] in Se rum or PlasmaOrdered By: Coco Landry on 10-12-2022 Lactate [Moles/Vol] 0.8 mmol/L 0.5-2.2 [facility] Lactic Acidon 10-12-2022 Lactate [Moles/Vol] 0.8 mmol/L Normal 0.5-2.2 [facility] Comment on above: Result Comment: PERF ORMED BY: [place] [address] PATHOLOGIST OFFICIAL GREETER MALIK CONN M.D. Performed By: #### L ACTIC #### [address] Leukocytes [#/volume] correc chuyita for nucleated erythrocytes in Blood by Automated counOrdered By: Coco Landry on 10-12-2022 WBC corrected for nucl RBC Auto (Bld) [#/Vol] 10.2 10*3/uL 4.1-10.5 [facility] Lymphocytes Auto (Bld) [#/Vo l]Ordered By: Coco Landry on 10-12-2022 Lymphocytes (Bld) [#/Vol] 0.7 10*3/uL 1.00-4.8 [facility] Lymphocytes/100 WBC Auto (Bl d)Ordered By: Coco Landry on 10-12-2022 Lymphocytes/100 WBC (Bld) 6.8 % . [facility] MCH Auto (RBC) [Entitic mass ]Ordered By: Coco Landry on 10-12-2022 MCH (RBC) [Entitic mass] 30.3 pg 27.5-35.2 [facility] MCHC Auto (RBC) [Mass/Vol]Or dered By: Coco Landry on 10-12-2022 MCHC (RBC) [Mass/Vol] 34.8 g/dL 32.5-35.6 [facility] MCV Auto (RBC) [Entitic vol] Ordered By: Coco Landry on 10-12-2022 MCV (RBC) [Entitic vol] 87.1 fL 83.5-101 [facility] Monocyte distribution width [Entitic volume] in Blood by AutomatedOrdered By: Coco Landry on 10-12-2022 Monocyte distribution width Auto (Bld) [Entitic vol] 20.90 % 0.00-20.00 [facility] Comment on above: For adults in ED, MD W > 20.0 may be associated with a higher risk of sepsis during the first 12 hrs of hospital admission Monocytes Auto (Bld) [#/Vol] Ordered By: Coco Landry on 10-12-2022 Monocytes (Bld) [#/Vol] 0.6 10*3/uL 0.0-0.8 [facility] Monocytes/100 WBC Auto (Bld) Ordered By: Coco Landry on 10-12-2022 Monocytes/100 WBC (Bld) 5.8 % . [facility] Neutrophils Auto (Bld) [#/Vo l]Ordered By: Coco Landry on 10-12-2022 Neutrophils (Bld) [#/Vol] 8.9 10*3/uL 1.8-7.7 [facility] Neutrophils/100 WBC Auto (Bl d)Ordered By: Coco Landry on 10-12-2022 Neutrophils/100 WBC (Bld) 86.6 % . [facility] Nitrite Test strip Ql (U)Ord ered By: Coco Landry on 10-12-2022 Nitrite Ql (U) Negative Negative [facility] No Panel InformationOrdered By: Coco Landry on 10-12-2022 Estimated GFR (CKD-EPI) > 60.0 mL/Min [facility] Creatinine Clearance (Chem 132.89 [facility] Nucleated erythrocytes [Pres ence] in Blood by Automated countOrdered By: Coco Landry on 10-12-2022 Nucleated RBC Auto Ql (Bld) 0.0 /100{WBC} 0-0.5 [facility] Partial Thromboplastin Timeo n 10-12-2022 aPTT Coag (Bld) [Time] 32.4 s Normal 25.1-36.5 [facility] Comment on above: Result Comment: PERF ORMED BY: [facility] [address] [place] [address] PATHOLOGIST OFFICIAL GREETER MALIK CONN M.D. Performed By: #### C UBLD, PTT, CBC, CMP, PT ####[facility] [id number] [place] [id number] [facility] Platelet mean volume Auto (B ld) [Entitic vol]Ordered By: Coco Landry on 10-12-2022 Platelet mean volume (Bld) [Entitic vol] 8.0 fL 6.6-10.1 [facility] Platelets Auto (Bld) [#/Vol] Ordered By: Coco Landry on 10-12-2022 Platelets (Bld) [#/Vol] 326 10*3/uL 150-450 [facility] Potassium [Moles/volume] in Serum or PlasmaOrdered By: Coco Landry on 10-12-2022 Potassium [Moles/Vol] 3.7 mmol/L 3.5-5.1 [facility] Protein Auto test strip (U) [Mass/Vol]Ordered By: Coco Landry on 10-12-2022 Protein (U) [Mass/Vol] Negative Negative [facility] Protein [Mass/volume] in Ser um or PlasmaOrdered By: Coco Landry on 10-12-2022 Protein [Mass/Vol] 7.8 g/dL 6.4-8.9 [facility] Prothrombin Time INRon 10-12 INR Coag (PPP) [Relative time] 1.2 {INR} Normal [facility] Comment on above: Result Comment: [...] #### C UBLD, PTT, CBC, CMP, PT ####[facility] [id number] PT Coag (PPP) [Time] 14.1 s High 9.0-12.9 [facility] Comment on above: Performed By: #### C UBLD, PTT, CBC, CMP, PT ####[facility] [address] RBC Auto (Bld) [#/Vol]Ordere d By: Coco Landry on 10-12-2022 RBC (Bld) [#/Vol] 5.26 10*6/uL 3.90-5.60 [facility] Serum or plasma albumin/glob ulin mass ratioOrdered By: Coco Landry on 10-12-2022 Albumin/Globulin [Mass ratio] 1.6 {ratio} [facility] Serum or plasma anion gap de terminationOrdered By: Coco Landry on 10-12-2022 Anion gap [Moles/Vol] 13.6 mmol/L 6.0-15.0 [facility] Sodium [Moles/volume] in Ser um or PlasmaOrdered By: Coco Landry on 10-12-2022 Sodium [Moles/Vol] 136 mmol/L 136-145 [facility] Specific gravity Auto test s trip (U) [Rel density]Ordered By: Coco Landry on 10-12-2022 Specific gravity (U) [Rel density] 1.024 1.001-1.030 [facility] Squamous epithelial cells de tection in urine sediment by light microscopyOrdered By: Coco Landry on 10-12-2022 Epithelial cells.squamous LM Ql (Urine sed) None seen [HPF] 0-2 [facility] Urea nitrogen [Mass/volume] in Serum or PlasmaOrdered By: Coco Landry on 10-12-2022 Urea nitrogen [Mass/Vol] 8 mg/dL 7-25 [facility] Urine bacteria detection by automated methodOrdered By: Coco Landry on 10-12-2022 Bacteria Auto Ql (U) None seen None Seen [facility] Urine clarity by refractomet ry automatedOrdered By: Coco Landry on 10-12-2022 Clarity Refractometry automated (U) Clear Clear [facility] Urine glucose measurement by automated test strip (mass/volume)Ordered By: Coco Landry on 10-12-2022 Glucose Auto test strip (U) [Mass/Vol] Normal mg/dL Normal [facility] Urine hemoglobin detection b y automated test stripOrdered By: Coco Landry on 10-12-2022 Hemoglobin Auto test strip Ql (U) Negative Negative [facility] Urine leukocyte esterase det ection by automated test stripOrdered By: Coco Landry on 10-12-2022 Leukocyte esterase Auto test strip Ql (U) 1+ Negative [facility] Urobilinogen Auto test strip (U) [Mass/Vol]Ordered By: Coco Landry on 10-12-2022 Urobilinogen (U) [Mass/Vol] Normal mg/dL Normal [facility] WBC Auto (Bld) [#/Vol]Ordere d By: Coco Landry on 10-12-2022 WBC (Bld) [#/Vol] 10.2 10*3/uL 4.1-10.5 [facility] XR chest 1V portableon 10-12 XR chest 1V portable [facility] [place] [address] XRay Report Signed Patient: Clay Newton MR#: [id number] 753 : 1995 Acct:[id number] Age/Sex: 27 / M ADM Date: 10/12/22 Loc: ER Room: Type: [facility] ER Attending Dr: Copies to: Coco Landry [...] Holcomb Jr., DGardeniaOGardenia10/12/2022 9:30 AM Dictation Location: [place] [address] Transcribed By: [facility] 10/12/22929 Dictated By: Diego Holcomb Jr, DO 10/12/22928 Signed By: 10/12/22929 Normal [facility] pH Auto test strip (U)Ordere d By: Coco Landry on 10-12-2022 pH (U) 6.0 [pH] 5.0-9.0 [facility] CHEMISTRYOrdered By: SYSTEM SYSTEM on [...] FINGER MIN 2 VIEWS EXAM: XR FINGER [place] N 2 VIEWS HISTORY: Traumatic injury COMPARISON: None. TECHNIQUE: 3 views of the right finger third digit. FINDINGS: Bones: No acute or aggressive appearing bony lesion. Joints: Normal alignment. No significant degenerative change. Soft tissues: Mild soft tissue prominence about the distal third digit. IMPRESSION: No evidence of fracture. Electronically authenticated by: GERSON ALBERT Date: 2022-06-03 10:22 Normal [facility] XR CHEST 1 Von 05-20-2022 XR [...] GERSON ALBERT Date: 2022-05-20 10:19 Normal [facility] Covid-19 PCR (CVDTB)on 01-22 SARS-CoV-2 (COVID-19) RNA BARBARA+probe Ql (Unsp spec) Detected Critically abnormal NOT DETECTED [facility] Comment on above: Result Comment: This test is not yet approved or cleared by the [place] FDA. When there are no FDA-approved or cleared tests available, and other criteria are met, FDA can make tests available under an emergency access mechanism called an Emergency Use Authorization (EUA). The EUA for this test is supported by the [place] of Health and Human Service's (HHS's) declaration [...] Performed By: #### S SCRN, GRASTCX #### [facility] [address] [place] [address] Dr. Cecile Martins GROUP A STREP CULTUREon 01-22 S. pyogenes Ag Ql (Unsp spec) Culture Observations: NEGATIVE FOR GROUP A STREPTOCOCCUS. Normal [facility] Comment on above: Performed By: #### S JANY GRASTCX #### [facility] [address] [place] [address] Dr. Cecile Martins INFLUENZA A AND B AGon 02-10 INFLUANEGH SEE BELOW Normal [facility] Comment on above: Result Comment: Nega tive for Flu A protein angiten. Infection due to Flu A cannot be ruled out. Flu A angiten in the sample may be below the detection limit of the test. Performed By: #### C VDTBH #### [facility] [address] [place] [address] Dr. Cecile Martins INFLUBNEG SEE BELOW Normal [facility] Comment on above: Result Comment: Nega tive for Flu B protein antigen. Infection due to Flu B cannot be ruled out. Flu B antigen in the sample may be below the detection limit of the test. Performed By: #### C VDTBH #### [facility] [address] [place] [address] Dr. Cecile Martins INFLUENZA A AG Negative Normal NEGATIVE SEE COMMENT [facility] Comment on above: Performed By: #### C VDTBH #### [facility] [address] [place] [address] Dr. Cecile Martins INFLUENZA B AG Negative Normal NEGATIVE SEE COMMENT [facility] Comment on above: Performed By: #### C VDTBH #### [facility] [address] [place] [address] Dr. Cecile Martins INTERNAL CONTROLS Within Normal Limits Normal Wi thin Normal Limits [facility] Comment on above: Performed By: #### C VDTBH #### [facility] [address] [place] [address] Dr. Cecile Martins STREPT SCREENon 02-10-2022 STREP SCREEN A Negative Normal NEGATIVE [facility] Comment on above: Performed By: #### S JANY, GRASTCX #### [facility] [address] [place] [address] Dr. Cecile Martins CARDIAC GOLDIE ADMITon 022 CK [Catalytic activity/Vol] 178 U/L Normal 39-308 [facility] Comment on above: Performed By: #### S JANY GRASTCX #### [facility] [address] [address] [address] Cecile Martins CK.MB [Mass/Vol] 3.38 ng/mL Normal <=3.60 [facility] Comment on above: Performed By: #### S JANY GRASTCX #### [facility] [address] [place] [address] Dr. Cecile Martins HSTROP 6.9 pg/mL Normal 4.0-76.1 [facility] Comment on above: Result Comment: CUT- OFF POINTS HAVE BEEN ESTABLISHED BASED ON THE FOURTH UNIVERSAL DEFINITIONS OF MYOCARDIAL INFARCTION. THE UPPER REFERENCE LIMIT (URL) OF TROPONIN, DEFINED THE 99TH PERCENTILE OF cTnI DISTRIBUTION IN A REFERENCE POPULATION, HAS BEEN CONFIRMED THE DECISION THRESHOLD FOR [place] DIAGNOSIS. Performed By: #### S JANY GRASTCX #### [facility] [address] [place] [address] Dr. Cecile Martins KELLEY 109 ng/mL Critically high 16-96 [facility] Comment on above: Performed By: #### S JANY GRASTCX #### [facility] [address] [place] [address] Dr. Cecile Martins CBC AUTO DIFFon 01-20-2022 BASO # 0.1 103/ul Normal 0.0-0.1 [facility] Comment on above: Performed By: #### C BC #### [facility] [address] [place] [address] Dr. Cecile Martins Basophils/100 WBC (Bld) 1.0 % Normal 0.2-2.0 [facility] Comment on above: Performed By: #### C BC #### [facility] [address] [place] [address] Dr. Cecile Martins EO # 0.9 103/ul Critically high 0.0-0.7 [facility] Comment on above: Performed By: #### C BC #### [facility] [address] [place] [address] Dr. Cecile Martins Eosinophils/100 WBC (Bld) 10.3 % Critically high 0.9-7.0 [facility] Comment on above: Performed By: #### C BC #### [facility] [address] [place] [address] Dr. Cecile Martins Erythrocyte distribution width (RBC) [Ratio] 12.5 % Normal 11.0-15.0 [facility] Comment on above: Performed By: #### C BC #### [facility] [address] [place] [address] Dr. Cecile Martins Hematocrit (Bld) [Volume fraction] 44.6 % Normal 42.0-54.0 [facility] Comment on above: Performed By: #### C BC #### [facility] [address] [place] [address] Dr. Cecile Martins Hemoglobin (Bld) [Mass/Vol] 15.4 g/dL Normal 14.0-18.0 [facility] Comment on above: Performed By: #### C BC #### [facility] [address] [place] [address] Dr. Cecile Martins IG # 0.03 10e3/ul Normal 0.00-0.03 [facility] Comment on above: Performed By: #### C BC #### [facility] [address] [place] [address] Dr. Cecile Martins IG % 0.3 % Normal 0.0-0.5 [facility] Comment on above: Performed By: #### C BC #### [facility] [address] [place] [address] Dr. Cecile Martins LYMPH # 2.1 103/ul Normal 1.2-3.8 [facility] Comment on above: Performed By: #### C BC #### [facility] [address] [place] [address] Dr. Cecile Martins Lymphocytes/100 WBC (Bld) 23.4 % Normal 20.5-60.0 [facility] Comment on above: Performed By: #### C BC #### [facility] [address] [place] [address] Dr. Cecile Martins MANUAL DIFF REQ NO Normal [facility] Comment on above: Performed By: #### C BC #### [facility] [address] [address] [address] Cecile Martins MCH (RBC) [Entitic mass] 30.3 pg Normal 25.9-34.0 [facility] Comment on above: Performed By: #### C BC #### [facility] [address] [place] [address] Dr. Cecile Martins MCHC (RBC) [Mass/Vol] 34.5 g/dL Normal 29.9-35.2 [facility] Comment on above: Performed By: #### C BC #### [facility] [address] [place] [address] Dr. Cecile Martins MCV (RBC) [Entitic vol] 87.8 fL Normal 80.0-94.0 [facility] Comment on above: Performed By: #### C BC #### [facility] [address] [place] [address] Dr. Cecile Martins MONO # 0.8 103/ul Normal 0.3-0.8 [facility] Comment on above: Performed By: #### C BC #### [facility] [address] [place] [address] Dr. Cecile Martins Monocytes/100 WBC (Bld) 8.8 % Normal 1.7-12.0 [facility] Comment on above: Performed By: #### C BC #### [facility] [address] [place] [address] Dr. Cecile Martins NEUT # 5.0 103/ul Normal 1.4-6.5 [facility] Comment on above: Performed By: #### C BC #### [facility] [address] [place] [address] Dr. Cecile Martins Neutrophils/100 WBC (Bld) 56.2 % Normal 43.0-75.0 [facility] Comment on above: Performed By: #### C BC #### [facility] [address] [place] [address] Dr. Cecile Martins Platelet mean volume (Bld) [Entitic vol] 9.5 fL Normal 9.5-13.5 [facility] Comment on above: Performed By: #### C BC #### [facility] [address] [address] [address] Cecile Martins PLT 336 103/ul Normal 150-450 [facility] Comment on above: Performed By: #### C BC #### [facility] [address] [place] [address] Dr. Cecile Martins RBC 5.08 106/ul Normal 4.70-6.10 [facility] Comment on above: Performed By: #### C BC #### [facility] [address] [place] [address] Dr. Cecile Martins WBC 8.8 103/ul Normal 4.0-11.0 [facility] Comment on above: Performed By: #### C BC #### [facility] [address] [place] [address] Dr. Cecile Martins D-DIMERon 01-20-2022 D-DIMER 0.19 mg/L FEU Normal <=0.59 [facility] Comment on above: Performed By: #### S SCRN, GRASTCX #### [facility] [address] [place] [address] Dr. Cecile Martins D-DIMER COMMENTS SEE BELOW Normal [facility] Comment on above: Result Comment: Incr [...] Performed By: #### S SCRN GRASTCX #### [facility] [address] [place] [address] Dr. Cecile Martins PROF 14(COMP METB)on 022 Albumin [Mass/Vol] 4.3 g/dL Normal 3.4-5.0 [facility] Comment on above: Performed By: #### S SCRN, GRASTCX #### [facility] [address] [address] [address] Cecile Martins Albumin/Globulin [Mass ratio] 1.2 {ratio} Normal [facility] Comment on above: Performed By: #### S SCRN, GRASTCX #### [facility] [address] [address] [address] Cecile Martins ALP [Catalytic activity/Vol] 98 U/L Normal 46-116 [facility] Comment on above: Performed By: #### S SCRN, GRASTCX #### [facility] [address] [address] [address] Cecile Martins ALT [Catalytic activity/Vol] 52 U/L Normal 16-63 [facility] Comment on above: Performed By: #### S SCRN, GRASTCX #### [facility] [address] [place] [address] Dr. eCcile Martins Anion gap [Moles/Vol] 11.8 mmol/L Normal [facility] Comment on above: Performed By: #### S SCRN, GRASTCX #### [facility] [address] [place] [address] Dr. Cecile Martins AST [Catalytic activity/Vol] 25 U/L Normal 15-37 [facility] Comment on above: Performed By: #### S SCRN, GRASTCX #### [facility] [address] [place] [address] Dr. Cecile Martins Bilirubin [Mass/Vol] 0.6 mg/dL Normal 0.2-1.0 [facility] Comment on above: Performed By: #### S SCRN, GRASTCX #### [facility] [address] [place] [address] Dr. Cecile Martins Calcium [Mass/Vol] 9.7 mg/dL Normal 8.5-10.1 [facility] Comment on above: Performed By: #### S SCRN, GRASTCX #### [facility] [address] [place] [address] Dr. Cecile Martins Chloride [Moles/Vol] 101 mmol/L Normal 98-107 [facility] Comment on above: Performed By: #### S SCRN, GRASTCX #### [facility] [address] [address] [address] Cecile Martins CO2 [Moles/Vol] 29.2 mmol/L Normal 21.0-32.0 [facility] Comment on above: Performed By: #### S SCRN, GRASTCX #### [facility] [address] [address] [address] Cecile Martins Creatinine [Mass/Vol] 1.11 mg/dL Normal 0.70-1.30 [facility] Comment on above: Performed By: #### S SCRN, GRASTCX #### [facility] [address] [address] [address] Cecile Martins EGFR-AF NAURUAN >60 Normal >=60 [facility] Comment on above: Performed By: #### S SCRN, GRASTCX #### [facility] [address] [address] [address] Cecile Martins EGFR-NON AF NAURUAN >60 Normal >=60 [facility] Comment on above: Performed By: #### S SCRN, GRASTCX #### [facility] [address] [address] [address] Cecile Martins Globulin (S) [Mass/Vol] 3.6 g/dL Normal [facility] Comment on above: Performed By: #### S SCRN, GRASTCX #### [facility] [address] [address] [address] Cecile Martins Glucose [Mass/Vol] 99 mg/dL Normal 74-106 [facility] Comment on above: Performed By: #### S SCRN, GRASTCX #### [facility] [address] [address] [address] Cecile Martins Potassium [Moles/Vol] 4.0 mmol/L Normal 3.5-5.1 [facility] Comment on above: Performed By: #### S SCRN, GRASTCX #### [facility] [address] [address] [address] Cecile Martins Protein [Mass/Vol] 7.9 g/dL Normal 6.4-8.2 [facility] Comment on above: Performed By: #### S SCRN, GRASTCX #### [facility] [address] [address] [address] Cecile Martins Sodium [Moles/Vol] 138 mmol/L Normal 136-145 [facility] Comment on above: Performed By: #### S SCRN, GRASTCX #### [facility] [address] [address] [address] Cecile Martins Urea nitrogen [Mass/Vol] 17.0 mg/dL Normal 7.0-18.0 [facility] Comment on above: Performed By: #### S SCRN, GRASTCX #### [facility] [address] [place] [address] Dr. Cecile Martins Urea nitrogen/Creatinine [Mass ratio] 15.3 mg/mg Normal [facility] Comment on above: Performed By: #### S SCRN, GRASTCX #### [facility] [address] [place] [address] Dr. Cecile Martins XR CHEST 1 Von [...] by: INDERJIT RUBIO Date: 2022-01-19 23:35 Normal [facility] Cholesterol [Mass/volume] in Serum or PlasmaOrdered By: Peter Grady on 12-29-2021 Cholesterol [Mass/Vol] 176 mg/dL 140-200 [facility] Comment on above: Chol less than 200 m g/dl low riskChol 201-239 mg/dl borderline riskChol 240 mg/dl and greater high risk Cholesterol in LDL Calc [Mas s/Vol]Ordered By: Peter Grady on 12-29-2021 Cholesterol in LDL [Mass/Vol] 118 mg/dL 0-100 [facility] Comment on above: LDL ATP III CLASSIFI CATIONLDL less than 100 mg/dL OptimalLDL 100-129 mg/dL Near or above optimalLDL 130-159 mg/dL Borderline highLDL 160-189 mg/dL HighLDL greater than 189 mg/dL Very high Cholesterol in VLDL Calc [Ma ss/Vol]Ordered By: Peter Grady on 12-29-2021 Cholesterol in VLDL [Mass/Vol] 25 mg/dL [facility] ECG 12 lead ECGon 12-29-2021 ECG 12 lead ECG [facility] [place] [address] [place] [id number] Electrocardiograph Report Signed Patient: Clay Newton MR#: [id number] [id number] : 1995 Acct:[id number] Age/Sex: 26 / M ADM Date: 12/28/21 Loc: Room: [address] [place] [address] Type: DIS IN Attending Dr: Elizabet Grady [...] previous ECGs available Confirmed by MARIE BELL [facility] Tejeda ([id number]) on 12/29/2021 11:11:47 AM Referred By: Electronically Signed By:BROWN SALAZAR MD FAC Transcribed By: MUS Signed By Kingsley Salazar MD 12/29/21 1111 Normal [facility] Lipid Panelon 12-29-2021 Cholesterol [Mass/Vol] 176 mg/dL Normal 140-200 [facility] Comment on above: Result Comment: Chol less than 200 mg/dl low risk Chol 201-239 mg/dl borderline risk Chol 240 mg/dl and greater high risk Performed By: #### T SH3 wRFLX, LIPID, [id number] #### [facility] [address] Cholesterol in HDL [Mass/Vol] 33 mg/dL Normal 29-71 [facility] Comment on above: Result Comment: HDL CHOL ATP-III CLASSIFICATION Cardiovascular Risk HDL > or equal to 60 mg/dL LOW HDL < 40 mg/dL HIGH Performed By: #### T SH3 wRFLX, LIPID, [id number] #### [facility] [address] Cholesterol.total/Cho lesterol in HDL [Mass ratio] 5.3 {ratio} Normal <5.0 [facility] Comment on above: Performed By: #### T SH3 wRFLX, LIPID, [id number] #### [address] LDL Cholesterol,Calculate d 118 mg/dL High 0-100 [facility] Comment on above: Result Comment: LDL ATP III CLASSIFICATION LDL less than 100 mg/dL Optimal LDL 100-129 mg/dL Near or above optimal LDL 130-159 mg/dL Borderline high LDL 160-189 mg/dL High LDL greater than 189 mg/dL Very high Performed By: #### T SH3 wRFLX, LIPID, [id number] #### [address] Triglyceride w/Reflex 126 mg/dL Normal 35-149 [facility] Comment on above: Result Comment: TRIG ATP III CLASSIFICATION TRIG less than 150 mg/dL Normal TRIG 150-199 mg/dL Borderline high TRIG 200-500 mg/dL High TRIG greater than 500 mg/dL Very high Standard traceable to the Center for Disease Conrtrol and Prevention (CDC) test method. Performed By: #### T SH3 wRFLX, LIPID, [id number] #### [facility] [address] VLDL CHOLESTEROL 25 mg/dL Normal [facility] Comment on above: Performed By: #### T SH3 wRFLX, LIPID, [id number] #### [facility] [address] No Panel InformationOrdered By: Peter Grady on 12-29-2021 25-Hydroxy Vitamin D Total 15.0 ng/mL 30-100 [facility] Comment on above: VITAMIN D [...] Cholesterol in HDL [Mass/Vol] 33 mg/dL 29-71 [facility] Comment on above: HDL CHOL ATP-III CLA SSIFICATION Cardiovascular RiskHDL > or equal to 60 mg/dL LOWHDL < 40 mg/dL HIGH Serum or plasma total choles terol/high density lipoprotein (HDL) cholesterol mass ratOrdered By: Peter Grady on 12-29-2021 Cholesterol.total/Cho lesterol in HDL [Mass ratio] 5.3 {ratio} <5.0 [facility] TSH DL <= 0.005 mIU/L QnOrde red By: Peter Gardy on 12-29-2021 TSH Qn 0.64 m[IU]/L 0.45-5.33 [facility] Thyroid Stim Hormone w/Rflxo n 12-29-2021 Thyroid Stim Hormone w/Rflx 0.64 u[iU]/mL Normal 0.45-5.33 [facility] Comment on above: Performed By: #### T SH3 wRFLX, LIPID, [id number] #### [address] Triglyceride [Mass/volume] i n Serum or PlasmaOrdered By: Peter Grady on 12-29-2021 Triglyceride [Mass/Vol] 126 mg/dL 35-149 [facility] Comment on above: TRIG ATP III CLASSIF ICATIONTRIG less than 150 mg/dL NormalTRIG 150-199 mg/dL Borderline highTRIG 200-500 mg/dL High TRIG greater than 500 mg/dL Very highStandard traceable to the Center for Disease Conrtrol and Prevention (CDC) test method. Vitamin D 25 Hydroxy Totalon 12-29-2021 Vitamin D 25 Hydroxy Total 15.0 ng/mL Low 30-100 [facility] Comment on above: Result Comment: ANANYA MIN D STATUS 25(OH)VITAMIN D RANGE (ng/mL) Deficient <20 Insufficient 20 to <30 Sufficient 30 to 100 Reference: Adelia MF,Joseph NC, Kim FARMER, et al. Evaluation,treatment, and prevention of vitamin D deficiency; an Endocrine Society clinical practice guideline. JCEM. 2010; 96(7):1911-30. PERFORMED BY: [place] [address] PATHOLOGIST [employer]ICIAL [employer]ETER MALIK CONN M.D. Performed By: #### T SH3 wRFLX, LIPID, [id number] #### [address] ACETAMINOPHENon 12-28-2021 Acetaminophen [Mass/Vol] ug/mL Critically low 10.0-30.0 [facility] Comment on above: Performed By: #### S SCRN, GRASTCX #### [facility] [address] [place] [address] Dr. Cecile Martins CBC AUTO DIFFon 12-28-2021 BASO # 0.1 103/ul Normal 0.0-0.1 [facility] Comment on above: Performed By: #### C BC #### [facility] [address] [address] [address] Cecile Martins Basophils/100 WBC (Bld) 0.9 % Normal 0.2-2.0 [facility] Comment on above: Performed By: #### C BC #### [facility] [address] [address] [address] Cecile Martins EO # 0.8 103/ul Critically high 0.0-0.7 [facility] Comment on above: Performed By: #### C BC #### [facility] [address] [place] [address] Dr. Cecile Martins Eosinophils/100 WBC (Bld) 9.3 % Critically high 0.9-7.0 [facility] Comment on above: Performed By: #### C BC #### [facility] [address] [place] [address] Dr. Cecile Martins Erythrocyte distribution width (RBC) [Ratio] 12.3 % Normal 11.0-15.0 [facility] Comment on above: Performed By: #### C BC #### [facility] [address] [place] [address] Dr. Cecile Martins Hematocrit (Bld) [Volume fraction] 44.7 % Normal 42.0-54.0 [facility] Comment on above: Performed By: #### C BC #### [facility] [address] [place] [address] Dr. Cecile Martins Hemoglobin (Bld) [Mass/Vol] 15.5 g/dL Normal 14.0-18.0 [facility] Comment on above: Performed By: #### C BC #### [facility] [address] [place] [address] Dr. Cecile Martins IG # 0.02 10e3/ul Normal 0.00-0.03 [facility] Comment on above: Performed By: #### C BC #### [facility] [address] [place] [address] Dr. Cecile Martins IG % 0.2 % Normal 0.0-0.5 [facility] Comment on above: Performed By: #### C BC #### [facility] [address] [place] [address] Dr. Cecile Martins LYMPH # 3.0 103/ul Normal 1.2-3.8 [facility] Comment on above: Performed By: #### C BC #### [facility] [address] [place] [address] Dr. Cecile Martins Lymphocytes/100 WBC (Bld) 34.7 % Normal 20.5-60.0 [facility] Comment on above: Performed By: #### C BC #### [facility] [address] [place] [address] Dr. Cecile Martins MANUAL DIFF REQ NO Normal [facility] Comment on above: Performed By: #### C BC #### [facility] [address] [address] [address] Cecile Martins MCH (RBC) [Entitic mass] 30.3 pg Normal 25.9-34.0 [facility] Comment on above: Performed By: #### C BC #### [facility] [address] [place] [address] Dr. Cecile Martins MCHC (RBC) [Mass/Vol] 34.7 g/dL Normal 29.9-35.2 [facility] Comment on above: Performed By: #### C BC #### [facility] [address] [place] [address] Dr. Cecile Martins MCV (RBC) [Entitic vol] 87.3 fL Normal 80.0-94.0 [facility] Comment on above: Performed By: #### C BC #### [facility] [address] [place] [address] Dr. Cecile Martins MONO # 0.7 103/ul Normal 0.3-0.8 [facility] Comment on above: Performed By: #### C BC #### [facility] [address] [place] [address] Dr. Cecile Martins Monocytes/100 WBC (Bld) 8.1 % Normal 1.7-12.0 [facility] Comment on above: Performed By: #### C BC #### [facility] [address] [place] [address] Dr. Cecile Martins NEUT # 4.0 103/ul Normal 1.4-6.5 [facility] Comment on above: Performed By: #### C BC #### [facility] [address] [place] [address] Dr. Cecile Martins Neutrophils/100 WBC (Bld) 46.8 % Normal 43.0-75.0 [facility] Comment on above: Performed By: #### C BC #### [facility] [address] [place] [address] Dr. Cecile Martins Platelet mean volume (Bld) [Entitic vol] 9.8 fL Normal 9.5-13.5 [facility] Comment on above: Performed By: #### C BC #### [facility] [address] [address] [address] Cecile Martins PLT 386 103/ul Normal 150-450 [facility] Comment on above: Performed By: #### C BC #### [facility] [address] [address] [address] Cecile Martins RBC 5.12 106/ul Normal 4.70-6.10 [facility] Comment on above: Performed By: #### C BC #### [facility] [address] [address] [address] Cecile Martins WBC 8.6 103/ul Normal 4.0-11.0 [facility] Comment on above: Performed By: #### C BC #### [facility] [address] [place] [address] Dr. Cecile Martins Covid-19 PCR ([facility])on SARS-CoV-2 (COVID-19) RNA BARBARA+probe Ql (Unsp spec) Not detected Normal NOT DETECTED [facility] Comment on above: Result Comment: When [...] for this test is supported by the [place] of Health and Human Service's declaration that [...] Performed By: #### S SCRN, GRASTCX #### [facility] [address] [place] [address] Dr. Cecile Martins DRUG SCREEN RAPID (URINE)on 12-28-2021 AMP Negative Normal NEGATIVE [facility] Comment on above: Performed By: #### D RUGRPD, ERUR #### [facility] [address] [place] [address] Dr. Cecile Martins BAR Negative Normal NEGATIVE [facility] Comment on above: Performed By: #### D RUGRPD, ERUR #### [facility] [address] [place] [address] Dr. Cecile Martins BUP Negative Normal NEGATIVE [facility] Comment on above: Performed By: #### D RUGRPD, ERUR #### [facility] [address] [place] [address] Dr. Cecile Martins BZO Negative Normal NEGATIVE [facility] Comment on above: Performed By: #### D RUGRPD, ERUR #### [facility] [address] [place] [address] Dr. Cecile Martins PEYTON Negative Normal NEGATIVE [facility] Comment on above: Performed By: #### D RUGRPD, ERUR #### [facility] [address] [place] [address] Dr. Cecile Martins CUT-OFFS SEE BELOW Normal [facility] Comment on above: Result Comment: AMP [...] Performed By: #### D RUGRPD, ERUR #### [facility] [address] [place] [address] Dr. Cecile Martins DRUG CUT HEADER DRUG CLASS TEST SYST EM CUT-OFF CONCENTRATIONS ARE FOLLOWS: Normal [facility] Comment on above: Performed By: #### D RUGRPD, ERUR #### [facility] [address] [address] [address] Cecile Martins mAMP Negative Normal NEGATIVE [facility] Comment on above: Performed By: #### D RUGRPD, ERUR #### [facility] [address] [place] [address] Dr. Cecile Martins MTD Negative Normal NEGATIVE [facility] Comment on above: Performed By: #### D RUGRPD, ERUR #### [facility] [address] [place] [address] Dr. Cecile Martins OPI Negative Normal NEGATIVE [facility] Comment on above: Performed By: #### D RUGRPD, ERUR #### [facility] [address] [place] [address] Dr. Cecile Martins OXY Negative Normal NEGATIVE [facility] Comment on above: Performed By: #### D RUGRPD, ERUR #### [facility] [address] [place] [address] Dr. Cecile Martins PCP Negative Normal NEGATIVE [facility] Comment on above: Performed By: #### D RUGRPD, ERUR #### [facility] [address] [place] [address] Dr. Cecile Martins PPX Negative Normal NEGATIVE [facility] Comment on above: Performed By: #### D RUGRPD, ERUR #### [facility] [address] [place] [address] Dr. Cecile Martins TCA Negative Normal NEGATIVE [facility] Comment on above: Performed By: #### D RUGRPD, ERUR #### [facility] [address] [place] [address] Dr. Cecile Martins THC Positive Abnormal NEGATIVE [facility] Comment on above: Performed By: #### D RUGRPD, ERUR #### [facility] [address] [place] [address] Dr. Cecile Martins ER URINE PROFILEon 2 Bilirubin Ql (U) Negative Normal NEGATIVE [facility] Comment on above: Performed By: #### D RUGRPD, ERUR #### [facility] [address] [place] [address] Dr. Cecile Martins Clarity (U) CLEAR Normal CLEAR [facility] Comment on above: Performed By: #### D MARYANN, ERUR #### [facility] [address] [place] [address] Dr. Cecile Martins Color (U) YELLOW Normal YELLOW [facility] Comment on above: Performed By: #### D MARYANN, ERUR #### [facility] [address] [place] [address] Dr. Cecile ROMEROAHKala A micrscopic examina tion will be performed if indicated. Normal [facility] Comment on above: Performed By: #### Kala WOLF, ERUR #### [facility] [address] [place] [address] Dr. Cecile Martins Glucose Ql (U) Negative Normal NEGATIVE [facility] Comment on above: Performed By: #### Kala WOLF, ERUR #### [facility] [address] [place] [address] Dr. Cecile Martins Hemoglobin Ql (U) Negative Normal NEGATIVE [facility] Comment on above: Performed By: #### Kala WOLF, ERUR #### [facility] [address] [place] [address] Dr. Cecile Martins Ketones Ql (U) Negative Normal NEGATIVE [facility] Comment on above: Performed By: #### Kala WOLF, ERUR #### [facility] [address] [place] [address] Dr. Cecile Martins LEUKOCYTES Negative Normal NEGATIVE [facility] Comment on above: Performed By: #### D MARYANN, ERUR #### [facility] [address] [place] [address] Dr. Cecile Martins Nitrite Ql (U) Negative Normal NEGATIVE [facility] Comment on above: Performed By: #### Kala WOLF, ERUR #### [facility] [address] [place] [address] Dr. Cecile Martins pH (U) 6.0 [pH] Normal 5-9 [facility] Comment on above: Performed By: #### D MARYANN, ERUR #### [facility] [address] [place] [address] Dr. Cecile Martins SPEC GRAVITY >=1.030 Abnormal 1.005-<=1.025 [facility] Comment on above: Performed By: #### D MARYANN, ERUR #### [facility] [address] [place] [address] Dr. Ceclie Martins UA PROTEIN Negative Normal NEGATIVE/ TRACE [facility] Comment on above: Performed By: #### D MARYANN, ERUR #### [facility] [address] [place] [address] Dr. Cecile Martins UR MICRO IND NOT INDICATED Normal [facility] Comment on above: Performed By: #### D MARYANN, ERUR #### [facility] [address] [place] [address] Dr. Cecile Martins Urobilinogen Qn (U) 0.2 {Ally'U}/dL Normal 0.2 - 1. 0 [facility] Comment on above: Performed By: #### D MARYANN, ERUR #### [facility] [address] [place] [address] Dr. Cecile Martins ETHANOL (BLD ALC)on 12-29-19 22 ALC NOTE NOTE: 80 mg/dl is th e legal limit for a blood alcohol level Normal [facility] Comment on above: Performed By: #### Shayla CARMICHAEL GRASTCX #### [facility] [address] [place] [address] Dr. Cecile Martins Ethanol [Mass/Vol] mg/dL Normal [facility] Comment on above: Performed By: #### S JANY GRASTCX #### [facility] [address] [place] [address] Dr. Cecile Martins PROF 14(COMP METB)on 022 Albumin [Mass/Vol] 4.4 g/dL Normal 3.4-5.0 [facility] Comment on above: Performed By: #### Shayla CARMICHAEL GRASTCX #### [facility] [address] [place] [address] Dr. Cecile Martins Albumin/Globulin [Mass ratio] 1.2 {ratio} Normal [facility] Comment on above: Performed By: #### S JANY GRASTCX #### [facility] [address] [place] [address] Dr. Cecile Martins ALP [Catalytic activity/Vol] 92 U/L Normal 46-116 [facility] Comment on above: Performed By: #### S JANY GRASTCX #### [facility] [address] [address] [address] Cecile Martins ALT [Catalytic activity/Vol] 41 U/L Normal 16-63 [facility] Comment on above: Performed By: #### S JANY GRASTCX #### [facility] [address] [place] [address] Dr. Cecile Martins Anion gap [Moles/Vol] 11.6 mmol/L Normal [facility] Comment on above: Performed By: #### S JANY GRASTCX #### [facility] [address] [place] [address] Dr. Cecile Martins AST [Catalytic activity/Vol] 20 U/L Normal 15-37 [facility] Comment on above: Performed By: #### S JANY GRASTCX #### [facility] [address] [place] [address] Dr. Cecile Martins Bilirubin [Mass/Vol] 0.6 mg/dL Normal 0.2-1.0 [facility] Comment on above: Performed By: #### S JANY, GRASTCX #### [facility] [address] [place] [address] Dr. Cecile Martins Calcium [Mass/Vol] 9.3 mg/dL Normal 8.5-10.1 [facility] Comment on above: Performed By: #### S JANY, GRASTCX #### [facility] [address] [place] [address] Dr. Cecile Martins Chloride [Moles/Vol] 103 mmol/L Normal 98-107 [facility] Comment on above: Performed By: #### S JANY, GRASTCX #### [facility] [address] [address] [address] Cecile Martins CO2 [Moles/Vol] 26.2 mmol/L Normal 21.0-32.0 [facility] Comment on above: Performed By: #### S SCRN, GRASTCX #### [facility] [address] [address] [address] Cecile Martins Creatinine [Mass/Vol] 1.11 mg/dL Normal 0.70-1.30 [facility] Comment on above: Performed By: #### S SCRN, GRASTCX #### [facility] [address] [address] [address] Cecile Martins EGFR-AF NAURUAN >60 Normal >=60 [facility] Comment on above: Performed By: #### S SCRN, GRASTCX #### [facility] [address] [place] [address] Dr. Cecile Martins EGFR-NON AF NAURUAN >60 Normal >=60 [facility] Comment on above: Performed By: #### S SCRN, GRASTCX #### [facility] [address] [address] [address] Cecile Martins Globulin (S) [Mass/Vol] 3.6 g/dL Normal [facility] Comment on above: Performed By: #### S SCRN, GRASTCX #### [facility] [address] [place] [address] Dr. Cecile Martins Glucose [Mass/Vol] 109 mg/dL Critically high 74-106 [facility] [place] Comment on above: Performed By: #### S SCRN, GRASTCX #### [facility] [address] [address] [address] Cecile Martins Potassium [Moles/Vol] 3.8 mmol/L Normal 3.5-5.1 [facility] Comment on above: Performed By: #### S SCRN, GRASTCX #### [facility] [address] [address] [address] Cecile Martins Protein [Mass/Vol] 8.0 g/dL Normal 6.4-8.2 [facility] Comment on above: Performed By: #### S SCRN, GRASTCX #### [facility] [address] [place] [address] Dr. Cecile Martins Sodium [Moles/Vol] 137 mmol/L Normal 136-145 [facility] Comment on above: Performed By: #### S SCRN, GRASTCX #### [facility] [address] [place] [address] Dr. Cecile Martins Urea nitrogen [Mass/Vol] 11.0 mg/dL Normal 7.0-18.0 [facility] Comment on above: Performed By: #### S SCRN, GRASTCX #### [facility] [address] [place] [address] Dr. Cecile Martins Urea nitrogen/Creatinine [Mass ratio] 9.9 mg/mg Normal [facility] Comment on above: Performed By: #### S SCRN, GRASTCX #### [facility] [address] [place] [address] Dr. Cecile Martins SALICYLATEon 12-28-2021 SALICYLATE <2.8 Normal <=19.9 [facility] Comment on above: Performed By: #### S SCRN GRASTCX #### [facility] [address] [place] [address] Dr. Cecile Martins CBC AUTO DIFFon 11-19-2021 BASO # 0.1 103/ul Normal 0.0-0.1 [facility] Comment on above: Performed By: #### S SCRN, GRASTCX #### [facility] [address] [place] [address] Dr. Cecile Martins Basophils/100 WBC (Bld) 0.6 % Normal 0.2-2.0 [facility] Comment on above: Performed By: #### S SCRN, GRASTCX #### [facility] [address] [place] [address] Dr. Cecile Martins EO # 0.1 103/ul Normal 0.0-0.7 [facility] Comment on above: Performed By: #### S SCRN, GRASTCX #### [facility] [address] [place] [address] Dr. Cecile Martins Eosinophils/100 WBC (Bld) 0.6 % Critically low 0.9-7.0 [facility] Comment on above: Performed By: #### S SCRN, GRASTCX #### [facility] [address] [place] [address] Dr. Cecile Martins Erythrocyte distribution width (RBC) [Ratio] 12.3 % Normal 11.0-15.0 [facility] Comment on above: Performed By: #### S SCRN, GRASTCX #### [facility] [address] [place] [address] Dr. Cecile Martins Hematocrit (Bld) [Volume fraction] 41.7 % Critically low 42.0-54.0 [facility] Comment on above: Performed By: #### S SCRN, GRASTCX #### [facility] [address] [place] [address] Dr. Cecile Martins Hemoglobin (Bld) [Mass/Vol] 14.5 g/dL Normal 14.0-18.0 [facility] Comment on above: Performed By: #### S SCRN, GRASTCX #### [facility] [address] [place] [address] Dr. Cecile Martins IG # 0.03 10e3/ul Normal 0.00-0.03 [facility] Comment on above: Performed By: #### S SCRN, GRASTCX #### [facility] [address] [place] [address] Dr. Cecile Martins IG % 0.4 % Normal 0.0-0.5 [facility] Comment on above: Performed By: #### S SCRN, GRASTCX #### [facility] [address] [place] [address] Dr. Cecile Martins LYMPH # 1.1 103/ul Critically low 1.2-3.8 [facility] Comment on above: Performed By: #### S SCRN, GRASTCX #### [facility] [address] [place] [address] Dr. Cecile Martins Lymphocytes/100 WBC (Bld) 12.8 % Critically low 20.5-60.0 [facility] Comment on above: Performed By: #### S JANY GRASTCX #### [facility] [address] [place] [address] Dr. Cecile Martins MANUAL DIFF REQ NO Normal [facility] Comment on above: Performed By: #### S JANY GRASTCX #### [facility] [address] [place] [address] Dr. Cecile Martins MCH (RBC) [Entitic mass] 30.3 pg Normal 25.9-34.0 [facility] Comment on above: Performed By: #### S JANY GRASTCX #### [facility] [address] [place] [address] Dr. Cecile Martins MCHC (RBC) [Mass/Vol] 34.8 g/dL Normal 29.9-35.2 [facility] Comment on above: Performed By: #### S JANY GRASTCX #### [facility] [address] [place] [address] Dr. Cecile Martins MCV (RBC) [Entitic vol] 87.1 fL Normal 80.0-94.0 [facility] Comment on above: Performed By: #### S JANY GRASTCX #### [facility] [address] [place] [address] Dr. Cecile Martins MONO # 1.2 103/ul Critically high 0.3-0.8 [facility] Comment on above: Performed By: #### S JANY GRASTCX #### [facility] [address] [place] [address] Dr. Cecile Martins Monocytes/100 WBC (Bld) 14.1 % Critically high 1.7-12.0 [facility] Comment on above: Performed By: #### S JANY GRASTCX #### [facility] [address] [place] [address] Dr. Cecile Martins NEUT # 6.0 103/ul Normal 1.4-6.5 [facility] Comment on above: Performed By: #### S JANY GRASTCX #### [facility] [address] [place] [address] Dr. Cecile Martins Neutrophils/100 WBC (Bld) 71.5 % Normal 43.0-75.0 [facility] Comment on above: Performed By: #### Shayla CARMICHAEL, GRASTCX #### [facility] [address] [place] [address] Dr. Cecile Martins Platelet mean volume (Bld) [Entitic vol] 10.1 fL Normal 9.5-13.5 [facility] Comment on above: Performed By: #### S JANY, GRASTCX #### [facility] [address] [place] [address] Dr. Cecile Martins PLT 298 103/ul Normal 150-450 [facility] Comment on above: Performed By: #### S JANY, GRASTCX #### [facility] [address] [place] [address] Dr. Cecile Martins RBC 4.79 106/ul Normal 4.70-6.10 [facility] Comment on above: Performed By: #### Shayla CARMICHAEL, GRASTCX #### [facility] [address] [place] [address] Dr. Cecile Martins WBC 8.4 103/ul Normal 4.0-11.0 [facility] Comment on above: Performed By: #### Shayla CARMICHAEL, GRASTCX #### [facility] [address] [place] [address] Dr. Cecile Martins CULTURE BLOODon 11-19-2021 Microscopic examination of blood, culture Culture Observations: NO GROWTH AT 5 DAYS. Normal [facility] Comment on above: Performed By: #### C VDTBH #### [facility] [address] [place] [address] Dr. Cecile Martins Microscopic examination of blood, culture Culture Observations: NO GROWTH AT 5 DAYS. Normal [facility] Comment on above: Performed By: #### C VDTBH #### [facility] [address] [place] [address] Dr. Cecile Martins Covid-19 PCR ([facility])on 10-23 SARS-CoV-2 (COVID-19) RNA BARBARA+probe Ql (Unsp spec) Not detected Normal NOT DETECTED [facility] Comment on above: Result Comment: When [...] for this test is supported by the [place] of Health and Human Service's declaration that [...] used). Performed By: #### C VDTB #### [facility] [address] [place] [address] Dr. Cecile Martins PROF 14(COMP METB)on 022 Albumin [Mass/Vol] 4.3 g/dL Normal 3.4-5.0 [facility] Comment on above: Performed By: #### C MP #### [facility] [address] [place] [address] Dr. Cecile Martins Albumin/Globulin [Mass ratio] 1.2 {ratio} Normal [facility] Comment on above: Performed By: #### C MP #### [facility] [address] [place] [address] Dr. Cecile Martins ALP [Catalytic activity/Vol] 102 U/L Normal 46-116 [facility] Comment on above: Performed By: #### C MP #### [facility] [address] [place] [address] Dr. Cecile Martins ALT [Catalytic activity/Vol] 47 U/L Normal 16-63 [facility] Comment on above: Performed By: #### C MP #### [facility] [address] [place] [address] Dr. Cecile Martins Anion gap [Moles/Vol] 12.5 mmol/L Normal [facility] Comment on above: Performed By: #### C MP #### [facility] [address] [place] [address] Dr. Cecile Martins AST [Catalytic activity/Vol] 24 U/L Normal 15-37 [facility] Comment on above: Performed By: #### C MP #### [facility] [address] [address] [address] Cecile Martins Bilirubin [Mass/Vol] 1.0 mg/dL Normal 0.2-1.0 [facility] Comment on above: Performed By: #### C MP #### [facility] [address] [place] [address] Dr. Cecile Martins Calcium [Mass/Vol] 8.9 mg/dL Normal 8.5-10.1 [facility] Comment on above: Performed By: #### C MP #### [facility] [address] [place] [address] Dr. Cecile Martins Chloride [Moles/Vol] 101 mmol/L Normal 98-107 [facility] Comment on above: Performed By: #### C MP #### [facility] [address] [place] [address] Dr. Cecile Martins CO2 [Moles/Vol] 25.0 mmol/L Normal 21.0-32.0 [facility] Comment on above: Performed By: #### C MP #### [facility] [address] [place] [address] Dr. Cecile Martins Creatinine [Mass/Vol] 1.23 mg/dL Normal 0.70-1.30 [facility] Comment on above: Performed By: #### C MP #### [facility] [address] [place] [address] Dr. Cecile Martins EGFR-AF NAURUAN >60 Normal >=60 [facility] Comment on above: Performed By: #### C MP #### [facility] [address] [place] [address] Dr. Cecile Martins EGFR-NON AF NAURUAN >60 Normal >=60 [facility] Comment on above: Performed By: #### C MP #### [facility] [address] [address] [address] Cecile Martins Globulin (S) [Mass/Vol] 3.5 g/dL Normal [facility] Comment on above: Performed By: #### C MP #### [facility] [address] [address] [address] Cecile Martins Glucose [Mass/Vol] 97 mg/dL Normal 74-106 [facility] Comment on above: Performed By: #### C MP #### [facility] [address] [address] [address] Cecile Martins Potassium [Moles/Vol] 3.5 mmol/L Normal 3.5-5.1 [facility] Comment on above: Performed By: #### C MP #### [facility] [address] [place] [address] Dr. Cecile Martins Protein [Mass/Vol] 7.8 g/dL Normal 6.4-8.2 [facility] Comment on above: Performed By: #### C MP #### [facility] [address] [place] [address] Dr. Cecile Martins Sodium [Moles/Vol] 135 mmol/L Critically low 136-145 Th [facility] Comment on above: Performed By: #### C MP #### [facility] [address] [place] [address] Dr. Cecile Martins Urea nitrogen [Mass/Vol] 7.0 mg/dL Normal 7.0-18.0 [facility] Comment on above: Performed By: #### C MP #### [facility] [address] [address] [address] Cecile Martins Urea nitrogen/Creatinine [Mass ratio] 5.7 mg/mg Normal [facility] Comment on above: Performed By: #### C MP #### [facility] [address] [place] [address] Dr. Cecile Martins XR CHEST 1 Von [...] Gareth EMERY Date: 2021-11-19 05:51 Normal [facility] Covid-19 PCR ([facility])on SARS-CoV-2 (COVID-19) RNA BARBARA+probe Ql (Unsp spec) Not detected Normal NOT DETECTED [facility] Comment on above: Result Comment: This test is not yet approved or cleared by the [place] FDA. When there are no FDA-approved or cleared tests available, and other criteria are met, FDA can make tests available under an emergency access mechanism called an Emergency Use Authorization (EUA). The EUA for this test is supported by the [employer] of Health and Human Service's (HHS's) declaration [...] consistent with SARS-CoV-2. Performed By: #### [facility] #### [facility] [address] [place] [address] Dr. Cecile Martins XR KNEE LT 4V [...] BUD NAVARRO Date: 2021-09-09 10:20 Normal [facility] CBC AUTO DIFFon 07-13-2021 BASO # 0.1 103/ul Normal 0.0-0.1 [facility] Comment on above: Performed By: #### C VDTBH #### [facility] [address] [place] [address] Dr. Cecile Martins Basophils/100 WBC (Bld) 1.2 % Normal 0.2-2.0 [facility] Comment on above: Performed By: #### C VDTBH #### [facility] [address] [place] [address] Dr. Cecile Martins EO # 0.3 103/ul Normal 0.0-0.7 [facility] Comment on above: Performed By: #### C VDTBH #### [facility] [address] [place] [address] Dr. Cecile Martins Eosinophils/100 WBC (Bld) 3.7 % Normal 0.9-7.0 [facility] Comment on above: Performed By: #### C VDTBH #### [facility] [address] [place] [address] Dr. Cecile Martins Erythrocyte distribution width (RBC) [Ratio] 12.0 % Normal 11.0-15.0 [facility] Comment on above: Performed By: #### C VDTBH #### [facility] [address] [place] [address] Dr. Cecile Martins Hematocrit (Bld) [Volume fraction] 46.3 % Normal 42.0-54.0 [facility] Comment on above: Performed By: #### C VDTBH #### [facility] [address] [place] [address] Dr. Cecile Martins Hemoglobin (Bld) [Mass/Vol] 15.8 g/dL Normal 14.0-18.0 [facility] Comment on above: Performed By: #### C VDTBH #### [facility] [address] [place] [address] Dr. Cecile Martins IG # 0.01 10e3/ul Normal 0.00-0.03 [facility] Comment on above: Performed By: #### C VDTBH #### [facility] [address] [place] [address] Dr. Cecile Martins IG % 0.1 % Normal 0.0-0.5 [facility] Comment on above: Performed By: #### C VDTBH #### [facility] [address] [place] [address] Dr. Cecile Martins LYMPH # 2.0 103/ul Normal 1.2-3.8 [facility] Comment on above: Performed By: #### C VDTBH #### [facility] [address] [place] [address] Dr. Cecile Martins Lymphocytes/100 WBC (Bld) 24.5 % Normal 20.5-60.0 [facility] Comment on above: Performed By: #### C VDTBH #### [facility] [address] [place] [address] Dr. Cecile Martins MANUAL DIFF REQ NO Normal [facility] Comment on above: Performed By: #### C VDTBH #### [facility] [address] [place] [address] Dr. Cecile Martins MCH (RBC) [Entitic mass] 30.6 pg Normal 25.9-34.0 [facility] Comment on above: Performed By: #### C VDTBH #### [facility] [address] [place] [address] Dr. Cecile Martins MCHC (RBC) [Mass/Vol] 34.1 g/dL Normal 29.9-35.2 [facility] Comment on above: Performed By: #### C VDTBH #### [facility] [address] [place] [address] Dr. Cecile Martins MCV (RBC) [Entitic vol] 89.6 fL Normal 80.0-94.0 [facility] Comment on above: Performed By: #### C VDTBH #### [facility] [address] [place] [address] Dr. Cecile Martins MONO # 0.7 103/ul Normal 0.3-0.8 [facility] Comment on above: Performed By: #### C VDTBH #### [facility] [address] [place] [address] Dr. Cecile Martins Monocytes/100 WBC (Bld) 8.1 % Normal 1.7-12.0 [facility] Comment on above: Performed By: #### C VDTBH #### [facility] [address] [place] [address] Dr. Cecile Martins NEUT # 5.2 103/ul Normal 1.4-6.5 [facility] Comment on above: Performed By: #### C VDTBH #### [facility] [address] [place] [address] Dr. Cecile Martins Neutrophils/100 WBC (Bld) 62.4 % Normal 43.0-75.0 [facility] Comment on above: Performed By: #### C VDTBH #### [facility] [address] [place] [address] Dr. Cecile Martins Platelet mean volume (Bld) [Entitic vol] 10.1 fL Normal 9.5-13.5 [facility] Comment on above: Performed By: #### C VDTBH #### [facility] [address] [place] [address] Dr. Cecile Martins PLT 380 103/ul Normal 150-450 [facility] Comment on above: Performed By: #### C VDTBH #### [facility] [address] [place] [address] Dr. Cecile Martins RBC 5.17 106/ul Normal 4.70-6.10 [facility] Comment on above: Performed By: #### C VDTBH #### [facility] [address] [place] [address] Dr. Cecile Martins WBC 8.3 103/ul Normal 4.0-11.0 [facility] Comment on above: Performed By: #### C VDTBH #### [facility] [address] [place] [address] Dr. Cecile Martins DRUG SCREEN RAPID (URINE)on 07-13-2021 AMP Negative Normal NEGATIVE [facility] Comment on above: Performed By: #### E RUR, DRUGRPD #### [facility] [address] [place] [address] Dr. Cecile Martins BAR Negative Normal NEGATIVE [facility] Comment on above: Performed By: #### E RUR, DRUGRPD #### [facility] [address] [place] [address] Dr. Cecile Martins BUP Negative Normal NEGATIVE [facility] Comment on above: Performed By: #### E RUR, DRUGRPD #### [facility] [address] [place] [address] Dr. Cecile Martins BZO Negative Normal NEGATIVE [facility] Comment on above: Performed By: #### E RUR, DRUGRPD #### [facility] [address] [place] [address] Dr. Cecile Martins PEYTON Negative Normal NEGATIVE [facility] Comment on above: Performed By: #### E RUR, DRUGRPD #### [facility] [address] [place] [address] Dr. Cecile Martins CUT-OFFS SEE BELOW Normal [facility] Comment on above: Result Comment: AMP [...] Performed By: #### E RUR, DRUGRPD #### [facility] [address] [place] [address] Dr. Cecile Martins DRUG CUT HEADER DRUG CLASS TEST SYST EM CUT-OFF CONCENTRATIONS ARE FOLLOWS: Normal [facility] Comment on above: Performed By: #### E RUR, DRUGRPD #### [facility] [address] [place] [address] Dr. Cecile Martins mAMP Negative Normal NEGATIVE [facility] Comment on above: Performed By: #### E RUR, DRUGRPD #### [facility] [address] [place] [address] Dr. Cecile Martins MTD Negative Normal NEGATIVE [facility] Comment on above: Performed By: #### E RUR, DRUGRPD #### [facility] [address] [place] [address] Dr. Cecile Martins OPI Negative Normal NEGATIVE [facility] Comment on above: Performed By: #### E RUR, DRUGRPD #### [facility] [address] [place] [address] Dr. Cecile Martins OXY Negative Normal NEGATIVE [facility] Comment on above: Performed By: #### E RUR, DRUGRPD #### [facility] [address] [place] [address] Dr. Cecile Martins PCP Negative Normal NEGATIVE [facility] Comment on above: Performed By: #### E RUR, DRUGRPD #### [facility] [address] [place] [address] Dr. Cecile Martins PPX Negative Normal NEGATIVE [facility] Comment on above: Performed By: #### E RUR, DRUGRPD #### [facility] [address] [place] [address] Dr. Cecile Martins TCA Negative Normal NEGATIVE [facility] Comment on above: Performed By: #### E RUR, DRUGRPD #### [facility] [address] [place] [address] Dr. Cecile Martins THC Positive Abnormal NEGATIVE [facility] Comment on above: Performed By: #### E RUR, DRUGRPD #### [facility] [address] [place] [address] Dr. Cecile Martins ER URINE PROFILEon 2 Bilirubin Ql (U) Negative Normal NEGATIVE [facility] Comment on above: Performed By: #### E RUR, DRUGRPD #### [facility] [address] [place] [address] Dr. Cecile Martins Clarity (U) CLEAR Normal CLEAR [facility] Comment on above: Performed By: #### E RUR, DRUGRPD #### [facility] [address] [place], [place] [id number] Dr. Cecile Martins Color (U) YELLOW Normal YELLOW [facility] Comment on above: Performed By: #### E RUR, DRUGRPD #### [facility] [address] [place] [address] Dr. Cecile ALONSO A micrscopic examina tion will be performed if indicated. Normal [facility] Comment on above: Performed By: #### E RUR, DRUGRPD #### [facility] [address] [place] [address] Dr. Cecile Martins Glucose Ql (U) Negative Normal NEGATIVE [facility] Comment on above: Performed By: #### E RUR, DRUGRPD #### [facility] [address] [place] [address] Dr. Cecile Martins Hemoglobin Ql (U) Negative Normal NEGATIVE [facility] Comment on above: Performed By: #### E RUR, DRUGRPD #### [facility] [address] [place] [address] Dr. Cecile Martins Ketones Ql (U) Negative Normal NEGATIVE [facility] Comment on above: Performed By: #### E RUR, DRUGRPD #### [facility] [address] [place] [address] Dr. Cecile Martins LEUKOCYTES Negative Normal NEGATIVE [facility] Comment on above: Performed By: #### E RUR, DRUGRPD #### [facility] [address] [place] [address] Dr. Cecile Martins Nitrite Ql (U) Negative Normal NEGATIVE [facility] Comment on above: Performed By: #### E RUR, DRUGRPD #### [facility] [address] [place] [address] Dr. Cecile Martins pH (U) 5.5 [pH] Normal 5-9 [facility] Comment on above: Performed By: #### E RUR, DRUGRPD #### [facility] [address] [place] [address] Dr. Cecile Martins SPEC GRAVITY 1.025 Normal 1.005-<=1.025 [facility] Comment on above: Performed By: #### E RUR, DRUGRPD #### [facility] [address] [place] [address] Dr. Cecile Martins UA PROTEIN Negative Normal NEGATIVE/ TRACE [facility] Comment on above: Performed By: #### E RUR, DRUGRPD #### [facility] [address] [place] [address] Dr. Cecile Martins UR MICRO IND NOT INDICATED Normal [facility] Comment on above: Performed By: #### E RULauryn, DRUGRPD #### [facility] [address] [place] [address] Dr. Cecile Martins Urobilinogen Qn (U) 0.2 {Ally'U}/dL Normal 0.2 - 1. 0 [facility] Comment on above: Performed By: #### E MOUSTAPHA DRUGRPD #### [facility] [address] [place] [address] Dr. Cecile Martins PROF 14(COMP METB)on 022 Albumin [Mass/Vol] 4.5 g/dL Normal 3.4-5.0 [facility] Comment on above: Performed By: #### C VDTBH #### [facility] [address] [place] [address] Dr. Cecile Martins Albumin/Globulin [Mass ratio] 1.3 {ratio} Normal [facility] Comment on above: Performed By: #### C VDTBH #### [facility] [address] [place] [address] Dr. Cecile Martins ALP [Catalytic activity/Vol] 91 U/L Normal 46-116 [facility] Comment on above: Performed By: #### C VDTBH #### [facility] [address] [place] [address] Dr. Cecile Martins ALT [Catalytic activity/Vol] 48 U/L Normal 16-63 [facility] Comment on above: Performed By: #### C VDTBH #### [facility] [address] [place] [address] Dr. Cecile Martins Anion gap [Moles/Vol] 10.9 mmol/L Normal [facility] Comment on above: Performed By: #### C VDTBH #### [facility] [address] [address] [address] Cecile Martins AST [Catalytic activity/Vol] 26 U/L Normal 15-37 [facility] Comment on above: Performed By: #### C VDTBH #### [facility] [address] [address] [address] Cecile Martins Bilirubin [Mass/Vol] 0.5 mg/dL Normal 0.2-1.0 [facility] Comment on above: Performed By: #### C VDTBH #### [facility] [address] [address] [address] Cecile Martins Calcium [Mass/Vol] 9.4 mg/dL Normal 8.5-10.1 [facility] Comment on above: Performed By: #### C VDTBH #### [facility] [address] [place] [address] Dr. Cecile Martins Chloride [Moles/Vol] 104 mmol/L Normal 98-107 [facility] Comment on above: Performed By: #### C VDTBH #### [facility] [address] [address] [address] Cecile Martins CO2 [Moles/Vol] 28.1 mmol/L Normal 21.0-32.0 [facility] Comment on above: Performed By: #### C VDTBH #### [facility] [address] [address] [address] Cecile Martins Creatinine [Mass/Vol] 1.01 mg/dL Normal 0.70-1.30 [facility] Comment on above: Performed By: #### C VDTBH #### [facility] [address] [address] [address] Cecile Martins EGFR-AF NAURUAN >60 Normal >=60 [facility] Comment on above: Performed By: #### C VDTBH #### [facility] [address] [address] [address] Cecile Martins EGFR-NON AF NAURUAN >60 Normal >=60 [facility] Comment on above: Performed By: #### C VDTBH #### [facility] [address] [address] [address] Cecile Martins Globulin (S) [Mass/Vol] 3.4 g/dL Normal [facility] Comment on above: Performed By: #### C VDTBH #### [facility] [address] [address] [address] Cecile Martins Glucose [Mass/Vol] 86 mg/dL Normal 74-106 [facility] Comment on above: Performed By: #### C VDTBH #### [facility] [address] [place] [address] Dr. Cecile Martins Potassium [Moles/Vol] 4.0 mmol/L Normal 3.5-5.1 [facility] Comment on above: Performed By: #### C VDTBH #### [facility] [address] [place] [address] Dr. Cecile Martins Protein [Mass/Vol] 7.9 g/dL Normal 6.4-8.2 [facility] Comment on above: Performed By: #### C VDTBH #### [facility] [address] [place] [address] Dr. Cecile Martins Sodium [Moles/Vol] 139 mmol/L Normal 136-145 [facility] Comment on above: Performed By: #### C VDTBH #### [facility] [address] [place] [address] Dr. Cecile Martins Urea nitrogen [Mass/Vol] 12.0 mg/dL Normal 7.0-18.0 [facility] Comment on above: Performed By: #### C VDTBH #### [facility] [address] [place] [address] Dr. Cecile Martins Urea nitrogen/Creatinine [Mass ratio] 11.9 mg/mg Normal [facility] Comment on above: Performed By: #### C VDTBH #### [facility] [address] [place] [address] Dr. Cecile Martins XR KUB 1 VIEWon [...] by: ISABEL DYER Date: 2021-07-13 14:34 Normal [facility] Vital Signs Date Time Vital Sign Value Performing Clinician Facility 12-16-2022 21:58-0400 Body height 177.8 cm PHYSICIAN NO [facility] 12-16-2022 21:58-0400 Body temperature 98.6 [degF] PHYSICIAN NO [facility] 12-16-2022 21:58-0400 Body weight 123.6 kg PHYSICIAN NO [facility] 12-16-2022 21:58-0400 Diastolic blood pressure 75 mm[Hg] PHYSICIAN NO [facility] 12-16-2022 21:58-0400 Heart rate 95 /min PHYSICIAN NO [facility] 12-16-2022 21:58-0400 Respiratory rate 18 /min PHYSICIAN NO [facility] 12-16-2022 21:58-0400 SaO2% (BldA) [Mass fraction] 96 % PHYSICIAN NO [facility] 12-16-2022 21:58-0400 Systolic blood pressure 141 mm[Hg] PHYSICIAN NO [facility] 10-12-2022 03:30-0400 Diastolic blood pressure 71 mm[Hg] PHYSICIAN NO [facility] 10-12-2022 03:30-0400 Heart rate 100 /min PHYSICIAN NO [facility] 10-12-2022 03:30-0400 SaO2% (BldA) [Mass fraction] 96 % PHYSICIAN NO [facility] 10-12-2022 03:30-0400 Systolic blood pressure 141 mm[Hg] PHYSICIAN NO [facility] 10-12-2022 02:05-0400 Respiratory rate 24 /min PHYSICIAN NO [facility] 10-12-2022 01:59-0400 Body height 180.34 cm PHYSICIAN NO [facility] 10-12-2022 01:59-0400 Body weight 122.1 kg PHYSICIAN NO [facility] 10-12-2022 01:58-0400 Body temperature 100.5 [degF] PHYSICIAN NO [facility] 07-22-2022 05:47-0400 Body height 177.8 cm PHYSICIAN NO [facility] 07-22-2022 05:47-0400 Body temperature 98 [degF] PHYSICIAN NO [facility] 07-22-2022 05:47-0400 Body weight 121.05 kg PHYSICIAN NO [facility] 07-22-2022 05:47-0400 Diastolic blood pressure 94 mm[Hg] PHYSICIAN NO [facility] 07-22-2022 05:47-0400 Heart rate 64 /min PHYSICIAN NO [facility] 07-22-2022 05:47-0400 Respiratory rate 20 /min PHYSICIAN NO [facility] 07-22-2022 05:47-0400 SaO2% (BldA) [Mass fraction] 98 % PHYSICIAN NO [facility] 07-22-2022 05:47-0400 Systolic blood pressure 145 mm[Hg] PHYSICIAN NO [facility] 01-01-2022 07:30-0500 Body temperature 97.8 [degF] MD Carmen Huff Work Phone: [facility] 01-01-2022 07:30-0500 Diastolic blood pressure 77 mm[Hg] MD Carmen Huff Work Phone: [facility] 01-01-2022 07:30-0500 Heart rate 89 /min MD Carmen Huff Work Phone: [facility] 01-01-2022 07:30-0500 Respiratory rate 16 /min MD Carmen Huff Work Phone: [facility] 01-01-2022 07:30-0500 SaO2% (BldA) [Mass fraction] 96 % MD Carmen Huff Work Phone: [facility] 01-01-2022 07:30-0500 Systolic blood pressure 128 mm[Hg] MD Carmen Huff Work Phone: [facility] 12-29-2021 14:47-0500 Body height 180.34 cm MD Carmen Huff Work Phone: [facility] 12-28-2021 16:53-0500 Body weight 122.46 kg MD Carmen Huff Work Phone: [facility] Encounters Encounter Date Encounter Type Care Provider Facility Start: 10-19-2023 End: 10-19-2023 ambulatory Kay L Parish Facility:[facility] Start: 09-26-2023 End: 09-26-2023 ambulatory MD Carlos Espinoza Facility: [facility] Start: 09-01-2023 End: 09-01-2023 ambulatory Felipe Garza Facility:[facility] Start: 09-01-2023 End: 09-01-2023 Patient encounter procedure Felipe Garza [facility] Start: 08-09-2023 End: 08-09-2023 ambulatory Kay L Parish Facility: [facility] Start: 07-19-2023 End: 07-19-2023 ambulatory Kay L Parish Facility: [facility] Start: 07-12-2023 End: 07-12-2023 Lab Drop off Kay L Parish [facility] Start: 07-12-2023 End: 07-12-2023 ambulatory Kay L Parish Facility: [facility] Start: 04-26-2023 End: 04-26-2023 ambulatory Amos PADILLA Facility:[facility] Start: 12-16-2022 End: 12-17-2022 Emergency department patient visit Johnathan Isbell Facility:[facility] Start: 12-16-2022 End: 12-17-2022 Emergency department patient visit PHYSICIAN ARIAS KHAN [facility] Work Phone: Start: 10-12-2022 End: 10-12-2022 Emergency department patient visit Coco Landry Jr Facility:[facility] Start: 10-12-2022 End: 10-12-2022 Emergency department patient visit PHYSICIAN NO [facility] Work Phone: Start: 08-19-2022 End: 08-19-2022 Lab Drop off Kay Christian Lugo [facility] Start: 07-22-2022 End: 07-22-2022 Emergency department patient visit PHYSICIAN NO Facility:[facility] Start: 07-22-2022 End: 07-22-2022 Emergency department patient visit PHYSICIAN NO [facility] Work Phone: Start: 06-03-2022 End: 06-03-[address] ALEX PITTMAN Facility:[facility] Start: 05-20-2022 End: 05-20-2022 ambulatory FLOWER RICHARDS . Facility:[facility] Start: 02-10-2022 End: 02-10-2022 ambulatory JESUS ALBERTO LEVY . Facility:[facility] Start: 01-19-2022 End: 01-20-[address] ANH WEST . Facility:[facility] Start: 12-28-2021 End: 01-01-2022 Evaluation and management of inpatient Peter Grady Facility:[facility] Start: 12-28-2021 End: 01-01-2022 Evaluation and management of inpatient MD Carmen Huff Work Phone: [facility] Start: 12-28-2021 End: 12-28-2021 ambulatory [...] with contrast CT abdomen pelvis w con [facility] Start: 12-16-2022 CT Abdomen and Pelvi s W contrast IV [facility] Start: 10-12-2022 Bacteria identified in Blood by Culture Blood Culture [facility] Start: 10-12-2022 Plain chest X-ray XR chest 1V portab le [facility] Start: 10-12-2022 XR Chest Single view [facility] Start: 01-01-2022 [facility] Start: 12-28-2021 Hospital admission [facility] Patient Education [facility] Work Phone: Patient referral [facility] Work Phone: Immunizations Immunization Date Immunization Notes Care Provider Gera moon 04-22-2003 DTaP, unspecified formulation Mohamad Mouchli [facility] 04-22-2003 measles, mumps and rubella virus vaccine Mohamad Mouchli [facility] 04-22-2003 poliovirus vaccine, unspecified formulation Mohamad Mouchli [facility] 04-28-2001 DTaP, unspecified formulation Mohamad Mouchli [facility] 04-28-2001 poliovirus vaccine, unspecified formulation Mohamad Mouchli [facility] 12-26-2000 DTaP, unspecified formulation Mohamad Mouchli [facility] 12-26-2000 hepatitis B vaccine, pediatric or pediatric/adolescent dosage Mohamad Mouchli [facility] 12-26-2000 measles, mumps and rubella virus vaccine Mohamad Mouchli [facility] 12-26-2000 poliovirus vaccine, unspecified formulation Mohamad Mouchli [facility] 12-26-2000 varicella virus vaccine Moha mad Mouchli [facility] 07-29-1999 DTaP, unspecified formulation Mohamad Mouchli [facility] 07-29-1999 poliovirus vaccine, unspecified formulation Mohamad Mouchli [facility] 1997 hepatitis B vaccine, pediatric or pediatric/adolescent dosage Mohamad Mouchli [facility] Payers Date Payer Category Payer Self-pay [id number] 1997 Unknown [id number] 04.08. [id number]. 1997 Unknown [id number] 1997 Unknown [id number] 04.08.84 0.1.362128.3.579.2.59 1997 Unknown [id number] 04.08.84 0.1.378260.3.579.2.59 1997 Unknown [id number] 04.08.84 0.1.950468.3.579.2.59 1997 Unknown [id number] 2.16.84 0.1.948638.3.579.2.593 1997 Unknown [id number] 2.16.84 0.1.014482.3.579.2.593 1997 Unknown [id number] 2.16.84 0.1.245662.3.579.2.593 1997 Unknown [id number] 2.16.84 0.1.938106.3.579.2.593 1997 Unknown [id number] 2.16.8 40.1.254368.3.579.2.727 1997 Unknown [id number] 2.16.8 40.1.620782.3.579.2.727 1997 Unknown [id number] 2.16.8 40.1.743439.3.579.2.727 1997 Unknown [id number] 2.16.8 40.1.834362.3.579.2.727 1997 Unknown [id number] 2.16.8 40.1.005146.3.579.2.727 1997 Unknown [id number] 2.16.8 40.1.033777.3.579.2.727 1997 Unknown [id number] 2.16.8 40.1.969903.3.579.2.727 1959 Unknown [id number] 1959 Unknown [id number] Unknown Insurance No Card [id number] Unknown [id number] 2.16.8 40.1.210896.3.579.2.531 Unknown [id number] 2.16.8 40.1.741348.3.579.2.531 Unknown [id number] Unknown [id number] Social History Date Type Detail Facility Start: 12-29-2021 Tobacco smoking stat us NYIS Current Light tobacco smoker [facility] Start: 1995 Sex Assigned At Male F [facility] Start: 07-22-2022 End: 12-17-2022 Tobacco smoking status NHIS Smoker (finding) [facility] Start: 02-21-2013 History of tobacco use [facility] Tobacco Current vaping o r e-cigarette use Smokeless Tobacco Use:. Vaping [facility] Tobacco smoking status No Smokin g Status Entered [facility] Goals Date Patient Goal Desired Activity /State Functional Status Date Assessment Result Facility 01-01-2022 Functional status Patient at Baseline [facility] Work Phone: 12-28-2021 Functional status Functional Sta tus Comment One full meal/day and the rest is junk [facility] Work Phone: Mental Status Date Assessment Result Facility 01-01-2022 Cognitive function Cognitive Sta tus Patient at Baseline [facility] Work Phone: Clinical Notes 12-29-2021 to 01-01-2022 Note Date & Type Note Facility 01-01-2022 Discharge summary Note Date/Time January 01, 2022 10:11am [facility] [address] [place] [address] Discharge Summary Signed Patient: Clay Newton MR#: [id number] : 1995 Acct:[id number] Age/Sex: 26 / M Adm Date: 2 Loc: Room: [address] [place] [address]: Elizabet Grady MD Copies to: MD Nitish Heredia MD Kim E Knight, MD Sarah N LaMarca, RIM ROLLER OPERATOR~ Providers Date of Discharge: 01/01/22 Discharging Provider: [...] 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 Patient verbalizesintent to follow-up outpatient for counseling [...] PO QAM Qty: 30 0RF [facility] [Outside] - 01/04/22 8:00 am ( Therapy:?Tuesday01/04/22 [...] <Electronically signed by Nitish Galloway MD> 01/01/22 8418 [facility] Work Phone: 1(970) 733-604811-10-2022 Progress note Author Nitish Galloway [facility] December 31, 2021 7:07pm Note Date/Time December 31, 2021 10:49am [facility] [address] [place] [address] Psychiatry Progress Note Signed Patient: Clay Newton MR#: [id number] : 1995 Acct:[id number] Age/Sex: 26 / M Adm Date: 2 Loc: Room: [address] [place] [address] Type : ADM IN Attending Dr: Elizabet [...] signed by Nitish Galloway MD> 12/31/21 1907 [facility] Work Phone: 1(318) 817-634811-09-2022 Progress note Author Nitish Galloway [facility] December 30, 2021 8:44pm Note Date/Time December 30, 2021 1 2:08pm [facility] [address] [place] [address] Psychiatry Progress Note Signed Patient: Clay Newton MR#: [id number] : 1995 Acct:[id number] Age/Sex: 26 / M Adm Date: 2 Loc: Room: [address] [place] [address] Type : ADM IN Attending Dr: Elizabet [...] <Electronically signed by Nitish Galloway MD> 12/30/212043 [facility] Work Phone: 1(988) 478-213211-08-2022 History and physical note Author Nitish Galloway [facility] December 29, 2021 8:49pm Note Date/Time December 29, 2021 2 :55pm [facility] [address] [place] [address] Psychiatry H&P Signed Patient: Clay Newton MR#: [id number] : 1995 Acct:[id number] Age/Sex: 26 / M Adm Date: 2 Loc: Room: [address] [place] [address] Type: ADM IN Attending Dr: Elizabet Grady [...] he lives alone and 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 Appointment Type: Open Appointment Date:09/01/2023 01:30:00 PM Scheduled Provider:Osman Garcia MD Location:[facility] Diagnosis Onset Date Resolution Status Major depression, chronic ac surinder [facility] Work Phone: Evaluation noteNo assessment information available [facility] Work Phone: Hospital course Narrative No data available for this section [facility] Additional Instructions Regular diet No activity restrictions[facility] Work Phone: Hospital Discharge instructions Additional Instructions Follow-up with your dentist Return to ED if develop worsening symptoms or [facility] Work Phone: Hospital Discharge instructions No data available for this section [facility] Additional Instructions As we [...] done. This can be here or at [facility] Work Phone: Hospital Discharge instructions Additional Instructions Follow-up with your primary care doctor Return to ED for develop worsening [facility] Work Phone: Progress note No data available for this section [facility] Chief Complaint and Reason for Visit [...] DATE CREATED AUTHOR AUTHOR'S ORGANIZ ATION 12/28/2022 [facility] DATE CREATED AUTHOR AUTHOR'S ORGANIZ ATION 07/15/2023 [facility] DATE CREATED AUTHOR AUTHOR'S ORGANIZ ATION 09/06/2023 [facility] DATE CREATED AUTHOR AUTHOR'S TEOFILO ROYAL 10/20/2023 [facility] Goals (unrecognized section and content) Goals [...] BE BASED ON THE PRIMARY CLINICAL RECORDS. [facility]. provides no warranty or guarantee of the accuracy or completeness of information in this document.
[2024-04-30 17:05] LABS: Internal Control Within Normal Limits; Strep A Antigen Screen Negative
--- NOTE | 2024-04-30 17:17 | ED.URI1 ---
HPI - URI/Sore Throat General Chief Complaint: Upper Respiratory Infection Stated Complaint: weakness, cough, congestion Time Seen by Provider: 04/30/24 16:31 Source: patient Limitations: no limitations History of Present Illness HPI Narrative: Patient is a 28-year-old male who presents to the emergency department for 2-day history of upper respiratory symptoms, sore throat and cough. He states he feels achy and weak. He has had no objective fevers, vomiting or diarrhea. He has felt nauseous. He occasionally has some sputum production with no hemoptysis. No sick contacts in the home although there have been multiple people sick at his place of employment. No medications taken prior to arrival. He has had some diarrhea. Related Data Previous Rx's ?Medication ?Instructions ?Recorded qptkappsizfqqnd-movmjeuogpmpkfd-AE 10 ml PO Q6H PRN cold symptoms 04/30/24 2 mg-30 mg-10 mg/5 mL oral syrup #200 mL (Bromfed DM) ondansetron 4 mg disintegrating 4 mg PO Q6H PRN nausea and 04/30/24 tablet vomiting #12 tabs Allergies Allergy/AdvReac Type Severity Reaction Status Date / Time No Known Drug Allergies Allergy Verified 04/30/24 16:28 Review of Systems ROS Constitutional Reports: chills; Denies: fever Ears, nose, mouth, and throat Reports: throat pain and nasal congestion Cardiovascular Denies: chest pain Respiratory Reports: cough; Denies: shortness of breath Gastrointestinal Reports: nausea and diarrhea; Denies: vomiting Integumentary/Breast Denies: rash Neurological Denies: numbness in extremities or weakness in extremities Hematologic/Lymphatic Denies: easy bruising or easy bleeding PFSH PFS Social History Smoking status: Light tobacco smoker Little interest or pleasure in doing things: not at all Feeling down, depressed, or hopeless: not at all Exam Narrative Exam Narrative: Gen.: Awake, alert, in no distress Head: Normocephalic, atraumatic ENT: Moist mucous membranes, bilateral TMs clear, no pharyngeal erythema Respiratory: No respiratory distress, lungs clear bilaterally, no wheezing or rhonchi Cardio: Regular rate and rhythm Extremities: Moves extremities equally Psych: Normal mood and affect Neuro: No focal neuro deficit Skin: Warm, dry, intact Constitutional Vital Signs, click to edit/add: Last Vital Signs Temp 98.7 F 04/30/24 16:29 Pulse 77 04/30/24 16:29 Resp 20 04/30/24 16:29 BP 134/86 04/30/24 16:29 Pulse Ox 97 04/30/24 16:29 O2 Del Method Room Air 04/30/24 16:29 Course Vital Signs Vital signs: Vital Signs Temperature 98.7 F 04/30/24 16:29 Pulse Rate 77 04/30/24 16:29 Respiratory Rate 20 04/30/24 16:29 Blood Pressure 134/86 04/30/24 16:29 Pulse Oximetry 97 04/30/24 16:29 Oxygen Delivery Method Room Air 04/30/24 16:29 Temperature 98.7 F 04/30/24 16:29 Pulse Rate 77 04/30/24 16:29 Respiratory Rate 20 04/30/24 16:29 Blood Pressure 134/86 04/30/24 16:29 Pulse Oximetry 97 04/30/24 16:29 Oxygen Delivery Method Room Air 04/30/24 16:29 MDM - URI/Sore Throat MDM Narrative Medical decision making narrative: Strep screen is negative and two-view chest x-ray with no evidence of acute cardiopulmonary changes. Patient treated for likely viral illness with Decadron in the ER, Bromfed-DM and Zofran for home. Push fluids and return to the ER if symptoms change or worsen. Work note provided SUPERVISED APC VISIT, PHYSICIAN ATTESTATION: Based on the medical record the care appears appropriate. ? Medical Records Attestation: I reviewed the patient's medical records. Lab Data Attestation: I reviewed the patient's lab results. Labs: Lab Results 04/30/24 Range/Units 16:30 Streptococcus Screen Negative Imaging Data Chest x-ray: Attestation: I have reviewed the pertinent imaging results. Discharge Plan Discharge Chief Complaint: Upper Respiratory Infection Clinical Impression: Upper respiratory infection Patient Disposition: Home, Self-Care Time of Disposition Decision: 17:15 Condition: Good Prescriptions / Home Meds: New ehumntywvtqcurt-bshxkcujw-ZE [Bromfed DM] 2-30-10 mg/5 mL syrup 10 ml PO Q6H PRN (Reason: cold symptoms) Qty: 200 0RF ondansetron 4 mg tablet,disintegrating 4 mg PO Q6H PRN (Reason: nausea and vomiting) Qty: 12 0RF Print Language: Swedish Instructions: Upper Respiratory Infection (ED) Referrals: BLAYNE BAEZ [Primary Care Provider] - 1 week
[2024-04-30] MEDS: DEXAMETHASONE SOD PHOS 10 MG/ML VIAL PO (17:24)
== END 2024-04-30 17:29 | disposition home or self-care (01) ==
PROVIDERS: Physician Assistant; Emergency Provider Emergency Medicine; PCP Family Medicine
DX: J06.9 Acute upper respiratory infection, unspecified (principal); F17.200 Nicotine dependence, unspecified, uncomplicated
CPT/HCPCS: 71046; 87070; 87880; 99285; J1100